=== PATIENT | female | born 1940 | race Caucasian/White ===

== ENCOUNTER 2019-02-07 09:20 | Emergency (ER) | payer MEDICARE, OTHER, SELFPAY ==
[2019-02-07 09:21] VITALS: BP 160/73; PULSE 79; RESP 16; TEMP 36.4; O2SAT 96; BMI 36.3
--- NOTE | 2019-02-07 09:33 | ED.VISSUMM ---
- ER Visit Summary Date of Service: 02/07/19 Chief Complaint: Insect sting History of Present Illness: The patient is a 78 F who presents after a sting from a hornet. This occurred last week. She continues to have a localized reaction of the right breast. She went to an express care and they gave her Keflex and told her to take Benadryl at night. She states it itches locally around this area. No shortness of breath. No tongue swelling. No history of any anaphylaxis. Physical Examination: Vital signs reviewed. HEENT exam unremarkable. No tongue swelling. Heart is regular. Lungs are clear. Abdomen soft. Skin exam reveals locally on the right breast there is local area of hives. There is no erythema. Neurologic exam normal. Test Results: [] Emergency Department Course and Treatment: Patient continues to have a localized reaction to this insect sting. I will give her a 5-day course of prednisone. Hydrocortisone cream topically. She will follow-up with her PCP if symptoms persist. Treatment Plan: [] Disposition: Discharge Impression: Local reaction to insect sting This note was generated with [employer] dictation software. It may contain incorrect words, spelling, and punctuation that were not noted in review of the chart prior to signing ED Disposition - Plan for ED Patient: Referrals: Zach Tucker MD [Primary Care Provider] -
--- NOTE | 2019-02-07 09:35 | ED.DEP ---
ED Disposition - Plan for ED Patient: Disposition: Home or Assisted Living Instructions: ALLERGIC REACTION, Insect (General) Prescriptions: Prednisone [Deltasone] 40 mg PO DAILY #10 tab Prescription Printed Hydrocortisone 1% Crm [Hytone] 1 applic TOPICAL BID #1 tube Prescription Printed Referrals: Zach Tucker MD [Primary Care Provider] -
== END 2019-02-07 09:56 | disposition home or self-care (01) ==
PROVIDERS: Emergency Provider Emergency Medicine; Family Provider Family Medicine; PCP Family Medicine
DX: T63.481A Toxic effect of venom of other arthropod, accidental (unintentional), initial encounter (principal); E11.9 Type 2 diabetes mellitus without complications
CPT/HCPCS: 99282

== ENCOUNTER 2019-06-28 00:10 | Emergency (ER) | payer MEDICARE, OTHER, SELFPAY ==
[2019-06-28 00:11] VITALS: BP 169/74; PULSE 90; RESP 18; TEMP 36.8; O2SAT 93; BMI 36.3
--- NOTE | 2019-06-28 00:32 | RAD_ITS ---
STUDY: X-RAY - LUMBAR SPINE REASON FOR EXAM: Female, 79 years old. Fall TECHNIQUE: 3 view(s) of the lumbar spine were obtained. COMPARISON: None FINDINGS: There is a compression deformity of L1 with approximately 50% loss of vertebral body height. This could be a recent fracture. There is NO retropulsion or malalignment. The remainder of the vertebral bodies are intact. There is normal lumbar lordosis. There is no substantial scoliosis. Normal vertebral bodies and endplates. There is disc space narrowing at L4-5 and L5-S1. There is bilateral facet hypertrophy at L4-5 and L5-S1. The soft tissue structures are unremarkable. RAD/Lumbar Spine 2 or 3 Views IMPRESSION: There is a compression deformity of L1 with approximately 50% loss of vertebral body height. This could be a recent fracture. There is NO retropulsion or malalignment. The remainder of the vertebral bodies are intact. Electronically Signed: Abdelrahman Mathur MD at 1:00 EST , Service support ,
--- NOTE | 2019-06-28 00:32 | ED.VIS.GEN ---
History of Present Illness Chief Complaint: Back Informant: Patient Narrative: Stated that she tried to pull something out of her car today and it gave loose. She fell into the car next to her car in the garage. She then fell onto the ground. She is having pain in her low back. She has a history of L4-L5 disc removal per patient. She has a history of multiple herniated disc in her low back. She is not having radicular pain to her legs. No home treatment. She was having difficulty getting comfortable tonight to sleep and came in for further evaluation and treatment and pain control. No loss of bowel or bladder function. Past Medical History - Allergies and Home Meds Allergies/Adverse Reactions: Allergies spider venom Allergy (Verified 06/28/19 00:14) Swelling Sulfa (Sulfonamide Antibiotics) Allergy (Verified 06/28/19 00:14) Unknown metformin Adverse Reaction (Verified 06/28/19 00:14) Other bee stings Allergy (Uncoded 06/28/19 00:14) Swelling Primary Care Physician: Zach Tucker MD [Primary Care Provider] - Prior records reviewed: Yes Past Medical History: - - Carpal tunnel, lumbar disc disease Surgical History: - - Lumbar L4-L5, carpal tunnel Lives: With Family Smoking Status: Former smoker Alcohol: None Drugs: None Review of Systems General: Denies: Chills, Fever, Sweats Eyes: Denies: Visual changes - bilaterally, Diplopia ENT: Denies: Rhinorrhea, Sore throat Cardiovascular: Denies: Chest pain, Palpitations Respiratory: Denies: Dyspnea, Cough, Dyspnea on exertion Gastrointestinal: Denies: Abdominal pain, Nausea, Vomiting, Diarrhea, Melena, Hematochezia Genitourinary: Denies: Dysuria, Hematuria, Frequency Musculoskeletal: Reports: Back pain. Denies: Extremity Pain Skin: Denies: Rash, Wounds Neurological: Denies: Headache, Weakness, Numbness Physical Exam Vital Signs/Narrative: Vital Signs Temp Pulse Resp BP Pulse Ox 06/28/19 00:11 98.3 F 90 18 169/74 H 93 General: Well nourished, Well developed, No Acute Distress Head: Normocephalic, Atraumatic Eyes: Perrl, EOMI ENT: Moist mucous membranes, No rhinorrhea Neck: Supple, Nontender Cardiovascular: Regular rate, Regular rhythm, No murmurs Respiratory: No distress, CTA bilaterally, Chest nontender Abdomen: Soft, Nontender, Nondistended, Normal bowel sounds Back: Normal Inspection, - - Tenderness diffusely across her lower lumbar spine without swelling or deformity or contusion. Decreased range of motion secondary to pain. Negative straight leg raise test.. Negative for: Nontender, CVA tenderness Extremities: Nontender, No edema Skin: Normal color, No rash Neurological: Alert, Oriented x3, Cranial nerves II-XII grossly intact, Normal Strength, Normal Sensation Psychological: Normal affect, Normal Mood Diagnostic/Tx/Re-eval - Medical Decision Making Patient given injection of morphine. Lumbar x-ray obtained. Lumbar x-ray shows approximately 50% compression deformity of the superior aspect of L1. The patient has not had imaging study per patient in the last 30 years. She is unsure if this is chronic. She feels significantly better after morphine. Requesting discharge. We will follow-up with orthopedics for her L1 compression fracture. Given Vicodin for home. ED Disposition - Plan for ED Patient: Disposition: Home or Assisted Living Diagnosis: Lumbar compression fracture Instructions: Back Fracture (Compression Fracture) Prescriptions: Hydrocodone Bitart/Apap 5-325 [Kermit 5MG-325MG] 1 tab PO Q4H PRN PRN 2 Days #10 tab PRN Reason: Pain Prescription Printed Referrals: Zach Tucker MD [Primary Care Provider] - Gay Castro DO [STAFF PHYSICIAN] -
[2019-06-28] MEDS: Morphine 4 MG/ML Syringe IM (00:36)
[2019-06-28 01:36] VITALS: BP 144/71; PULSE 89; RESP 18; O2SAT 93
== END 2019-06-28 01:38 | disposition home or self-care (01) ==
PROVIDERS: Emergency Provider Emergency Medicine; Family Provider Family Medicine; PCP Family Medicine
DX: S32.059A Unspecified fracture of fifth lumbar vertebra, initial encounter for closed fracture (principal); S32.049A Unspecified fracture of fourth lumbar vertebra, initial encounter for closed fracture; W17.89XA Other fall from one level to another, initial encounter; Y93.9 Activity, unspecified; Y92.59 Other trade areas as the place of occurrence of the external cause; Y99.9 Unspecified external cause status; Z87.891 Personal history of nicotine dependence; Z88.2 Allergy status to sulfonamides
CPT/HCPCS: 72100; 99282

== ENCOUNTER 2019-07-02 00:15 | Inpatient (IN) | payer MEDICARE, OTHER, SELFPAY ==
[2019-07-01 23:01] VITALS: BMI 35.7
[2019-07-01 23:13] VITALS: BP 192/83; PULSE 81; RESP 22; TEMP 37; O2SAT 93
[2019-07-01 23:23] VITALS: BMI 35.7
[2019-07-02] VITALS (8 sets, daily range): BP systolic 142–187; BP diastolic 71–82; PULSE 74–86; RESP 14–18; TEMP 36.7–37.2; O2SAT 89–94
--- NOTE | 2019-07-02 00:19 | MRI_ITS ---
STUDY: MRI LUMBAR SPINE WITHOUT CONTRAST REASON FOR EXAM: Female, 79 years old. Fell 5 days ago with L1 compression fracture. TECHNIQUE: Standardized fat and water weighted pulse sequences were obtained in the sagittal and axial planes. COMPARISON: Lumbar spine radiographs 06/28/2019. FINDINGS: T11-T12: (Sagittal only). Normal endplates. Normal disc height and morphology. Normal central canal and bilateral intervertebral neural foramina. T12-L1: Normal T12 inferior endplate. Moderate right sided loss of vertebral body height due to recent compression fracture of the upper L1 vertebral body. This accounts for the increased disc space height. Normal central canal and bilateral lateral recesses. Mild degenerative facet arthropathy. Normal bilateral intervertebral neural foramina. Normal lumbar lordosis. There is no substantial scoliosis. Normal conus medullaris that terminates at the T12-L1 disc space level. L1-2: Normal endplates. Normal disc height. Small posterior bulging disc. Normal central canal and bilateral lateral recesses. Mild degenerative facet arthropathy. Normal bilateral intervertebral neural foramina. L2-3: Normal endplates. Normal disc height, hydration and morphology. Normal bilateral facet joints. Normal central canal and bilateral lateral recesses. Normal bilateral intervertebral neural foramina. L3-4: Normal endplates. Normal disc height. Moderate central canal stenosis with an AP canal diameter is 7 mm. Posterior ligamentum flavum hypertrophy. Moderate left degenerative facet hypertrophy. Mild right degenerative facet arthropathy. Normal bilateral intervertebral neural foramina. L4-5: Modic type II degenerative fatty changes underneath the vertebral endplates. Moderate disc space height narrowing. Normal central canal. Normal bilateral lateral recesses. Mild degenerative facet arthropathy. Normal bilateral intervertebral neural foramina. L5-S1: Modic type II degenerative vertebral marrow fatty changes underneath the vertebral endplates. Moderate disc space height narrowing. Normal central canal and bilateral lateral recesses. Mild left degenerative facet arthropathy. Normal right facet joint. Normal bilateral intervertebral neural foramina. Normal visualized sacral ala. Normal visualized paraspinous soft tissue structures. MRI/Spine Lumbar (Routine) IMPRESSION: 1. Moderate recent compression fracture of the upper L1 vertebral body. This is feasible for kyphoplasty if patient has debilitating back pain referrable to this site. 2. Moderate central canal stenosis at L3-L4 level with an AP canal diameter of 7 mm. 3. No MRI evidence of lumbar extruded disc fragment. Electronically Signed: Blanco Agarwal MD at 13:53 EST , Service support ,
--- NOTE | 2019-07-02 00:21 | HP.PCM_ITS ---
Problem List (1) Back pain Status: Acute Qualifiers: Back pain location: low back pain Chronicity: acute Back pain laterality: right Sciatica presence: without sciatica Qualified Code(s): M54.5 - Low back pain (2) Compression fracture of L1 lumbar vertebra Status: Suspected Qualifiers: Encounter type: subsequent encounter History of Present Illness Date of Admission: 07/01/19 Chief Complaint: back pain Patient seen and examined on July 01 The patient is a 79 year old F presents with back pain. On the , patient was pulling something out of her car and then fell backwards, initially hitting her head then landing on her buttocks. Patient had back pain immediately. Presented to the emergency room at [place] on the same day and was noted to have an L1 compression fracture. It was undetermined if it was acute or chronic. Patient was given prescription for [place]. Since being at home, she has been just having back pain, not tolerating the narcotics and been throwing up. Patient is unable to been adequately move because of all the pain in her back. She presented to [facility] with these complaints. She underwent a work-up including hip x-rays which showed no hip fracture. The emergency room physician reached out to Dr. Benz, who said he was see the patient in consultation here but did recommend an MRI to evaluate to see if this is acute or chronic. Patient did receive 8 mg of IV morphine sulfate at the [facility]. [] Past Medical History Medical History: Medical History (Last Updated 07/02/19 @ 00:29 by Kaiden Veloz DO) Class 1 obesity E66.9 DM2 (diabetes mellitus, type 2) E11.9 Fatty liver K76.0 GERD (gastroesophageal reflux disease) K21.9 History of hysterectomy Z90.710 Hyperlipidemia E78.5 Hypothyroid E03.9 Chronic back pain M54.9, G89.29 Allergies spider venom Allergy (Verified 06/28/19 00:14) Swelling Sulfa (Sulfonamide Antibiotics) Allergy (Verified 06/28/19 00:14) Unknown metformin Adverse Reaction (Verified 06/28/19 00:14) Other bee stings Allergy (Uncoded 06/28/19 00:14) Swelling Home Medications: Ambulatory Orders Medication Instructions Recorded Levothyroxine [Synthroid] 100 mcg PO DAILY 03/09/16 Meclizine HCl 25 mg PO DAILY PRN 03/09/16 Pantoprazole Sodium [Protonix] 40 mg PO QODAY 03/09/16 Aspirin [Aspirin, Baby] 81 mg PO QHS 07/08/17 Acetaminophen/Codeine #3 1 tab PO Q6H PRN PRN 06/28/19 [Tylenol#3] Multivitamin [Multivitamins] 1 tab PO DAILY 07/01/19 Surgical History: Surgical History (Last Updated 07/02/19 @ 00:29 by Kaiden Veloz DO) H/O lumbar discectomy Z98.890 History of tonsillectomy Z90.89 S/P carotid endarterectomy Z98.890 right 01/04/14 Surgical History: - - Lumbar L4-L5, carpal tunnel Smoking Status: Former smoker Tobacco Use: Non-smoker Alcohol: None Drugs: None - *Family History Maternal History Items: - - no cad Review of Systems Constitutional: Denies: Anorexia, Chills, Fever, Night Sweats, Malaise, Weakness Eyes: Denies: Blurred vision, Double vision HEENT: Denies: Head Aches, Sinus Congestion, Sinus Drainage Cardiovascular: Denies: Chest Pain, Palpitations Respiratory: Denies: Cough, Shortness of breath at rest, Sputum production Gastrointestinal: Reports: Nausea, Vomiting. Denies: Abdominal Pain Genitourinary: Denies: Dysuria Musculoskeletal: Reports: Back Pain. Denies: Leg Pain Skin: Denies: Dryness, Jaundice Neurological: Reports: Numbness - Chronic numbness in her legs after having herniated disks and surgery 30 years ago Psychiatric: Denies: Anxiety, Depression Endocrine: Denies: Change in Body Habitus Hematologic/ Lymphatic: Denies: Easy Bruising, Easy Bleeding, Hx of blood clot Comment: All review systems are otherwise negative except for as mentioned above and in the HPI. VTE Information - Inpt Only VTE Present on Admission: No VTE Mechan Device Prophylaxis: None VTE Pharm Prophylaxis ordered?: No Reason prophylaxis not ordered:: Procedure Not Indicated Patient Problems: Active and Suspected Problems Back pain (Acute) Compression fracture of L1 lumbar vertebra (Suspected) - Physical Exam Vitals/I&O's: Vital Signs Temp Pulse Resp BP Pulse Ox 37.0 C 81 22 H 192/83 H 93 07/01/19 23:13 07/01/19 23:13 07/01/19 23:13 07/01/19 23:13 07/01/19 23:13 Oxygen Delivery Method Room Air Weight: 94.4 kg Body Mass Index (BMI) 35.7 General: Alert, Cooperative, - - Uncomfortable. HEENT: Atraumatic, Normocephalic Oral: Moist Mucosa, No Gingival or Mucosal Lesions/ Ulcerations Neck: No Nodes, Trachea Midline Lungs: Clear to auscultation, Normal air movement, No rhonchi, No wheeze Cardiovascular: Regular rate, Regular Rhythm, Normal S1, Normal S2, No murmurs Abdomen: Bowel Sounds Present, Soft, Non Tender, Non-Distended, No Hepato- splenomegaly, Obese Extremities: No edema, No Calf Tenderness Skin: No rashes, No breakdown Musculoskeletal: - - Tender palpation over the right lower lumbar paraspinal muscles. No point tenderness over the lumbar region. Neurological: Motor Exam 5/5 strength throughout - In the lower extremities, - - Normal Babinski. No clonus. Psych/Mental Status: Normal Affect, Appropriate Labs at the outside hospital: BMP: Creatinine 0.64, sodium 135, potassium 4.1, CBC: White count 10.6, hemoglobin 13.5, platelets 298 INR 1 Hip x-ray of the right hip showed no fracture. Current Medications Sodium Chloride () 10 - 40 ml IV UD PRN PRN Reason: SALINE FLUSH Assessment/Plan All Active Problems Back pain (Acute) 1. Acute back pain * Occurred after fall on the * Patient has noted an L1 compression fracture, is unclear if that is new or old and if that is contributing to her pain. * Patient is unable to function at home due to the pain. * Plans for pain control with acetaminophen, oxycodone and morphine for breakthrough pain * Pain management to further assist with pain control and for the L1 compression fracture, see below. 2. L1 compression fracture * Suspect may be acute but cannot definitely say based on the x-ray * Will need to get an MRI to further evaluate if this is new or old. Patient expressed immediate apprehension about undergoing an MRI and stating that she needs to be knocked out for it and I informed patient that we do not do conscious sedation at this facility. Would be willing to give her lorazepam to help take some the edge off. She states that she will give it a try. Daughter was at bedside dictating that they could probably do it in the intervals of 20 minutes at a time. I did not endorse that as an option to the patient though. * Dr. Benz will be on consultation for pain control and possible kyphoplasty if she is deemed to have an acute significant L1 compression fracture 3. VTE prophylaxis: Low risk as patient is currently observation status at this point time. If the patient is to be here longer than would need to reconsider VTE prophylaxis at that point time. 4. Advanced care planning: Verified with the patient that she is full CODE STATUS. Patient seen and examined on July 01. Code Visit OBSV E&M: 16530 Initial observation care L3 - Billing for 07/01/19
[2019-07-02] MEDS: Morphine 2 MG/ML Syringe IV ×4 (00:39→16:32)
[2019-07-02] MEDS: 0.9% Saline Lock 10 ML Syringe IV ×4 (00:39→16:33)
--- NOTE | 2019-07-02 10:21 | PN_ITS ---
Patient Problems: Active and Suspected Problems (Last Updated 07/02/19 @ 00:29 by Kaiden Veloz DO) Back pain (Acute) Compression fracture of L1 lumbar vertebra (Suspected) Subjective: Patient seen and examined. She was admitted with complaint of back pain. She fell about 4 days prior to admission on reviewing the ED at that time, she was found to have L1 compression fracture which could not be determined whether it was acute or chronic. She was given a prescription for [place] but she had not been tolerating the [place] well at home and back pain was persistent so she decided to come back to the ED. She is awaiting MRI today. Patient still complains of back pain that she states is better controlled now. Review of systems otherwise negative. She denies any numbness or tingling in her lower extremities or any incontinence. She is awaiting MRI. Pain management consulted. Vitals/I&O's: Vital Signs Temp Pulse Resp BP Pulse Ox 98.9 F 80 18 151/76 H 89 07/02/19 07:51 07/02/19 07:51 07/02/19 08:12 07/02/19 07:51 07/02/19 08:12 Oxygen Delivery Method Room Air Weight: 208 lb 1.862 oz Body Mass Index (BMI) 35.7 Intake and Output for Last 24 Hours 06/30/19 07/01/19 07/02/19 23:59 23:59 23:59 Intake Total 300 / 300 Output Total 650 / 650 Balance -350 / -350 General: Alert, Oriented x3, Cooperative, No apparent distress, - - obese HEENT: Atraumatic, PERRLA, EOMI, Normocephalic Oral: Moist Mucosa Neck: Supple, No JVD, Negative Carotid Bruits Lungs: Clear to auscultation, Normal air movement, No rhonchi, No wheeze, No rales Cardiovascular: Regular rate, Regular Rhythm, Normal S1, Normal S2, No murmurs Abdomen: Bowel Sounds Present, Soft, Non Tender, Non-Distended, No Hepato-splenomegaly Extremities: No clubbing, No cyanosis, No edema, Capillary Refill Less than 3 Seconds Skin: No rashes, No breakdown Musculoskeletal: No Tenderness to Palpation of Joints or Extremities Lymphatic: No Cervical, Supraclavicular, or Inguinal Adenopathy Neurological: Cranial nerves II-XII grossly intact Psych/Mental Status: Normal Affect, Appropriate, Alert and oriented to time, place, person, mood and affect Laboratory Results 07/02/19 06:06: Vitamin D 25-Hydroxy Pending Current Medications Acetaminophen (Tylenol) 650 mg PO Q6H PRN PRN PRN Reason: Pain Score 1-3/Temp > 100.7 F Clonidine (Catapres) 0.1 mg PO Q4H PRN PRN PRN Reason: SBP>180 Dextrose (D50w Syringe) 0 gm IV X1 PRN; Protocol PRN Reason: Hypoglycemia Glucagon () 1 mg IM .X1 PRN PRN Reason: Hypoglycemia Lorazepam (Ativan) 1 mg PO X1 PRN PRN Reason: before MRI Melatonin (Melatonin) 3 mg PO QHS PRN PRN PRN Reason: INSOMNIA Morphine Sulfate () 2 mg IV Q3H PRN PRN PRN Reason: breakthrough pain (1-05/24) Last Admin: 07/02/19 09:06 Dose: 2 mg Documented by: Nutritional Formula (Lactose Free) (Ensure Enlive) 120 ml PO 4X/DAY [facility] Last Admin: 07/02/19 07:55 Dose: Not Given Documented by: Ondansetron HCl (Zofran) 4 mg IV Q8H PRN PRN PRN Reason: NAUSEA/VOMITING Oxycodone HCl (Oxyir) 5 mg PO Q4H PRN PRN PRN Reason: Pain Score 4-5/10 Oxycodone HCl (Oxyir) 10 mg PO Q4H PRN PRN PRN Reason: Pain Score 6-10/10 Sodium Chloride () 10 - 40 ml IV UD PRN PRN Reason: SALINE FLUSH Last Admin: 07/02/19 09:07 Dose: 10 ml Documented by: STROKE Vital Signs/Narrative: Vital Signs Temp Pulse Resp BP Pulse Ox 07/02/19 08:12 18 89 07/02/19 07:51 98.9 F 80 18 151/76 H 89 07/02/19 06:31 98.0 F 74 18 142/73 H 94 Medical Necessity - Tobacco Use Smoking Status: Former smoker Tobacco Use: Non-smoker Assessment/Plan All Active Problems (Last Updated 07/02/19 @ 00:29 by Kaiden Veloz DO) Back pain (Acute) 1. Acute back pain likely due to mechanical fall * had L1 compression fracture per xray * pain persistent and not relieved by [place] * pain management consulted. * for MRI of the lumbar spine today * On Tylenol oxycodone and morphine. * 2. L1 compression fracture * Unsure if it is acute or otherwise. * MRI is pending. Pain management on board. * 3. Hypothyroidism: On Synthroid. 4. Elevated blood pressure: * Blood pressure was elevated at 192/83 on admission and at review was 151/76. * Has no known diagnosis of her blood pressure. * This may be due to pain. Will monitor. * IV hydralazine PRN. * If Blood pressure remains elevated will consider starting medication. * DVT prophylaxis: SCDs for now. Code Visit Inpatient E&M: 60582 Subs Hosp L2
[2019-07-02] MEDS: LORazepam 1 MG Tablet PO (10:40)
[2019-07-02] MEDS: oxyCODONE 5 MG Tablet 10 MG PO (10:42)
[2019-07-02 11:01] LABS: Vitamin D,25 Hydroxy 33.5 ng/mL (29.95-100.01)
--- NOTE | 2019-07-02 18:36 | NURSING ---
Attempted to call Daughter Michelle at this time to update her on patient's plan of care and plan for Kyphoplasty Wednesday 07/04 but there was no answer.
[2019-07-02] MEDS: Bisacodyl 5 MG Tablet PO (18:51)
[2019-07-02 22:10] LABS: Bedside Glucose 170 mg/dL (70-110)
[2019-07-03] MEDS: 0.9% Saline Lock 10 ML Syringe IV ×5 (00:06→19:27)
[2019-07-03] MEDS: Morphine 2 MG/ML Syringe IV ×4 (00:06→19:27)
[2019-07-03] MEDS: Ondansetron 4 MG/2 ML Vial IV (00:31)
[2019-07-03 03:59] VITALS: BP 147/73; PULSE 74; RESP 16; TEMP 36.8; O2SAT 93
[2019-07-03 08:28] VITALS: BP 113/66; PULSE 73; RESP 18; TEMP 37; O2SAT 96
[2019-07-03] MEDS: Pantoprazole Sodium 40 MG Tablet PO (09:30)
[2019-07-03] MEDS: Levothyroxine 100 MCG Tablet PO (09:31)
[2019-07-03] MEDS: oxyCODONE 5 MG Tablet 10 MG PO (10:01)
--- NOTE | 2019-07-03 10:40 | PN_ITS ---
Patient Problems: Active and Suspected Problems (Last Updated 07/02/19 @ 00:29 by Kaiden Veloz DO) Back pain (Acute) Compression fracture of L1 lumbar vertebra (Suspected) Subjective: Patient seen and examined. She still complains of back pain. Review of systems is otherwise negative. Labs and vitals reviewed. She is scheduled for kyphoplasty tomorrow. Vitals/I&O's: Vital Signs Temp Pulse Resp BP Pulse Ox 98.6 F 73 18 113/66 96 07/03/19 08:28 07/03/19 08:28 07/03/19 08:28 07/03/19 08:28 07/03/19 08:28 Oxygen Delivery Method Room Air Weight: 208 lb 1.862 oz Body Mass Index (BMI) 35.7 Intake and Output for Last 24 Hours 07/01/19 07/02/19 07/03/19 23:59 23:59 23:59 Intake Total 1020 / 1020 Output Total 1050 / 1050 150 / 150 Balance -30 / -30 -150 / -150 General: Alert, Oriented x3, Cooperative, No apparent distress, HEENT: Atraumatic, PERRLA, EOMI, Normocephalic Oral: Moist Mucosa Neck: Supple, No JVD, Negative Carotid Bruits Lungs: Clear to auscultation, Normal air movement, No rhonchi, No wheeze, No rales Cardiovascular: Regular rate, Regular Rhythm, Normal S1, Normal S2, No murmurs Abdomen: Bowel Sounds Present, Soft, Non Tender, Non-Distended, No Hepato- splenomegaly Extremities: No clubbing, No cyanosis, No edema, Capillary Refill Less than 3 Seconds Skin: No rashes, No breakdown Musculoskeletal: No Tenderness to Palpation of Joints or Extremities Lymphatic: No Cervical, Supraclavicular, or Inguinal Adenopathy Neurological: Cranial nerves II-XII grossly intact Psych/Mental Status: Normal Affect, Appropriate, Alert and oriented to time, place, person, mood and affect Laboratory Results 07/02/19 06:06: Vitamin D 25-Hydroxy 33.5 07/02/19 22:03: POC Glucose 170 H Current Medications Acetaminophen (Tylenol) 650 mg PO Q6H PRN PRN PRN Reason: Pain Score 1-3/Temp > 100.7 F Bisacodyl (Dulcolax) 5 mg PO BID PRN PRN PRN Reason: Constipation Last Admin: 07/02/19 18:51 Dose: 5 mg Documented by: Clonidine (Catapres) 0.1 mg PO Q4H PRN PRN PRN Reason: SBP>180 Dextrose (D50w Syringe) 0 gm IV X1 PRN; Protocol PRN Reason: Hypoglycemia Glucagon () 1 mg IM .X1 PRN PRN Reason: Hypoglycemia Hydralazine HCl (Apresoline Iv) 10 mg IV Q6H PRN PRN PRN Reason: BLOOD PRESSURE ELEVATION Levothyroxine Sodium (Synthroid) 100 mcg PO DAILY@0600 [facility] Last Admin: 07/03/19 09:31 Dose: 100 mcg Documented by: Lorazepam (Ativan) 1 mg PO X1 PRN PRN Reason: before MRI Last Admin: 07/02/19 10:40 Dose: 1 mg Documented by: Meclizine HCl (Antivert) 25 mg PO DAILY PRN PRN Reason: migraines Melatonin (Melatonin) 3 mg PO QHS PRN PRN PRN Reason: INSOMNIA Morphine Sulfate () 2 mg IV Q3H PRN PRN PRN Reason: breakthrough pain (1-05/24) Last Admin: 07/03/19 06:44 Dose: 2 mg Documented by: Multivitamins (Multivitamin) 1 tablet PO DAILY@0800 [facility] Nutritional Formula (Lactose Free) (Ensure Enlive) 120 ml PO 4X/DAY [facility] Last Admin: 07/03/19 08:30 Dose: 120 ml Documented by: Ondansetron HCl (Zofran) 4 mg IV Q8H PRN PRN PRN Reason: NAUSEA/VOMITING Last Admin: 07/03/19 00:31 Dose: 4 mg Documented by: Oxycodone HCl (Oxyir) 5 mg PO Q4H PRN PRN PRN Reason: Pain Score 4-5/10 Oxycodone HCl (Oxyir) 10 mg PO Q4H PRN PRN PRN Reason: Pain Score 6-10/10 Last Admin: 07/03/19 10:01 Dose: 10 mg Documented by: Pantoprazole Sodium (Protonix) 40 mg PO QODAY [facility] Last Admin: 07/03/19 09:30 Dose: 40 mg Documented by: Sodium Chloride () 10 - 40 ml IV UD PRN PRN Reason: SALINE FLUSH Last Admin: 07/03/19 06:44 Dose: 10 ml Documented by: STROKE Vital Signs/Narrative: Vital Signs Temp Pulse Resp BP Pulse Ox 07/03/19 08:28 98.6 F 73 18 113/66 96 Medical Necessity - Tobacco Use Smoking Status: Former smoker Tobacco Use: Non-smoker Assessment/Plan All Active Problems (Last Updated 07/02/19 @ 00:29 by Kaiden Veloz DO) Back pain (Acute) 1. 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 * 2. L1 compression fracture * as under 1. * * 3. Hypothyroidism: On Synthroid. 4. Elevated blood pressure: * no known diagnosis of hypertension * Bp was down to 113/66 this morning. * It appears as pain control has improved, patient;s BP has also improved. * Will continue monitoring. * IV hydralazine prn. * DVT prophylaxis: SCDs for now. Code Visit Inpatient E&M: 32127 Subs Hosp L2
--- NOTE | 2019-07-03 10:55 | CASEMGMT ---
RN CM Face to Face with patient for initial transition planning/care coordination assessment. RN CM introduced self and role at [facility]. Patient lying in bed, alert and oriented. Patient willing to participate in assessment and is able to answer all questions appropriately. Care providers, pharmacy, and demographics verified. Patient wishes to discharge home with possible HHC, also will consider SNF if recommended by therapy. Patient states she has no further needs or concerns at this time. CM to follow for discharge planning needs that may arise. PCP: [facility] Specialists: none Preferred [facility]acy: [facility] Insurance: Tereso REYES Prescription Benefit: yes Living Will/HPOA: Daughter Michelle Das LNOK: Daughter Living Arrangements: Patient lives with daughter in 2 story home with bed and bath on first, currently bed on second, patient independent at home prior to hospitalization and able to ambulate stairs. Transportation: self, daughter DME/HHC: Patient has BSC, cane, walker, wheelchair at home. Patient denies previous SNF or HHC. Disposition Plan: TBD, home with HHC vs SNF pending surgery and therapy. Linda DIAS, RN, CM
[2019-07-03 14:22] VITALS: BP 176/75; PULSE 86; RESP 18; TEMP 36.9; O2SAT 98
[2019-07-03 21:18] VITALS: BP 131/56; PULSE 77; RESP 16; TEMP 37.2; O2SAT 95
[2019-07-04] VITALS (10 sets, daily range): BP systolic 113–159; BP diastolic 49–76; PULSE 76–92; RESP 16–18; TEMP 36.2–36.9; O2SAT 88–95; BMI 35.7
[2019-07-04] MEDS: 0.9% Saline Lock 10 ML Syringe IV ×4 (01:09→10:02)
[2019-07-04] MEDS: Morphine 2 MG/ML Syringe IV ×3 (01:11→10:02)
[2019-07-04 06:03] LABS: Absolute Lymphocyte Count 2.27 X10^3/uL (0.83-4.51); Absolute Neutrophil Count 5.4 X10^3/uL (2.0-7.7); Basophil# 0.07 X10^3/uL; Basophil% 0.8 % (0-1); Eosinophil# 0.33 X10^3/uL; Eosinophils% 3.6 % (0-5); Hematocrit 38.3 % (37-47); Hemoglobin 12.5 g/dL (12.0-15.0); Lymphocyte # 2.27 X10^3/ul (4.0); Lymphocyte % 24.8 % (19-41); Mean Corp Hgb Conc 32.6 g/dL (32-36); Mean Corpuscular Hgb 32.3 pg (27.0-32.0); Mean Platelet Vol. 10.1 fl (6.2-12.0); Monocyte# 1.05 X10^3/uL; Monocyte% 11.5 % (0-10); NRBC Flagged by Analyzer 0 % (0-5); Neutrophil # 5.39 X10^3/uL (2.7-7.7); Neutrophil % 58.9 % (47-70); Platelet Count 314 K/mm3 (150-450); RBC Distribution Width SD 46.5 fl (35.1-43.9); Red Blood Count 3.87 M/mm3 (4.2-5.4); White Blood Count 9.2 K/mm3 (4.4-11.0)
[2019-07-04 06:05] LABS: Prothrombin Time (Protime)PT. 13.1 SECONDS (11.7-14.9)
[2019-07-04 06:23] LABS: Anion Gap 7 (5-15); BUN 17 mg/dL (7-18); BUN/Creat Ratio 24.2 RATIO (10-20); Calcium,Total 9.3 mg/dL (8.5-10.1); Chloride 100 mmol/L (98-107); EST Glomerular Filtration Rate 85 mL/min (>60); Est Glom Filt Rate - Afr Amer 103 mL/min (>60); Estimated Creatinine Clearance 38.75 ml/min; Glucose 134 mg/dL (74-106); Potassium 4.2 mmol/L (3.5-5.1); Sodium Level 135 mmol/L (136-145)
--- NOTE | 2019-07-04 09:57 | PCM.PN.HOSP ---
Patient Problems: Active and Suspected Problems (Last Updated 07/02/19 @ 00:29 by Kaiden Veloz DO) Back pain (Acute) Compression fracture of L1 lumbar vertebra (Suspected) Subjective: Patient seen and examined. Pain is well controlled. She has no other complaints. She is going for kyphoplasty this afternoon. Review of systems otherwise negative. Vitals/I&O's: Vital Signs Temp Pulse Resp BP Pulse Ox 98.4 F 76 18 135/61 H 93 07/04/19 04:32 07/04/19 04:32 07/04/19 04:32 07/04/19 04:32 07/04/19 04:32 Oxygen Delivery Method Room Air Weight: 208 lb 1.862 oz Body Mass Index (BMI) 35.7 Intake and Output for Last 24 Hours 07/02/19 07/03/19 07/04/19 23:59 23:59 23:59 Intake Total 1020 / 1020 400 / 520 120 / 120 Output Total 1050 / 1050 250 / 750 775 / 775 Balance -30 / -30 150 / -230 -655 / -655 General: Alert, Oriented x3, Cooperative, No apparent distress, HEENT: Atraumatic, PERRLA, EOMI, Normocephalic Oral: Moist Mucosa Neck: Supple, No JVD, Negative Carotid Bruits Lungs: Clear to auscultation, Normal air movement, No rhonchi, No wheeze, No rales Cardiovascular: Regular rate, Regular Rhythm, Normal S1, Normal S2, No murmurs Abdomen: Bowel Sounds Present, Soft, Non Tender, Non-Distended, No Hepato-splenomegaly Extremities: No clubbing, No cyanosis, No edema, Capillary Refill Less than 3 Seconds Skin: No rashes, No breakdown Musculoskeletal: No Tenderness to Palpation of Joints or Extremities Lymphatic: No Cervical, Supraclavicular, or Inguinal Adenopathy Neurological: Cranial nerves II-XII grossly intact Psych/Mental Status: Normal Affect, Appropriate, Alert and oriented to time, place, person, mood and affect Laboratory Results 07/04/19 05:30: WBC 9.2, RBC 3.87 L, Hgb 12.5, Hct 38.3, MCV 99.0, MCH 32.3 H, MCHC 32.6, RDW Std Deviation 46.5 H, RDW Coeff of Yuval 13.0, Plt Count 314, MPV 10.1, Immature Gran % (Auto) 0.400, Neut % (Auto) 58.9, Lymph % (Auto) 24.8, [place] % (Auto) 11.5 H, Eos % (Auto) 3.6, Baso % (Auto) 0.8, Absolute Neuts (auto) 5.4, Absolute Lymphs (auto) 2.27, Nucleated RBC % 0 07/04/19 05:30: PT 13.1, INR 1.0 07/04/19 05:30: Sodium 135 L, Potassium 4.2, Chloride 100, Carbon Dioxide 28.0, Anion Gap 7, BUN 17, Creatinine 0.70, Estim Creat Clear Calc 38.75, Est GFR (MDRD) Af Amer 103, Est GFR (MDRD) Non-Af 85, BUN/Creatinine Ratio 24.2 H, Glucose 134 H, Calcium 9.3 Current Medications Acetaminophen (Tylenol) 650 mg PO Q6H PRN PRN PRN Reason: Pain Score 1-3/Temp > 100.7 F Bisacodyl (Dulcolax) 5 mg PO BID PRN PRN PRN Reason: Constipation Last Admin: 07/02/19 18:51 Dose: 5 mg Documented by: Clonidine (Catapres) 0.1 mg PO Q4H PRN PRN PRN Reason: SBP>180 Dextrose (D50w Syringe) 0 gm IV X1 PRN; Protocol PRN Reason: Hypoglycemia Glucagon () 1 mg IM .X1 PRN PRN Reason: Hypoglycemia Hydralazine HCl (Apresoline Iv) 10 mg IV Q6H PRN PRN PRN Reason: BLOOD PRESSURE ELEVATION Sodium Chloride () 1,000 mls @ 75 mls/hr IV .[id number] [facility] Stop: 07/04/19 22:39 Levothyroxine Sodium (Synthroid) 100 mcg PO DAILY@0600 [facility] Last Admin: 07/04/19 04:36 Dose: Not Given Documented by: Lorazepam (Ativan) 1 mg PO X1 PRN PRN Reason: before MRI Last Admin: 07/02/19 10:40 Dose: 1 mg Documented by: Meclizine HCl (Antivert) 25 mg PO DAILY PRN PRN Reason: migraines Melatonin (Melatonin) 3 mg PO QHS PRN PRN PRN Reason: INSOMNIA Morphine Sulfate () 2 mg IV Q3H PRN PRN PRN Reason: breakthrough pain (-05/24) Last Admin: 07/04/19 04:48 Dose: 2 mg Documented by: Multivitamins (Multivitamin) 1 tablet PO DAILY@0800 [facility] Last Admin: 07/04/19 09:53 Dose: Not Given Documented by: Nutritional Formula (Lactose Free) (Ensure Enlive) 120 ml PO 4X/DAY [facility] Last Admin: 07/04/19 09:53 Dose: Not Given Documented by: Ondansetron HCl (Zofran) 4 mg IV Q8H PRN PRN PRN Reason: NAUSEA/VOMITING Last Admin: 07/03/19 00:31 Dose: 4 mg Documented by: Oxycodone HCl (Oxyir) 5 mg PO Q4H PRN PRN PRN Reason: Pain Score 4-5/10 Oxycodone HCl (Oxyir) 10 mg PO Q4H PRN PRN PRN Reason: Pain Score 6-10/10 Last Admin: 07/03/19 10:01 Dose: 10 mg Documented by: Pantoprazole Sodium (Protonix) 40 mg PO QODAY [facility] Last Admin: 07/03/19 09:30 Dose: 40 mg Documented by: Sodium Chloride () 10 - 40 ml IV UD PRN PRN Reason: SALINE FLUSH Last Admin: 07/04/19 04:48 Dose: 10 ml Documented by: Medical Necessity - Tobacco Use Smoking Status: Former smoker Tobacco Use: Non-smoker Assessment/Plan All Active Problems (Last Updated 07/02/19 @ 00:29 by Kaiden Veloz DO) Back pain (Acute) 1. Acute back pain likely due to mechanical fall had L1 compression fracture per xray pain management on board MRI of the lumbar spine showed: moderate recent compression fracture of hte upper L1 vertebral body, and moderate central canal stenosis at L3-4 level for kyphoplasty by Dr Benz today On Tylenol oxycodone and morphine. 2. L1 compression fracture as under 1. 3. Hypothyroidism: On Synthroid. 4. Elevated blood pressure: no known diagnosis of hypertension Bp now down to 130s systolic It appears as pain control has improved, patient;s BP has also improved. Will continue monitoring. IV hydralazine prn. DVT prophylaxis: SCDs Code Visit Inpatient E&M: 88651 Subs Hosp L2
[2019-07-04] MEDS: 0.9% Normal Saline 1,000 ML 75 ML IV (10:03)
--- NOTE | 2019-07-04 14:00 | RAD_ITS ---
CLINICAL HISTORY: Female, 79 years old. Chronic back pain. PROCEDURE: KYPHOPLASTY - L1. FLUOROSCOPY TIME (if supplied): (70.4 seconds) minutes/seconds TECHNIQUE: (All elements of maximal sterile barrier technique followed, including US elements as applicable) Intraoperative fluoroscopic services was provided for vertebroplasty of the L1 vertebrae. RAD/Spine 1 View Any Level IMPRESSION: Intraoperative fluoroscopic service was provided for vertebroplasty of the L1 vertebrae. Electronically Signed: Tad Patel, at 15:43 EST , Service support ,
[2019-07-04 16:25] LABS: Bedside Glucose 133 mg/dL (70-110)
[2019-07-04] MEDS: oxyCODONE 5 MG Tablet 10 MG PO (20:21)
[2019-07-04 20:31] LABS: Bedside Glucose 233 mg/dL (70-110)
[2019-07-05 03:27] VITALS: BP 156/68; PULSE 78; RESP 18; TEMP 37.2; O2SAT 94
[2019-07-05] MEDS: Levothyroxine 100 MCG Tablet PO (05:46)
[2019-07-05] MEDS: Pantoprazole Sodium 40 MG Tablet PO (05:52)
[2019-07-05] MEDS: Acetaminophen 325 MG Tablet 650 MG PO (05:52)
[2019-07-05 10:00] VITALS: BP 128/46; PULSE 70; RESP 16; TEMP 36.8; O2SAT 94
[2019-07-05] MEDS: Multivitamins,Therapeutic Tablet 1 TABLET PO (10:02)
--- NOTE | 2019-07-05 11:00 | CASEMGMT ---
KELI RODRIGUEZ in to follow-up with patient regarding discharge needs. Patient state she is moving well and denies need for HHC at this time. Patient wanting to discharge home. KELI RODRIGUEZ updated patient that should she reconsider HHC she can follow-up with PCP. Patient voiced understanding and denied further needs at this time.
--- NOTE | 2019-07-05 11:09 | DCINST_ITS ---
- Discharge Diagnoses Current Active Problems: Current Active and Chronic Problems (Last Updated 07/02/19 @ 00:29 by Kaiden Veloz DO) Back pain (Acute) You will use the following diet at home:: Cardiac Your food should be the consistency of: Regular Your liquids should be the consistency of: Regular/Thin Discharge Activity: Return to Normal Activity Weight Bearing Status: Weight bearing as tolerated Call your doctor if you observe: Uncontrolled pain Instructions: How Your Back Works, Back Safety: Lifting, Back Safety: Pushing and Pulling, Back Safety: Getting Into and Out of Bed Allergies/Adverse Reactions: Allergies spider venom Allergy (Verified 06/28/19 00:14) Swelling Sulfa (Sulfonamide Antibiotics) Allergy (Verified 06/28/19 00:14) Unknown metformin Adverse Reaction (Verified 06/28/19 00:14) Other bee stings Allergy (Uncoded 06/28/19 00:14) Swelling Medications to take at Discharge Levothyroxine [Synthroid] 100 mcg PO DAILY 03/09/16 Meclizine HCl 25 mg PO DAILY PRN 03/09/16 Pantoprazole Sodium [Protonix] 40 mg PO QODAY 03/09/16 Aspirin [Aspirin, Baby] 81 mg PO QHS 07/08/17 Acetaminophen/Codeine #3 [Tylenol #3 Tablet] 1 tab PO Q6H PRN PRN 06/28/19 Multivitamin [Multivitamins] 1 tab PO DAILY 07/01/19 Primary Care Physician: Zach Tucker MD [Primary Care Provider] - Please follow up with your Primary Care Physician in: one week Test Results: Test results from this visit will be discussed in further detail at your follow- up appointment, if applicable. Proposed Discharge Date: 07/05/19
--- NOTE | 2019-07-05 11:10 | PCM.DC.SUM ---
Discharge Date and Diagnosis Date of Admission: 07/01/19 Date of Discharge: 07/05/19 - Primary Discharge Diagnosis Active and Suspected Problems (Last Updated 07/02/19 @ 00:29 by Kiaden Veloz DO) Back pain (Acute) Compression fracture of L1 lumbar vertebra (Suspected) Hospital Course and Treatment Imaging Results: Diagnostic Data Lumbar Spine MRI 07/02/19 00:19 IMPRESSION: 1. Moderate recent compression fracture of the upper L1 vertebral body. This is feasible for kyphoplasty if patient has debilitating back pain referrable to this site. 2. Moderate central canal stenosis at L3-L4 level with an AP canal diameter of 7 mm. 3. No MRI evidence of lumbar extruded disc fragment. Electronically Signed: Blanco Agarwal MD at 13:53 EST , Service support , Spine X-Ray 07/04/19 14:00 IMPRESSION: Intraoperative fluoroscopic service was provided for vertebroplasty of the L1 vertebrae. Electronically Signed: Tad Patel, at 15:43 EST , Service support , pain management- Dr Benz Operations: None Procedures: - - kyphoplasty Summary of Care Provided: The patient is a 79 year old F with past medical history as listed. She was admitted with complaint of fall 4 days prior to admission. She was admitted on 07/01/2019. Imaging done in the ED showed L1 compression fracture which could not be determined whether it was chronic or acute. She had been seen earlier in the ED after she fell 4 days prior to admission and was given a prescription for [place] but she could not tolerate the [place] and the pain was persistent so she came back to the ED. She was admitted and managed for acute intractable pain due to L1 compression fracture. She had an MRI of the lumbar spine which showed an acute L1 compression fracture. Pain management was consulted. Patient had kyphoplasty of the L1 on 07/04/2019 and tolerated procedure well. Pain became well controlled she remained stable. She was discharged home on 07/05/2019 and is follow-up with her primary care doctor within 1 week. Patient seen and examined prior to discharge. She had no complaints and felt well. Review of systems otherwise negative. Labs and vitals reviewed. Medications reviewed and reconciled. o/e: Vital Signs Height 5 ft 4 in Weight: 208 lb 1.862 oz Weight in Pounds 208.1 lbs Pulse Ox 94 Temperature 98.2 F Pulse Rate 70 Respiratory Rate 16 Blood Pressure [BP] 159/72 Blood Pressure 128/46 Blood Pressure Position [BP] Semi-Fowlers Blood Pressure Position Semi-Fowlers [] General: Alert, Oriented x3, Cooperative, No apparent distress, HEENT: Atraumatic, PERRLA, EOMI, Normocephalic Oral: Moist Mucosa Neck: Supple, No JVD, Negative Carotid Bruits Lungs: Clear to auscultation, Normal air movement, No rhonchi, No wheeze, No rales Cardiovascular: Regular rate, Regular Rhythm, Normal S1, Normal S2, No murmurs Abdomen: Bowel Sounds Present, Soft, Non Tender, Non-Distended, No Hepato-splenomegaly Extremities: No clubbing, No cyanosis, No edema, Capillary Refill Less than 3 Seconds Skin: No rashes, No breakdown Musculoskeletal: No Tenderness to Palpation of Joints or Extremities Lymphatic: No Cervical, Supraclavicular, or Inguinal Adenopathy Neurological: Cranial nerves II-XII grossly intact Psych/Mental Status: Normal Affect, Appropriate, Alert and oriented to time, place, person, mood and affect Plan as above - Physical Exam Vitals/I&O's: Vital Signs Temp Pulse Resp BP Pulse Ox 98.2 F 70 16 128/46 H 94 07/05/19 10:00 07/05/19 10:00 07/05/19 10:00 07/05/19 10:00 07/05/19 10:00 Oxygen Flow Rate (L/min) 2 Oxygen Delivery Method Room Air Weight: 208 lb 1.862 oz Body Mass Index (BMI) 35.7 Finger Stick Blood Glucose 133 Intake and Output for Last 24 Hours 07/03/19 07/04/19 07/05/19 23:59 23:59 23:59 Intake Total 400 / 520 1120 / 1120 Output Total 250 / 750 775 / 775 700 / 700 Balance 150 / -230 345 / 345 -700 / -700 Laboratory Results 07/04/19 16:19: POC Glucose 133 H 07/04/19 20:22: POC Glucose 233 H Current Medications Acetaminophen (Tylenol) 650 mg PO Q6H PRN PRN PRN Reason: Pain Score 1-3/Temp > 100.7 F Last Admin: 07/05/19 05:52 Dose: 650 mg Documented by: Bisacodyl (Dulcolax) 5 mg PO BID PRN PRN PRN Reason: Constipation Last Admin: 07/02/19 18:51 Dose: 5 mg Documented by: Clonidine (Catapres) 0.1 mg PO Q4H PRN PRN PRN Reason: SBP>180 Dextrose (D50w Syringe) 0 gm IV X1 PRN; Protocol PRN Reason: Hypoglycemia Glucagon () 1 mg IM .X1 PRN PRN Reason: Hypoglycemia Hydralazine HCl (Apresoline Iv) 10 mg IV Q6H PRN PRN PRN Reason: BLOOD PRESSURE ELEVATION Levothyroxine Sodium (Synthroid) 100 mcg PO DAILY@0600 [facility] Last Admin: 07/05/19 05:46 Dose: 100 mcg Documented by: Lorazepam (Ativan) 1 mg PO X1 PRN PRN Reason: before MRI Last Admin: 07/02/19 10:40 Dose: 1 mg Documented by: Meclizine HCl (Antivert) 25 mg PO DAILY PRN PRN Reason: migraines Melatonin (Melatonin) 3 mg PO QHS PRN PRN PRN Reason: INSOMNIA Morphine Sulfate () 2 mg IV Q3H PRN PRN PRN Reason: breakthrough pain (1-05/24) Last Admin: 07/04/19 10:02 Dose: 2 mg Documented by: Multivitamins (Multivitamin) 1 tablet PO DAILY@0800 [facility] Last Admin: 07/05/19 10:02 Dose: 1 tablet Documented by: Nutritional Formula (Lactose Free) (Ensure Enlive) 120 ml PO 4X/DAY [facility] Last Admin: 07/05/19 10:03 Dose: 120 ml Documented by: Ondansetron HCl (Zofran) 4 mg IV Q8H PRN PRN PRN Reason: NAUSEA/VOMITING Last Admin: 07/03/19 00:31 Dose: 4 mg Documented by: Oxycodone HCl (Oxyir) 5 mg PO Q4H PRN PRN PRN Reason: Pain Score 4-5/10 Oxycodone HCl (Oxyir) 10 mg PO Q4H PRN PRN PRN Reason: Pain Score 6-10/10 Last Admin: 07/04/19 20:21 Dose: 10 mg Documented by: Pantoprazole Sodium (Protonix) 40 mg PO QODAY [facility] Last Admin: 07/05/19 05:52 Dose: 40 mg Documented by: Sodium Chloride () 10 - 40 ml IV UD PRN PRN Reason: SALINE FLUSH Last Admin: 07/04/19 10:02 Dose: 10 ml Documented by: Discharge Diet: Low fat/ Low Cholesterol Discharge Activity: Return to Normal Activity Weight Bearing Status: Weight bearing as tolerated Call your doctor if you observe: Uncontrolled pain Home Medications: Medications to take at Discharge Levothyroxine [Synthroid] 100 mcg PO DAILY 03/09/16 Meclizine HCl 25 mg PO DAILY PRN 03/09/16 Pantoprazole Sodium [Protonix] 40 mg PO QODAY 03/09/16 Aspirin [Aspirin, Baby] 81 mg PO QHS 07/08/17 Acetaminophen/Codeine #3 [Tylenol #3 Tablet] 1 tab PO Q6H PRN PRN 06/28/19 Multivitamin [Multivitamins] 1 tab PO DAILY 07/01/19 Primary Care Physician: Zach Tucker MD [Primary Care Provider] - Please follow up with your Primary Care Physician in: one week Patient Instructions: How Your Back Works, Back Safety: Getting Into and Out of Bed, Back Safety: Lifting, Back Safety: Pushing and Pulling Disposition: Home Minutes spent on discharge:: 35 Patient Condition:: Stable Medical Necessity - Tobacco Use Smoking Status: Former smoker Tobacco Use: Non-smoker Meaningful Use Info Meaningful Use Diagnoses (Choose all that apply): None applicable Code Visit Inpatient E&M: 91107 Disch Hosp
== END 2019-07-05 11:45 | disposition home or self-care (01) | DRG 517 ==
PROVIDERS: Anesthesiology Pain Medicine; Family Provider Family Medicine; PCP Family Medicine; Visit Provider Student in an Organized Health Care Education/Training Program
PROC: 0QS03ZZ Reposition Lumbar Vertebra, Percutaneous Approach (ICD-10-PCS; principal; 2019-07-04 13:45)
DX: S32.018A Other fracture of first lumbar vertebra, initial encounter for closed fracture (principal); W18.30XA Fall on same level, unspecified, initial encounter; Y93.89 Activity, other specified; E03.9 Hypothyroidism, unspecified; M48.061 Spinal stenosis, lumbar region without neurogenic claudication; R03.0 Elevated blood-pressure reading, without diagnosis of hypertension
CPT/HCPCS: 36415; 72020; 72148; 76000; 80048; 82306; 82962; 85025; 85610; 97161; 97166; 97530; 97803; J7030; A4216; J2405

== ENCOUNTER → 2019-07-19 09:38 | Outpatient (CLI) | payer MEDICARE, OTHER, SELFPAY ==
[2019-07-04 10:24] VITALS: BMI 35.7
--- NOTE | 2019-07-19 10:12 | BD_ITS ---
STUDY: DUAL ENERGY X-RAY ABSORPTIOMETRY / DXA REASON FOR EXAM: Female, 79 years old. Early menopause. Loss of height. TECHNIQUE: Bone Mineral Density (BMD) measurements of lumbar spine and bilateral hips were obtained. COMPARISON: None. FINDINGS: Lumbar Spine (L1-L4): g/cm2 (0.887) / T-score (-2.6) / Z-score (-0.8) Findings are suggestive of osteoporosis with a high fracture risk. Left Femur Total: g/cm2 (0.914) / T-score (-0.7) / Z-score (1.3) Left Femoral Neck: g/cm2 (0.766) / T-score (-2.0) / Z-score (0.2) Right Femur Total: g/cm2 (0.892) / T-score (-0.9) / Z-score (1.1) Right Femoral Neck: g/cm2 (0.793) / T-score (-1.8) / Z-score (0.4) BD/Dexa Bone Density Study IMPRESSION: The patient is considered osteoporotic as outlined below according to World [employer] Organization (WHO) criteria with a high fracture risk. Reference Information: The T-score is the number of standard deviations above or below the standard which is normal for young adults at their peak bone mineral density. The World Health Organization (WHO) interprets the T-scores as follows: Above -1 Normal bone density Between -1 and -2.5 Osteopenia Equal to / or below -2.5 Osteoporosis As a practical clinical guideline, osteopenia may be graded as follows: Mild -1 through -1.5 Moderate -1.6 through -2.0 Severe -2.1 through -2.4 The Z-score is the number of standard deviations above or below age-matched controls. A Z-score of less than -1.5 would be considered abnormal. References: 1. NIH Osteoporosis and Related Bone Diseases http://www.osteo.org 2. International Society for Clinical Densitometry http://www.iscd.org 3. National Osteoporosis Foundation http://www.nof.org Electronically Signed: Tad Patel, at 14:41 EST , Service support ,
== END ==
PROVIDERS: Family Provider Family Medicine; PCP Family Medicine; Referring Provider Family Medicine; Visit Provider Family Medicine
DX: Z13.820 Encounter for screening for osteoporosis (principal); S32.050A Wedge compression fracture of fifth lumbar vertebra, initial encounter for closed fracture
CPT/HCPCS: 77080

== ENCOUNTER → 2019-08-29 11:05 | Outpatient (CLI) | payer MEDICARE, OTHER, SELFPAY ==
[2019-07-04 10:24] VITALS: BMI 35.7
--- NOTE | 2019-08-29 11:13 | RAD_ITS ---
STUDY: X-RAY - LUMBAR SPINE REASON FOR EXAM: Female, 79 years old. History of prior injury 30 years ago. Fell June 27 with L1 fracture and then kyphoplasty. Continued pain. TECHNIQUE: 3 view(s) of the lumbar spine were obtained. COMPARISON: June 28, 2019 FINDINGS: Stable diffuse osteopenia. Normal lumbar lordosis. There is no substantial scoliosis. There is a normal alignment of the vertebrae. Anterior wedge compression deformity of L1 with kyphoplasty changes, unaltered. Mild intervertebral disc space narrowing at L4-5 unchanged. Diffuse facet sclerosis unchanged. Stable marked vascular calcification. RAD/Lumbar Spine 2 or 3 Views IMPRESSION: Osteopenia with mild lumbar spondylosis unchanged. L1 compression deformity with kyphosis changes unaltered. No new acute finding. Electronically Signed: Nicola Fay MD at 17:53 EST , Service support ,
--- NOTE | 2019-08-29 11:14 | RAD_ITS ---
STUDY: X-RAY - THORACIC SPINE REASON FOR EXAM: Female, 79 years old. Injury 30 years ago with L1 compression fracture June 27, 2019 status post kyphoplasty. Continued pain, particularly in the area of the shoulder blades. TECHNIQUE: 3 view(s) of the thoracic spine were obtained on 4 images. COMPARISON: None. FINDINGS: Generalized osteopenia. Normal kyphosis of the thoracic spine. There is no substantial scoliosis. Normal thoracic vertebrae and endplates. Diffuse mild intervertebral disc space narrowing with small osteophytes. The soft tissue structures are unremarkable. RAD/Thoracic Spine 3 Views IMPRESSION: Osteopenia with mild diffuse thoracic spondylosis. No acute finding. Electronically Signed: Nicola Fay MD at 17:54 EST , Service support ,
== END ==
PROVIDERS: Family Provider Family Medicine; PCP Family Medicine; Referring Provider Anesthesiology Pain Medicine; Visit Provider Anesthesiology Pain Medicine
DX: M54.9 Dorsalgia, unspecified (principal)
CPT/HCPCS: 72072; 72100

== ENCOUNTER → 2019-09-04 08:40 | Outpatient (CLI) | payer MEDICARE, OTHER, SELFPAY ==
[2019-08-30 11:05] VITALS: BMI 35.7
[2019-09-04 08:57] VITALS: BP 132/69; PULSE 63; RESP 16; TEMP 35.5; O2SAT 95; BMI 34.5
[2019-09-04] MEDS: Zoledronic Acid 5 MG 100 ML 300 MG IV (09:21)
[2019-09-04 09:52] VITALS: BP 136/63; PULSE 61; RESP 16
== END ==
PROVIDERS: PCP Family Medicine; Referring Provider Internal Medicine Endocrinology, Diabetes & Metabolism; Visit Provider Internal Medicine Endocrinology, Diabetes & Metabolism
DX: M81.0 Age-related osteoporosis without current pathological fracture (principal)
CPT/HCPCS: 96365; A4216; J3489

== ENCOUNTER → 2020-01-30 10:27 | Outpatient (CLI) | payer MEDICARE, OTHER, SELFPAY ==
[2019-09-04 08:57] VITALS: BMI 34.5
--- NOTE | 2020-01-30 10:32 | RAD_ITS ---
STUDY: X-RAY - PELVIS AND BILATERAL HIPS REASON FOR EXAM: Female, 79 years old. Bilateral hip pain, left more than right -- x years -- No specific injury TECHNIQUE: AP view of the pelvis.? 2 views of the right hip, and 2 views of the left hip were obtained. COMPARISON: None. FINDINGS: There is a non-specific bowel gas pattern. There are multiple calcified phleboliths. Normal bilateral iliac wings, sacroiliac joints and visualized sacrum. Normal bilateral superior and inferior pubic rami. There are degenerative changes of the pubic symphysis with articular narrowing and sclerosis. Normal bilateral ischial tuberosities. Normal visualized right femoral head. There is osteoarthritic spur formation of the right acetabular rim. There is mild articular joint space narrowing of the right hip. Normal visualized left femoral head. There is osteoarthritic spur formation of the left acetabular rim. There is mild articular joint space narrowing of the left hip. 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 Electronically Signed: Tad Patel, at 15:43 EDT , Service support ,
== END ==
PROVIDERS: PCP Family Medicine; Referring Provider Anesthesiology Pain Medicine; Visit Provider Anesthesiology Pain Medicine
DX: M25.559 Pain in unspecified hip (principal)
CPT/HCPCS: 73521

== ENCOUNTER 2020-01-31 11:33 | Emergency (ER) | payer MEDICARE, OTHER, SELFPAY ==
[2019-09-04 08:57] VITALS: BMI 34.5
[2020-01-31 11:34] VITALS: BP 184/94; PULSE 79; RESP 18; TEMP 36.7; O2SAT 96; BMI 35.0
--- NOTE | 2020-01-31 11:54 | CT_ITS ---
STUDY: CT BRAIN WITHOUT CONTRAST REASON FOR EXAM: Female, 79 years old. VERTIGO/DELGADO. Hx of diabetes, hypothyroid RADIATION DOSAGE (If Supplied By Facility): CTDIvol = ( 60.81 ) mGy, DLP = ( 1135.50 ) mGycm TECHNIQUE: Transaxial CT imaging of the brain was performed without administration of intravenous contrast material. Individualized dose optimization techniques were used for this CT. COMPARISON: Comparison is made with prior study dated July 08, 2017. FINDINGS: Normal soft tissue structures. Normal calvarium. There is mild cerebral atrophy with widening of the extra-axial spaces and ventricular dilatation. There are areas of decreased attenuation within the white matter tracts of the supratentorial brain, consistent with microvascular disease changes. Normal basal ganglia and thalami. Normal brainstem. Normal cerebellum. There is no intracranial hemorrhage. There are no findings of an acute ischemic infarction. Normal visualized paranasal sinuses. CT/Brain/Head without Contrast IMPRESSION: Chronic involutional changes of the brain. Electronically Signed: Tad Patel, at 13:08 EDT , Service support ,
[2020-01-31] MEDS: proMETHazine 25 MG/ML Syringe 6.25 MG IV (12:18)
--- NOTE | 2020-01-31 12:46 | ED.VIS.GEN ---
History of Present Illness Chief Complaint: Dizziness Narrative: 79-year-old female with a history of peripheral vertigo presents with a vertigo flareup. She states that she has had a long history of this. She is usually able to control it by doing quick maneuvers with her neck and head to dislodge the crystals. She also takes Antivert at home. She has been in vestibular therapy in the past. She denies any head trauma recently or falls but she has had a posterior headache for several months now. It was not sudden or severe at onset. No stroke or strokelike symptoms. Her symptoms of vertigo are severe and sudden at onset. She has associated nausea and vomiting. They are very positional, when she leans forward or with certain turning movements. Never vague or indolent onset. Capacity - Capacity Assessment Tool Can the patient make a choice & communicate that choice?: Yes Past Medical History - Allergies and Home Meds Allergies/Adverse Reactions: Allergies spider venom Allergy (Verified 01/31/20 11:37) Swelling Sulfa (Sulfonamide Antibiotics) Allergy (Verified 01/31/20 11:37) Unknown meloxicam Adverse Reaction (Verified 01/31/20 11:37) NEEDS FOLLOW-UP dizziness metformin Adverse Reaction (Verified 01/31/20 11:37) Other bee stings Allergy (Uncoded 01/31/20 11:37) Hives Primary Care Physician: Zach Tucker MD [Primary Care Provider] - Prior records reviewed: Yes Surgical History: no surgical history, - - Lumbar L4-L5, carpal tunnel Lives: Alone Smoking Status: Former smoker Drugs: None - Family History Maternal Family History: Family History (Last Reviewed 08/30/19 @ 11:[address] Mao Rabago MD) Father Alcoholism Heart disease Mother Arthritis Osteoporosis Brother Myocardial infarction Heart disease CVA (cerebral vascular accident) Skin cancer Grandmother Osteoporosis Uterine cancer Family History: Reports: - - no cad Review of Systems General: Denies: Chills, Fever, Sweats Eyes: Denies: Visual changes - bilaterally, Diplopia ENT: Denies: Rhinorrhea, Sore throat Cardiovascular: Denies: Chest pain, Palpitations Respiratory: Denies: Dyspnea, Cough, Dyspnea on exertion Gastrointestinal: Denies: Abdominal pain, Nausea, Vomiting, Diarrhea, Melena, Hematochezia Genitourinary: Denies: Dysuria, Hematuria, Frequency Musculoskeletal: Denies: Back pain, Extremity Pain Skin: Denies: Rash, Wounds Neurological: Denies: Headache, Weakness, Numbness Physical Exam Vital Signs/Narrative: Vital Signs Temp Pulse Resp BP Pulse Ox 01/31/20 11:34 98.0 F 79 18 184/94 H 96 General: Well nourished, Well developed, No Acute Distress Head: Normocephalic, Atraumatic Eyes: Perrl, EOMI ENT: Moist mucous membranes, No rhinorrhea Neck: Supple, Nontender Cardiovascular: Regular rate, Regular rhythm, No murmurs Respiratory: No distress, CTA bilaterally, Chest nontender Abdomen: Soft, Nontender, Nondistended, Normal bowel sounds Back: Nontender, Normal Inspection Extremities: Nontender, No edema Skin: Normal color, No rash Neurological: Alert, Oriented x3, Cranial nerves II-XII grossly intact, Normal Strength, Normal Sensation Psychological: Normal affect, Normal Mood Diagnostic/Tx/Re-eval - Medical Decision Making Symptoms appear consistent with peripheral vertigo. It is sudden and severe at onset. It is very positional and she has associated nausea. I have an extremely low suspicion for posterior circulation stroke/vertebrobasilar insufficiency. He was given IV fluids and Phenergan. Her symptoms resolved. Because she has had several months of headache, I did check a head CT. It was normal. 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 She was given meclizine and feels better. Her family is at the bedside. She is requesting to be discharged home and feels back at baseline. She is going to follow-up with her doctor to undergo vestibular therapy again. She will return here if worse. ED Disposition - Plan for ED Patient: Disposition: Home or Assisted Living Diagnosis: Peripheral vertigo Instructions: ED BPV Vertigo Referrals: Zach Tucker MD [Primary Care Provider] -
[2020-01-31 12:59] LABS: Anion Gap 5 (5-15); BUN 11 mg/dL (7-18); BUN/Creat Ratio 14.9 RATIO (10-20); Calcium,Total 9.6 mg/dL (8.5-10.1); Chloride 106 mmol/L (98-107); Creatinine, Serum 0.74 mg/dL (0.55-1.02); EST Glomerular Filtration Rate 80 mL/min (>60); Est Glom Filt Rate - Afr Amer 97 mL/min (>60); Estimated Creatinine Clearance 38.75 ml/min; Glucose 112 mg/dL (74-106); Potassium 3.7 mmol/L (3.5-5.1); Sodium Level 140 mmol/L (136-145)
--- NOTE | 2020-01-31 14:13 | ED.VIS.GEN ---
History of Present Illness Chief Complaint: Dizziness Past Medical History - Allergies and Home Meds Allergies/Adverse Reactions: Allergies spider venom Allergy (Verified 01/31/20 11:37) Swelling Sulfa (Sulfonamide Antibiotics) Allergy (Verified 01/31/20 11:37) Unknown meloxicam Adverse Reaction (Verified 01/31/20 11:37) NEEDS FOLLOW-UP dizziness metformin Adverse Reaction (Verified 01/31/20 11:37) Other bee stings Allergy (Uncoded 01/31/20 11:37) Hives Primary Care Physician: Zach Tucker MD [Primary Care Provider] - Surgical History: no surgical history, - - Lumbar L4-L5, carpal tunnel Lives: Alone Smoking Status: Former smoker Drugs: None - Family History Maternal Family History: Family History (Last Reviewed 08/30/19 @ 11:[address] Mao Rabago MD) Father Alcoholism Heart disease Mother Arthritis Osteoporosis Brother Myocardial infarction Heart disease CVA (cerebral vascular accident) Skin cancer Grandmother Osteoporosis Uterine cancer Family History: Reports: - - no cad Physical Exam Vital Signs/Narrative: Vital Signs Temp Pulse Resp BP Pulse Ox 01/31/20 11:34 98.0 F 79 18 184/94 H 96 ED Disposition - Plan for ED Patient: Disposition: Home or Assisted Living Diagnosis: Peripheral vertigo Instructions: ED BPV Vertigo Prescriptions: Meclizine HCl [Antivert] 25 mg PO 4X/DAY PRN PRN #20 tablet PRN Reason: Dizziness Referrals: Zach Tucker MD [Primary Care Provider] -
[2020-01-31] MEDS: Meclizine HCl 25 MG Tablet PO (14:16)
[2020-01-31 14:17] VITALS: BP 179/72; PULSE 68; RESP 16; O2SAT 97
== END 2020-01-31 14:27 | disposition home or self-care (01) ==
PROVIDERS: Emergency Provider Emergency Medicine; PCP Family Medicine
DX: H81.399 Other peripheral vertigo, unspecified ear (principal); E03.9 Hypothyroidism, unspecified; E11.9 Type 2 diabetes mellitus without complications; Z82.3 Family history of stroke; Z82.49 Family history of ischemic heart disease and other diseases of the circulatory system; Z87.891 Personal history of nicotine dependence; Z88.2 Allergy status to sulfonamides; Z88.8 Allergy status to other drugs, medicaments and biological substances
CPT/HCPCS: 70450; 80048; 96374; 99284; J7040; A4216

== ENCOUNTER → 2020-02-13 09:56 | Outpatient (CLI) | payer MEDICARE, OTHER, SELFPAY ==
[2020-01-31 11:34] VITALS: BMI 35.0
--- NOTE | 2020-02-13 10:00 | RAD_ITS ---
STUDY: X-RAY - CERVICAL SPINE REASON FOR EXAM: Female, 79 years old. PAIN TECHNIQUE: 3 view(s) of the cervical spine were obtained. COMPARISON: None FINDINGS: Normal anterior atlantoaxial articulation. Normal odontoid process. Normal cervical lordosis. Normal vertebral bodies and endplates. There is moderate narrowing of the C3-4 and C5-6 disc spaces. Surgical clips are seen in the soft tissues of the right neck. RAD/Cerv Spine 2 or 3 Views IMPRESSION: Moderate narrowing of the C3-4 and C5-6 disc spaces. There is no evidence of fracture or subluxation. Electronically Signed: Gordon Quintero MD at 17:01 EDT , Service support ,
== END ==
PROVIDERS: PCP Family Medicine; Referring Provider Anesthesiology Pain Medicine; Visit Provider Anesthesiology Pain Medicine
DX: M54.2 Cervicalgia (principal)
CPT/HCPCS: 72040

== ENCOUNTER 2020-07-22 13:01 | Emergency (ER) | payer MEDICARE, OTHER, SELFPAY ==
[2020-07-22 13:01] VITALS: BP 175/86; PULSE 96; RESP 20; TEMP 35.9; O2SAT 97; BMI 34.8
--- NOTE | 2020-07-22 14:16 | CT_ITS ---
STUDY: CT CERVICAL SPINE WITHOUT CONTRAST REASON FOR EXAM: Female, 80 years old. CHRONIC NECK PAIN, FALL X 3 IN THE LAST FEW WEEKS RADIATION DOSAGE (If Supplied By Facility): CTDIvol = ( 26.38 ) mGy, DLP = ( 532.05 ) mGycm TECHNIQUE: High resolution transaxial imaging was performed without contrast material. Sagittal and coronal images were reconstructed. Individualized dose optimization techniques were used for this CT. COMPARISON: None FINDINGS: Normal craniovertebral junction. There are degenerative changes of the anterior atlantoaxial articulation. Normal odontoid process. Normal cervical lordosis. Normal vertebral bodies and posterior osseous elements. C2-3: Normal endplates. Normal disc height and morphology. Normal central canal and intervertebral neuroforamina. C3-4: Mild degree of disc space narrowing. Uncovertebral arthrosis. C4-5: Mild degree of disc space narrowing. Uncovertebral arthrosis with bilateral neural foraminal stenosis worse on the right side. C5-6: Moderate degree of disc space narrowing. Mild spondylosis. Uncovertebral arthrosis. Mild to moderate degree of bilateral neural foraminal stenosis. C6-7: Moderate degree of disc space narrowing. Mild degree of uncovertebral arthrosis. C7-T1: Normal endplates. Normal disc height and morphology. Normal central canal and intervertebral neuroforamina. Normal visualized soft tissue structures. CT/Spine Cervical without Contras IMPRESSION: Multilevel degenerative changes, as described above. Electronically Signed: Tad Patel, at 16:04 EST , Service support ,
--- NOTE | 2020-07-22 14:16 | EKG12_ITS ---
Test Reason : FALL Blood Pressure : / mmHG Vent. Rate : 093 BPM Atrial Rate : 093 BPM P-R Int : 132 ms QRS Dur : 062 ms QT Int : 354 ms P-R-T Axes : 015 001 025 degrees QTc Int : 440 ms Normal sinus rhythm Low voltage QRS Cannot rule out Anterior infarct , age undetermined Abnormal ECG Confirmed by YVONNE AVENDAÑO, MIYA ([id number]), deputy editor in chief LUIS GIRALDO ([id number]) on 07/25/2020 8:53:09 A M Referred By: NATA Confirmed By:RUBIN RUSSELL MD
[2020-07-22 15:04] LABS: Absolute Lymphocyte Count 2.15 X10^3/uL (0.83-4.51); Absolute Neutrophil Count 5.6 X10^3/uL (2.0-7.7); Basophil# 0.04 X10^3/uL; Basophil% 0.5 % (0-1); Eosinophil# 0.14 X10^3/uL; Eosinophils% 1.6 % (0-5); Hematocrit 42.1 % (37-47); Lymphocyte # 2.15 X10^3/ul (4.0); Lymphocyte % 24.2 % (19-41); Mean Corp Hgb Conc 33.3 g/dL (32-36); Mean Corpuscular Hgb 32.7 pg (27.0-32.0); Mean Corpuscular Volume 98.4 fL (81-99); Mean Platelet Vol. 9.9 fl (6.2-12.0); Monocyte# 0.95 X10^3/uL; Monocyte% 10.7 % (0-10); NRBC Flagged by Analyzer 0 % (0-5); Neutrophil # 5.57 X10^3/uL (2.7-7.7); Neutrophil % 62.7 % (47-70); Platelet Count 334 K/mm3 (150-450); RBC Distribution Width CV 13.2 % (11.6-14.6); RBC Distribution Width SD 47.6 fl (35.1-43.9); Red Blood Count 4.28 M/mm3 (4.2-5.4); White Blood Count 8.9 K/mm3 (4.4-11.0)
[2020-07-22 15:32] LABS: Anion Gap 4 (5-15); BUN 11 mg/dL (7-18); BUN/Creat Ratio 13.5 RATIO (10-20); Calcium,Total 9.6 mg/dL (8.5-10.1); Chloride 106 mmol/L (98-107); Creatinine, Serum 0.81 mg/dL (0.55-1.02); EST Glomerular Filtration Rate 72 mL/min (>60); Est Glom Filt Rate - Afr Amer 87 mL/min (>60); Estimated Creatinine Clearance 47.04 ml/min; Glucose 139 mg/dL (74-106); Potassium 3.7 mmol/L (3.5-5.1); Sodium Level 138 mmol/L (136-145)
--- NOTE | 2020-07-22 15:50 | RAD_ITS ---
STUDY: X-RAY CHEST REASON FOR EXAM: Female, 80 years old. Fall, pain TECHNIQUE: Single frontal view of the chest. COMPARISON: None. FINDINGS: Cardiac silhouette unremarkable. Pulmonary vascularity unremarkable. Aorta unremarkable. No focal airspace opacities. No pleural effusions. Upper abdomen unremarkable. Osseous structures intact. No pneumothorax. RAD/Chest 1 View (Portable) IMPRESSION: No acute cardiopulmonary process identified. Electronically Signed: Luis Bowman, at 16:31 EST Tel , Service support ,
--- NOTE | 2020-07-22 16:31 | ED.DCSUM_ITS ---
History of Present Illness Chief Complaint: Fall Narrative: Patient presenting for evaluation secondary to frequent falls and neck pain. Patient reports that she has a history of having some chronic back pain in the past. She had a kyphoplasty performed by Dr. Benz. Patient states that in the [place] of this year, she started to have some increasing issues with neck pain. She did some virtual visits with primary care, who did think that this was likely secondary to a muscular etiology. Patient reports that she has had some progression of this neck pain over the left side of her neck and the bottom of her head. Patient attributes the progression of this pain to the fact that she has had recent falls that are increasing in frequency. She has had 3 within the last week or so. She reports that she simply will be standing, and then will feel as if she wakes up on the ground. She has struck her thoracic back during 1 of these falls. She denies any preceding chest pain palpitations or shortness of breath. Patient denies any numbness or weakness. She denies any infectious signs or symptoms associated with this. Review of systems otherwise negative. Past Medical History - Allergies and Home Meds Allergies/Adverse Reactions: Allergies spider venom Allergy (Verified 07/22/20 13:31) Swelling Sulfa (Sulfonamide Antibiotics) Allergy (Verified 07/22/20 13:31) Unknown meloxicam Adverse Reaction (Verified 07/22/20 13:31) NEEDS FOLLOW-UP dizziness metformin Adverse Reaction (Verified 07/22/20 13:31) Other bee stings Allergy (Uncoded 07/22/20 13:31) Hives Primary Care Physician: Zach Tucker MD [Primary Care Provider] - Past Medical History: - - Diabetes, hyperlipidemia, chronic neck and back pain, hypothyroidism Surgical History: no surgical history, - - Lumbar L4-L5, carpal tunnel Smoking Status: Current every day smoker - Family History Maternal Family History: Family History (Last Reviewed 08/30/19 @ 11:[address] Mao Rabago MD) Father Alcoholism Heart disease Mother Arthritis Osteoporosis Brother Myocardial infarction Heart disease CVA (cerebral vascular accident) Skin cancer Grandmother Osteoporosis Uterine cancer Family History: Reports: - - no cad Physical Exam Vital Signs/Narrative: Vital Signs Temp Pulse Resp BP Pulse Ox 07/22/20 13:01 96.6 F L 96 20 H 175/86 H 97 Diagnostic/Tx/Re-eval Clinical Impression(s) from Imaging Studies Cervical Spine CT 07/22/20 14:16 IMPRESSION: Multilevel degenerative changes, as described above. Electronically Signed: Tad Patel, at 16:04 EST , Service support , Chest X-Ray 07/22/20 15:50 IMPRESSION: No acute cardiopulmonary process identified. Electronically Signed: Luis Bowamn, at 16:31 EST Tel , Service support , Laboratory Data 07/22/20 07/22/20 14:50 14:50 WBC 8.9 RBC 4.28 Hgb 14.0 Hct 42.1 MCV 98.4 MCH 32.7 H MCHC 33.3 RDW Std Deviation 47.6 H RDW Coeff of Yuval 13.2 Plt Count 334 MPV 9.9 Immature Gran % (Auto) 0.300 Neut % (Auto) 62.7 Lymph % (Auto) 24.2 Curry % (Auto) 10.7 H Eos % (Auto) 1.6 Baso % (Auto) 0.5 Absolute Neuts (auto) 5.6 Absolute Lymphs (auto) 2.15 Nucleated RBC % 0 Sodium 138 Potassium 3.7 Chloride 106 Carbon Dioxide 28.0 Anion Gap 4 L BUN 11 Creatinine 0.81 Estim Creat Clear Calc 47.04 Est GFR (MDRD) Af Amer 87 Est GFR (MDRD) Non-Af 72 BUN/Creatinine Ratio 13.5 Glucose 139 H Calcium 9.6 Troponin I < 0.015 - Medical Decision Making Patient presenting secondary to frequent falls. She describes this almost as if she was having syncopal episodes, so I did work her up for the possibility of syncope. EKG found to be unremarkable. Sinus rhythm [address] segments normal T waves. Chest x-ray by my personal review as well as radiology shows no acute cardiopulmonary pathology. Given the patient's increasing neck pain I did perform a CT of the neck, this does not show any evidence of acute pathology shows degenerative changes. Patient's troponin CBC and chemistry unremarkable. Urine is pending at this time, patient was given a lidocaine patch for treatment of her neck pain. This would seem very atypical for syncope, I do not feel that the patient requires admission for rule out of malignant arrhythmia. Patient's urine will be checked by the oncoming physician, and then the patient will be dispositioned to home whether or not its with or without antibiotics. Patient was given reassurance. She will follow-up with pain management next week as previously scheduled. ED Disposition - Plan for ED Patient: Disposition: Home or Assisted Living Diagnosis: Frequent falls, Chronic neck pain Instructions: ED Fall Prevention, ED Neck Pain Referrals: Miguelina Benz MD [STAFF PHYSICIAN] - Keep Marce appointment
[2020-07-22 18:20] VITALS: BP 186/88; PULSE 79; RESP 16; O2SAT 95
[2020-07-22 18:24] LABS: Bacteria 0 SEEN /hpf (None Seen); Mucous, Urine 0 SEEN /hpf (<or=2+); Red Blood Cells-Urine 0 SEEN /hpf (0-5)
[2020-07-22 18:32] LABS: Color, Urine Yellow (Yellow); Glucose, Dipstick Normal (Normal); Ketone-Dipstick Negative (Negative); Leukocyte Esterase-Dipstick 25 /ul (Negative); Nitrite-Dipstick Negative (Negative); Occult Blood-Urine Negative /ul (Negative); Protein-Dipstick Negative (Negative); Urine Bilirubin Dipstick Negative (Negative); Urine Clarity Clear (Clear); Urine Urobilinogen Normal (Normal)
[2020-07-22] MEDS: Lidocaine 5% Patch 1 PATCH TOPICAL (18:33)
[2020-07-22 19:03] LABS: Amorphous Sediment 1+ URATE; Squamous Epithelial Cells - UA 0-5 SEEN /hpf (5-10); White Blood Cells 0-5 SEEN /hpf (0-5)
== END 2020-07-22 19:17 | disposition home or self-care (01) ==
PROVIDERS: Emergency Provider Emergency Medicine; PCP Family Medicine
DX: R29.6 Repeated falls (principal); M54.2 Cervicalgia; G89.29 Other chronic pain; E03.9 Hypothyroidism, unspecified; E11.9 Type 2 diabetes mellitus without complications; E78.5 Hyperlipidemia, unspecified; F17.200 Nicotine dependence, unspecified, uncomplicated; Z82.3 Family history of stroke; Z82.49 Family history of ischemic heart disease and other diseases of the circulatory system; Z88.2 Allergy status to sulfonamides; Z88.8 Allergy status to other drugs, medicaments and biological substances
CPT/HCPCS: 71045; 72125; 80048; 81001; 84484; 85025; 93005; 99284; A4216

== ENCOUNTER → 2020-08-12 12:29 | Outpatient (CLI) | payer MEDICARE, OTHER, SELFPAY ==
[2020-07-22 13:01] VITALS: BMI 34.8
--- NOTE | 2020-08-12 12:33 | RAD_ITS ---
STUDY: X-RAY - PELVIS AND LEFT HIP REASON FOR EXAM: Female, 80 years old. left hip pain -- NKI TECHNIQUE: 3 views of the pelvis and hip. COMPARISON: 01/30/2020. FINDINGS: No acute fracture, dislocation or osseous destruction. Mild joint space narrowing at the hips. Mild pubic symphysis arthrosis. Normal sacroiliac joints. Mild lumbar spine osteoarthritis. No significant soft tissue swelling. Pelvic phleboliths. RAD/HIP, UNI W/ Pelvis 2-3 Views IMPRESSION: Left hip and pelvis intact Mild bilateral hip osteoarthrosis Electronically Signed: Kaiden Hills DO at 13:45 EST Tel , Service support ,
== END ==
PROVIDERS: PCP Family Medicine; Visit Provider Anesthesiology Pain Medicine
DX: M25.552 Pain in left hip (principal)
CPT/HCPCS: 73502

== ENCOUNTER → 2020-08-29 08:47 | Outpatient (CLI) | payer MEDICARE, OTHER, SELFPAY ==
[2020-08-29 08:12] VITALS: BMI 36.0
[2020-08-29 12:41] LABS: Anion Gap 5 (5-15); BUN 19 mg/dL (7-18); Calcium,Total 9.2 mg/dL (8.5-10.1); Chloride 107 mmol/L (98-107); Creatinine, Serum 0.73 mg/dL (0.55-1.02); EST Glomerular Filtration Rate 81 mL/min (>60); Est Glom Filt Rate - Afr Amer 98 mL/min (>60); Glucose 120 mg/dL (74-106); Potassium 4.2 mmol/L (3.5-5.1); Sodium Level 140 mmol/L (136-145)
== END ==
PROVIDERS: PCP Family Medicine; Referring Provider Internal Medicine Endocrinology, Diabetes & Metabolism; Visit Provider Internal Medicine Endocrinology, Diabetes & Metabolism
DX: M81.0 Age-related osteoporosis without current pathological fracture (principal); E55.9 Vitamin D deficiency, unspecified
CPT/HCPCS: 36415; 80048; 82306

== ENCOUNTER → 2020-09-12 09:51 | Outpatient (CLI) | payer MEDICARE, OTHER, SELFPAY ==
[2020-08-29 08:12] VITALS: BMI 36.0
[2020-09-12 10:02] VITALS: BP 184/66; PULSE 83; RESP 18; TEMP 35.9; O2SAT 97; BMI 34.8
[2020-09-12] MEDS: Zoledronic Acid 5 MG 100 ML 300 MG IV (10:24)
[2020-09-12] MEDS: 0.9% NaCl Peripheral Flush Adult/Peds IV (10:24)
[2020-09-12 10:58] VITALS: BP 148/57; PULSE 71; RESP 18
== END ==
PROVIDERS: PCP Family Medicine; Referring Provider Internal Medicine Endocrinology, Diabetes & Metabolism; Visit Provider Internal Medicine Endocrinology, Diabetes & Metabolism
DX: M81.0 Age-related osteoporosis without current pathological fracture (principal)
CPT/HCPCS: 96365; A4216; J3489

== ENCOUNTER → 2020-10-01 16:20 | Outpatient (CLI) | payer MEDICARE, OTHER, SELFPAY ==
[2020-09-12 10:02] VITALS: BMI 34.8
== END ==
PROVIDERS: PCP Family Medicine; Referring Provider Anesthesiology Pain Medicine; Visit Provider Anesthesiology Pain Medicine
DX: F11.20 Opioid dependence, uncomplicated (principal)
CPT/HCPCS: 80307

== ENCOUNTER → 2020-10-08 10:51 | Outpatient (CLI) | payer MEDICARE, OTHER, SELFPAY ==
[2020-09-12 10:02] VITALS: BMI 34.8
[2020-10-08 11:59] LABS: Amphetamine Urine VISTA NEGATIVE (<1000 ng/mL); Barbiturate Urine VISTA NEGATIVE (< 200 ng/mL); Benzodiazepine Urine VISTA NEGATIVE (< 200 ng/mL); Cocaine Urine VISTA NEGATIVE (< 300 ng/mL); Ecstacy Urine VISTA NEGATIVE (< 500 ng/mL); Methadone Urine VISTA NEGATIVE (< 300 ng/mL); PCP Urine VISTA NEGATIVE (< 25 ng/mL); THC Urine VISTA NEGATIVE (< 50 ng/mL); Vista UDS pH Range 6
== END ==
PROVIDERS: PCP Family Medicine; Referring Provider Anesthesiology Pain Medicine; Visit Provider Anesthesiology Pain Medicine
DX: F11.20 Opioid dependence, uncomplicated (principal)
CPT/HCPCS: 80307

== ENCOUNTER → 2020-12-13 07:32 | Outpatient (CLI) | payer MEDICARE, OTHER, SELFPAY ==
[2020-12-05 10:01] VITALS: BMI 36.6
--- NOTE | 2020-12-13 07:33 | MRI_ITS ---
STUDY: MRI CERVICAL SPINE WITHOUT CONTRAST REASON FOR EXAM: Female, 80 years old. Cervical Pain TECHNIQUE: Standardized fat and water weighted pulse sequences were obtained in the sagittal and axial planes. COMPARISON: CT Cervical Spine Jul 22 2020 FINDINGS: Normal foramen magnum and brainstem-cervical cord junction. There is straightening of the normal cervical lordosis. C2-3: There is minimal disc space narrowing and endplate spondylosis. There is no significant disc herniation, central canal or foraminal stenosis. C3-4: There is moderate disc space narrowing and endplates spondylosis. Mild disc osteophyte complex and dorsal ligamentous buckling with moderate central canal stenosis. Uncovertebral arthropathy with mild right and mild left foraminal stenosis. C4-5: There is moderate disc space narrowing and endplates spondylosis. Mild disc osteophyte complex with mild central canal stenosis. Uncovertebral arthropathy with moderate right and mild left foraminal stenosis. C5-6: There is moderate disc space narrowing and endplates spondylosis. Mild disc osteophyte complex with mild central canal stenosis. Uncovertebral arthropathy with moderate right and mild left foraminal stenosis. C6-7: There is moderate disc space narrowing and endplates spondylosis. Mild disc osteophyte complex with mild central canal stenosis. Uncovertebral arthropathy with mild right and mild left foraminal stenosis. There is minimal grade 1 anterolisthesis. C7-T1: There is minimal disc space narrowing and endplate spondylosis. There is no significant disc herniation, central canal or foraminal stenosis. Normal cervical cord. MRI/Spine Cervical (Routine) IMPRESSION: C3-4: moderate central canal C4-5: moderate right and mild left foraminal stenosis. C5-6: moderate right and mild left foraminal stenosis. Electronically Signed: Xiang Rose MD at 8:30 EDT Tel , Service support ,
== END ==
PROVIDERS: PCP Family Medicine; Referring Provider Orthopaedic Surgery; Visit Provider Orthopaedic Surgery
DX: M50.30 Other cervical disc degeneration, unspecified cervical region (principal)
CPT/HCPCS: 72141

== ENCOUNTER 2021-08-20 08:51 | Outpatient (CLI) | payer MEDICARE, OTHER, SELFPAY ==
[2021-08-20 12:52] LABS: ALB/GLOB Ratio 0.8 RATIO (0.9-2.4); AST(SGOT) 49 U/L (15-37); Alanine Aminotransfer ALT/SGPT 39 U/L (13-56); Albumin, Serum 3.3 g/dL (3.2-5.0); Alkaline Phosphatase 70 U/L (45-117); Anion Gap 8 (5-15); BUN 14 mg/dL (7-18); BUN/Creat Ratio 18.8 RATIO (10-20); Calcium,Total 9.7 mg/dL (8.5-10.1); Chloride 103 mmol/L (98-107); Creatinine, Serum 0.74 mg/dL (0.55-1.02); EST Glomerular Filtration Rate 79 mL/min (>60); Est Glom Filt Rate - Afr Amer 96 mL/min (>60); Globulin 4.1 g/dL (2.2-4.2); Glucose 133 mg/dL (74-106); Potassium 4.4 mmol/L (3.5-5.1); Protein, Total 7.4 g/dL (6.4-8.2); Sodium Level 139 mmol/L (136-145)
[2021-08-20 13:27] LABS: Vitamin D,25 Hydroxy 59.6 ng/mL
== END 2021-08-20 23:59 | disposition short-term general hospital (02) ==
LOC: BIMLAB 08:52
PROVIDERS: PCP Family Medicine; Referring Provider Internal Medicine Endocrinology, Diabetes & Metabolism; Visit Provider Internal Medicine Endocrinology, Diabetes & Metabolism
DX: M81.0 Age-related osteoporosis without current pathological fracture (principal); E55.9 Vitamin D deficiency, unspecified
CPT/HCPCS: 36415; 80053; 82306

== ENCOUNTER 2021-09-04 10:30 | Outpatient (CLI) | payer MEDICARE, OTHER, SELFPAY ==
[2021-09-04] MEDS: 0.9% NaCl Peripheral Flush Adult/Peds IV (10:42)
[2021-09-04 10:56] VITALS: BP 134/47; PULSE 76; RESP 16; TEMP 36.3; O2SAT 98
[2021-09-04] MEDS: Zoledronic Acid 5 MG 100 ML 300 MG IV (11:09)
== END 2021-09-04 23:59 | disposition short-term general hospital (02) ==
LOC: MEDOUTP 10:31
PROVIDERS: PCP Family Medicine; Referring Provider Internal Medicine Endocrinology, Diabetes & Metabolism; Visit Provider Internal Medicine Endocrinology, Diabetes & Metabolism
DX: M81.0 Age-related osteoporosis without current pathological fracture (principal)
CPT/HCPCS: 96365; A4216; J3489

== ENCOUNTER 2021-09-14 17:07 | Outpatient (CLI) | payer MEDICARE, OTHER, SELFPAY ==
[2021-09-14 18:15] LABS: Absolute Lymphocyte Count 1.58 X10^3/uL (0.83-4.51); Basophil# 0.04 X10^3/uL; Basophil% 0.6 % (0-1); Eosinophil# 0.19 X10^3/uL; Eosinophils% 2.9 % (0-5); Hematocrit 35.4 % (37-47); Hemoglobin 11.7 g/dL (12.0-15.0); Lymphocyte # 1.58 X10^3/ul (0.83-4.51); Lymphocyte % 24.2 % (19-41); Mean Corp Hgb Conc 33.1 g/dL (32-36); Mean Corpuscular Hgb 33.2 pg (27.0-32.0); Mean Corpuscular Volume 100.6 fL (81-99); Mean Platelet Vol. 10.5 fl (6.2-12.0); Monocyte# 0.72 X10^3/uL; NRBC Flagged by Analyzer 0 % (0-5); Neutrophil # 3.98 X10^3/uL (2.7-7.7); Platelet Count 312 K/mm3 (150-450); RBC Distribution Width CV 13.5 % (11.6-14.6); RBC Distribution Width SD 49.1 fl (35.1-43.9); Red Blood Count 3.52 M/mm3 (4.2-5.4); White Blood Count 6.5 K/mm3 (4.4-11.0)
[2021-09-14 19:50] LABS: Vitamin D,25 Hydroxy 45.7 ng/mL
[2021-09-14 19:57] LABS: ALB/GLOB Ratio 0.8 RATIO (0.9-2.4); AST(SGOT) 38 U/L (15-37); Alanine Aminotransfer ALT/SGPT 32 U/L (13-56); Albumin, Serum 3.3 g/dL (3.2-5.0); Alkaline Phosphatase 108 U/L (45-117); Anion Gap 7 (5-15); BUN 15 mg/dL (7-18); BUN/Creat Ratio 18.8 RATIO (10-20); Calcium,Total 8.9 mg/dL (8.5-10.1); Chloride 106 mmol/L (98-107); EST Glomerular Filtration Rate 73 mL/min (>60); Est Glom Filt Rate - Afr Amer 88 mL/min (>60); Globulin 4.2 g/dL (2.2-4.2); Glucose 176 mg/dL (74-106); Potassium 3.8 mmol/L (3.5-5.1); Protein, Total 7.5 g/dL (6.4-8.2); Sodium Level 139 mmol/L (136-145); Thyroid Stim Hormone (TSH) 0.29 uIU/mL (0.358-3.74)
[2021-09-15 11:01] LABS: T3 Uptake 30 % (30-39); T4 Free Direct 1.34 ng/dL (0.76-1.46)
== END 2021-09-14 23:59 | disposition short-term general hospital (02) ==
LOC: POLAB3 17:08
PROVIDERS: PCP Family Medicine Geriatric Medicine; Visit Provider Family Medicine Geriatric Medicine
DX: E03.9 Hypothyroidism, unspecified (principal); E55.9 Vitamin D deficiency, unspecified; R53.83 Other fatigue
CPT/HCPCS: 36415; 80053; 82306; 84439; 84443; 84479; 85025

== ENCOUNTER 2021-10-13 14:47 | Outpatient (CLI) | payer MEDICARE, OTHER, SELFPAY ==
--- NOTE | 2021-10-13 14:54 | CT_ITS ---
STUDY: LOW DOSE CT LUNG CANCER SCREENING REASON FOR EXAM: Female, 81 years old. History of smoking 3 packs per day x50 years, quit 13 years ago RADIATION DOSAGE (If Supplied By Facility): CTDIvol = ( 2.39 ) mGy, DLP = ( 73.85 ) mGycm TECHNIQUE: No contrast was administered. Low dose technique was utilized (average mAS-38 and kVp 120). 1.25 mm axial source images with a slice interval of 1.25-mm were reconstructed in lung windows. 2.5 mm axial source images with a slice interval of 2.5-mm were reconstructed in lung windows. 5.0 mm axial source images with a slice interval of 5.0-mm were reconstructed in soft tissue windows. Nodule measured using lung windows on PACS and/or independent workstation with automated measurement of minimum and maximum diameter. Nodule measurement reported as average diameter rounded to the nearest whole number. Growth is defined as an increase ins size of greater than 1.5 mm. COMPARISON: None. FINDINGS: Lungs are normally expanded without a superimposed infiltrate. No suspicious noncalcified mass or nodule. There are scattered calcified granulomata. There is a normal-appearing thyroid gland. No suspicious adenopathy. There are calcified coronary vessels and peripheral calcifications in the thoracic aorta. Bony structures show degenerative change. CT/Low Dose CT Lung Screening IMPRESSION: Lung-RADS category 2 - Continue annual screening with LDCT in 12 months. IMPORTANT NOTES FOR USE: ACR Lung-RADS Version 1.1 Assessment Categories Release Date: 2018 Category: Coded 0-4 bases on nodule(s) with highest degree of suspicion. Negative screen is defined as categories 1 and 2; a positive screen is defined as categories 3 and 4. Category 3 and 4A nodules that are unchanged on interval CT should be coded as category 2, and individuals returned to screening in 12 months. Category 4X: Category 3 or 4 nodules with additional imaging findings that increase the suspicion of lung cancer, such as spiculation, GGN that doubles in size in 1 year, enlarged lymph notes, etc. Category Modifiers: S (significant finding unrelated to lung cancer) Electronically Signed: Jose Hurtado MD at 15:20 EST ,
== END 2021-10-13 23:59 | disposition home or self-care (01) ==
LOC: CT 14:50
PROVIDERS: PCP Family Medicine Geriatric Medicine; Referring Provider Family Medicine Geriatric Medicine; Visit Provider Family Medicine Geriatric Medicine
DX: Z12.2 Encounter for screening for malignant neoplasm of respiratory organs (principal); Z87.891 Personal history of nicotine dependence
CPT/HCPCS: 71271

== ENCOUNTER 2021-10-23 15:48 | Emergency (ER) | payer MEDICARE, OTHER, SELFPAY ==
[2021-10-23 15:48] VITALS: BP 136/62; PULSE 94; RESP 18; TEMP 36.2; O2SAT 95; O2SAT 96; BMI 31.8
--- NOTE | 2021-10-23 17:17 | CT_ITS ---
HISTORY: abdominal pain EXAMINATION: CT Abdomen And Pelvis W/ Contrast Injection TECHNIQUE: Helically acquired images were obtained of the abdomen and pelvis following oral and IV contrast. A radiation dose optimization technique was used for this scan. IV Contrast dosage and agent: 100mL [id number]-300 Oral contrast: Yes. COMPARISON: None FINDINGS: LOWER CHEST: Lung bases are clear. No cardiomegaly or pericardial effusion. LIVER: Nodular margins. No concerning focal mass. GALLBLADDER AND BILIARY TREE: Cholecystectomy. No intra- or extrahepatic biliary ductal dilation. PANCREAS: No focal cystic or solid mass. SPLEEN: Normal size without focal cystic or solid mass. ADRENAL GLANDS: No nodules. KIDNEYS AND URETERS: Normal renal size and position. No hydronephrosis. PERITONEUM: No ascites or free air. BOWEL: No evidence of acute appendicitis. No stomach or bowel distension. Circumferential wall thickening of the ascending colon. Minimal adjacent fatty stranding. LYMPH NODES: No enlarged mesenteric or retroperitoneal lymph nodes. VESSELS: Aorta is non-dilated. URINARY BLADDER: Unremarkable. REPRODUCTIVE ORGANS: No pelvic masses. Uterus absent. ABDOMINAL WALL: Small fat-containing umbilical hernia. BONES: No acute or aggressive abnormality. L1 kyphoplasty changes. CT/Abdomen/Pelvis WITH Contrast IMPRESSION: Findings suspicious for colitis of the ascending colon. Possible hepatic cirrhosis. Individualized dose optimization techniques were used for this CT. at 2012 Reported and signed by: Antony Carcamo MD Electronically Signed: Antony Carcamo MD at 20:11 EST ,
--- NOTE | 2021-10-23 17:19 | ED.VIS.GI ---
HPI HPI - GI History of Present Illness Chief Complaint: Nausea/Vomiting Narrative Narrative: 81-year-old female presenting with nausea and vomiting. She states has been going on for about 2 days. She states she vomited all night the night before last and then the next day she was able to eat a little bit and drink fluids. Last night she states she vomited all night. Today she has decreased p.o. intake. She has been able to drink water and has epigastric burning. She states he has a history of a hiatal hernia. Patient states he is also had diarrhea. She denies any sick contacts. She has no recent antibiotics. No fever or chills. She does admit to a runny nose. She has a dry mouth. Denies urinary complaints or vaginal complaints. No chest pain, palpitations, shortness of breath. [facility] Medical History Arthritis Back problem Cataracts, bilateral Chronic back pain Class 1 obesity DM2 (diabetes mellitus, type 2) Fatty liver GERD (gastroesophageal reflux disease) Hearing problem Hives Hyperlipidemia Hypothyroid l rotater cuff repair l thumb surgery Neuropathy Home Medications levothyroxine 100 mcg PO DAILY 03/09/16 [History Last Taken 07/01/19] pantoprazole 40 mg PO QODAY 03/09/16 [History Last Taken 07/01/19] aspirin 81 mg PO QHS 07/08/17 [History Last Taken 07/01/19] multivitamin 1 tab PO DAILY 07/01/19 [History Last Taken 07/01/19] fish, borage, flaxseed oils-omega 3,6,9 comb no.1 1,200 mg capsule 2 cap PO DAILY cap 08/30/19 [History Last Taken Unknown] meclizine 25 mg PO 4X/DAY PRN PRN #20 tab 01/31/20 [Rx Last Taken Unknown] cholecalciferol (vitamin D3) 50 mcg (2,000 unit) tablet 50 mcg PO DAILY tab 10/20/20 [History Last Taken Unknown] hydrocodone-acetaminophen 5-325mg 5mg-325mg ea PO 10/20/20 [History Last Taken Unknown] acetaminophen 300 mg-codeine 30 mg tablet 1 tab PO tab 08/20/21 [History Last Taken Unknown] zoledronic acid 5 mg/100 mL in mannitol 5 %-water intravenous piggybck 1 ea .ROUTE ONCE #100 ml 08/20/21 [Rx Last Taken Unknown] promethazine [Promethegan] 25 mg NV Q6H PRN PRN #12 ea 10/23/21 [Rx Last Taken Unknown] Allergy/AdvReac Type Severity Reaction Status Date / Time Sulfa (Sulfonamide Allergy Mild Rash Verified 09/04/21 11:00 Antibiotics) spider venom Allergy Swelling Verified 09/04/21 11:00 meloxicam AdvReac Mild dizziness Verified 09/04/21 11:00 metformin AdvReac Mild Eleavted BP Verified 09/04/21 11:00 bee stings Allergy Hives Uncoded 09/04/21 11:00 Family History Father Alcoholism Heart disease Mother Arthritis Osteoporosis Brother Myocardial infarction Heart disease CVA (cerebral vascular accident) Skin cancer Grandmother Osteoporosis Uterine cancer Surgical History H/O lumbar discectomy H/O right knee surgery History of carpal tunnel release History of hysterectomy History of tonsillectomy S/P carotid endarterectomy Social History household members: none housing: house number of children: 1 Smoking Status: Former smoker Tobacco: How many years used: 55 alcohol intake: never substance use type: does not use what type of physical activity do you participate in: other frequency: 3-4 times per week do you feel safe at home: Yes ROS ROS ED Constitutional Constitutional ED: Denies chills, fever(s) or sweats Eyes Eyes: Denies blurry vision or change in vision ENT ENT ED: Denies ear pain or sore throat Cardiovascular Cardiovascular: Denies chest pain, palpitations or racing heartbeat Respiratory/Chest Respiratory/Chest: Denies cough, dyspnea or sputum Gastrointestinal Gastrointestinal: Reports abdominal pain, diarrhea, nausea and vomiting; Denies constipation Genitourinary Genitourinary ED: Denies dysuria, hematuria or urinary frequency Musculoskeletal Musculoskeletal: Denies arthralgias, myalgias or neck pain Integumentary Denies abscess, Abrasions or rash Neurologic Neurologic: Denies headache(s), paresthesias or weakness Psychiatric Psychiatric: Denies anxiety, depression, suicidal ideation or suicidal thoughts Endocrine Endocrinology: Denies polydipsia or polyuria EXAM Physical Exam Const Vital Signs: 10/23/21 15:48 10/23/21 19:36 10/23/21 20:50 Temperature 97.1 F L Temperature Source Temporal Pulse Rate 94 86 80 Respiratory Rate 18 14 16 Blood Pressure 136/62 H 126/53 H Blood Pressure Mean 86 77 Pulse Ox 95 95 Oxygen Delivery Method Room Air Room Air Positive well nourished, obese, alert, oriented x3 and no apparent distress General Appearance ED: Negative for pallor Nutritional Appearance: obese HEENT Reports normocephalic, head/scalp atraumatic and dry mucous membranes Mouth ED: Yes dry mucous membranes Mouth: dry mucous membranes Eyes PERRL and EOMs intact bilaterally Neck no lymphadenopathy and supple Chest Wall inspection of chest normal and palpation of chest normal Resp normal respiratory effort and clear to auscultation bilaterally Auscultation: Negative for rales, rhonchi or wheezes Cardio regular rate and regular rhythm GI GI Narrative: Epigastric tenderness to palpation. Auscultation: normoactive bowel sounds Palpation: soft Narrative: Deferred Back/Spine no CVA tenderness General Back: Negative for CVA tenderness Cervical Spine: Negative for cervical spine tenderness Extremity normal to inspection General Extremety ED: Yes edema and tenderness General Extremity: edema Neuro oriented x3 and CN's II-XII intact bilaterally Sensorium / Orientation: alert Motor Exam: strength 5/5 throughout Psych mental status grossly normal Attitude: No agitated Skin no rashes or lesions noted and no wounds General Skin Exam: Negative for jaundice or pallor MDM MDM MDM Narrative Medical decision making narrative: Patient seen and evaluated for nausea/vomiting as well as a mild abdominal pain she finds analgesia but does want something for nausea. IV Zofran was given. She was given a liter of IV fluids. CBC is obtained and shows a white blood cell count of 9.7, hemoglobin stable at 12.1, platelets 274. Renal function and electrolytes are within normal limits. Total bilirubin is slightly elevated at 1.30 however LFTs are within normal limits. Urinalysis is negative for infection. CT of the abdomen pelvis with IV contrast is obtained which shows a possible colitis. I do not believe the patient needs antibiotics. On reevaluation the patient felt improved and wished to be discharged home. She has oral Phenergan at home but states that when she takes these sometimes she has nausea and cannot keep them down. For this reason I gave her rectal Phenergan because she states Zofran does not work for her. Patient counseled to hydrate well. I discussed foods to avoid and recommended that she try t drink plenty of fluids. Patient discharged home in stable condition. Impression: 1. Nausea/vomiting 2. Diarrhea 3. Abdominal pain Lab Data Attestation: I reviewed the patient's lab results. Labs: Laboratory Results - last 24 hr 10/23/21 10/23/21 10/23/21 17:30 17:30 19:00 WBC 9.7 RBC 3.66 L Hgb 12.1 Hct 36.6 L MCV 100.0 H MCH 33.1 H MCHC 33.1 RDW Std Deviation 50.4 H RDW Coeff of Yuval 13.7 Plt Count 274 MPV 10.1 Immature Gran % (Auto) 0.200 Neut % (Auto) 82.6 H Lymph % (Auto) 10.0 L Eddy % (Auto) 7.0 Eos % (Auto) 0.0 Baso % (Auto) 0.2 Absolute Neuts (auto) 8.0 H Absolute Lymphs (auto) 0.97 Nucleated RBC % 0 Sodium 136 Potassium 3.8 Chloride 104 Carbon Dioxide 27.0 Anion Gap 5 BUN 20 H Creatinine 0.88 Estim Creat Clear Calc 42.56 Est GFR (MDRD) Af Amer 79 Est GFR (MDRD) Non-Af 66 BUN/Creatinine Ratio 22.8 H Glucose 136 H Calcium 9.0 Total Bilirubin 1.30 H AST 31 ALT 31 Alkaline Phosphatase 75 Total Protein 7.2 Albumin 3.3 Globulin 3.9 Albumin/Globulin Ratio 0.8 L Lipase 36 L Urine Color Yellow Urine Clarity Clear Urine pH 6.0 Ur Specific [place] 1.010 Urine Protein Negative Urine Glucose (UA) Normal Urine Ketones Negative Urine Occult Blood Negative Urine Nitrite Negative Urine Bilirubin Negative Urine Urobilinogen Normal Ur Leukocyte Esterase 500 H Urine RBC 0 SEEN Urine WBC 0-5 SEEN Ur Squamous Epith Cells 0-5 SEEN Urine Bacteria 0 SEEN Urine Mucus 0 SEEN Radiography Diagnostic Testing: Clinical Impression(s) from Imaging Studies Abdomen/Pelvis CT 10/23/21 17:17 IMPRESSION: Findings suspicious for colitis of the ascending colon. Possible hepatic cirrhosis. Individualized dose optimization techniques were used for this CT. at 2012 Reported and signed by: Antony Carcamo MD Electronically Signed: Antony Carcamo MD at 20:11 EST Reading Location ID and State: [address] [place] [address] Tel , Service support , Discharge Plan Triage Chief Complaint: Nausea/Vomiting ED Provider: Gus Balderas Dx/Rx/DC Orders Instructions: ED Gastroenteritis, Viral (Adult) Prescriptions: New promethazine [Promethegan] 25 mg suppository 25 mg NV Q6H PRN PRN (Reason: Nausea) Qty: 12 RF: 0 No Action [place] 3-6-9 1,200 mg capsule 2 cap PO DAILY RF: 0 cholecalciferol (vitamin D3) 50 mcg (2,000 unit) tablet 50 mcg PO DAILY RF: 0 hydrocodone-acetaminophen 5-325 mg tablet PO RF: 0 acetaminophen-codeine 300-30 mg tablet 1 tab PO RF: 0 levothyroxine 100 MCG tablet 100 mcg PO DAILY RF: 0 pantoprazole 40 MG tablet 40 mg PO QODAY RF: 0 aspirin 81 MG tablet,chewable 81 mg PO QHS RF: 0 multivitamin 1 EACH tablet 1 tab PO DAILY RF: 0 meclizine 25 MG tablet 25 mg PO 4X/DAY PRN PRN (Reason: Dizziness) Qty: 20 RF: 0 zoledronic [id number] 5 mg/100 mL piggyback 1 ea .Route ONCE Qty: 100 RF: 0 Primary Care Provider: Aniceto Cleveland Chi Referrals: Aniceto Cleveland Chi, MD [Primary Care Provider] - Disposition Disposition: Home, Self Care Discharge Date/Time: 10/23/21 20:50
[2021-10-23] MEDS: 0.9% Normal Saline 1,000 ML 1000 ML IV (17:28)
[2021-10-23] MEDS: Ondansetron 4 MG/2 ML Vial IV (17:28)
[2021-10-23 17:37] LABS: Absolute Lymphocyte Count 0.97 X10^3/uL (0.83-4.51); Basophil# 0.02 X10^3/uL; Basophil% 0.2 % (0-1); Hematocrit 36.6 % (37-47); Hemoglobin 12.1 g/dL (12.0-15.0); Lymphocyte # 0.97 X10^3/ul (0.83-4.51); Mean Corp Hgb Conc 33.1 g/dL (32-36); Mean Corpuscular Hgb 33.1 pg (27.0-32.0); Mean Platelet Vol. 10.1 fl (6.2-12.0); Monocyte# 0.68 X10^3/uL; NRBC Flagged by Analyzer 0 % (0-5); Neutrophil % 82.6 % (47-70); Platelet Count 274 K/mm3 (150-450); RBC Distribution Width CV 13.7 % (11.6-14.6); RBC Distribution Width SD 50.4 fl (35.1-43.9); Red Blood Count 3.66 M/mm3 (4.2-5.4); White Blood Count 9.7 K/mm3 (4.4-11.0)
[2021-10-23 17:55] LABS: ALB/GLOB Ratio 0.8 RATIO (0.9-2.4); AST(SGOT) 31 U/L (15-37); Alanine Aminotransfer ALT/SGPT 31 U/L (13-56); Albumin, Serum 3.3 g/dL (3.2-5.0); Alkaline Phosphatase 75 U/L (45-117); Anion Gap 5 (5-15); BUN 20 mg/dL (7-18); BUN/Creat Ratio 22.8 RATIO (10-20); Chloride 104 mmol/L (98-107); Creatinine, Serum 0.88 mg/dL (0.55-1.02); EST Glomerular Filtration Rate 66 mL/min (>60); Est Glom Filt Rate - Afr Amer 79 mL/min (>60); Estimated Creatinine Clearance 42.56 ml/min; Globulin 3.9 g/dL (2.2-4.2); Glucose 136 mg/dL (74-106); Lipase 36 U/L (73-393); Potassium 3.8 mmol/L (3.5-5.1); Protein, Total 7.2 g/dL (6.4-8.2); Sodium Level 136 mmol/L (136-145)
[2021-10-23 19:16] LABS: Bacteria 0 SEEN /hpf (None Seen); Mucous, Urine 0 SEEN /hpf (<or=2+); Red Blood Cells-Urine 0 SEEN /hpf (0-5)
[2021-10-23 19:24] LABS: Color, Urine Yellow (Yellow); Glucose, Dipstick Normal (Normal); Ketone-Dipstick Negative (Negative); Leukocyte Esterase-Dipstick 500 /ul (Negative); Nitrite-Dipstick Negative (Negative); Occult Blood-Urine Negative /ul (Negative); Protein-Dipstick Negative (Negative); Urine Bilirubin Dipstick Negative (Negative); Urine Clarity Clear (Clear); Urine Urobilinogen Normal (Normal)
[2021-10-23 19:33] LABS: Squamous Epithelial Cells - UA 0-5 SEEN /hpf (5-10); White Blood Cells 0-5 SEEN /hpf (0-5)
[2021-10-23 19:36] VITALS: BP 126/53; PULSE 86; RESP 14; O2SAT 95
[2021-10-23 20:50] VITALS: PULSE 80; RESP 16
== END 2021-10-23 20:50 | disposition home or self-care (01) ==
PROVIDERS: Emergency Provider Student in an Organized Health Care Education/Training Program; PCP Family Medicine Geriatric Medicine; Visit Provider Student in an Organized Health Care Education/Training Program
DX: R11.2 Nausea with vomiting, unspecified (principal); E11.40 Type 2 diabetes mellitus with diabetic neuropathy, unspecified; Z87.891 Personal history of nicotine dependence; E78.5 Hyperlipidemia, unspecified; M54.9 Dorsalgia, unspecified; G89.29 Other chronic pain; K21.9 Gastro-esophageal reflux disease without esophagitis; R10.9 Unspecified abdominal pain; R19.7 Diarrhea, unspecified
CPT/HCPCS: 74177; 80053; 81001; 83690; 85025; 96361; 96374; 99283; J7030; Q9967; A4216; J2405

== ENCOUNTER 2021-11-24 08:54 | Outpatient (CLI) | payer MEDICARE, OTHER, SELFPAY | END 2021-11-24 23:59 | disposition home or self-care (01) | PROVIDERS: PCP Family Medicine Geriatric Medicine; Referring Provider Family Medicine Geriatric Medicine; Visit Provider Family Medicine Geriatric Medicine | DX: R68.83 Chills (without fever) (principal); L98.9 Disorder of the skin and subcutaneous tissue, unspecified | CPT/HCPCS: 87635; 87804; 87807; 88305; C9803; U0003; U0005 ==

== ENCOUNTER 2021-11-24 11:02 | Outpatient (CLI) | payer MEDICARE, OTHER, SELFPAY ==
--- NOTE | 2021-11-24 09:15 | LES_PTH ---
PATIENT: MISTY MESSER [id number] AGE/SX: 81/F ROOM: RE11/24/[address]: Dr. Aniceto Cleveland MD : 1940 BED: DIS: 11/24/2021 SPEC #: [id number] RECD: 11/24/21 12:12 STATUS: NOEMI ANSLEY #: [id number] IKE: 11/24/21 09:[address]: Aniceto Cleveland Chi DEPT: SURGICAL PATHOLOGY RECD BY: Mary Magaña Tissues: A - Skin of face, NOS B - Skin of chest Procedures: Surgery Specimen Level IV HEADER OPERATION: Shave biopsy PRE-OP DIAGNOSIS: L98.9 TISSUE SUBMITTED: A ? Left cheek, B - Chest MICROSCOPIC DIAGNOSIS A. 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 B. Skin lesion of chest, shave biopsy: Actinic change and extensive solar elastosis. AM:rg 11/25/2021 COMMENT Case has been reviewed in consultation with Dr. Hernandez who concurs with the above diagnosis. IDC:SJ MICROSCOPIC DESCRIPTION Slides are reviewed. GROSS DESCRIPTION A - Received in fixative is one container labeled with the patient's name and designated cheek. The specimen consists of a fragment of light chaudhari skin measuring 1 cm in diameter and 0.1 cm in thickness. The specimen is inked, bisected and totally submitted in one cassette. B - Received in fixative is one container labeled with the patient's name and designated chest. The specimen consists of a fragment of light chaudhari skin measuring 1.2 cm in diameter and 0.1 cm in thickness. The specimen is inked, sectioned and totally submitted in one cassette. / AM:wilton 11/24/2021 TC:5 CPT: 61147 x2
== END 2021-11-24 23:59 | disposition home or self-care (01) ==
LOC: LABSPEC 11:11
PROVIDERS: PCP Family Medicine Geriatric Medicine; Visit Provider Family Medicine Geriatric Medicine
DX: L98.9 Disorder of the skin and subcutaneous tissue, unspecified (principal)
CPT/HCPCS: 88305

== ENCOUNTER → 2021-12-15 | Outpatient (CLI) | payer MEDICARE, OTHER, SELFPAY ==
[2021-12-15 17:17] LABS: Absolute Lymphocyte Count 1.79 X10^3/uL (0.83-4.51); Absolute Neutrophil Count 4.7 X10^3/uL (2.0-7.7); Basophil# 0.04 X10^3/uL; Basophil% 0.5 % (0-1); Eosinophil# 0.19 X10^3/uL; Eosinophils% 2.5 % (0-5); Hematocrit 35.1 % (37-47); Lymphocyte # 1.79 X10^3/ul (0.83-4.51); Mean Corp Hgb Conc 34.2 g/dL (32-36); Mean Corpuscular Hgb 34.3 pg (27.0-32.0); Mean Corpuscular Volume 100.3 fL (81-99); Mean Platelet Vol. 10.5 fl (6.2-12.0); Monocyte# 0.73 X10^3/uL; Monocyte% 9.8 % (0-10); NRBC Flagged by Analyzer 0 % (0-5); Neutrophil # 4.69 X10^3/uL (2.7-7.7); Neutrophil % 62.8 % (47-70); Platelet Count 312 K/mm3 (150-450); RBC Distribution Width CV 14.2 % (11.6-14.6); White Blood Count 7.5 K/mm3 (4.4-11.0)
[2021-12-15 17:24] LABS: Vitamin D,25 Hydroxy 46.1 ng/mL
[2021-12-15 17:27] LABS: ALB/GLOB Ratio 0.8 RATIO (0.9-2.4); AST(SGOT) 34 U/L (15-37); Alanine Aminotransfer ALT/SGPT 38 U/L (13-56); Albumin, Serum 3.4 g/dL (3.2-5.0); Alkaline Phosphatase 108 U/L (45-117); Anion Gap 7 (5-15); BUN 14 mg/dL (7-18); Calcium,Total 9.1 mg/dL (8.5-10.1); Chloride 107 mmol/L (98-107); Creatinine, Serum 0.78 mg/dL (0.55-1.02); EST Glomerular Filtration Rate 75 mL/min (>60); Est Glom Filt Rate - Afr Amer 91 mL/min (>60); Globulin 4.3 g/dL (2.2-4.2); Glucose 108 mg/dL (74-106); Potassium 4.3 mmol/L (3.5-5.1); Protein, Total 7.7 g/dL (6.4-8.2); Sodium Level 140 mmol/L (136-145); Thyroid Stim Hormone (TSH) 1.36 uIU/mL (0.358-3.74)
== END | disposition home or self-care (01) ==
LOC: POLAB3 14:35
PROVIDERS: PCP Family Medicine Geriatric Medicine; Visit Provider Family Medicine Geriatric Medicine
DX: E55.9 Vitamin D deficiency, unspecified (principal); R53.83 Other fatigue
CPT/HCPCS: 36415; 80053; 82306; 84443; 85025

== ENCOUNTER → 2022-03-29 | Outpatient (CLI) | payer MEDICARE, OTHER, SELFPAY ==
--- NOTE | 2022-03-29 13:49 | ART_ITS ---
Reason For Study: PAOD Procedure A bilateral lower extremity continuous wave Doppler with analog waveform analysis and ankle brachial indexes. Left Segmental Pressures Left brachial= 174mmHg. Left posterior tibial artery = 184mmHg. Left dorsalis pedis artery = 170mmHg. The left dorsalis pedis waveforms are triphasic. The left posterior tibial artery waveforms are triphasic. Right Segmental Pressures Right brachial= 177mmHg. Right posterior tibial artery = 192mmHg. Right dorsalis pedis artery = 174mmHg. The right dorsalis pedis waveforms are triphasic. The right posterior tibial artery waveforms are triphasic. Indices The right ankle brachial index by the dorsalis pedis is 0.98. The right ankle brachial index by the posterior tibial artery is 1.08. The left ankle brachial index by the dorsalis pedis is 0.96. The left ankle brachial index by the posterior tibial artery is 1.04. VL/Ankle Brachial Index Interpretation Summary Triphasic Doppler waveforms are noted at ankle level bilaterally. Pulse-volume recordings appear satisfactory at ankle level bilaterally. Resting ankle-brachial indices are nor mal bilaterally. There is no evidence of significant arterial occlusive disease in the lower ext remities bilaterally. Ordering Physician: Aniceto Cleveland Referring Physician: Aniceto Cleveland Chi Performed By: Linda Browning RVT
== END | disposition home or self-care (01) ==
LOC: CVS 13:49
PROVIDERS: PCP Family Medicine Geriatric Medicine; Referring Provider Family Medicine Geriatric Medicine; Visit Provider Family Medicine Geriatric Medicine
DX: I73.9 Peripheral vascular disease, unspecified (principal)
CPT/HCPCS: 93922

== ENCOUNTER → 2022-08-19 | Outpatient (CLI) | payer MEDICARE, OTHER, SELFPAY ==
[2022-08-19 12:02] LABS: Vitamin D,25 Hydroxy 48.5 ng/mL
[2022-08-19 12:07] LABS: ALB/GLOB Ratio 0.9 RATIO (0.9-2.4); AST(SGOT) 28 U/L (15-37); Alanine Aminotransfer ALT/SGPT 31 U/L (13-56); Albumin, Serum 3.5 g/dL (3.2-5.0); Alkaline Phosphatase 76 U/L (45-117); Anion Gap 8 (5-15); BUN 13 mg/dL (7-18); BUN/Creat Ratio 17.8 RATIO (10-20); Calcium,Total 9.2 mg/dL (8.5-10.1); Chloride 104 mmol/L (98-107); Creatinine, Serum 0.73 mg/dL (0.55-1.02); EST Glomerular Filtration Rate 81 mL/min (>60); Est Glom Filt Rate - Afr Amer 98 mL/min (>60); Globulin 3.7 g/dL (2.2-4.2); Glucose 114 mg/dL (74-106); Protein, Total 7.2 g/dL (6.4-8.2); Sodium Level 140 mmol/L (136-145); T4 Free Direct 1.46 ng/dL (0.76-1.46); Thyroid Stim Hormone (TSH) 0.86 uIU/mL (0.358-3.74)
== END | disposition home or self-care (01) ==
LOC: LAB 08:53
PROVIDERS: PCP Family Medicine Geriatric Medicine; Referring Provider Internal Medicine Endocrinology, Diabetes & Metabolism; Visit Provider Internal Medicine Endocrinology, Diabetes & Metabolism
DX: M81.0 Age-related osteoporosis without current pathological fracture (principal); E11.9 Type 2 diabetes mellitus without complications; E55.9 Vitamin D deficiency, unspecified; E03.9 Hypothyroidism, unspecified
CPT/HCPCS: 36415; 80053; 82306; 84439; 84443

== ENCOUNTER → 2022-09-06 | Outpatient (CLI) | payer MEDICARE, OTHER, SELFPAY ==
[2022-09-06] MEDS: Zoledronic Acid 5 MG 100 ML 300 MG IV (13:48)
[2022-09-06] MEDS: 0.9% NaCl Peripheral Flush Adult/Peds IV (13:48)
[2022-09-06 13:50] VITALS: BP 159/61; PULSE 72; RESP 16; TEMP 35.9; BMI 34.3
[2022-09-06 14:21] VITALS: BP 140/61; PULSE 69; RESP 16; TEMP 35.8
== END | disposition home or self-care (01) ==
LOC: MEDOUTP 13:36
PROVIDERS: PCP Family Medicine Geriatric Medicine; Referring Provider Internal Medicine Endocrinology, Diabetes & Metabolism; Visit Provider Internal Medicine Endocrinology, Diabetes & Metabolism
DX: M81.0 Age-related osteoporosis without current pathological fracture (principal)
CPT/HCPCS: 96365; 96361; A4216; J3489

== ENCOUNTER → 2022-09-15 | Outpatient (CLI) | payer MEDICARE, OTHER, SELFPAY ==
[2022-09-15 17:50] LABS: Absolute Lymphocyte Count 1.84 X10^3/uL (0.83-4.51); Basophil# 0.04 X10^3/uL; Basophil% 0.5 % (0-1); Eosinophil# 0.14 X10^3/uL; Eosinophils% 1.8 % (0-5); Hematocrit 36.8 % (37-47); Hemoglobin 12.4 g/dL (12.0-15.0); Lymphocyte # 1.84 X10^3/ul (0.83-4.51); Lymphocyte % 23.3 % (19-41); Mean Corp Hgb Conc 33.7 g/dL (32-36); Mean Corpuscular Hgb 33.4 pg (27.0-32.0); Mean Corpuscular Volume 99.2 fL (81-99); Mean Platelet Vol. 10.8 fl (6.2-12.0); Monocyte# 0.83 X10^3/uL; Monocyte% 10.5 % (0-10); NRBC Flagged by Analyzer 0 % (0-5); Neutrophil # 5.02 X10^3/uL (2.7-7.7); Neutrophil % 63.6 % (47-70); Platelet Count 348 K/mm3 (150-450); RBC Distribution Width CV 13.7 % (11.6-14.6); RBC Distribution Width SD 49.6 fl (35.1-43.9); Red Blood Count 3.71 M/mm3 (4.2-5.4); White Blood Count 7.9 K/mm3 (4.4-11.0)
[2022-09-15 18:06] LABS: Vitamin D,25 Hydroxy 47.6 ng/mL
[2022-09-15 18:20] LABS: ALB/GLOB Ratio 0.9 RATIO (0.9-2.4); AST(SGOT) 40 U/L (15-37); Alanine Aminotransfer ALT/SGPT 32 U/L (13-56); Albumin, Serum 3.5 g/dL (3.2-5.0); Alkaline Phosphatase 88 U/L (45-117); Anion Gap 8 (5-15); BUN 14 mg/dL (7-18); BUN/Creat Ratio 15.1 RATIO (10-20); Chloride 104 mmol/L (98-107); Creatinine, Serum 0.93 mg/dL (0.55-1.02); EST Glomerular Filtration Rate 61 mL/min (>60); Est Glom Filt Rate - Afr Amer 74 mL/min (>60); Glucose 144 mg/dL (74-106); Potassium 3.9 mmol/L (3.5-5.1); Protein, Total 7.5 g/dL (6.4-8.2); Sodium Level 139 mmol/L (136-145); Thyroid Stim Hormone (TSH) 1.53 uIU/mL (0.358-3.74)
== END | disposition home or self-care (01) ==
LOC: POLAB3 15:59
PROVIDERS: PCP Family Medicine Geriatric Medicine; Visit Provider Family Medicine Geriatric Medicine
DX: E55.9 Vitamin D deficiency, unspecified (principal); R53.83 Other fatigue
CPT/HCPCS: 36415; 80053; 82306; 84443; 85025

== ENCOUNTER → 2022-10-14 | Outpatient (CLI) | payer MEDICARE, OTHER, SELFPAY | END | disposition home or self-care (01) | LOC: PSN 09:13 | PROVIDERS: PCP Family Medicine Geriatric Medicine; Visit Provider Family Medicine Geriatric Medicine | DX: R68.83 Chills (without fever) (principal) | CPT/HCPCS: 87635; 87804; 87807; C9803; U0003; U0005 ==

== ENCOUNTER → 2022-11-18 | Outpatient (CLI) | payer MEDICARE, OTHER, SELFPAY ==
[2022-11-18 16:57] LABS: Absolute Lymphocyte Count 1.15 X10^3/uL (0.83-4.51); Absolute Neutrophil Count 2.8 X10^3/uL (2.0-7.7); Basophil# 0.04 X10^3/uL; Basophil% 0.9 % (0-1); Eosinophil# 0.07 X10^3/uL; Eosinophils% 1.5 % (0-5); Hematocrit 32.4 % (37-47); Hemoglobin 10.6 g/dL (12.0-15.0); Lymphocyte # 1.15 X10^3/ul (0.83-4.51); Lymphocyte % 25.4 % (19-41); Mean Corp Hgb Conc 32.7 g/dL (32-36); Mean Corpuscular Volume 103.8 fL (81-99); Mean Platelet Vol. 10.7 fl (6.2-12.0); Monocyte# 0.48 X10^3/uL; Monocyte% 10.6 % (0-10); NRBC Flagged by Analyzer 0 % (0-5); Neutrophil # 2.76 X10^3/uL (2.7-7.7); Neutrophil % 61.2 % (47-70); Platelet Count 234 K/mm3 (150-450); RBC Distribution Width CV 14.6 % (11.6-14.6); RBC Distribution Width SD 54.6 fl (35.1-43.9); Red Blood Count 3.12 M/mm3 (4.2-5.4); White Blood Count 4.5 K/mm3 (4.4-11.0)
[2022-11-18 17:19] LABS: Anion Gap 4 (5-15); BUN 11 mg/dL (7-18); BUN/Creat Ratio 19.1 RATIO (10-20); Chloride 111 mmol/L (98-107); Creatinine, Serum 0.58 mg/dL (0.55-1.02); EST Glomerular Filtration Rate 107 mL/min (>60); Est Glom Filt Rate - Afr Amer 129 mL/min (>60); Glucose 105 mg/dL (74-106); Potassium 3.8 mmol/L (3.5-5.1); Sodium Level 142 mmol/L (136-145)
== END | disposition home or self-care (01) ==
LOC: POLAB3 14:44
PROVIDERS: PCP Family Medicine Geriatric Medicine; Visit Provider Family Medicine Geriatric Medicine
DX: R42 Dizziness and giddiness (principal); N39.0 Urinary tract infection, site not specified
CPT/HCPCS: 36415; 80048; 85025; 87086

== ENCOUNTER → 2022-11-24 | Outpatient (CLI) | payer MEDICARE, OTHER, SELFPAY ==
[2022-11-24 18:06] LABS: Absolute Lymphocyte Count 1.87 X10^3/uL (0.83-4.51); Absolute Neutrophil Count 4.6 X10^3/uL (2.0-7.7); Basophil# 0.05 X10^3/uL; Basophil% 0.7 % (0-1); Eosinophil# 0.09 X10^3/uL; Eosinophils% 1.2 % (0-5); Hematocrit 38.5 % (37-47); Hemoglobin 12.3 g/dL (12.0-15.0); Lymphocyte # 1.87 X10^3/ul (0.83-4.51); Lymphocyte % 24.8 % (19-41); Mean Corp Hgb Conc 31.9 g/dL (32-36); Mean Corpuscular Hgb 32.9 pg (27.0-32.0); Mean Corpuscular Volume 102.9 fL (81-99); Mean Platelet Vol. 10.5 fl (6.2-12.0); Monocyte# 0.89 X10^3/uL; Monocyte% 11.8 % (0-10); NRBC Flagged by Analyzer 0 % (0-5); Neutrophil # 4.62 X10^3/uL (2.7-7.7); Neutrophil % 61.2 % (47-70); Platelet Count 353 K/mm3 (150-450); RBC Distribution Width CV 14.5 % (11.6-14.6); RBC Distribution Width SD 55.1 fl (35.1-43.9); Red Blood Count 3.74 M/mm3 (4.2-5.4); White Blood Count 7.5 K/mm3 (4.4-11.0)
== END | disposition home or self-care (01) ==
LOC: POLAB3 15:32
PROVIDERS: PCP Family Medicine Geriatric Medicine; Visit Provider Family Medicine Geriatric Medicine
DX: R53.83 Other fatigue (principal)
CPT/HCPCS: 36415; 85025

== ENCOUNTER 2023-08-13 19:23 | Emergency (ER) | payer MEDICARE, OTHER, SELFPAY ==
[2023-08-13 19:24] VITALS: BP 175/57; PULSE 81; RESP 16; TEMP 35.8; O2SAT 96; BMI 35.0
--- NOTE | 2023-08-13 19:53 | CT_ITS ---
STUDY: CT ABDOMEN AND PELVIS WITH CONTRAST REASON FOR EXAM: Female, 83 years old. Diarrhea for 4 days, lower abdominal pain RADIATION DOSAGE (If Supplied By Facility): CTDIvol = ( 16.36 ) mGy, DLP = ( 1126.97 ) mGycm TECHNIQUE: Transaxial images were obtained from the dome of the diaphragm to the symphysis pubis without oral contrast. IV 100mL Isovue-370 was administered. Sagittal and coronal images were reconstructed. Individualized dose optimization techniques were used for this CT. COMPARISON: 10/23/2021 FINDINGS: The visualized lung bases are unremarkable. The visualized portions of the heart are within normal limits. There is a diffuse contour abnormality of the liver consistent with cirrhotic changes. No hepatic masses. Portal vein is patent. There is non-visualization of the gallbladder, which may be secondary to either contraction or a prior cholecystectomy. There are multiple benign calcified granulomata of the spleen. Normal pancreas. Normal bilateral adrenal glands. Normal right kidney. Normal left kidney. Normal visualized stomach. Normal small intestine. Diffuse wall thickening throughout the colon extending from the cecum through the transverse colon and into the rectosigmoid colon. Mild amount of adjacent pericolonic stranding/vascular congestion. There is non-visualization of the appendix. There is diffuse atherosclerotic calcification of the abdominal aorta, without a demonstrated aneurysm. Normal inferior vena cava. Normal retroperitoneum. Normal urinary bladder. There is absence of the uterus consistent with a prior hysterectomy. Normal abdominal wall. There are diffuse degenerative changes of the visualized lumbar spine. CT/Abdomen/Pelvis W IV Cont ONLY IMPRESSION: 1. Diffuse, long segment colitis. 2. Cirrhosis. 3. Chronic changes, as above. Electronically Signed: Jesse Gonzalez MD (Brooks) at 21:36 EST ,
--- NOTE | 2023-08-13 20:02 | EX.ED.DYSGE1 ---
HPI History of Present Illness Chief Complaint: Diarrhea Informant: patient and family Narrative Narrative: 83-year-old female presenting to the emergency room with diarrhea. Patient states that she has had diarrhea for about 6 days. She notes that it is at least 1 time per hour. She is denies any fevers. She has had several family dinners from [facility] until today. Nobody else has been sick. She states that today's diarrhea appeared orange in color. She notes the development of pain in the suprapubic left lower quadrant region as well as in her epigastrium. She states is not too bad at rest but if she pushes on it it hurts. She denies any history of colitis or diverticulitis. She denies cough or shortness of breath. She notes some associated anorexia and feels like she has dry mouth. [facility] Medical History Arthritis Back problem Cataracts, bilateral Chronic back pain Class 1 obesity DM2 (diabetes mellitus, type 2) Fatty liver GERD (gastroesophageal reflux disease) Hearing problem Hives Hyperlipidemia Hypothyroid l rotater cuff repair l thumb surgery Neuropathy Home Medications levothyroxine 100 mcg tablet 100 mcg PO DAILY thyroid 03/09/16 [History Last Taken 07/01/19] pantoprazole 40 mg tablet,delayed release 40 mg PO QODAY GERD 03/09/16 [History Last Taken 07/01/19] aspirin 81 mg chewable tablet 81 mg PO QHS heart health 07/08/17 [History Last Taken 07/01/19] multivitamin 1 tab PO DAILY supplement 07/01/19 [History Last Taken 07/01/19] fish, borage, flaxseed oils-omega 3,6,9 comb no.1 1,200 mg capsule ([place] 3-6-9) 2 cap PO DAILY 08/30/19 [History Last Taken Unknown] meclizine 25 mg tablet 25 mg PO 4X/DAY PRN PRN Dizziness #20 tabs 01/31/20 [Rx Last Taken Unknown] cholecalciferol (vitamin D3) 50 mcg (2,000 unit) tablet 50 mcg PO DAILY 10/20/20 [History Last Taken Unknown] hydrocodone-acetaminophen 5-325mg 5mg-325mg ea PO 10/20/20 [History Last Taken Unknown] acetaminophen 300 mg-codeine 30 mg tablet 1 tab PO PRN Pain 08/20/21 [History Last Taken Unknown] zoledronic acid 5 mg/100 mL in mannitol 5 %-water intravenous piggybck 1 ea .Route ONCE #100 mL 08/19/22 [Rx Last Taken Unknown] amoxicillin 875 mg-potassium clavulanate 125 mg tablet 1 tab PO BID #20 tabs 08/13/23 [Rx Last Taken Unknown] Allergy/AdvReac Type Severity Reaction Status Date / Time Sulfa (Sulfonamide Allergy Mild Rash Verified 08/13/23 19:24 Antibiotics) bee venom protein (honey bee) Allergy Hives Verified 08/13/23 19:24 [bee stings] spider venom Allergy Swelling Verified 08/13/23 19:24 meloxicam AdvReac Mild dizziness Verified 08/13/23 19:24 metformin AdvReac Mild Eleavted BP Verified 08/13/23 19:24 Family History Father Alcoholism Heart disease Mother Arthritis Osteoporosis Brother Myocardial infarction Heart disease CVA (cerebral vascular accident) Skin cancer Grandmother Osteoporosis Uterine cancer Surgical History H/O lumbar discectomy H/O right knee surgery History of carpal tunnel release History of hysterectomy History of tonsillectomy S/P carotid endarterectomy Social History household members: none housing: house number of children: 1 Smoking Status: Former smoker Tobacco: How many years used: 55 alcohol intake: never substance use type: does not use what type of physical activity do you participate in: other frequency: 3-4 times per week do you feel safe at home: Yes ROS ROS ED Constitutional Constitutional ED: Denies chills, fever(s) or weight loss Eyes Eyes: Denies change in vision or diplopia ENT ENT ED: Denies ear pain, rhinorrhea or sore throat Cardiovascular Cardiovascular: Denies chest pain, orthopnea, palpitations or racing heartbeat Respiratory/Chest Respiratory/Chest: Denies cough, dyspnea or orthopnea Gastrointestinal Gastrointestinal: Reports abdominal pain, diarrhea and nausea; Denies vomiting Genitourinary Genitourinary ED: Denies dysuria, hematuria or urinary frequency Musculoskeletal Musculoskeletal: Denies arthralgias or myalgias Integumentary Denies abscess or rash Neurologic Neurologic: Denies headache(s) or weakness Psychiatric Psychiatric: Denies anxiety, depression, suicidal ideation or suicidal thoughts Endocrine Endocrinology: Denies polydipsia, polyphagia or polyuria Allergic/Immunologic Allergic/Immunologic ED: Denies mouth swelling, tongue swelling or urticaria EXAM Physical Exam Const Vital Signs: 08/13/23 19:24 Temperature 96.5 F L Temperature Source Temporal Pulse Rate 81 Respiratory Rate 16 Blood Pressure 175/57 H Blood Pressure Mean 96 Pulse Ox 96 Positive well nourished, well developed and obese General Appearance ED: well developed Nutritional Appearance: obese HEENT Reports normocephalic, head/scalp atraumatic and moist mucous membranes Eyes PERRL and EOMs intact bilaterally Neck no lymphadenopathy, supple and no JVD Resp normal respiratory effort and clear to auscultation bilaterally Cardio regular rate, regular rhythm and no murmurs GI GI Narrative: Tenderness to palpation in the suprapubic left lower quadrant region as well as in the epigastrium. Inspection: Negative for abdominal distention Auscultation: normoactive bowel sounds Palpation: soft and tender epigastric, LLQ and suprapubic; Negative for guarding or rebound tenderness present Back/Spine no CVA tenderness and normal ROM Extremity normal to inspection General Extremety ED: Negative for edema General Extremity: Negative for edema Neuro oriented x3 and CN's II-XII intact bilaterally Sensorium / Orientation: alert Motor Exam: strength 5/5 throughout Psych mental status grossly normal Mood & Affect: Negative for depressed or tearful Skin no rashes or lesions noted and no wounds MDM MDM MDM Narrative Medical decision making narrative: Patient's white count is 11.2 hemoglobin of 11.6. Creatinine 0.84. CO2 is 27 anion gap of 4. Lipase 50. CT of the abdomen pelvis demonstrates long segment colitis. Stool is positive for blood most likely due to the colitis. Patient received IV fluids and Zofran. I spoke with the patient and with the above findings and diagnoses. She would feel more comfortable being treated at home with oral antibiotics. As I do not see significant hard signs of dehydration or ABL I think the patient can be discharged home. She has Tylenol with codeine at home which she wants to take for pain. I will write for Augmentin. Patient and her family/daughter note return instructions History & Record Review Discussion w/independent historian: Patient and Family Additional record(s) reviewed:: Prior labs Lab Data Attestation: I reviewed the patient's lab results. Labs: Laboratory Results - last 24 hr 08/13/23 20:32 WBC 11.2 H RBC 3.46 L Hgb 11.6 L Hct 35.0 L MCV 101.2 H MCH 33.5 H MCHC 33.1 RDW Std Deviation 51.0 H RDW Coeff of Yuval 13.7 Plt Count 301 MPV 10.2 Immature Gran % (Auto) 0.400 Neut % (Auto) 71.2 H Lymph % (Auto) 12.9 L [place] % (Auto) 13.5 H Eos % (Auto) 1.5 Baso % (Auto) 0.5 Absolute Neuts (auto) 8.0 H Absolute Lymphs (auto) 1.45 Nucleated RBC % 0 Differential Comment SCANNED Sodium 138 Potassium 3.6 Chloride 107 Carbon Dioxide 27.0 Anion Gap 4 L BUN 12 Creatinine 0.84 Estim Creat Clear Calc 41.24 Est GFR (MDRD) Af Amer 84 Est GFR (MDRD) Non-Af 69 BUN/Creatinine Ratio 14.4 Glucose 155 H Calcium 9.2 Total Bilirubin 0.40 Direct Bilirubin 0.17 AST 28 ALT 23 Alkaline Phosphatase 89 Total Protein 7.0 Albumin 3.1 L Globulin 3.9 Lipase 15 Radiography Diagnostic Testing: Clinical Impression(s) from Imaging Studies Abdomen/Pelvis CT 08/13/23 19:53 IMPRESSION: 1. Diffuse, long segment colitis. 2. Cirrhosis. 3. Chronic changes, as above. Electronically Signed: Jesse Gonzalez MD (Brooks) at 21:36 EST Reading Location ID and State: [facility] / [place] , Service support , Discharge Plan Triage Chief Complaint: Diarrhea ED Provider: Art Rosales Dx/Rx/DC Orders Clinical Impression: Diabetes, Colitis, Abdominal pain Instructions: ED Understanding Colitis Prescriptions: New amoxicillin-pot clavulanate 875-125 mg tablet 1 tab PO BID Qty: 20 0RF No Action [place] 3-6-9 1,200 mg capsule 2 cap PO DAILY cholecalciferol (vitamin D3) 50 mcg (2,000 unit) tablet 50 mcg PO DAILY Patient Comments: take 1 tablet by mouth once daily hydrocodone-acetaminophen 5-325 mg tablet PO Patient Comments: take 1 tablet by mouth once daily if needed for 28 DAYS. acetaminophen-codeine 300-30 mg tablet 1 tab PO PRN (Reason: Pain) Patient Comments: TAKE 1 TABLET BY MOUTH 4 TIMES DAILY NEEDED FOR PAIN zoledronic gjnc-[id number] 5 mg/100 mL piggyback 1 ea .Route ONCE Qty: 100 0RF Rx Instructions: IVPB over 20 minutes Once a year for five years levothyroxine 100 MCG tablet 100 mcg PO DAILY pantoprazole 40 MG tablet 40 mg PO QODAY aspirin 81 MG tablet,chewable 81 mg PO QHS multivitamin 1 EACH tablet 1 tab PO DAILY meclizine 25 MG tablet 25 mg PO 4X/DAY PRN PRN (Reason: Dizziness) Qty: 20 0RF Primary Care Provider: Aniceto Cleveland Chi Referrals: Aniceto Cleveland Chi, MD [Primary Care Provider] - 3-5 Days if not improving Disposition Disposition: Home, Self Care
--- OUTSIDE RECORDS SUMMARY | 2023-08-13 20:10 | XMS RPT_ITS | CCD ---
Author Name Unknown Address [id number] [place] [address] Organization [facility] Care Team Providers Care Chart Calculator Name Role Phone FRANKIE AHN Attending Unavailab RACHELLE Sanabria [facility] Unavailable Lauri Godinez MD Primary Care Provider Lauri Godinez Unavailable Unavailable Unavailable Dr. Lauri Godinez Primary Care Gian Richard, Dr. William Santana Attending Gian Godinez, Dr. Lauri Mitchell Primary Care Gian Richard, Dr. William Santana Attending Gian Godinez, Dr. Lauri Mitchell Primary Care Gian Richard, Dr. William Santana Attending Gian Godinez, Dr. Lauri Mitchell Primary Care Gian Richard, Dr. William Santana Attending KATHY George Referring Unavailable KATHY CAMPBELL Attending Unavailable KATHY CAMPBELL Referring Unavailable LAURI GODINEZ Primary Care Unavailable KTAHY CAMPBELL Referring Unavailable LAURI GODINEZ Primary Care Unavailable Allergies Allergy Classification Reported Allergen(s) Allergy Type Date of Onset Reaction(s) Facility (1 source) meloxicam; Translations: [MELOXICAM] Drug Allergy 1 [facility] Repository (3 sources) Sulfonamides (Antibiotic); Translations: [SULFA (SULFONAMIDE ANTIBIOTICS)] Propensity to adverse reactions to drug (disorder) 4 Anaphylaxis [facility] Repository (1 source) SPIDER VENOM; Translations: [SPIDER VENOM] Propensity to adverse reactions to drug (disorder) 6 [facility] Repository (2 sources) Alendronate; Translations: [ALENDRONATE] Drug Allergy 0 Other: See Comments [facility] Work Phone: (2 sources) HMG-CoA reductase inhibitor; Translations: [[id number] REDUCTASE INHIBITORS] Drug Intolerance 7 Other: See Comments [facility] Work Phone: (2 sources) metFORMIN; Translations: [METFORMIN] Drug Allergy 7 Other: See Comments [facility] Work Phone: (2 sources) Bee Sting; Translations: [BEE STING] Allergy to substance 4 Other: See Comments [facility] Work Phone: (2 sources) Insect Venom; Translations: [INSECT VENOM] Drug Allergy 6 Swelling [facility] Work Phone: Medications Completed/Discontinued Medications Medication Drug Class(es) Dates Sig (Normalized) Sig (Original) acetaminophen 300 mg / codeine phosphate 30 mg oral tablet (1 source) Opioid Agonist Start: 06-28-2019 acetaminophen-code ine (TYLENOL-COD #3) 300-30 mg per tablet 1 tablet. 0 06/28/2019 Active Problems Active Problems Problem Classification Problem Date Documented Da te Episodic/Chronic Diabetes mellitus with complications (1 source) Type 2 diabetes mellitus; Translations: [Type 2 diabetes mellitus with diabetic neuropathy, unspecified] Onset: 7 01-02-2021 Chronic Disorders of lipid metabolism (1 source) Mixed hyperlipidemia; Translations: [Mixed hyperlipidemia] Onset: 6 11-06-2015 Chronic Esophageal disorders (6 sources) Gastroesophageal reflux disease without esophagitis; Translations: [Gastro-esophageal reflux disease without esophagitis] Onset: 6 11-06-2015 Chronic Gastritis and duodenitis (5 sources) Bile-induced gastritis; Translations: [Other specified gastritis, without mention of hemorrhage] Episodic Headache; including migraine (1 source) Ophthalmoplegic migraine; 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, not intractable] Onset: 6 08-25-2021 Chronic Miscellaneous mental health disorders (1 source) Chronic insomnia; Translations: [Psychophysiologic insomnia] Onset: 9 03-28-2019 Chronic Occlusion or stenosis of precerebral arteries (4 sources) Bilateral stenosis of carotid arteries; Translations: [Occlusion and stenosis of bilateral carotid arteries] Onset: 6 Chronic Osteoarthritis (1 source) Osteoarthrosis of the carpometacarpal joint of the thumb; Translations: [Unilateral primary osteoarthritis of first carpometacarpal joint, left hand] Onset: 9 03-28-2019 Chronic Other gastrointestinal disorders (5 sources) Esophageal dysphagia; Translations: [Other dysphagia] Episodic Other liver diseases (1 source) Steatosis of liver; Translations: [Fatty (change of) liver, not elsewhere classified] Onset: 6 11-06-2015 Chronic Other nervous system disorders (1 source) Neuropathy; Translations: [Polyneuropathy, unspecified] Onset: 9 09-27-2018 Chronic Other nervous system disorders (5 sources) Alteration in comfort: chronic pain; Translations: [Other chronic pain] Chronic Other nutritional; endocrine; and metabolic disorders (1 source) Body mass index 30+ - obesity; Translations: [Obesity, unspecified] Onset: 8 06-02-2020 Chronic Spondylosis; intervertebral disc disorders; other back problems (20 sources) Chronic back pain ; Translations: [Dorsalgia, unspecified] Onset: 6 12-24-2020 Episodic Thyroid disorders (6 sources) Acquired hypothyroidism; Translations: [Hypothyroidism, unspecified] Onset: 6 11-06-2015 Chronic Past or Other Problems Problem Classification Problem Date Documented Da te Episodic/Chronic Heart valve disorders (1 source) Systolic murmur; Translations: [Cardiac murmur, unspecified] Onset: 11-21-2013 01-30-2016 Episodic Other aftercare (1 source) Drug therapy finding; Translations: [Other m[facility] (current) drug therapy] Onset: 01-24-2017 09-28-2019 Episodic Other aftercare (1 source) Patient encounter status; Translations: [Other [facility] (current) drug therapy] Onset: 06-04-2020 06-04-2020 Episodic Other gastrointestinal disorders (1 source) Functional diarrhea; Translations: [Functional diarrhea] Onset: 06-26-2021 06-26-2021 Episodic Other nervous system disorders (1 source) Paresthesia of hand ; Translations: [Anesthesia of skin] Onset: 03-27-2018 03-28-2019 Episodic Other screening for suspected conditions (not mental disorders or infectious disease) (2 sources) Other specified abnormal findings of blood chemistry; Translations: [Other abnormal blood chemistry] Onset: 11-06-2015 08-10-2021 Episodic Pathological fracture (1 source) Pathological fracture due to osteoporosis; Translations: [Age-related osteoporosis with current pathological fracture, unspecified site, initial encounter for fracture] Onset: 07-23-2019 07-23-2019 Episodic Results Test Name Value Interpretation Reference Range Facil ity Vital Signs Date Time Vital Sign Value Performing Clinician Faci lity 08-17-2022 10:32-0500 Diastolic blood pressure 60 mm[Hg] Kathy Campbell DO Work Phone: [facility] 08-17-2022 10:32-0500 Heart rate 66 /min Kathy Campbell DO Work Phone: [facility] 08-17-2022 10:32-0500 SaO2% (BldA) [Mass fraction] 94 % Kathy Campbell DO Work Phone: [facility] 08-17-2022 10:32-0500 Systolic blood pressure 112 mm[Hg] Kathy Campbell DO Work Phone: [facility] Encounters Encounter Date Encounter Type Care Provider Facility Start: 05-17-2023 ambulatory KATHY CAMPBELL Facili ty:[facility] Start: 02-11-2023 [facility] encounter [facility] Start: 12-27-[address] Lauri Vázquez Facility:[id number] Start: 12-27-2022 Patient encounter procedure [facility] Start: 12-23-[address] Lauri Vázquez Facility:[id number] Start: 12-23-2022 Patient encounter procedure Lauri Godinez Work Phone: [facility] Work Phone: Start: 12-20-[address] Lauri Vázquez Facility:[id number] Start: 12-20-2022 Patient encounter procedure Lauri Godinez Work Phone: [facility] Work Phone: Start: 12-02-2022 Patient encounter procedure [facility] God[facility]: Start: 12-02-[address] Lauri Vázquez Facility:[id number] Start: 08-17-2022 End: 08-17-2022 ambulatory KATHY CAMPBELL Facility:[facility] Start: 08-17-2022 End: 08-17-2022 Patient encounter procedure Kathy Campbell DO Work Phone: Vascular Surgery Procedures Date Procedure Procedure Detail Performing Clinician Colonoscopy Lauri hull Work Phone: Decompression of median nerve Lauri Godinez Work Phone: Esophagogastroduodenoscopy J eduar Godinez Work Phone: Hysterectomy Lauri hull Work Phone: Operative procedure on hand Lauri Godinez Work Phone: Procedure on back Lauri Godinez Work Phone: Repair of shoulder Lauri Godinez Work Phone: Revision of knee replacement Lauri Godinez Work Phone: Tonsillectomy Lauri valdez Work Phone: Plan of Treatment Date Care Activity Detail Author Start: 02-01-2028 Urine microalbumin profile DTAP,TDAP,TD (2 - Td or Tdap) [facility] Start: 01-06-2023 PTRECHECKA, Provider: Chitra Stone, Status: Pen, Time: 2:00 PM PTRECHECKA, Provider: Chitra Stone, Status: Pen, Time: 2:00 PM [facility] Work Phone: Start: 01-04-2023 PTFUADULT4, Provider: Jamila Seals, Status: Pen, Time: 11:30 AM PTFUADULT4, Provider: Jamila Seals, Status: Pen, Time: 11:30 AM [facility] Work Phone: Start: 01-03-2023 PTFUADULT4, Provider: Nolvia Sheth, Status: Pen, Time: 2:45 PM PTFUADULT4, Provider: Nolvia Sheth, Status: Pen, Time: 2:45 PM [facility] Work Phone: Start: 12-31-2022 PTFUADULT4, Provider: Jamila Seals, Status: Pen, Time: 10:45 AM PTFUADULT4, Provider: Jamila Seals, Status: Pen, Time: 10:45 AM [facility] Work Phone: Start: 12-30-2022 PTFUADULT4, Provider: Deisy Batista, Status: Pen, Time: 2:45 PM PTFUADULT4, Provider: Deisy Batista, Status: Pen, Time: 2:45 PM [facility] Work Phone: Start: 12-27-2022 PTFUADULT4, Provider: Jamila Seals, Status: Pen, Time: 2:45 PM PTFUADULT4, Provider: Jamila Seals, Status: Pen, Time: 2:45 PM [facility] Work Phone: Start: 12-23-2022 PTFUADULT4, Provider: Sharron Lau, Status: Pen, Time: 2:45 PM PTFUADULT4, Provider: Walker,Sharron, Status: Pen, Time: 2:45 PM [facility] Work Phone: Start: 08-15-2022 ADVANCE DIRECTIVE DISCUSSION ADVANCE DIRECTIVE DISCUSSION [facility] Start: 08-15-2022 DEPRESSION ASSESSMENT DEPRESSION ASSESSMENT [facility] Start: 06-18-2022 Hepatitis B surface antibody level LDL CHOLESTEROL [facility] Start: 12-24-2021 3 comp foot exam completed DIABETIC FOOT EXAM [facility] Start: 12-24-2021 Hepatitis B screening URINE ALBUMIN:CREATININE RATIO [facility] Start: 12-16-2021 Hemoglobin A1c/Hemoglobin.total in Blood HBA1C [facility] Start: 08-18-2021 Hepatitis C antibody, confirmatory test DILATED RETINAL EXAM [facility] End: 08-17-2023 US CAROTID ARTERIES [facility] US CAROTID ARTERIES [facility] Vascular Lab Routine Bilateral carotid artery stenosis 1 Occurrences starting 08/17/2022 until 08/17/2023 [facility] Work Phone: Immunizations Immunization Date Immunization Notes Care Provider Luca álvarez 11-16-2021 COVID-19 original vaccine, booster dose, monovalent (MODERNA) Kathy Campbell DO Work Phone: [facility] 04-30-2021 influenza, high dose seasonal, preservative-free Kathy Campbell DO Work Phone: [facility] 10-03-2020 COVID-19 original vaccine, full dose, monovalent (MODERNA) Kathy Campbell DO Work Phone: [facility] 09-05-2020 COVID-19 original vaccine, full dose, monovalent (MODERNA) Kathy Campbell DO Work Phone: [facility] 05-31-2019 influenza, high dose seasonal, preservative-free Kathy Campbell DO Work Phone: [facility] 03-28-2019 pneumococcal polysaccharide vaccine, 23 valent Kathy Campbell DO Work Phone: [facility] 09-07-2018 zoster vaccine recombinant Kathy Campbell DO Work Phone: [facility] 06-02-2018 zoster vaccine recombinant Kathy Campbell DO Work Phone: [facility] 05-15-2018 influenza, high dose seasonal, preservative-free Kathy Campbell DO Work Phone: [facility] 01-31-2018 tetanus toxoid, redu zach diphtheria toxoid, and acellular pertussis vaccine, adsorbed Kathy Campbell DO Work Phone: [facility] 05-14-2017 influenza, high dose seasonal, preservative-free Kathy Campbell DO Work Phone: [facility] 05-24-2016 influenza virus vacc ine, unspecified formulation Kathy Campbell DO Work Phone: [facility] Work Phone: 08-18-2015 pneumococcal conjuga te vaccine, 13 valent Kathy Campbell DO Work Phone: [facility] Work Phone: 07-15-2015 zoster vaccine, live Fred Campbell DO Work Phone: [facility] Work Phone: 01-14-2012 pneumococcal polysaccharide vaccine, 23 valent Kathy Campbell DO Work Phone: [facility] Work Phone: Payers Date Payer Category Payer Private Health Insurance [employer] A ET[employer] PPO [id number] 2021-Present [phone] [address] [place] [address] PPO [id number] 2018 Private Health Insurance [id number] 1992 Medicare [id number] 1992 Medicare MEDICARE MEDICAR E A AND B [id number] 1992-Present [phone] [address] [address] [place] [address] Medicare [id number] 1939 Unknown [id number] 1940 Unknown [id number] 1939 Unknown [id number] 1939 Unknown [id number] 1940 Unknown [id number] Unknown Social History Date Type Detail Facility [facility]: [facility]17[facility]2022 [facility] End: 09-27-2008 History of tobacco use Current smoker [facility] End: 09-27-2008 History of tobacco use Cigarette Smoker [facility] Start: 08-17-2022 Cigarettes smoked cu rrent (pack per day) - Reported 3 [facility] Start: 08-17-2022 Tobacco use and exposure Smoke less tobacco non-user [facility] Start: 08-17-2022 Alcohol intake Current non-dr procedure rn of alcohol (finding) [facility] Start: 1940 Sex Assigned At Not on file C [facility] Medical Equipment Procedure Code Equipment Code Equipment Origin al Text Equipment Identifier Dates Patch Cv 8x.8cm Tapr Vsgrd Bov - [id number] Start: 01-04-2014 Wire Ti .045in Stainless Steel 5.5in Fixation Trocar Smooth Guide - [id number] Start: 11-08-2018 Start: 02-11-2017 Clinical Notes 09-27-2018 to 08-17-2022 Kathy Campbell DO - 08/17/2022 10:47 AM EST Note Date & Type Note Facility 08-17-2022 Note HNO ID: [id number] Author: Kathy Campbell DO Service: Vascular Surgery Author Type: Physician Type: Progress Notes Filed: 08/26/2022 12:13 PM Note Text: NAME: MISTY MESSER [facility] NO: [id number] DATE OF SERVICE: 08/17/2022 Misty is here to follow up on carotid artery stenosis. She has a history of a right carotid endarterectomy. She denies any focal neurologic deficits. She is tolerating her antiplatelet therapy without difficulty. Objective: Her vital signs are stable. She is in no distress. She has no focal deficit. Reviewed her carotid duplex. Her right ICA is 20-39%, her left is 20-39%. Assessment/Plan: Carotid artery disease, status post revascularization. Recommend that Misty continue her current antiplatelet regimen, blood pressure and cholesterol control, and will follow up with me in a year, or sooner with any concerns. Kathy Campbell D.O. KB/089 Audio #: [id number] Date Dictated: 08/17/2022 13:29:02 Date Typed: 08/18/2022 08:56:06 Date Revised: [facility] 08-17-2022 Note HNO ID: [id number] Author: Kathy Campbell DO Service: ? Author Type: Physician Type: Progress Notes Filed: 08/17/2022 12:56 PM Note Text: This office note has been dictated. Kathy Campbell DO' [facility] 08-17-2022 History of Present illness Narrative This office note has been dictated. Kathy Campbell DO' documented in this encounter [facility] documented as of this encounter (statuses as of 08/19/2022) [facility] Bilateral carotid artery stenosis- Primary Occlusion and stenosis of carotid artery without mention of cerebral infarction [facility]* Misty Messer, a 82 year old female, arrives to outpatient PT c/o cervical pain. Pt presents with the following impairments: cervical pain, deficits in cervical AROM, restriction of surrounding cervical musculature region, deficits in B GH joint, periscapular, and cervical musculature strength, and functional mobility deficits per NDI. These impairments contribute to difficulty in activity limitations and participation restrictions including sleeping, crocheting, lifting, household management, and community engagement. The pt will benefit from skilled PT services 2x/week for 3 weeks to address the above stated impairments and functional limitations to maximize participation and ease in household and social related activities. The pt has a good prognosis when considering positive factors including PLOF and active HEP for cervical mobility with barriers such as age and chronicity of pain. Educated in scapular and B GH joint strengthening. Educated in UT stretch to perform in pure frontal plane of motion. HEP handout provided. 6/10 pain at end of session. The pt verbalized understanding and agreement to goals and POC. Thank you for this referral and please call [phone] with any questions or concerns. * Clinical Presentation: Stable and/or uncomplicated characteristics. * Level of Complexity: low * Problem List: activity limitations, ADLs/IADLs/self care skills, decreased knowledge of HEP, fall risk, flexibility, pain, participation restrictions, posture, range of motion/joint mobility and strength. [facility] Work Phone: History of Present illness Narrative* Patient identified by name & . Patient wore a mask during treatment d/t Covid-19 precautions. Treatment consisted of ther ex's and manual STW. At rest, patient's head is turned to the left andshe has difficulty putting head in neutral. As patient sits at rest she also has involuntary musclemovements of head and upper body. * Tender areas in R lower trap and medial border of R scap. Tightness noted in all areas of neck and B scaps. * Recommended heat to neck and upper back when she gets home. NO change in pain or improvement in motion. [facility] Work Phone: History of Present illness NarrativePatient identified by name and date of . Patient was able to progress with reps and stretchingthis date w/o c/o increased Sx. She demonstrated good tolerance to STW with report of reduction of Sx and increased ROM after treatment. [facility] Work Phone: History of Present illness Narrative* Patient identified by name and * Patient appropriately challenged. Patient demo's restriction in Bilat SCM's and guarding with suboccipital release this date, but is able to tolerate progressions with no increased difficulty. Requires hand held assist from therapist this date for supine to sit transfer. [facility] Work Phone: Reason for referral (narrative)* Outpatient Procedure (Routine) - Authorized Specialty Diagnoses / Procedures Referred By [place] Referred [facility] Diagnoses Bilateral carotid artery stenosis Procedures US CAROTID ARTERIES [facility] DUPLEX SCAN EXTRACRANIAL ART COMPL BI STUDY Kathy Campbell, [address] [place] [address] [facility] [address] [place] [address] Referral ID Status Reason Start Date Expiration Date Visits Requested Visits Authorized [id number] Authorized Auto-Generat ed Referral 08/17/2022 08/17/2023 1 1 [facility] for visit Narrative* Initial Evaluation . Neck pain/spinal stenosis of cervical region. * Referred by: William Richard MD [facility] Work Phone: Summary Purpose Family History No Family History Records FoundUnknown Family Member Name Dates Details No pertinent family history: Mother(V49.89, Z78.9) Status:Active Family history of myocardial infarction: Father(V17.3, Z82.49) Status:Active Unknown Family Member Name Dates Details No pertinent family history: Mother(V49.89, Z78.9) Status:Active Family history of myocardial infarction: Father(V17.3, Z82.49) Status:Active Unknown Family Member Name Dates Details No pertinent family history: Mother(V49.89, Z78.9) Status:Active Family history of myocardial infarction: Father(V17.3, Z82.49) Status:Active Unknown Family Member Name Dates Details No pertinent family history: Mother(V49.89, Z78.9) Status:Active Family history of myocardial infarction: Father(V17.3, Z82.49) Status:Active Unknown Family Member Name Dates Details No pertinent family history: Mother(V49.89, Z78.9) Status:Active Family history of myocardial infarction: Father(V17.3, Z82.49) Status:Active Advance Directives No Advanced Directives Records FoundDocuments on File Type Date Recorded Patient Coil Taper Expl anation Advance Directive(s) 11/20/2013 10:39 AM Additional Source Comments INFORMATION SOURCE (unrecogn ized section and content) DATE CREATED AUTHOR AUTHOR'S ORGANIZ ATION 07/01/2019 [facility] DATE CREATED AUTHOR AUTHOR'S ORGANIZ ATION 08/14/2020 [facility] DATE CREATED AUTHOR AUTHOR'S ORGANIZ ATION 03/17/2022 [facility] DATE CREATED AUTHOR AUTHOR'S ORGANIZ ATION 12/30/2022 [facility] DATE CREATED AUTHOR AUTHOR'S ORGANIZ ATION 02/12/2023 [employer] DATE CREATED AUTHOR AUTHOR'S ORGANIZ ATION 05/21/2023 [facility] Source Comments (unrecognize d section and content) In the event this informatio n is protected by the Federal Confidentiality of Alcohol and Drug Abuse Patient Records regulations: The Federal rules restrict any use of the information to criminally investigate or prosecute any alcohol or drug abuse patient.[facility] Reason for Visit (unrecogniz ed section and content) Care Teams (unrecognized sec tion and content) FOR RECORDS PERTAINING TO PATIENTS WHO ARE OR HAVE BEEN ENROLLED IN A CHEMICAL DEPENDENCY/SUBSTANCEABUSE PROGRAM, SOME INFORMATION MAY BE OMITTED. This clinical summary was aggregated from multiple sources. Caution should be exercised in using it in the provision of clinical care. This summary normalizes information from multiple sources, and as a consequence, information in this document may materially change the coding, format and clinical context of patient data. In addition, data may be omitted in some cases. CLINICAL DECISIONS SHOULD BE BASED ON THE PRIMARY CLINICAL RECORDS. [facility]. provides no warranty or guarantee of the accuracy or completeness of information in this document.
[2023-08-13] MEDS: Ondansetron 4 MG/2 ML Vial IV (20:32)
[2023-08-13] MEDS: 0.9% Normal Saline (1000mL) 1,000 ML 1000 ML IV (20:32)
[2023-08-13 20:39] LABS: Absolute Lymphocyte Count 1.45 X10^3/uL (0.83-4.51); Basophil# 0.06 X10^3/uL; Basophil% 0.5 % (0-1); Eosinophil# 0.17 X10^3/uL; Eosinophils% 1.5 % (0-5); Hemoglobin 11.6 g/dL (12.0-15.0); Lymphocyte # 1.45 X10^3/ul (0.83-4.51); Lymphocyte % 12.9 % (19-41); Mean Corp Hgb Conc 33.1 g/dL (32-36); Mean Corpuscular Hgb 33.5 pg (27.0-32.0); Mean Corpuscular Volume 101.2 fL (81-99); Mean Platelet Vol. 10.2 fl (6.2-12.0); Monocyte# 1.51 X10^3/uL; Monocyte% 13.5 % (0-10); NRBC Flagged by Analyzer 0 % (0-5); Neutrophil # 7.97 X10^3/uL (2.7-7.7); Neutrophil % 71.2 % (47-70); POSITIVE DIFFERENTIAL YES; Platelet Count 301 K/mm3 (150-450); RBC Distribution Width CV 13.7 % (11.6-14.6); Red Blood Count 3.46 M/mm3 (4.2-5.4); White Blood Count 11.2 K/mm3 (4.4-11.0)
[2023-08-13 20:40] LABS: Differential Indicated SCAN CRITERIA MET
[2023-08-13 20:57] LABS: Differential Comment SCANNED
[2023-08-13 21:06] LABS: AST(SGOT) 28 U/L (15-37); Alanine Aminotransfer ALT/SGPT 23 U/L (13-56); Albumin, Serum 3.1 g/dL (3.2-5.0); Alkaline Phosphatase 89 U/L (45-117); Anion Gap 4 (5-15); BUN 12 mg/dL (7-18); BUN/Creat Ratio 14.4 RATIO (10-20); Bilirubin, Direct 0.17 mg/dL (0.00-0.30); Calcium,Total 9.2 mg/dL (8.5-10.1); Chloride 107 mmol/L (98-107); Creatinine, Serum 0.84 mg/dL (0.55-1.02); EST Glomerular Filtration Rate 69 mL/min (>60); Est Glom Filt Rate - Afr Amer 84 mL/min (>60); Estimated Creatinine Clearance 41.24 ml/min; Globulin 3.9 g/dL (2.2-4.2); Glucose 155 mg/dL (74-106); Lipase 15 U/L (13-75); Potassium 3.6 mmol/L (3.5-5.1); Sodium Level 138 mmol/L (136-145)
[2023-08-13] MEDS: Amox/Clavulanate 875 MG Tablet PO (22:20)
== END 2023-08-13 22:29 | disposition home or self-care (01) ==
PROVIDERS: Emergency Provider Emergency Medicine; PCP Family Medicine Geriatric Medicine; Visit Provider Emergency Medicine
DX: K52.9 Noninfective gastroenteritis and colitis, unspecified (principal); E11.40 Type 2 diabetes mellitus with diabetic neuropathy, unspecified; Z87.891 Personal history of nicotine dependence; R10.9 Unspecified abdominal pain; E78.5 Hyperlipidemia, unspecified; E03.9 Hypothyroidism, unspecified; K21.9 Gastro-esophageal reflux disease without esophagitis; Z79.899 Other long term (current) drug therapy; Z79.82 Long term (current) use of aspirin; Z90.710 Acquired absence of both cervix and uterus
CPT/HCPCS: 74177; 80048; 80076; 82274; 83630; 83690; 85025; 87177; 87209; 87493; 87506; 96361; 96374; 99282; J7030; Q9967; A4216; J2405

== ENCOUNTER 2023-09-08 08:29 | Outpatient (CLI) | payer MEDICARE, OTHER, SELFPAY ==
[2023-09-08 08:50] VITALS: BP 151/58; PULSE 88; RESP 16; TEMP 36.2; O2SAT 94; BMI 34.5
[2023-09-08] MEDS: 0.9% NaCl Peripheral Flush Adult/Peds IV (09:03)
[2023-09-08] MEDS: Zoledronic Acid 5 MG 100 ML 300 MG IV (09:03)
--- OUTSIDE RECORDS SUMMARY | 2023-09-08 09:14 | XMS RPT_ITS | CCD ---
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 Name Role Phone FRANKIE AHN Attending Unavailab [...] Referring Unavailable LAURI GODINEZ Primary Care Unavailable KATHY CAMPBELL Referring Unavailable LAURI GODINEZ Primary Care Unavailable Allergies Allergy Classification Reported Allergen(s) Allergy Type Date of Onset Reaction(s) Facility (1 source) meloxicam; Translations: [MELOXICAM] Drug Allergy 1 [facility] Repository (3 sources) Sulfonamides (Antibiotic); Translations: [SULFA (SULFONAMIDE ANTIBIOTICS)] Propensity to adverse reactions to drug (disorder) 4 Anaphylaxis [facility] Repository (1 source) SPIDER VENOM; Translations: [SPIDER VENOM] Propensity to adverse reactions to drug (disorder) 6 [facility] Repository (2 sources) Alendronate; Translations: [ALENDRONATE] Drug Allergy 0 Other: See Comments [facility] Work Phone: (2 sources) HMG-CoA reductase inhibitor; Translations: [FCRQNDE-YUY-XBC REDUCTASE INHIBITORS] Drug Intolerance 7 Other: See Comments [facility] Work Phone: (2 sources) metFORMIN; Translations: [METFORMIN] Drug Allergy 7 Other: See Comments [facility] Work Phone: (2 sources) Bee Sting; Translations: [BEE STING] Allergy to substance 4 Other: See Comments [facility] Work Phone: (2 sources) Insect Venom; Translations: [INSECT VENOM] Drug Allergy 6 Swelling [facility] Work Phone: Medications Completed/Discontinued Medications Medication [...] (1 source) Drug therapy finding; Translations: [Other group home (current) drug therapy] Onset: 01-24-2017 09-28-2019 Episodic Other aftercare (1 source) Patient encounter status; Translations: [Other rail filler (current) drug therapy] Onset: 06-04-2020 06-04-2020 Episodic [...] 60 mm[Hg] Kathy Campbell DO Work Phone: [facility] 08-17-2022 10:32-0500 Heart rate 66 /min Kathy Campbell DO Work Phone: [facility] 08-17-2022 10:32-0500 SaO2% (BldA) [Mass fraction] 94 % Kathy Campbell DO Work Phone: [facility] 08-17-2022 10:32-0500 Systolic blood pressure 112 mm[Hg] Kathy Campbell DO Work Phone: [facility] Encounters Encounter Date Encounter Type Care Provider Facility Start: 05-17-2023 ambulatory KATHY CAMPBELL Facili ty:[facility] Start: 02-11-2023 Patient encounter procedure [facility] Godinez [facility] Work Phone: Start: 12-27-[address] Lauri Vázquez Facility:[id number] Start: 12-27-2022 Patient encounter procedure Lauri Godinez [facility] Work Phone: Start: 12-23-[address] Lauri Vázquez Facility:[id number] Start: 12-23-2022 Patient encounter procedure Lauri Godinez Work Phone: [facility] Work Phone: Start: 12-20-[address] Lauri Vázquez Facility:[id number] Start: 12-20-2022 Patient encounter procedure Lauri Godinez Work Phone: [facility] Work Phone: Start: 12-02-2022 Patient encounter procedure [facility]uri Godinez [facility] Work Phone: Start: 12-02-[address] Lauri Vázquez Facility:[id number] Start: 08-17-2022 End: 08-17-2022 ambulatory KATHY CAMPBELL Facility:[facility] Start: 08-17-2022 End: 08-17-2022 Patient encounter procedure [...] profile DTAP,TDAP,TD (2 - Td or Tdap) [facility] Start: 01-06-2023 PTRECHECKA, Provider: Chitra Stone, Status: Pen, Time: 2:00 PM PTRECHECKA, Provider: Chitra Stone, Status: Pen, Time: 2:00 PM [facility] Work Phone: Start: 01-04-2023 PTFUADULT4, Provider: Jamila Seals, Status: Pen, Time: 11:30 AM PTFUADULT4, Provider: Jamila Seals, Status: Pen, Time: 11:30 AM [facility] Work Phone: Start: 01-03-2023 PTFUADULT4, Provider: Nolvia Sheth, Status: Pen, Time: 2:45 PM PTFUADULT4, Provider: Nolvia Sheth, Status: Pen, Time: 2:45 PM [facility] Work Phone: Start: 12-31-2022 PTFUADULT4, Provider: Jamila Seals, Status: Pen, Time: 10:45 AM PTFUADULT4, Provider: Jamila Seals, Status: Pen, Time: 10:45 AM [facility] Work Phone: Start: 12-30-2022 PTFUADULT4, Provider: Deisy Batista, Status: Pen, Time: 2:45 PM PTFUADULT4, Provider: Deisy Batista, Status: Pen, Time: 2:45 PM [facility] Work Phone: Start: 12-27-2022 PTFUADULT4, Provider: Jamila Seals, Status: Pen, Time: 2:45 PM PTFUADULT4, Provider: Jamila Seals, Status: Pen, Time: 2:45 PM [facility] Work Phone: Start: 12-23-2022 PTFUADULT4, Provider: Sharron Lau, Status: Pen, Time: 2:45 PM PTFUADULT4, Provider: Walker,Sharron, Status: Pen, Time: 2:45 PM [facility] Work Phone: Start: 08-15-2022 ADVANCE DIRECTIVE DISCUSSION ADVANCE DIRECTIVE DISCUSSION [facility] Start: 08-15-2022 DEPRESSION ASSESSMENT DEPRESSION ASSESSMENT [facility] Start: 06-18-2022 Hepatitis B surface antibody level LDL CHOLESTEROL [facility] Start: 12-24-2021 3 comp foot exam completed DIABETIC FOOT EXAM [facility] Start: 12-24-2021 Hepatitis B screening URINE ALBUMIN:CREATININE RATIO [facility] Start: 12-16-2021 Hemoglobin A1c/Hemoglobin.total in Blood HBA1C [facility] Start: 08-18-2021 Hepatitis C antibody, confirmatory test DILATED RETINAL EXAM [facility] End: 08-17-2023 US CAROTID ARTERIES [facility] US CAROTID ARTERIES [facility] Vascular Lab Routine Bilateral carotid artery stenosis 1 Occurrences starting 08/17/2022 until 08/17/2023 [facility] Work Phone: Immunizations Immunization Date Immunization Notes Care Provider Luca álvarez 11-16-2021 COVID-19 original vaccine, booster dose, monovalent (MODERNA) Kathy Campbell DO Work Phone: [facility] 04-30-2021 influenza, high dose seasonal, preservative-free Kathy Campbell DO Work Phone: [facility] 10-03-2020 COVID-19 original vaccine, full dose, monovalent (MODERNA) Kathy Campbell DO Work Phone: [facility] 09-05-2020 COVID-19 original vaccine, full dose, monovalent (MODERNA) Kathy Campbell DO Work Phone: [facility] 05-31-2019 influenza, high dose seasonal, preservative-free Kathy Campbell DO Work Phone: [facility] 03-28-2019 pneumococcal polysaccharide vaccine, 23 valent Kathy Campbell DO Work Phone: [facility] 09-07-2018 zoster vaccine recombinant Kathy Campbell DO Work Phone: [facility] 06-02-2018 zoster vaccine recombinant Kathy Campbell DO Work Phone: [facility] 05-15-2018 influenza, high dose seasonal, preservative-free Kathy Campbell DO Work Phone: [facility] 01-31-2018 tetanus toxoid, redu zach diphtheria toxoid, and acellular pertussis vaccine, adsorbed Kathy Campbell DO Work Phone: [facility] 05-14-2017 influenza, high dose seasonal, preservative-free Kathy Campbell DO Work Phone: [facility] 05-24-2016 influenza virus vacc ine, unspecified formulation Kathy Campbell DO Work Phone: [facility] Work Phone: 08-18-2015 pneumococcal conjuga te vaccine, 13 valent Kathy Campbell DO Work Phone: [facility] Work Phone: 07-15-2015 zoster vaccine, live Fred Campbell DO Work Phone: [facility] Work Phone: 01-14-2012 pneumococcal polysaccharide vaccine, 23 valent Kathy Campbell DO Work Phone: [facility] Work Phone: Payers Date Payer Category Payer Private Health Insurance [employer] A ETNA PPO [id number] 2021-Present [phone] [address] [place] [address] PPO [id number] 2018 Private Health Insurance [id number] 1992 Medicare [id number] 1992 Medicare MEDICARE MEDICAR E A AND B [id number] 1992-Present [phone] [address] [address] [place] [address] Medicare [id number] 1940 Unknown [id number] 1940 Unknown [id number] 1940 Unknown [id number] 1939 Unknown [id number] 1940 Unknown [id number] Unknown Social History Date Type Detail Facility Start: 08-17-2022 [facility] End: 09-27-2008 History of tobacco use Current smoker [facility] End: 09-27-2008 History of tobacco use Cigarette Smoker [facility] Start: 08-17-2022 Cigarettes smoked cu rrent (pack per day) - Reported 3 [facility] Start: 08-17-2022 Tobacco use and exposure Smoke less tobacco non-user [facility] Start: 08-17-2022 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) [facility] Start: 1940 Sex Assigned At Not on file C [facility] Medical Equipment Procedure Code Equipment Code Equipment Origin al Text Equipment Identifier Dates Patch Cv 8x.8cm Tapr Vsgrd Bov - [id number] Start: 01-04-2014 Wire Ti .045in Stainless Steel 5.5in Fixation Trocar Smooth Guide - [id number] Start: 11-08-2018 Start: 02-11-2017 Clinical Notes 09-27-2018 to 08-17-2022 Kathy Campbell DO - 08/17/2022 10:47 AM EST Note Date & Type Note Facility 08-17-2022 Note HNO ID: [id number] Author: Kathy Campbell DO Service: Vascular Surgery Author Type: Physician Type: Progress Notes Filed: 08/26/2022 12:13 PM Note Text: NAME: MISTY MESSER [facility] NO: [id number] DATE OF SERVICE: 08/17/2022 Misty is here [...] concerns. Kathy Campbell D.O. KB/089 Audio #: [id number] Date Dictated: 08/17/2022 13:29:02 Date Typed: 08/18/2022 08:56:06 Date Revised: [facility] 08-17-2022 Note HNO ID: [id number] Author: Kathy Campbell DO Service: ? Author Type: Physician Type: Progress Notes Filed: 08/17/2022 12:56 PM Note Text: This office note has been dictated. Kathy Campbell DO' [facility] 08-17-2022 History of Present illness Narrative This office note has been dictated. Kathy Campbell DO' documented in this encounter [facility] documented as of this encounter (statuses as of 08/19/2022) [facility] Diagnosis Bilateral carotid artery stenosis- Primary Occlusion and stenosis of carotid artery without mention of cerebral infarction documented in this encounter [facility] N[facility]* Misty Messer, [...] you for this referral and please call [phone] with any questions or concerns. * Clinical Presentation: Stable and/or uncomplicated characteristics. * Level of Complexity: low * Problem List: activity limitations, ADLs/IADLs/self care skills, decreased knowledge of HEP, fall risk, flexibility, pain, participation restrictions, posture, range of motion/joint mobility and strength. [facility] Work Phone: History of Present illness Narrative* [...] in pain or improvement in motion. [facility] Work Phone: History of Present illness NarrativePatient identified by name and date of . Patient was able to progress with reps and stretchingthis date w/o c/o increased Sx. She demonstrated good tolerance to STW with report of reduction of Sx and increased ROM after treatment. [facility] Work Phone: History of Present illness Narrative* Patient identified by name and * Patient appropriately challenged. Patient demo's restriction in Bilat SCM's and guarding with suboccipital release this date, but is able to tolerate progressions with no increased difficulty. Requires hand held assist from therapist this date for supine to sit transfer. [facility] Work Phone: Reason for referral (narrative)* Outpatient Procedure (Routine) - Authorized Specialty Diagnoses / Procedures Referred By [place] Referred To [facility] Diagnoses Bilateral carotid artery stenosis Procedures US CAROTID ARTERIES [facility] DUPLEX SCAN EXTRACRANIAL ART COMPL BI STUDY Kathy Campbell, [address] [place] [address] [facility] [address] [place] [address] Referral ID Status Reason Start Date Expiration Date Visits Requested Visits Authorized [id number] Authorized Auto-Generat ed Referral 08/17/2022 08/17/2023 [address] [facility] for visit Narrative* Initial Evaluation . Neck pain/spinal stenosis of cervical region. 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 [place] [facility] DATE CREATED AUTHOR AUTHOR'S ORGANIZ ATION 03/17/2022 [facility] DATE CREATED AUTHOR AUTHOR'S ORGANIZ ATION 12/30/2022 [facility] DATE CREATED AUTHOR AUTHOR'S ORGANIZ ATION 02/12/2023 [employer] DATE CREATED AUTHOR AUTHOR'S ORGANIZ ATION 05/21/2023 [facility] Source Comments (unrecognize d section and content) In the event this informatio n is protected by the Federal Confidentiality of Alcohol and Drug Abuse Patient Records regulations: The Federal rules restrict any use of the information to criminally investigate or prosecute any alcohol or drug abuse patient.[facility] Reason for Visit (unrecogniz ed section [...] BE BASED ON THE PRIMARY CLINICAL RECORDS. [employer] [facility]. provides no warranty or guarantee of the accuracy or completeness of information in this document.
[2023-09-08 09:30] VITALS: BP 151/59; PULSE 87; RESP 18; TEMP 36.1; O2SAT 95
== END 2023-09-08 08:30 | disposition home or self-care (01) ==
LOC: MEDOUTP 08:30
PROVIDERS: PCP Family Medicine Geriatric Medicine; Referring Provider Internal Medicine Endocrinology, Diabetes & Metabolism; Visit Provider Internal Medicine Endocrinology, Diabetes & Metabolism
DX: M81.0 Age-related osteoporosis without current pathological fracture (principal)
CPT/HCPCS: 96365; A4216; J3489

== ENCOUNTER → 2023-09-21 | Outpatient (CLI) | payer MEDICARE, OTHER, SELFPAY ==
[2023-09-21 14:51] LABS: Absolute Lymphocyte Count 1.55 X10^3/uL (0.83-4.51); Basophil# 0.07 X10^3/uL; Eosinophil# 0.18 X10^3/uL; Eosinophils% 2.7 % (0-5); Hematocrit 33.9 % (37-47); Hemoglobin 11.1 g/dL (12.0-15.0); Lymphocyte # 1.55 X10^3/ul (0.83-4.51); Lymphocyte % 23.1 % (19-41); Mean Corp Hgb Conc 32.7 g/dL (32-36); Mean Corpuscular Hgb 33.4 pg (27.0-32.0); Mean Corpuscular Volume 102.1 fL (81-99); Mean Platelet Vol. 10.9 fl (6.2-12.0); Monocyte# 0.92 X10^3/uL; Monocyte% 13.7 % (0-10); NRBC Flagged by Analyzer 0 % (0-5); Neutrophil # 3.97 X10^3/uL (2.7-7.7); Neutrophil % 59.1 % (47-70); Platelet Count 302 K/mm3 (150-450); RBC Distribution Width CV 14.6 % (11.6-14.6); RBC Distribution Width SD 54.7 fl (35.1-43.9); Red Blood Count 3.32 M/mm3 (4.2-5.4); White Blood Count 6.7 K/mm3 (4.4-11.0)
[2023-09-21 15:21] LABS: ALB/GLOB Ratio 0.7 RATIO (0.9-2.4); AST(SGOT) 39 U/L (15-37); Alanine Aminotransfer ALT/SGPT 31 U/L (13-56); Alkaline Phosphatase 105 U/L (45-117); Anion Gap 5 (5-15); BUN 14 mg/dL (7-18); BUN/Creat Ratio 11.2 RATIO (10-20); Chloride 107 mmol/L (98-107); Creatinine, Serum 1.25 mg/dL (0.55-1.02); EST Glomerular Filtration Rate 43 mL/min (>60); Est Glom Filt Rate - Afr Amer 53 mL/min (>60); Globulin 4.2 g/dL (2.2-4.2); Glucose 215 mg/dL (74-106); Potassium 4.4 mmol/L (3.5-5.1); Protein, Total 7.2 g/dL (6.4-8.2); Sodium Level 138 mmol/L (136-145); T4 Free Direct 1.49 ng/dL (0.76-1.46)
[2023-09-21 16:22] LABS: Vitamin D,25 Hydroxy 52.9 ng/mL
--- OUTSIDE RECORDS SUMMARY | 2023-09-21 17:46 | XMS RPT_ITS | CCD ---
Author Name Unknown Address [address] [place] [address] Organization [facility] Care Team Providers Care Manager Business Name Role Phone FRANKIE AHN Attending Unavailab RACHELLE Sanabria [facility] Unavailable Lauri Godinez MD Primary Care Provider Lauri Godinez Unavailable Unavailable Unavailable Dr. Lauri Godinez Primary Care Gina Richard, Dr. William Santana Attending Gian Godinez, [...] source) meloxicam; Translations: [MELOXICAM] Drug Allergy 1 [facility] Repository (3 sources) Sulfonamides (Antibiotic); Translations: [SULFA (SULFONAMIDE ANTIBIOTICS)] Propensity to adverse reactions to drug (disorder) 4 Anaphylaxis [facility] Repository (1 source) SPIDER VENOM; Translations: [SPIDER VENOM] Propensity to adverse reactions to drug (disorder) 6 [facility] Repository (2 sources) Alendronate; Translations: [ALENDRONATE] Drug Allergy 0 Other: See Comments [facility] Work Phone: (2 sources) HMG-CoA reductase inhibitor; Translations: [RTKOLWJ-CBR-DMG REDUCTASE INHIBITORS] Drug Intolerance 7 Other: See Comments [facility] Work Phone: (2 sources) metFORMIN; Translations: [METFORMIN] Drug Allergy 7 Other: See Comments [facility] Work Phone: (2 sources) Bee Sting; Translations: [BEE STING] Allergy to substance 4 Other: See Comments [facility] Work Phone: (2 sources) Insect Venom; Translations: [INSECT VENOM] Drug Allergy 6 Swelling [facility] Work Phone: Medications Completed/Discontinued Medications Medication Drug [...] (1 source) Drug therapy finding; Translations: [Other longterm (current) drug therapy] Onset: 01-24-2017 09-28-2019 Episodic Other aftercare (1 source) Patient encounter status; Translations: [Other salvage determiner (current) drug therapy] Onset: 06-04-2020 06-04-2020 Episodic [...] 60 mm[Hg] Kathy Campbell DO Work Phone: [facility] 08-17-2022 10:32-0500 Heart rate 66 /min Kathy Campbell DO Work Phone: [facility] 08-17-2022 10:32-0500 SaO2% (BldA) [Mass fraction] 94 % Kathy Campbell DO Work Phone: [facility] 08-17-2022 10:32-0500 Systolic blood pressure 112 mm[Hg] Kathy Campbell DO Work Phone: [facility] Encounters Encounter Date Encounter Type Care Provider Facility Start: 05-17-2023 ambulatory KATHY CAMPBELL Facili ty:[facility] Start: 02-11-2023 Patient encounter procedure [facility]: Start: 12-27-[address] Lauri Vázquez Facility:[id number] Start: 12-27-2022 Patient encounter procedure [facility] God[facility]: Start: 12-23-[address] Lauri Vázquez Facility:[id number] Start: 12-23-2022 Patient encounter procedure Lauri Godinez Work Phone: [facility] Work Phone: Start: 12-20-[address] Lauri Vázquez Facility:[id number] Start: 12-20-2022 Patient encounter procedure Lauri Godinez Work Phone: [facility] Work Phone: Start: 12-02-2022 Patient encounter procedure [facility] Godinez [facility]: Start: 12-02-[address] Lauri Vázquez Facility:[id number] Start: 08-17-2022 End: 08-17-2022 ambulatory KATHY CAMPBELL Facility:[facility] Start: 08-17-2022 End: 08-17-2022 Patient encounter procedure [...] profile DTAP,TDAP,TD (2 - Td or Tdap) [facility] Start: 01-06-2023 PTRECHECKA, Provider: Chitra Sotne, Status: Pen, Time: 2:00 PM PTRECHECKA, Provider: Chitra Stone, Status: Pen, Time: 2:00 PM [facility] Work Phone: Start: 01-04-2023 PTFUADULT4, Provider: Jamila Seals, Status: Pen, Time: 11:30 AM PTFUADULT4, Provider: Jamila Seals, Status: Pen, Time: 11:30 AM [facility] Work Phone: Start: 01-03-2023 PTFUADULT4, Provider: Nolvia Sheth, Status: Pen, Time: 2:45 PM PTFUADULT4, Provider: Nolvia Sheth, Status: Pen, Time: 2:45 PM [facility] Work Phone: Start: 12-31-2022 PTFUADULT4, Provider: Jamila Seals, Status: Pen, Time: 10:45 AM PTFUADULT4, Provider: Jamila Seals, Status: Pen, Time: 10:45 AM [facility] Work Phone: Start: 12-30-2022 PTFUADULT4, Provider: Deisy Batista, Status: Pen, Time: 2:45 PM PTFUADULT4, Provider: Deisy Batista, Status: Pen, Time: 2:45 PM [facility] Work Phone: Start: 12-27-2022 PTFUADULT4, Provider: Jamila Seals, Status: Pen, Time: 2:45 PM PTFUADULT4, Provider: Jamila Seals, Status: Pen, Time: 2:45 PM [facility] Work Phone: Start: 12-23-2022 PTFUADULT4, Provider: Sharron Lau, Status: Pen, Time: 2:45 PM PTFUADULT4, Provider: Walker,Sharron, Status: Pen, Time: 2:45 PM [facility] Work Phone: Start: 08-15-2022 ADVANCE DIRECTIVE DISCUSSION ADVANCE DIRECTIVE DISCUSSION [facility] Start: 08-15-2022 DEPRESSION ASSESSMENT DEPRESSION ASSESSMENT [facility] Start: 06-18-2022 Hepatitis B surface antibody level LDL CHOLESTEROL [facility] Start: 12-24-2021 3 comp foot exam completed DIABETIC FOOT EXAM [facility] Start: 12-24-2021 Hepatitis B screening URINE ALBUMIN:CREATININE RATIO [facility] Start: 12-16-2021 Hemoglobin A1c/Hemoglobin.total in Blood HBA1C [facility] Start: 08-18-2021 Hepatitis C antibody, confirmatory test DILATED RETINAL EXAM [facility] End: 08-17-2023 US CAROTID ARTERIES [facility] US CAROTID ARTERIES [facility] Vascular Lab Routine Bilateral carotid artery stenosis 1 Occurrences starting 08/17/2022 until 08/17/2023 [facility] Work Phone: Immunizations Immunization Date Immunization Notes Care Provider Luca álvarez 11-16-2021 COVID-19 original vaccine, booster dose, monovalent (MODERNA) Kathy Campbell DO Work Phone: [facility] 04-30-2021 influenza, high dose seasonal, preservative-free Kathy Campbell DO Work Phone: [facility] 10-03-2020 COVID-19 original vaccine, full dose, monovalent (MODERNA) Kathy Campbell DO Work Phone: [facility] 09-05-2020 COVID-19 original vaccine, full dose, monovalent (MODERNA) Kathy Campbell DO Work Phone: [facility] 05-31-2019 influenza, high dose seasonal, preservative-free Kathy Campbell DO Work Phone: [facility] 03-28-2019 pneumococcal polysaccharide vaccine, 23 valent Kathy Campbell DO Work Phone: [facility] 09-07-2018 zoster vaccine recombinant Kathy Campbell DO Work Phone: [facility] 06-02-2018 zoster vaccine recombinant Kathy Campbell DO Work Phone: [facility] 05-15-2018 influenza, high dose seasonal, preservative-free Kathy Campbell DO Work Phone: [facility] 01-31-2018 tetanus toxoid, redu zach diphtheria toxoid, and acellular pertussis vaccine, adsorbed Kathy Campbell DO Work Phone: [facility] 05-14-2017 influenza, high dose seasonal, preservative-free Kathy Campbell DO Work Phone: [facility] 05-24-2016 influenza virus vacc ine, unspecified formulation Kathy Campbell DO Work Phone: [facility] Work Phone: 08-18-2015 pneumococcal conjuga te vaccine, 13 valent Kathy Campbell DO Work Phone: [facility] Work Phone: 07-15-2015 zoster vaccine, live Fred Campbell DO Work Phone: [facility] Work Phone: 01-14-2012 pneumococcal polysaccharide vaccine, 23 valent Kathy Campbell DO Work Phone: [facility] Work Phone: Payers Date Payer Category Payer Private Health Insurance [employer] A ETNA PPO [id number] 2021-Present [phone] [address] [place] [address] PPO [id number] 2018 Private Health Insurance [id number] 1992 Medicare [id number] 1992 Medicare MEDICARE MEDICAR E A AND B [id number] 1992-Present [phone] [address] [address] [place] [address] Medicare [id number] 1940 Unknown [id number] 1940 Unknown [id number] 1939 Unknown [id number] 1939 Unknown [id number] 1940 Unknown [id number] Unknown Social History Date Type Detail Facility Start: [facility] End: 09-27-2008 History of tobacco use Current smoker [facility] End: 09-27-2008 History of tobacco use Cigarette Smoker [facility] Start: 08-17-2022 Cigarettes smoked cu rrent (pack per day) - Reported 3 [facility] Start: 08-17-2022 Tobacco use and exposure Smoke less tobacco non-user [facility] Start: 08-17-2022 Alcohol intake Current non-dr journey lineman of alcohol (finding) [facility] Start: 1940 Sex Assigned At Not on file C [facility] Medical Equipment Procedure Code Equipment Code Equipment Origin al Text Equipment Identifier Dates Patch Cv 8x.8cm Tapr Vsgrd Bov - [id number] Start: 01-04-2014 Wire Ti .045in Stainless Steel 5.5in Fixation Trocar Smooth Guide - [id number] Start: 11-08-2018 Start: 02-11-2017 Clinical Notes 09-27-2018 to 08-17-2022 Kathy Campbell DO - 08/17/2022 10:47 AM EST Note Date & Type Note Facility 08-17-2022 Note HNO ID: [id number] Author: Kathy Campbell DO Service: Vascular Surgery Author Type: Physician Type: Progress Notes Filed: 08/26/2022 12:13 PM Note Text: NAME: MISTY MESSER [facility] NO: [id number] DATE OF SERVICE: 08/17/2022 Misty is here [...] concerns. Kathy Campbell D.O. KB/089 Audio #: [id number] Date Dictated: 08/17/2022 13:29:02 Date Typed: 08/18/2022 08:56:06 Date Revised: [facility] 08-17-2022 Note HNO ID: [id number] Author: Kathy Campbell DO Service: ? Author Type: Physician Type: Progress Notes Filed: 08/17/2022 12:56 PM Note Text: This office note has been dictated. Kathy Campbell DO' [facility] 08-17-2022 History of Present illness Narrative This office note has been dictated. Kathy aCmpbell DO' documented in this encounter [facility] documented as of this encounter (statuses as of 08/19/2022) [facility] Diagnosis Bilateral carotid artery stenosis- Primary Occlusion and stenosis of carotid artery without mention of cerebral infarction [facility] N[facility]* Misty Messer, a [...] you for this referral and please call [phone] with any questions or concerns. * Clinical Presentation: Stable and/or uncomplicated characteristics. * Level of Complexity: low * Problem List: activity limitations, ADLs/IADLs/self care skills, decreased knowledge of HEP, fall risk, flexibility, pain, participation restrictions, posture, range of motion/joint mobility and strength. [facility] Work Phone: History of Present illness Narrative* [...] in pain or improvement in motion. [facility] Work Phone: History of Present illness NarrativePatient identified by name and date of . Patient was able to progress with reps and stretchingthis date w/o c/o increased Sx. She demonstrated good tolerance to STW with report of reduction of Sx and increased ROM after treatment. [facility] Work Phone: History of Present illness Narrative* Patient identified by name and * Patient appropriately challenged. Patient demo's restriction in Bilat SCM's and guarding with suboccipital release this date, but is able to tolerate progressions with no increased difficulty. Requires hand held assist from therapist this date for supine to sit transfer. [facility] Work Phone: Reason for referral (narrative)* Outpatient Procedure (Routine) - Authorized Specialty Diagnoses / Procedures Referred By [place] Referred To [facility] Diagnoses Bilateral carotid artery stenosis Procedures US CAROTID ARTERIES [facility] DUPLEX SCAN EXTRACRANIAL ART COMPL BI STUDY Kathy Campbell, [address] [place] [address] [facility] [address] [place] [address] Referral ID Status Reason Start Date Expiration Date Visits Requested Visits Authorized [id number] Authorized Auto-Generat ed Referral 08/17/2022 08/17/2023 1 1 [facility] for visit Narrative* Initial Evaluation . Neck pain/spinal stenosis of cervical region. 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 Expl anation Advance Directive(s) 11/20/2013 10:39 AM Additional Source Comments INFORMATION SOURCE (unrecogn ized section and content) DATE CREATED AUTHOR AUTHOR'S ORGANIZ ATION 07/01/2019 [facility] DATE CREATED AUTHOR AUTHOR'S ORGANIZ ATION 08/14/2020 [facility] DATE CREATED AUTHOR AUTHOR'S ORGANIZ ATION 03/17/2022 [facility] DATE CREATED AUTHOR AUTHOR'S ORGANIZ ATION 12/30/2022 [facility] DATE CREATED AUTHOR AUTHOR'S ORGANIZ ATION 02/12/2023 [facility] DATE CREATED AUTHOR AUTHOR'S ORGANIZ ATION 05/21/2023 [facility] Source Comments (unrecognize d section and content) In the event this informatio n is protected by the Federal Confidentiality of Alcohol and Drug Abuse Patient Records regulations: The Federal rules restrict any use of the information to criminally investigate or prosecute any alcohol or drug abuse patient.[facility] Reason for Visit (unrecogniz ed section and [...] BE BASED ON THE PRIMARY CLINICAL RECORDS. [facility]. provides no warranty or guarantee of the accuracy or completeness of information in this document.
== END | disposition home or self-care (01) ==
LOC: LAB.FUTURE 13:06 → POLAB3 13:06
PROVIDERS: Internal Medicine Endocrinology, Diabetes & Metabolism; PCP Family Medicine Geriatric Medicine; Visit Provider Family Medicine Geriatric Medicine
DX: E11.65 Type 2 diabetes mellitus with hyperglycemia (principal); R53.83 Other fatigue; E55.9 Vitamin D deficiency, unspecified; M81.0 Age-related osteoporosis without current pathological fracture; E03.9 Hypothyroidism, unspecified
CPT/HCPCS: 36415; 80053; 82306; 84439; 84443; 85025

== ENCOUNTER → 2023-09-21 | Outpatient (CLI) | payer MEDICARE, OTHER, SELFPAY ==
[2023-09-21 16:33] LABS: Amphetamine Urine VISTA NEGATIVE (<1000 ng/mL); Barbiturate Urine VISTA NEGATIVE (< 200 ng/mL); Benzodiazepine Urine VISTA NEGATIVE (< 200 ng/mL); Cocaine Urine VISTA NEGATIVE (< 300 ng/mL); Ecstacy Urine VISTA NEGATIVE (< 500 ng/mL); Methadone Urine VISTA NEGATIVE (< 300 ng/mL); PCP Urine VISTA NEGATIVE (< 25 ng/mL); THC Urine VISTA NEGATIVE (< 50 ng/mL); Vista UDS pH Range 4
== END | disposition home or self-care (01) ==
LOC: LAB 15:41
PROVIDERS: PCP Family Medicine Geriatric Medicine; Referring Provider Anesthesiology Pain Medicine; Visit Provider Anesthesiology Pain Medicine
DX: F11.20 Opioid dependence, uncomplicated (principal)
CPT/HCPCS: 80307

== ENCOUNTER → 2023-10-05 | Outpatient (CLI) | payer MEDICARE, OTHER, SELFPAY ==
--- OUTSIDE RECORDS SUMMARY | 2023-10-05 12:36 | XMS RPT_ITS | CCD ---
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 Role Phone FRANKIE AHN Attending Unavailab [...] source) meloxicam; Translations: [MELOXICAM] Drug Allergy 1 [facility] Repository (3 sources) Sulfonamides (Antibiotic); Translations: [SULFA (SULFONAMIDE ANTIBIOTICS)] Propensity to adverse reactions to drug (disorder) 4 Anaphylaxis [facility] Repository (1 source) SPIDER VENOM; Translations: [SPIDER VENOM] Propensity to adverse reactions to drug (disorder) 6 [facility] Repository (2 sources) Alendronate; Translations: [ALENDRONATE] Drug Allergy 0 Other: See Comments [facility] Work Phone: (2 sources) HMG-CoA reductase inhibitor; Translations: [LGHOGEQ-CGA-CET REDUCTASE INHIBITORS] Drug Intolerance 7 Other: See Comments [facility] Work Phone: (2 sources) metFORMIN; Translations: [METFORMIN] Drug Allergy 7 Other: See Comments [facility] Work Phone: (2 sources) Bee Sting; Translations: [BEE STING] Allergy to substance 4 Other: See Comments [facility] Work Phone: (2 sources) Insect Venom; Translations: [INSECT VENOM] Drug Allergy 6 Swelling [facility] Work Phone: Medications Completed/Discontinued Medications Medication [...] (1 source) Drug therapy finding; Translations: [Other [place] [facility] (current[facility] drug therapy] Onset: 01-24-2017 09-28-2019 Episodic Other aftercare (1 source) Patient encounter status; Translations: [Other [place] [facility] (current[facility] drug therapy] Onset: 06-04-2020 06-04-2020 Episodic [...] mm[Hg] Kathy Campbell DO Work Phone: [facility] 08-17-2022 10:32-0500 Heart rate 66 /min Kathy Campbell DO Work Phone: [facility] 08-17-2022 10:32-0500 SaO2% (BldA) [Mass fraction] 94 % Kathy Campbell DO Work Phone: [facility] 08-17-2022 10:32-0500 Systolic blood pressure 112 mm[Hg] Kathy Campbell DO Work Phone: [facility] Encounters Encounter Date Encounter Type Care Provider Facility Start: 05-17-2023 ambulatory KATHY CAMPBELL Facili ty:[facility] Start: 02-11-2023 Patient encounter procedure [facility] Start: 12-27-[address] Lauri Vázquez Facility:[id number] Start: 12-27-2022 Patient encounter procedure [facility] God[facility] Start: 12-23-[address] Lauri Vázquez Facility:[id number] Start: 12-23-2022 Patient encounter procedure Lauri Godinez Work Phone: [facility] Work Phone: Start: 12-20-[address] Lauri Vázquez Facility:[id number] Start: 12-20-2022 Patient encounter procedure Lauri Godinez Work Phone: [facility] Work Phone: Start: 12-02-2022 Patient encounter procedure [facility] Godinez [facility] Start: 12-02-[address] Lauri Vázquez Facility:[id number] Start: 08-17-2022 End: 08-17-2022 ambulatory KATHY CAMPBELL Facility:[facility] Start: 08-17-2022 End: 08-17-2022 Patient encounter procedure [...] DTAP,TDAP,TD (2 - Td or Tdap) [facility] Start: 01-06-2023 PTRECHECKA, Provider: Chitra Stone, Status: Pen, Time: 2:00 PM PTRECHECKA, Provider: Chitra Stone, Status: Pen, Time: 2:00 PM [facility] Work Phone: Start: 01-04-2023 PTFUADULT4, Provider: Jamila Seals, Status: Pen, Time: 11:30 AM PTFUADULT4, Provider: Jamila Seals, Status: Pen, Time: 11:30 AM [facility] Work Phone: Start: 01-03-2023 PTFUADULT4, Provider: Nolvia Sheth, Status: Pen, Time: 2:45 PM PTFUADULT4, Provider: Nolvia Sheth, Status: Pen, Time: 2:45 PM [facility] Work Phone: Start: 12-31-2022 PTFUADULT4, Provider: Jamila Seals, Status: Pen, Time: 10:45 AM PTFUADULT4, Provider: Jamila Seals, Status: Pen, Time: 10:45 AM [facility] Work Phone: Start: 12-30-2022 PTFUADULT4, Provider: Deisy Batista, Status: Pen, Time: 2:45 PM PTFUADULT4, Provider: Deisy Batista, Status: Pen, Time: 2:45 PM [facility] Work Phone: Start: 12-27-2022 PTFUADULT4, Provider: Jamila Seals, Status: Pen, Time: 2:45 PM PTFUADULT4, Provider: Jamila Seals, Status: Pen, Time: 2:45 PM [facility] Work Phone: Start: 12-23-2022 PTFUADULT4, Provider: Sharron Lau, Status: Pen, Time: 2:45 PM PTFUADULT4, Provider: Walker,Sharron, Status: Pen, Time: 2:45 PM [facility] Work Phone: Start: 08-15-2022 ADVANCE DIRECTIVE DISCUSSION ADVANCE DIRECTIVE DISCUSSION [facility] Start: 08-15-2022 DEPRESSION ASSESSMENT DEPRESSION ASSESSMENT [facility] Start: 06-18-2022 Hepatitis B surface antibody level LDL CHOLESTEROL [facility] Start: 12-24-2021 3 comp foot exam completed DIABETIC FOOT EXAM [facility] Start: 12-24-2021 Hepatitis B screening URINE ALBUMIN:CREATININE RATIO [facility] Start: 12-16-2021 Hemoglobin A1c/Hemoglobin.total in Blood HBA1C [facility] Start: 08-18-2021 Hepatitis C antibody, confirmatory test DILATED RETINAL EXAM [facility] End: 08-17-2023 US CAROTID ARTERIES [facility] US CAROTID ARTERIES [facility] Vascular Lab Routine Bilateral carotid artery stenosis 1 Occurrences starting 08/17/2022 until 08/17/2023 [facility] Work Phone: Immunizations Immunization Date Immunization Notes Care Provider Luca álvarez 11-16-2021 COVID-19 original vaccine, booster dose, monovalent (MODERNA) Kathy Campbell DO Work Phone: [facility] 04-30-2021 influenza, high dose seasonal, preservative-free Kathy Campbell DO Work Phone: [facility] 10-03-2020 COVID-19 original vaccine, full dose, monovalent (MODERNA) Kathy Campbell DO Work Phone: [facility] 09-05-2020 COVID-19 original vaccine, full dose, monovalent (MODERNA) Kathy Campbell DO Work Phone: [facility] 05-31-2019 influenza, high dose seasonal, preservative-free Kathy Campbell DO Work Phone: [facility] 03-28-2019 pneumococcal polysaccharide vaccine, 23 valent Kathy Campbell DO Work Phone: [facility] 09-07-2018 zoster vaccine recombinant Kathy Campbell DO Work Phone: [facility] 06-02-2018 zoster vaccine recombinant Kathy Campbell DO Work Phone: [facility] 05-15-2018 influenza, high dose seasonal, preservative-free Kathy Campbell DO Work Phone: [facility] 01-31-2018 tetanus toxoid, redu zach diphtheria toxoid, and acellular pertussis vaccine, adsorbed Kathy Campbell DO Work Phone: [facility] 05-14-2017 influenza, high dose seasonal, preservative-free Kathy Campbell DO Work Phone: [facility] 05-24-2016 influenza virus vacc ine, unspecified formulation Kathy Campbell DO Work Phone: [facility] Work Phone: 08-18-2015 pneumococcal conjuga te vaccine, 13 valent Kathy Campbell DO Work Phone: [facility] Work Phone: 07-15-2015 zoster vaccine, live Fred Campbell DO Work Phone: [facility] Work Phone: 01-14-2012 pneumococcal polysaccharide vaccine, 23 valent Kathy Campbell DO Work Phone: [facility] Work Phone: Payers Date Payer Category Payer Private Health Insurance [employer] A ETNA PPO [id number] 2021-Present [phone] [address] [place] [address] PPO [id number] 2018 Private Health Insurance [id number] 1992 Medicare [id number] 1992 Medicare MEDICARE MEDICAR E A AND B [id number] 1992-Present [phone] [address] [address] [place] [address] Medicare [id number] 1940 Unknown [id number] 1940 Unknown [id number] 1939 Unknown [id number] 1940 Unknown [id number] 1940 Unknown [id number] Unknown Social History Date Type Detail Facility Start: [facility]17[facility]2022 [facility] End: 09-27-2008 History of tobacco use Current smoker [facility] End: 09-27-2008 History of tobacco use Cigarette Smoker [facility] Start: 08-17-2022 Cigarettes smoked cu rrent (pack per day) - Reported 3 [facility] Start: 08-17-2022 Tobacco use and exposure Smoke less tobacco non-user [facility] Start: 08-17-2022 Alcohol intake 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) [facility] Start: 1940 Sex Assigned At Not on file [facility] Medical Equipment Procedure Code Equipment Code Equipment Origin al Text Equipment Identifier Dates Patch Cv 8x.8cm Tapr Vsgrd Bov - [id number] Start: 01-04-2014 Wire Ti .045in Stainless Steel 5.5in Fixation Trocar Smooth Guide - [id number] Start: 11-08-2018 Start: 02-11-2017 Clinical Notes 09-27-2018 to 08-17-2022 Kathy Campbell DO - 08/17/2022 10:47 AM EST Note Date & Type Note Facility 08-17-2022 Note HNO ID: [id number] Author: Kathy Campbell DO Service: Vascular Surgery Author Type: Physician Type: Progress Notes Filed: 08/26/2022 12:13 PM Note Text: NAME: MISTY MESSER [facility] NO: [id number] DATE OF SERVICE: 08/17/2022 Misty is here [...] concerns. Kathy Campbell D.O. KB/[id number] Audio #: [id number] Date Dictated: 08/17/2022 13:29:02 Date Typed: 08/18/2022 08:56:06 Date Revised: [facility] 08-17-2022 Note HNO ID: [id number] Author: Kathy Campbell DO Service: ? Author Type: Physician Type: Progress Notes Filed: 08/17/2022 12:56 PM Note Text: This office note has been dictated. Kathy Campbell DO' [facility] 08-17-2022 History of Present illness Narrative This office note has been dictated. Kathy Campblel DO' documented in this encounter [facility] documented as of this encounter (statuses as of 08/19/2022) [facility] Diagnosis Bilateral carotid artery stenosis- Primary Occlusion and stenosis of carotid artery without mention of cerebral infarction documented [facility] this [facility]* Misty Messer, [...] you for this referral and please call [phone] with any questions or concerns. * Clinical Presentation: Stable and/or uncomplicated characteristics. * Level of Complexity: low * Problem List: activity limitations, ADLs/IADLs/self care skills, decreased knowledge of HEP, fall risk, flexibility, pain, participation restrictions, posture, range of motion/joint mobility and strength. [facility] Work Phone: History of Present illness [...] in pain or improvement in motion. [facility] Work Phone: History of Present illness NarrativePatient identified by name and date of . Patient was able to progress with reps and stretchingthis date w/o c/o increased Sx. She demonstrated good tolerance to STW with report of reduction of Sx and increased ROM after treatment. [facility] Work Phone: History of Present illness Narrative* Patient identified by name and * Patient appropriately challenged. Patient demo's restriction in Bilat SCM's and guarding with suboccipital release this date, but is able to tolerate progressions with no increased difficulty. Requires hand held assist from therapist this date for supine to sit transfer. [facility] Work Phone: Reason for referral (narrative)* Outpatient Procedure (Routine) - Authorized Specialty Diagnoses / Procedures Referred By [place] Referred [facility] Diagnoses Bilateral carotid artery stenosis Procedures US CAROTID ARTERIES [facility] DUPLEX SCAN EXTRACRANIAL ART COMPL BI STUDY Kathy Campbell, [address] [place] [address] Formerly Named [facility] [address] [place] [address] Referral ID Status Reason Start Date Expiration Date Visits Requested Visits Authorized [id number] Authorized Auto-Generat ed Referral 08/17/2022 08/17/2023 1 1 [facility] for visit Narrative* Initial Evaluation . Neck pain/spinal stenosis of cervical region. 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 Advance Directive(s) 11/20/2013 10:39 AM Additional Source Comments INFORMATION SOURCE (unrecogn ized section and content) DATE CREATED AUTHOR AUTHOR'S ORGANIZ ATION 07/01/2019 [facility] DATE CREATED AUTHOR AUTHOR'S ORGANIZ ATION 08/14/2020 [facility] DATE CREATED AUTHOR AUTHOR'S ORGANIZ ATION 03/17/2022 [facility] DATE CREATED AUTHOR AUTHOR'S ORGANIZ ATION 12/30/2022 [facility] DATE CREATED AUTHOR AUTHOR'S ORGANIZ ATION 02/12/2023 [employer] DATE CREATED AUTHOR AUTHOR'S ORGANIZ ATION 05/21/2023 [facility] Source Comments (unrecognize d section and content) In the event this informatio n is protected by the Federal Confidentiality of Alcohol and Drug Abuse Patient Records regulations: The Federal rules restrict any use of the information to criminally investigate or prosecute any alcohol or drug abuse patient.[facility] Reason for Visit (unrecogniz ed section [...] BE BASED ON THE PRIMARY CLINICAL RECORDS. [employer] [facility]. provides no warranty or guarantee of the accuracy or completeness of information in this document.
[2023-10-05 13:18] LABS: ALB/GLOB Ratio 0.8 RATIO (0.9-2.4); AST(SGOT) 30 U/L (15-37); Alanine Aminotransfer ALT/SGPT 26 U/L (13-56); Albumin, Serum 3.2 g/dL (3.2-5.0); Alkaline Phosphatase 99 U/L (45-117); Anion Gap 3 (5-15); BUN 12 mg/dL (7-18); Calcium,Total 8.7 mg/dL (8.5-10.1); Chloride 106 mmol/L (98-107); Creatinine, Serum 0.92 mg/dL (0.55-1.02); EST Glomerular Filtration Rate 61 mL/min (>60); Est Glom Filt Rate - Afr Amer 74 mL/min (>60); Glucose 122 mg/dL (74-106); Protein, Total 7.2 g/dL (6.4-8.2); Sodium Level 136 mmol/L (136-145)
== END | disposition home or self-care (01) ==
LOC: LAB 12:14
PROVIDERS: PCP Family Medicine Geriatric Medicine; Referring Provider Internal Medicine Endocrinology, Diabetes & Metabolism; Visit Provider Internal Medicine Endocrinology, Diabetes & Metabolism
DX: M81.0 Age-related osteoporosis without current pathological fracture (principal); N18.9 Chronic kidney disease, unspecified
CPT/HCPCS: 36415; 80053

== ENCOUNTER → 2024-02-07 | Outpatient (CLI) | payer MEDICARE, OTHER, SELFPAY | END | disposition home or self-care (01) | PROVIDERS: PCP Family Medicine Geriatric Medicine; Referring Provider Family Medicine Geriatric Medicine; Visit Provider Family Medicine Geriatric Medicine | DX: R68.83 Chills (without fever) (principal) | CPT/HCPCS: 87631 ==

== ENCOUNTER → 2024-03-28 | Outpatient (CLI) | payer MEDICARE, OTHER, SELFPAY ==
[2024-03-28 10:34] LABS: Absolute Lymphocyte Count 2.39 X10^3/uL (0.83-4.51); Absolute Neutrophil Count 6.1 X10^3/uL (2.0-7.7); Basophil# 0.08 X10^3/uL; Basophil% 0.8 % (0-1); Eosinophil# 0.21 X10^3/uL; Hematocrit 37.2 % (37-47); Lymphocyte # 2.39 X10^3/ul (0.83-4.51); Lymphocyte % 23.2 % (19-41); Mean Corp Hgb Conc 32.3 g/dL (32-36); Mean Corpuscular Hgb 32.3 pg (27.0-32.0); Mean Platelet Vol. 10.2 fl (6.2-12.0); Monocyte# 1.45 X10^3/uL; Monocyte% 14.1 % (0-10); NRBC Flagged by Analyzer 0 % (0-5); Neutrophil # 6.14 X10^3/uL (2.7-7.7); Neutrophil % 59.4 % (47-70); Platelet Count 395 K/mm3 (150-450); RBC Distribution Width CV 15.4 % (11.6-14.6); RBC Distribution Width SD 55.9 fl (35.1-43.9); Red Blood Count 3.72 M/mm3 (4.2-5.4); White Blood Count 10.3 K/mm3 (4.4-11.0)
[2024-03-28 10:55] LABS: Vitamin D,25 Hydroxy 59.4 ng/mL
[2024-03-28 11:02] LABS: ALB/GLOB Ratio 0.7 RATIO (0.9-2.4); AST(SGOT) 34 U/L (15-37); Alanine Aminotransfer ALT/SGPT 26 U/L (13-56); Albumin, Serum 3.4 g/dL (3.2-5.0); Alkaline Phosphatase 105 U/L (45-117); Anion Gap 3 (5-15); BUN 16 mg/dL (7-18); BUN/Creat Ratio 18.7 RATIO (10-20); Calcium,Total 9.4 mg/dL (8.5-10.1); Chloride 106 mmol/L (98-107); Creatinine, Serum 0.85 mg/dL (0.55-1.02); EST Glomerular Filtration Rate 67 mL/min (>60); Est Glom Filt Rate - Afr Amer 81 mL/min (>60); Globulin 4.6 g/dL (2.2-4.2); Glucose 105 mg/dL (74-106); Potassium 4.4 mmol/L (3.5-5.1); Sodium Level 139 mmol/L (136-145)
== END | disposition home or self-care (01) ==
LOC: POLAB3 10:15
PROVIDERS: PCP Family Medicine Geriatric Medicine; Visit Provider Family Medicine Geriatric Medicine
DX: E11.65 Type 2 diabetes mellitus with hyperglycemia (principal); R53.83 Other fatigue; E55.9 Vitamin D deficiency, unspecified
CPT/HCPCS: 36415; 80053; 82306; 84443; 85025

== ENCOUNTER 2024-04-14 13:44 | Emergency (ER) | payer MEDICARE, OTHER, SELFPAY ==
[2024-04-14 13:44] VITALS: BP 160/51; PULSE 83; RESP 18; TEMP 35.9; O2SAT 97; BMI 34.7
--- NOTE | 2024-04-14 15:18 | ED.VIS.BACK ---
HPI History of Present Illness Chief Complaint: Back Detail of Chief Complaint: Bilateral lower back pain. Informant: patient and family Onset/Context/Timing Onset: Days Context: Gradual Onset Timing: Continuous Quality: Sharp Location: Lumbar Current Severity: Moderate Maximum Severity: Moderate Worsened by: improves with Movement Relieved by: Nothing Associated Symptoms Associated Symptoms: Negative for Radiation to Right Leg, Radiation to Left Leg, Fever, Abdominal Pain, Dysuria, Unable to Ambulate, Unable to Transfer, Urinary Retention, Urinary Incontinence, Constipation or Fecal Incontinence Narrative Narrative: 83-year-old female history of chronic kidney disease and diabetes. Had back surgery 30 some years ago. Has had chronic back pain and numbness to both lower extremities for many years. Recently she had surgery on her right thumb she is relegated now to using her left hand until her right hand heals from the surgery. She bent over there today to wipe after using the restroom and had pain in her lower back. No fall. No bowel or bladder incontinence. No fever. Prior similar symptoms: With Prior Back Pain Recent Illness/Hospitalization: No PFSH PFS Medical History CKD (chronic kidney disease) l thumb surgery l rotater cuff repair Neuropathy Hives Hearing problem Cataracts, bilateral Back problem Arthritis Fatty liver DM2 (diabetes mellitus, type 2) Class 1 obesity Chronic back pain Hyperlipidemia Hypothyroid GERD (gastroesophageal reflux disease) Home Medications ?Medication ?Instructions ?Recorded ?Last Taken ?Type levothyroxine 100 mcg tablet 100 mcg PO DAILY thyroid 03/09/16 07/01/19 History pantoprazole 40 mg tablet,delayed 40 mg PO QODAY GERD 03/09/16 07/01/19 History release aspirin 81 mg chewable tablet 81 mg PO QHS heart health 07/08/17 07/01/19 History multivitamin 1 tab PO DAILY supplement 07/01/19 07/01/19 History meclizine 25 mg tablet 25 mg PO 4X/DAY PRN PRN Dizziness 01/31/20 Unknown Rx #20 tabs cholecalciferol (vitamin D3) 50 50 mcg PO DAILY 10/20/20 Unknown History mcg (2,000 unit) tablet acetaminophen 300 mg-codeine 30 mg 1 tab PO Q8H PRN Pain 08/20/21 Unknown History tablet zoledronic acid 5 mg/100 mL in 1 ea .Route ONCE #100 mL 08/18/23 Unknown Rx mannitol 5 %-water intravenous piggybck prednisone 20 mg tablet 40 mg (2 x 20 mg) PO DAILY 10 days 04/14/24 Unknown Rx #20 tabs Allergy/AdvReac Type Severity Reaction Status Date / Time Sulfa (Sulfonamide Allergy Mild Rash Verified 04/14/24 13:44 Antibiotics) bee venom protein (honey Allergy Hives Verified 04/14/24 13:44 bee) (bee stings) spider venom Allergy Swelling Verified 04/14/24 13:44 meloxicam AdvReac Mild dizziness Verified 04/14/24 13:44 metformin AdvReac Mild Eleavted BP Verified 04/14/24 13:44 Family History Father Alcoholism Heart disease Mother Arthritis Osteoporosis Brother Myocardial infarction Heart disease CVA (cerebral vascular accident) Skin cancer Grandmother Osteoporosis Uterine cancer Surgical History H/O right knee surgery History of carpal tunnel release History of hysterectomy S/P carotid endarterectomy H/O lumbar discectomy History of tonsillectomy Social History household members: none housing: house number of children: 1 Smoking Status: Former smoker Tobacco: How many years used: 55 alcohol intake: never substance use type: does not use what type of physical activity do you participate in: other frequency: 3-4 times per week do you feel safe at home: Yes ROS ROS ED ROS Narrative Denies recent illness. Constitutional Constitutional ED: Denies chills or fever(s) Eyes Eyes: Denies blurry vision ENT ENT ED: Denies ear pain Cardiovascular Cardiovascular: Denies chest pain Respiratory/Chest Respiratory/Chest: Denies dyspnea or dyspnea on exertion Gastrointestinal Gastrointestinal: Denies abdominal pain, constipation or diarrhea Genitourinary Genitourinary ED: Denies dysuria or hematuria Musculoskeletal Musculoskeletal: Reports back pain; Denies arthralgias, myalgias or neck pain Integumentary Denies abscess or Abrasions Neurologic Neurologic: Denies headache(s) Psychiatric Psychiatric: Denies anxiety or depression Endocrine Endocrinology: Denies cold intolerance or heat intolerance Hematologic/Lymphatic Hematologic/Lymphatic: Denies easy bleeding, easy bruising or lymphadenopathy Allergic/Immunologic Allergic/Immunologic ED: Denies mouth swelling, tongue swelling or urticaria EXAM Physical Exam Narrative Exam Narrative: 83-year-old female no acute distress sitting upright in bed. Daughter at bedside. Vital signs are stable afebrile. H EENT exam unremarkable. Lungs clear. Heart regular rhythm. Abdomen soft nontender. Moving all 4 extremities. 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 5 of 5 dorsi plantarflexion. She is decree sensation in both legs below the knees which is chronic and not new. No cauda equina. No saddle anesthesia. Back well-healed lumbar midline incision the lower back. She does have tenderness across her lower back and iliac crest. No ecchymosis or bruising. No redness or warmth. No signs of trauma. Neurologically she is awake and alert. She has decreased sensation of both lower legs but does not new or different. She has normal motor strength. Const Vital Signs: 04/14/24 13:44 Temperature 96.6 F L Temperature Source Temporal Pulse Rate 83 Respiratory Rate 18 Blood Pressure 160/51 H Blood Pressure Mean 87 Pulse Ox 97 Oxygen Delivery Method Room Air Positive well nourished and well developed; Negative for cachectic, contractures or unkempt General Appearance ED: well developed; Negative for unkempt, cachectic, contractures or pallor Nutritional Appearance: Negative for cachectic HEENT Reports moist mucous membranes Negative for trauma or tenderness Eyes PERRL and EOMs intact bilaterally General Eye ED: Negative for pale conjunctiva or scleral icterus Neck no lymphadenopathy, supple and no JVD General: Negative for tenderness Thyroid: Negative for other Resp normal respiratory effort and clear to auscultation bilaterally Effort and Inspection: Negative for pain with movement Auscultation: Negative for rales, rhonchi, wheezes or diminished lung sounds Cardio regular rate, regular rhythm, S1 normal heart sound, S2 normal heart sound and no murmurs Rate: Negative for bradycardia or tachycardic Rhythm: Negative for abnormal rhythm GI normal to inspection, nondistended, normoactive bowel sounds, soft to palpation, non-tender, non-distended and no masses Palpation: Negative for tender or guarding Back/Spine normal to inspection; Negative for no thoracic nor lumbar tenderness Thoracic Spine / Upper Back: paraspinal muscle tenderness Extremity normal to inspection and no clubbing, cyanosis or edema General Extremety ED: Negative for edema or tenderness General Extremity: Negative for edema Neuro oriented x3 Sensorium / Orientation: alert; Negative for confused, lethargic or stuporous Motor Exam: strength 5/5 throughout Psych mental status grossly normal Appearance: Negative for unkempt Mood & Affect: Negative for depressed, sad or tearful Skin no rashes or lesions noted and no wounds General Skin Exam: Negative for jaundice or pallor Lesions: No lesion noted Rashes: No rashes noted Trauma: Negative for abrasion Wounds: Negative for wounds noted MDM MDM MDM Narrative Medical decision making narrative: 83-year-old female with acute on chronic back pain. Prior back surgery 30 some years ago. Chronic numbness in her lower extremities. Basically aggravated her lower back. She has good strength and no cauda equina. She sees pain management Dr. Benz. She will be given IM injection of morphine. Discharged home on prednisone. She has Percocet and Tylenol 3 at home. And she will follow-up with her pain management doctor. History & Record Review Discussion w/independent historian: Patient and Family Discharge Plan Triage Chief Complaint: Back ED Provider: Vin Bautista Dx/Rx/DC Orders Clinical Impression: Back pain Instructions: ED Back Pain (Acute or Chronic) Prescriptions: New prednisone 20 mg tablet 40 mg PO DAILY 10 Days Qty: 20 0RF No Action cholecalciferol (vitamin D3) 50 mcg (2,000 unit) tablet 50 mcg PO DAILY Patient Comments: take 1 tablet by mouth once daily acetaminophen-codeine 300-30 mg tablet 1 tab PO Q8H PRN (Reason: Pain) Patient Comments: TAKE 1 TABLET BY MOUTH 4 TIMES DAILY NEEDED FOR PAIN zoledronic [id number] 5 mg/100 mL piggyback 1 ea .Route ONCE Qty: 100 0RF Rx Instructions: IVPB over 20 minutes Once a year for five years levothyroxine 100 MCG tablet 100 mcg PO DAILY pantoprazole 40 MG tablet 40 mg PO QODAY aspirin 81 MG tablet,chewable 81 mg PO QHS multivitamin 1 EACH tablet 1 tab PO DAILY meclizine 25 MG tablet 25 mg PO 4X/DAY PRN PRN (Reason: Dizziness) Qty: 20 0RF Primary Care Provider: Aniceto Cleveland Chi Referrals: Miguelina Benz MD [Med Staff - Active Staff] - As Needed Aniceto [place] Chi, MD [Primary Care Provider] - As Needed Activity Restrictions/Additional Instructions: Use your home Percocet or your Tylenol threes for pain. Prednisone daily. But watch your blood sugars. Call and follow-up either with Dr. Benz or Frcaisco in [place] as needed. Follow-up if not improving or getting worse. Plenty of fluids and fiber to prevent constipation. Stool softener as needed. Print Language: Tajik Disposition Disposition: Home, Self Care
[2024-04-14] MEDS: Ondansetron ODT 4 MG Tablet PO (15:26)
[2024-04-14] MEDS: morphine 10 MG/ML Syringe 8 MG IM (15:27)
[2024-04-14 15:44] VITALS: BP 159/60; PULSE 78; RESP 18; O2SAT 92
[2024-04-14 15:49] VITALS: BP 159/60; PULSE 78; RESP 18; TEMP 36.8; O2SAT 92
== END 2024-04-14 15:50 | disposition home or self-care (01) ==
LOC: ED 15:21
PROVIDERS: Emergency Provider Emergency Medicine; PCP Family Medicine Geriatric Medicine; Visit Provider Emergency Medicine
DX: M54.9 Dorsalgia, unspecified (principal); E11.22 Type 2 diabetes mellitus with diabetic chronic kidney disease; E78.5 Hyperlipidemia, unspecified; N18.9 Chronic kidney disease, unspecified; G89.29 Other chronic pain; Z87.891 Personal history of nicotine dependence; E03.9 Hypothyroidism, unspecified; Z79.899 Other long term (current) drug therapy; K21.9 Gastro-esophageal reflux disease without esophagitis; Z79.82 Long term (current) use of aspirin; Z90.710 Acquired absence of both cervix and uterus; X58.XXXA Exposure to other specified factors, initial encounter
CPT/HCPCS: 96372; 99282; A4216

== ENCOUNTER → 2024-04-20 | Outpatient (CLI) | payer MEDICARE, OTHER, SELFPAY ==
--- NOTE | 2024-04-20 10:09 | RAD_ITS ---
STUDY: X-RAY - LUMBAR SPINE REASON FOR EXAM: Female, 83 years old. Chronic low back pain. Prior kyphoplasty. TECHNIQUE: 4 view(s) of the lumbar spine were obtained including oblique views. COMPARISON: Comparison is made with prior study dated October 20, 2020. FINDINGS: Normal lumbar lordosis. There is no substantial scoliosis. There is a normal alignment of the vertebrae. The patient is status post vertebroplasty of the L1 vertebrae with stable loss of height. Since prior study, there is approximately 20% loss of height of the superior endplate of the L3 vertebrae. This was not seen on prior study. This space narrowing at the L5-S1 level. Facet joint osteoarthritis. There is atherosclerotic calcification of the abdominal aorta without a demonstrated aneurysm. RAD/L/S Spine Min 4 Views IMPRESSION: Degenerative changes of the spine, as detailed above. 20% loss of height of the superior endplate of the L3 vertebrae. This is new as compared to prior study. Prior vertebroplasty of the L1 vertebrae with stable loss of height. Electronically Signed: Tad Patel MD at 10:42 EDT ,
--- NOTE | 2024-04-20 10:10 | VDLE_ITS ---
Reason For Study: LLE swelling RIGHT LEFT FV is compressible, spontaneous, phasic, GSV is normal. competent and demonstrates normal CFV is compressible, spontaneous, phasic, augmentation. competent, and demonstrates normal Procedure augmentation. This is a venous duplex using B-mode, color FV is compressible, spontaneous, phasic, flow and spectral Doppler. competent and demonstrates normal Exam performed in department. augmentation. The exam was diagnostic. POP V is compressible, spontaneous, phasic, A preliminary report was called and/or faxed competent and demonstrates normal to Dr. Cleveland office. augmentation. T/P Trunk is compressible. PTV is compressible. LT PerV is compressible. VL/Venous Duplex US, Unilateral Interpretation Summary Deep veins of the left lower extremity are patent and compressible segmentally. There is no evidence of left lower extremity deep vein thrombosis. Valvular competence appears intac t within the proximal deep venous system on the left . The left great saphenous vein appears patent a nd compressible segmentally. The right femoral vein is patent and compressible. Ordering Physician: Aniceto Cleveland Chi Referring Physician: Aniceto Cleveland Chi Performed By: Wiliam Chen RVT
== END | disposition home or self-care (01) ==
LOC: CVS 10:08
PROVIDERS: PCP Family Medicine Geriatric Medicine; Referring Provider Family Medicine Geriatric Medicine; Visit Provider Family Medicine Geriatric Medicine
DX: M79.89 Other specified soft tissue disorders (principal); M51.9 Unspecified thoracic, thoracolumbar and lumbosacral intervertebral disc disorder
CPT/HCPCS: 72110; 93971

== ENCOUNTER → 2024-04-25 | Outpatient (CLI) | payer MEDICARE, OTHER, SELFPAY ==
[2024-04-25 12:45] LABS: Amphetamine Urine VISTA NEGATIVE (<1000 ng/mL); Barbiturate Urine VISTA NEGATIVE (< 200 ng/mL); Benzodiazepine Urine VISTA NEGATIVE (< 200 ng/mL); Cocaine Urine VISTA NEGATIVE (< 300 ng/mL); Ecstacy Urine VISTA NEGATIVE (< 500 ng/mL); Methadone Urine VISTA NEGATIVE (< 300 ng/mL); PCP Urine VISTA NEGATIVE (< 25 ng/mL); THC Urine VISTA NEGATIVE (< 50 ng/mL); Vista UDS pH Range 6
== END | disposition home or self-care (01) ==
PROVIDERS: PCP Family Medicine Geriatric Medicine; Referring Provider Anesthesiology Pain Medicine; Visit Provider Anesthesiology Pain Medicine
DX: F11.20 Opioid dependence, uncomplicated (principal)
CPT/HCPCS: 80307

== ENCOUNTER → 2024-05-01 | Outpatient (CLI) | payer MEDICARE, OTHER, SELFPAY ==
--- NOTE | 2024-05-01 11:40 | CT_ITS ---
CT LEFT LOWER EXTREMITY WITH 3-D IMAGING CLINICAL INDICATION: PAIN AND SWELLING OF LEFT FOOT TECHNIQUE: Axial CT images of the LEFT lower extremity was performed without IV contrast material. Coronal and sagittal reformats were provided. The protocol utilizes one or more of the following dose reduction techniques: automated exposure control, adjustment of mA and/or kV according to patient size,and/or use of iterative reconstruction technique. RADIATION DOSAGE (If Supplied By Facility): CTDIvol = ( 15.35 ) mGy, DLP = ( 449.71 ) mGycm COMPARISON: FINDINGS: Bones: Osseous structures are normal without evidence of fracture or dislocation. No lytic or blastic osseous masses. There is a screw fixation of the distal portion of the first metatarsal. Soft Tissues: Soft tissue swelling The superficial soft tissues are unremarkable without evidence of edema, hematoma, or foreign body. CT/Extremity Lower without Contra IMPRESSION: Soft tissue swelling. No fracture is seen. Electronically Signed: Tad Patel MD at 12:09 EDT ,
== END | disposition home or self-care (01) ==
LOC: CT 11:32
PROVIDERS: PCP Family Medicine Geriatric Medicine; Referring Provider Family Medicine Geriatric Medicine; Visit Provider Family Medicine Geriatric Medicine
DX: M79.672 Pain in left foot (principal); M79.89 Other specified soft tissue disorders
CPT/HCPCS: 73700

== ENCOUNTER → 2024-09-24 | Outpatient (CLI) | payer MEDICARE, OTHER, SELFPAY ==
[2024-09-24 11:48] LABS: Vitamin D,25 Hydroxy 48.4 ng/mL
[2024-09-24 11:50] LABS: ALB/GLOB Ratio 0.7 RATIO (0.9-2.4); AST(SGOT) 45 U/L (15-37); Alanine Aminotransfer ALT/SGPT 27 U/L (13-56); Alkaline Phosphatase 136 U/L (45-117); Anion Gap 8 (5-15); BUN 14 mg/dL (7-18); BUN/Creat Ratio 18.3 RATIO (10-20); Calcium,Total 8.9 mg/dL (8.5-10.1); Chloride 106 mmol/L (98-107); Creatinine, Serum 0.77 mg/dL (0.55-1.02); EST Glomerular Filtration Rate 76 mL/min (>60); Est Glom Filt Rate - Afr Amer 92 mL/min (>60); Globulin 4.1 g/dL (2.2-4.2); Glucose 138 mg/dL (74-106); Potassium 4.7 mmol/L (3.5-5.1); Protein, Total 7.1 g/dL (6.4-8.2); Sodium Level 141 mmol/L (136-145)
== END | disposition home or self-care (01) ==
LOC: POLAB3 10:41
PROVIDERS: PCP Family Medicine Geriatric Medicine; Visit Provider Family Medicine Geriatric Medicine
DX: E11.65 Type 2 diabetes mellitus with hyperglycemia (principal); R53.83 Other fatigue; E55.9 Vitamin D deficiency, unspecified
CPT/HCPCS: 36415; 80053; 82306; 84443

== ENCOUNTER → 2024-09-25 | Outpatient (CLI) | payer MEDICARE, OTHER, SELFPAY ==
[2024-09-25 09:06] LABS: Absolute Lymphocyte Count 2.68 X10^3/uL (0.83-4.51); Absolute Neutrophil Count 7.4 X10^3/uL (2.0-7.7); Basophil# 0.08 X10^3/uL; Basophil% 0.7 % (0-1); Eosinophil# 0.16 X10^3/uL; Eosinophils% 1.4 % (0-5); Hematocrit 34.9 % (37-47); Hemoglobin 11.3 g/dL (12.0-15.0); Lymphocyte # 2.68 X10^3/ul (0.83-4.51); Lymphocyte % 23.2 % (19-41); Mean Corp Hgb Conc 32.4 g/dL (32-36); Mean Corpuscular Hgb 32.1 pg (27.0-32.0); Mean Corpuscular Volume 99.1 fL (81-99); Mean Platelet Vol. 10.5 fl (6.2-12.0); Monocyte# 1.19 X10^3/uL; Monocyte% 10.3 % (0-10); NRBC Flagged by Analyzer 0.2 % (0-5); Neutrophil # 7.39 X10^3/uL (2.7-7.7); Platelet Count 356 K/mm3 (150-450); RBC Distribution Width CV 17.2 % (11.6-14.6); RBC Distribution Width SD 62.3 fl (35.1-43.9); Red Blood Count 3.52 M/mm3 (4.2-5.4); White Blood Count 11.6 K/mm3 (4.4-11.0)
[2024-09-25 09:15] LABS: Vitamin D,25 Hydroxy 51.7 ng/mL
[2024-09-25 09:25] LABS: ALB/GLOB Ratio 0.7 RATIO (0.9-2.4); AST(SGOT) 45 U/L (15-37); Alanine Aminotransfer ALT/SGPT 33 U/L (13-56); Albumin, Serum 2.9 g/dL (3.2-5.0); Alkaline Phosphatase 132 U/L (45-117); Anion Gap 7 (5-15); BUN 11 mg/dL (7-18); BUN/Creat Ratio 14.2 RATIO (10-20); Calcium,Total 8.8 mg/dL (8.5-10.1); Chloride 105 mmol/L (98-107); Creatinine, Serum 0.78 mg/dL (0.55-1.02); EST Glomerular Filtration Rate 75 mL/min (>60); Est Glom Filt Rate - Afr Amer 91 mL/min (>60); Globulin 4.3 g/dL (2.2-4.2); Glucose 159 mg/dL (74-106); Potassium 3.8 mmol/L (3.5-5.1); Protein, Total 7.2 g/dL (6.4-8.2); Sodium Level 137 mmol/L (136-145)
== END | disposition home or self-care (01) ==
LOC: LAB 08:19
PROVIDERS: PCP Family Medicine Geriatric Medicine; Referring Provider Family Medicine Geriatric Medicine; Visit Provider Family Medicine Geriatric Medicine
DX: E11.65 Type 2 diabetes mellitus with hyperglycemia (principal); E55.9 Vitamin D deficiency, unspecified; R53.83 Other fatigue
CPT/HCPCS: 80053; 82306; 84443; 85025

== ENCOUNTER → 2024-10-23 | Outpatient (CLI) | payer MEDICARE, OTHER, SELFPAY ==
--- NOTE | 2024-10-23 13:56 | RAD_ITS ---
EXAM: XR Chest, 2 Views CLINICAL INDICATION: WHEEZING TECHNIQUE: Frontal and lateral views of the chest. COMPARISON: No relevant prior studies available. FINDINGS: LUNGS AND PLEURAL SPACES: Right middle lobe atelectasis or pneumonia. No pneumothorax. HEART: Unremarkable. No cardiomegaly. MEDIASTINUM: Unremarkable. Normal mediastinal contour. BONES/JOINTS: Unremarkable. No acute fracture. RAD/Chest PA and Lateral IMPRESSION: Right middle lobe atelectasis or pneumonia. Reading Location: [facility]
== END | disposition home or self-care (01) ==
LOC: POLAB3 13:55
PROVIDERS: PCP Family Medicine Geriatric Medicine; Visit Provider Family Medicine Geriatric Medicine
DX: R68.83 Chills (without fever) (principal); R09.1 Pleurisy; R06.2 Wheezing
CPT/HCPCS: 71046; 87631

== ENCOUNTER → 2024-11-06 | Outpatient (CLI) | payer MEDICARE, OTHER, SELFPAY ==
--- NOTE | 2024-11-06 08:17 | MRI_ITS ---
CLINICAL HISTORY: Low back pain, chronic over 35 years. Surgery at L4-L5 level in 1993. COMPARISON: None available. TECHNIQUE: Multiplanar multisequence noncontrast imaging of the lumbar spine is performed. FINDINGS: There is no evidence of recent compression fracture. No suspicious marrow infiltrative process is seen. All of the intervertebral discs exhibit moderately accelerated age-related desiccation. An old moderate to severe anterior wedge compression fracture with severe superior endplate cupping, [id number] loss of height posteriorly, and moderate loss of height anteriorly is seen at the L1 level. The anterior thecal sac is and face from [id number] in the AP diameter of the spinal canal is diminished by about 4.5 mm. An old [id number] superior compression fracture is noted at the L3 level, with moderate superior endplate cupping noted along with minimal decrease in height of the vertebral body anteriorly and mild decrease in the height of the vertebral body posteriorly. Mild posterior exophytic component is seen along with superior half, narrowing the spinal canal by as great as 4 mm. Motion levels: L1-L2: Mild diffuse posterior annular bulging. Facets unremarkable. Mild interpretation of the anterior thecal sac. Neural foramina are fairly widely patent. L2-L3: Mild diffuse posterior disc bulging with some intraforaminal extension seen on the left. Marginal effacement of the anterior thecal sac and mild left foraminal narrowing. Facets unremarkable. L3-L4: Mild diffuse posterior annular bulge with preservation of disc space height. Moderate bilateral facet hypertrophy with ligamentum flavum thickening. Moderate stenosis of the spinal canal and moderate bilateral neural foraminal narrowing. L4-L5: Moderately decreased disc space height. Considerable sub endplate Modic 2 degenerative changes, especially on the right side. Minimal posterior annular bulge. Moderate bilateral foraminal hypertrophy with ligamentum flavum thickening. Moderate stenosis spinal canal and mild bilateral foraminal narrowing. L5-S1: Advanced Modic type 3 endplate degenerative changes also, mainly on the right again. Mild disc decreased in height. Mild bilateral facet hypertrophy. Spinal canal and neural foramina are mildly narrowed. Conus medullaris and nerve rootlets of the cauda equina appear unremarkable. There is advanced fatty replacement interval of the paraspinous musculature. No paraspinous mass or fluid collection is noted. MRI/Spine Lumbar (Routine) IMPRESSION: Status post remote kyphoplasties with residual compression deformities and spin al stenosis as described. Multilevel degenerative changes with variable degrees of spinal stenosis. No e vidence of herniated nucleus pulposis. Reading Location: [place] [id number]
== END | disposition home or self-care (01) ==
LOC: MRI 07:40
PROVIDERS: PCP Family Medicine Geriatric Medicine; Referring Provider Anesthesiology Pain Medicine; Visit Provider Anesthesiology Pain Medicine
DX: M54.16 Radiculopathy, lumbar region (principal)
CPT/HCPCS: 72148

== ENCOUNTER → 2024-11-21 | Outpatient (CLI) | payer MEDICARE, OTHER, SELFPAY ==
[2024-11-21 16:23] LABS: Amphetamine Urine NEGATIVE (<1000 ng/mL); Barbiturate Urine NEGATIVE (< 200 ng/mL); Benzodiazepine Urine NEGATIVE (< 200 ng/mL); Buprenorphine Urine NEGATIVE (< 200 ng/mL); Cocaine Urine NEGATIVE (< 300 ng/mL); Fentanyl, Urine NEGATIVE; Methadone Urine NEGATIVE (< 300 ng/mL); Opiates Urine PRESUMPTIVE POSITIVE (< 300 ng/mL); Oxycodone, Urine NEGATIVE (< 100 ng/mL); PCP Urine NEGATIVE (< 25 ng/mL); THC Urine NEGATIVE (< 50 ng/mL)
== END | disposition home or self-care (01) ==
LOC: LAB 14:07
PROVIDERS: PCP Family Medicine Geriatric Medicine; Referring Provider Anesthesiology Pain Medicine; Visit Provider Family Medicine Geriatric Medicine
DX: F11.20 Opioid dependence, uncomplicated (principal)
CPT/HCPCS: 80307

== ENCOUNTER → 2025-01-16 | Outpatient (CLI) | payer MEDICARE, OTHER, SELFPAY ==
[2025-01-16 21:18] LABS: M R Staph aureus DNA By PCR Negative (Negative); Staph aureus DNA By PCR NEGATIVE (Negative)
== END | disposition home or self-care (01) ==
LOC: LAB 18:48
PROVIDERS: PCP Family Medicine Geriatric Medicine; Visit Provider Family Medicine Geriatric Medicine
DX: L03.115 Cellulitis of right lower limb (principal); S81.001A Unspecified open wound, right knee, initial encounter
CPT/HCPCS: 87070; 87075; 87077; 87186; 87205; 87640

== ENCOUNTER → 2025-01-17 | Outpatient (CLI) | payer MEDICARE, OTHER, SELFPAY ==
[2025-01-17 17:54] LABS: Absolute Lymphocyte Count 1.67 X10^3/uL (0.83-4.51); Absolute Neutrophil Count 4.5 X10^3/uL (2.0-7.7); Basophil# 0.04 X10^3/uL; Basophil% 0.5 % (0-1); Eosinophil# 0.13 X10^3/uL; Eosinophils% 1.7 % (0-5); Hemoglobin 9.4 g/dL (12.0-15.0); Lymphocyte # 1.67 X10^3/ul (0.83-4.51); Lymphocyte % 22.2 % (19-41); Mean Corp Hgb Conc 31.3 g/dL (32-36); Mean Corpuscular Hgb 30.7 pg (27.0-32.0); Mean Platelet Vol. 10.2 fl (6.2-12.0); Monocyte# 1.18 X10^3/uL; Monocyte% 15.7 % (0-10); NRBC Flagged by Analyzer 0 % (0-5); Neutrophil # 4.49 X10^3/uL (2.7-7.7); Neutrophil % 59.6 % (47-70); Platelet Count 312 K/mm3 (150-450); RBC Distribution Width CV 17.2 % (11.6-14.6); RBC Distribution Width SD 61.8 fl (35.1-43.9); Red Blood Count 3.06 M/mm3 (4.2-5.4); White Blood Count 7.5 K/mm3 (4.4-11.0)
[2025-01-17 20:42] LABS: ALB/GLOB Ratio 1.1 RATIO (0.9-2.4); AST(SGOT) 36 U/L (<=31); Alanine Aminotransfer ALT/SGPT 22 U/L (<=34); Albumin, Serum 3.5 g/dL (3.4-4.8); Alkaline Phosphatase 152 U/L (35-104); Anion Gap 10 (5-15); BUN 19 mg/dL (4-19); BUN/Creat Ratio 27.9 RATIO (10-20); Carbon Dioxide 25.3 mmol/L (21.0-32.0); Chloride 103 mmol/L (98-108); Creatinine, Serum 0.67 mg/dL (0.70-1.20); EST Glomerular Filtration Rate 85 (>60); Globulin 3.1 g/dL (2.2-4.2); Glucose 165 mg/dL (70-99); Potassium 4.2 mmol/L (3.3-5.1); Pro- Brain NATRIURETIC PEPTIDE 130 pg/mL (<=1800); Protein, Total 6.6 g/dL (5.9-8.4); Sodium Level 138 mmol/L (133-145); Total Bilirubin 0.31 mg/dL (0.00-1.30)
== END | disposition home or self-care (01) ==
LOC: LAB 16:57
PROVIDERS: PCP Family Medicine Geriatric Medicine; Referring Provider Family Medicine Geriatric Medicine; Visit Provider Family Medicine Geriatric Medicine
DX: E03.9 Hypothyroidism, unspecified (principal); M79.89 Other specified soft tissue disorders
CPT/HCPCS: 36415; 80053; 83880; 84443; 85025

== ENCOUNTER → 2025-01-24 | Outpatient (CLI) | payer MEDICARE, OTHER, SELFPAY ==
[2025-01-24 11:33] LABS: Absolute Lymphocyte Count 1.63 X10^3/uL (0.83-4.51); Absolute Neutrophil Count 4.9 X10^3/uL (2.0-7.7); Basophil# 0.05 X10^3/uL; Basophil% 0.6 % (0-1); Eosinophil# 0.17 X10^3/uL; Eosinophils% 2.2 % (0-5); Hematocrit 30.8 % (37-47); Hemoglobin 9.7 g/dL (12.0-15.0); Immature Platelet Fraction 2.8 % (1.0-7.9); Lymphocyte # 1.63 X10^3/ul (0.83-4.51); Lymphocyte % 20.8 % (19-41); Mean Corp Hgb Conc 31.5 g/dL (32-36); Mean Corpuscular Hgb 30.2 pg (27.0-32.0); Mean Platelet Vol. 10.8 fl (6.2-12.0); Monocyte# 1.07 X10^3/uL; Monocyte% 13.7 % (0-10); NRBC Flagged by Analyzer 0 % (0-5); Neutrophil # 4.87 X10^3/uL (2.7-7.7); Neutrophil % 62.3 % (47-70); POSITIVE MORPHOLOGY YES; Platelet Count 304 K/mm3 (150-450); RBC Distribution Width CV 16.8 % (11.6-14.6); RBC Distribution Width SD 58.2 fl (35.1-43.9); Red Blood Count 3.21 M/mm3 (4.2-5.4); Reticulocyte Count 2.56 % (0.5-1.5); White Blood Count 7.8 K/mm3 (4.4-11.0)
[2025-01-24 11:49] LABS: Differential Indicated SCAN CRITERIA MET
[2025-01-24 12:23] LABS: Ferritin 39 ng/mL (22-378); Iron 39 ug/dL (50-170); Iron Binding Capacity,Total 406 ug/dL (250-450); Iron Binding Capacity,Unsat 367 ug/dL (228-428); Vitamin B12 1376 pg/mL (180-914)
[2025-01-24 12:39] LABS: Schistocytes RARE
== END | disposition home or self-care (01) ==
LOC: LAB 10:32
PROVIDERS: PCP Family Medicine Geriatric Medicine; Referring Provider Family Medicine Geriatric Medicine; Visit Provider Family Medicine Geriatric Medicine
DX: D50.9 Iron deficiency anemia, unspecified (principal)
CPT/HCPCS: 36415; 82607; 82728; 82746; 83540; 83550; 85025; 85045

== ENCOUNTER → 2025-01-28 | Outpatient (CLI) | payer MEDICARE, OTHER, SELFPAY ==
--- OUTSIDE RECORDS SUMMARY | 2025-01-28 22:58 | XMS RPT_ITS | CCD ---
Author Organization [facility] Care Team Providers Care System Controller Name Role Phone Dr. Zach Godinez Primary Care Provider Dr. Zach Godinez Referring Provider Dr. Mao Rabago Attending Provider Zach Godinez MD Primary Care Provider Dr. Zach Godinez Referring Provider Dr. Mao Rabago Attending Provider Dr. Aniceto Cleveland Chi Primary Care Provider Dr. Zach Godinez Referring Provider Dr. Mao Rabago Attending Provider Dr. Aniceto Cleveland Chi Primary Care Provider Zach Godinez Unavailable Unavailable Unavailable Dr. Zach Godinez Primary Care Gian Richard, Dr. William Santana Attending Gian Godinez, Dr. Zach Mitchell Primary Care Gian Richard, Dr. William Santana Attending Gian Godinez, Dr. Zahc Mitchell Primary Care Gian Richard, Dr. William Santana Attending Gian Godinez, Dr. Zach Mitchell Primary Care Gian Richard, Dr. William Santana Attending Gian Cleveland, Dr. Aniceto Waite Primary Care Provider Dr. Aniceto Cleveland Chi Referring Provider Dr. Mao Rabago Attending Provider Amelia Martines Attending Provider Unavailable Cristofer, Aniceto Chi Primary Care Provider CRISTOFER, ANICETO CHI Primary Care Unavailable CAMPBELL, KATHY D Referring Unavailable CAMPBELL, KATHY D Attending Unavailable CRISTOFER, ANICETO CHI Primary Care Unavailable CAMPBELL, KATHY D Referring Unavailable Cristofer , Aniceto Waite Primary Care Provider CRISTOFER, ANICETO CHI Primary Care Unavailable WATTLEY, ANNMARIE MRINA Admitting Unavailable WATTLEY, ANNMARIE MIRNA Referring Unavailable PEGUERO, JOHN Attending Unavailable CRISTOFER, ANICETO CHI Primary Care Unavailable WATTLEY, ANNMARIE MIRNA Admitting Unavailable WATTLEY, ANNMARIE MIRNA Referring Unavailable PEGUERO, JOHN Attending Unavailable WATTLEY, ANNMARIE MIRNA Admitting Unavailable CRISTOFER, ANICETO CHI Primary Care Unavailable TRUDI LEBLANC Attending Unavailable WATTLEY, ANNMARIE MIRNA Referring Unavailable WATTLEY, ANNMARIE MIRNA Admitting Unavailable CRISTOFER, ANICETO CHI Primary Care Unavailable TRUDI LEBLANC Attending Unavailable WATTLEY, ANNMARIE MIRNA Referring Unavailable CRISTOFER, ANICETO CHI Primary Care Unavailable WATTLEY, ANNMARIE MIRNA Admitting Unavailable WATTLEY, ANNMARIE MIRNA Referring Unavailable FOREIGN FINN Attending Unavailable CRISTOFER, ANICETO CHI Primary Care Unavailable WATTLEY, ANNMARIE MIRNA Admitting Unavailable WATTLEY, ANNMARIE MIRNA Referring Unavailable RHINA ALBERTO Attending Unavailable BRENDA CHENG Attending Unavailable CRISTOFER, ANICETO CHI Primary Care Unavailable BRENDA CHENG Attending Unavailable CRISTOFER, ANICETO CHI Primary Care Unavailable CRISTOFER, ANICETO CHI Primary Care Unavailable BRENDA CHENG Attending Unavailable Cristofer , Dr. Aniceto Waite Primary Care Provider Dr. Aniceto Cleveland MD, Chi Referring Provider [phone] Dr. Mao Rabago MD Attending Provider Dr. Aniceto Cleveland MD, Chi Attending Provider Dr. Miguelina Benz MD Attending Provider Dr. Miguelina Bnez MD Referring Provider Cristofer AVENDAÑO, [facility] Primary Care Provider RAYA CHARLES Attending Unavailable RAYA CHARLES Referring Unavailable CRISTOFER, ANICETO-CHI Primary Care Unavailable JE MUNGUIA Attending Unavailable JE MUNGUIA Attending Unavailable CRISTOFER, ANICETO-CHI Primary Care Unavailable Cristofer , Dr. Aniceto Waite Primary Care Provider Cristofer AVENDAÑO, Dr. Aniceto Waite Attending Provider Cristofer AVENDAÑO, Dr. Aniceto Waite Referring Provider Cristofer AVENDAÑO, Dr. Aniceto Waite Primary Care Provider [phone] Cristofer AVENDAÑO, Dr. Aniceto Waite Attending Provider Cristofer AVENDAÑO, Dr. Aniceto Waite Referring Provider [phone] Cristofer, Aniceto Chi Primary Care Unavailable Cristofer, Aniceto Chi Attending Unavailable Basali, Ayman Referring Unavailable Cristofer, Aniceto Chi Primary Care Unavailable Cristofer, Aniceto Chi Attending Unavailable Cristofer, Aniceto Chi Primary Care Unavailable Cristofer, Aniceto Chi Attending Unavailable Basali, Ayman Referring Unavailable Basali, Ayman Attending Unavailable Cristofer, Aniceto Chi Primary Care Unavailable Cristofer, Aniceto Chi Attending Unavailable Cristofer, Aniceto Chi Referring Unavailable Cristofer, Aniceto Chi Primary Care Unavailable Cristofer, Aniceto Chi Primary Care Unavailable Cristofer, Aniceto Chi Attending Unavailable Cristofer, Aniceto Chi Attending Unavailable Cristofer, Aniceto Chi Referring Unavailable Cristofer, Aniceto Chi Primary Care Unavailable Cristofer, Aniceto Chi Primary Care Unavailable Cristofer, Aniceto Chi Referring Unavailable Cristofer, Aniceto Chi Attending Unavailable Mao Rabago Attending Unavailable Cristofer, Aniceto Chi Referring Unavailable Cristofer, Aniceto Chi Primary Care Unavailable Basali, Ayman Referring Unavailable Cristofer, Aniceto Chi Primary Care Unavailable Basali, Ayman Attending Unavailable Vin Bautista Attending Unavailable Cristofer, Aniceto Chi Primary Care Unavailable Cristofer, Aniceto Chi Primary Care Unavailable Cristofer, Aniceto Chi Attending Unavailable Cristofer, Aniceto Chi Primary Care Unavailable Cristofer, Aniceto Chi Referring Unavailable Cristofer, Aniceto Chi Attending Unavailable Cristofer, Aniceto Chi Attending Unavailable Cristofer, Aniceto Chi Referring Unavailable Cristofer, Aniceto Chi Primary Care Unavailable Cristofer, Aniceto Chi Attending Unavailable Cristofer, Aniceto Chi Primary Care Unavailable Cristofer, Aniceto Chi Primary Care Unavailable Cristofer, Aniceto Chi Referring Unavailable Cristofer, Aniceto Chi Attending Unavailable Allergies Allergy Classification Reported Allergen(s) Allergy Type Date of Onset Reaction(s) Facility (4 sources) Bee/Wasp/Ant venom Allergy to substance 2 Hives [facility] Work Phone: (20 sources) meloxicam; Translations: [MELOXICAM] Drug Allergy 1 Dizziness only [facility] (20 sources) metFORMIN; Translations: [METFORMIN] Drug Allergy 7 Other: See Comments, Anaphylaxis, Other [facility] Work Phone: [phone] (20 sources) Sulfonamides (Antibiotic); Translations: [SULFA (SULFONAMIDE ANTIBIOTICS)] Allergy to substance 4 Anaphylaxis, Rash, Unknown [facility] Work Phone: (20 sources) spider venom; Translations: [SPIDER VENOM] Allergy to substance 6 Swelling [facility] (4 sources) Alendronate; Translations: [ALENDRONATE] Drug Allergy 0 Other: See Comments [facility] Work Phone: (4 sources) HMG-CoA reductase inhibitor; Translations: [PDDRVNE-YBV-FJE REDUCTASE INHIBITORS] Drug Intolerance 7 Other: See Comments [facility] Work Phone: (4 sources) Bee Sting; Translations: [BEE STING] Allergy to substance 4 Other: See Comments [facility] Work Phone: (4 sources) Insect Venom; Translations: [INSECT VENOM] Drug Allergy [address] [facility] Work Phone: (17 sources) bee venom protein (honey bee) Allergy to substance 3 Anaphylaxis [facility] (4 sources) meloxicam Drug Allergy 1 Dizziness [facility] (4 sources) Sulfonamides (Antibiotic) Drug Allergy 4 Anaphylaxis, Rash, Unknown [facility] (1 source) Alendronate Drug Allergy 0 [facility] (1 source) meloxicam Drug Allergy 5 [facility] Repository (1 source) metFORMIN Drug Allergy 5 [facility] (1 source) bee venom protein (honey bee) Drug allergy (disorder) 5 [facility] Repository Medications Current Medications Medication Drug Class(es) Dates Sig (Normalized) Sig (Original) acetaminophen 300 mg / codeine phosphate 30 mg oral tablet (20 sources) Opioid Agonist Start: 11-21-2024 take 1 tablet by mouth twice daily acetaminophen-cod eine (Tylenol #3) 300-30 MG tablet TAKE 1 TABLET BY MOUTH TWICE DAILY FOR 28 DAYS 11/21/2024 Active Start: 08-20-2021 Acetaminophen- Codeine 300-30 mg tablet Active 1 {tbl} PO Q8H as needed for Pain August 20, 2021 1:00am Start: 08-20-2021 take 1 tablet by cherise th every eight hours Acetaminophen-Codeine Active 1 TABLET PO Q8H August 20, 2021 12:00am Start: 08-20-2021 Acetaminophen- Codeine Active 1 TABLET PO August 20, 2021 12:00am Start: 10-20-2020 End: 12-05-2020 Acetaminophen-Codeine 300-30 mg tablet Discontinued 1 {tbl} PO EVERY 6 HOURS as needed October 20, 2020 1:00am December 05, 2020 10:02am Start: 10-20-2020 End: 12-05-2020 take 1 tablet by mouth every six hours Acetaminophen-Codeine Discontinued 1 TABLET PO EVERY 6 HOURS October 20, 2020 12:00am December 05, 2020 9:02am Start: 06-28-2019 acetaminophen- codeine (TYLENOL-COD #3) 300-30 mg per tablet 1 tablet. 06/28/2019 Active Comment on above: 1 tablet. [id number] 200 actuat albuterol 0.09 mg/actuat metered dose inhaler (6 sources) beta2-Adrenergic Agonist Start: 4 End: 5 take 2 puff(s) by inhalation every six hours as needed for wheezing albuterol 90 mcg/actuation inhaler Inhale 2 (two) puffs every 6 (six) hours as needed for wheezing . 1 g 08/11/2024 Active aspirin 81 mg chewable tablet (20 sources) Platelet Aggregation Inhibitor, Nonsteroidal Anti-inflammatory Drug Start: 7 take 1 tablet by mouth at bedtime Aspirin 81 MG tablet,chewable Active 81 mg PO AT BEDTIME July 08, 2017 1:00am Start: 06-06-2017 take 1 tablet by cherise once daily aspirin, enteric coated (ADULT LOW DOSE ASPIRIN) 81 mg EC tablet Take 1 tablet by mouth once daily. 0 06/06/2017 Active Comment on above: Take 1 tablet by cherise once daily. azithromycin 250 mg oral tablet (6 sources) Macrolide Antimicrobial Start: azithromycin (ZITHROMAX) 250 MG tablet 2 tablets first day then 1 tablet x 4 days . 6 tablet 08/11/2024 Active cholecalciferol 0.05 mg oral tablet (20 sources) Vitamin D Start: take 1 tablet by mouth once daily cholecalciferol (VITAMIN D-3) 50 mcg (2,000 unit) tablet Take 1 tablet by mouth once daily. 90 tablet 3 06/26/2021 Active Start: 10-20-2020 take 1 tablet by cherise once daily Cholecalciferol (Vitamin D3) 50 mcg (2,000 unit) tablet Active 50 ug PO DAILY October 20, 2020 1:00am Start: 01-31-2020 End: 10-20-2020 take 1 capsule by mouth once daily Cholecalciferol (Vitamin D3) 2,000 UNIT capsule Discontinued 2000 U PO DAILY January 31, 2020 12:00am October 20, 2020 11:57am cholecalciferol (Vitamin D-3) 10 MCG (400 UNIT) tablet Take by mouth daily. Active Comment on above: Take 1 tablet by cherise once daily. cholestyramine resin 4000 mg powder for oral suspension (3 sources) Bile Acid Sequestrant Start: take 4 g by mouth twice daily at mealtime cholestyramine-sucrose (QUESTRAN) 4 gram powder Take 4 g by mouth twice daily with meals. 378 g 3 06/26/2021 Active Comment on above: Take 4 g by mouth tw ice daily with meals. cyclobenzaprine hydrochloride 5 mg oral tablet (3 sources) Muscle Relaxant Start: take 1 tablet by mouth every eight hours as needed cyclobenzaprine (FLEXERIL) 5 mg tablet Take 1 tablet by mouth three times daily as needed. 30 tablet 1 06/04/2020 Active Comment on above: Take 1 tablet by cherise three times daily as needed. famotidine 20 mg oral tablet (7 sources) Histamine-2 Receptor Antagonist Start: 09-06-2 024 take 1 tablet by mouth twice daily famotidine (PEPCID) 20 MG tablet Take 1 (one) tablet (20 mg total) by mouth 2 (two) times a day . 60 tablet 04/20/2024 Active Fish,Bora,Flax Oils-Om3,6,9no1 (Mabie 3-6-9) 1,200 mg capsule (17 sources) Start: 020 take 2 capsules by mouth once daily Fish,Bora,Flax Oils-Om3,6,9no1 (Mabie 3-6-9) 1,200 mg capsule Active 2 CAP PO DAILY August 30, 2019 9:26am Start: 08-30-2019 End: 09-08-2023 Fish,Bora,Flax Oils-Om3,6,9n o1 (Mabie 3-6-9) 1,200 mg capsule Discontinued 2 NMA PO DAILY August 30, 2019 1:00am September 08, 2023 9:49am Start: 08-30-2019 End: 09-08-2023 take 2 capsules by mouth once daily Fish,Bora,Flax Oils-Om3,6,9no1 (Mabie 3-6-9) 1,200 mg capsule Discontinued 2 CAP PO DAILY August 30, 2019 12:00am September 08, 2023 8:49am Start: 08-30-2019 take 2 capsules by m outh once daily Fish,Bora,Flax Oils-Om3,6,9no1 (Mabie 3-6-9) 1,200 mg capsule Active 2 CAP PO DAILY August 30, 2019 12:00am Start: 08-30-2019 take 2 capsules by m outh once daily Fish,Bora,Flax Oils-Om3,6,9no1 (Mabie 3-6-9) 1,200 mg capsule Active 2 CAP PO DAILY August 30, 2019 1:00am levothyroxine sodium 0.1 mg oral tablet (20 sources) l-Thyroxine Start: 03-09-2016 take 1 tablet by mouth once daily Levothyroxine 100 MCG tablet Active 100 ug PO DAILY March 09, 2016 12:00am Comment on above: Take 1 tablet by cherise th daily before breakfast. loperamide hydrochloride 2 mg oral capsule (4 sources) Opioid Agonist Start: 09-24-2024 take 2 capsules by mouth once daily loperamide (Imodium) 2 MG capsule Take 4 mg by mouth daily. 09/24/2024 Active meclizine hydrochloride 25 mg oral tablet (20 sources) Antiemetic Start: 01-31-2020 take 1 tablet by mouth four times daily as needed for dizziness Meclizine 25 MG tablet Active 25 mg PO 4 TIMES DAILY NEEDED as needed for Dizziness January 31, 2020 12:00am Start: 03-28-2019 take 1 tablet by cherise th three times daily meclizine (ANTIVERT) 25 mg tab Take 1 tablet by mouth three times daily. 30 tablet 5 03/28/2019 Active Start: 03-09-2016 End: 10-20-2020 take 1 tablet by mouth once daily as needed Meclizine 25 MG tablet Discontinued 25 mg PO DAILY as needed for migraines March 09, 2016 12:00am October 20, 2020 11:57am Comment on above: Take 1 tablet by cherise th three times daily. metroNIDAZOLE 7.5 mg/ml topical cream (4 sources) Nitroimidazole Antimicrobial Start: 03-09-20 24 metroNIDAZOLE (Metrocream) 0.75 % cream APPLY TO THE FULL FACE TWICE A DAY AFTER CLEANSING ONCE IN THE MORNING AND ONCE IN THE EVENING 03/09/2024 Active Multivitamin 1 EACH tablet (5 sources) Start: 07-01-20 19 Multivitamin 1 EACH tablet Active 1 {tbl} PO DAILY July 01, 2019 1:00am Multivitamin capsule (3 sources) take 1 capsule by mouth once daily Multivitamin capsule Take 1 capsule by mouth once daily. Active take 1 capsule by mouth once emiliana ly Multivitamin capsule Take 1 capsule by mouth once daily. 0 Active Comment on above: Take 1 capsule by mo uth once daily. Multivitamin preparation (12 sources) Start: 07-01-2019 take 1 tablet by mouth once daily Multivitamin Active 1 TABLET PO DAILY July 02, 2019 12:17am Start: 07-01-2019 take 1 tablet by cherise th once daily Multivitamin Active 1 TABLET PO DAILY July 01, 2019 12:00am Start: 07-01-2019 take 1 tablet by cherise th once daily Multivitamin Active 1 TABLET PO DAILY July 01, 2019 1:00am OMEGA-3/DHA/EPA/FISH OIL (OM EGA-3 FISH OIL ORAL) (3 sources) OMEGA-3/DHA/EPA/ FISH OIL (OMEGA-3 FISH OIL ORAL) Take 2,400 mg by mouth once daily. 2400 mg of fish oil with 1200 mg of Mabie 3 daily. Active OMEGA-3/DHA/EPA/ FISH OIL (OMEGA-3 FISH OIL ORAL) Take 2,400 mg by mouth once daily. 2400 mg of fish oil with 1200 mg of Mabie 3 daily. 0 Active Comment on above: Take 2,400 mg by cherise th once daily. 2400 mg of fish oil with 1200 mg of Mabie 3 daily. pantoprazole 40 mg delayed release oral tablet (20 sources) Proton Pump Inhibitor Start: take 1 tablet by mouth once daily pantoprazole (ProtoNix) 40 MG EC tablet Take 40 mg by mouth daily. 12/10/2024 Active Start: 06-26-2021 take 1 tablet by cherise th once daily pantoprazole DR (PROTONIX) 40 mg tablet Take 1 tablet by mouth once daily. 90 tablet 3 06/26/2021 Active Start: 03-09-2016 take 1 tablet by cherise th every other day Pantoprazole 40 MG tablet Active 40 mg PO EVERY OTHER DAY March 09, 2016 12:00am take 1 tablet by cherise th once daily pantoprazole (PROTONIX) 20 MG tablet Take 1 (one) tablet (20 mg total) by mouth daily . Active Comment on above: Take 1 tablet by cherise th once daily. predniSONE 20 mg oral tablet (6 sources) Start: 04-14-2024 take 2 tablets by mouth once daily Prednisone 20 mg tablet Active 40 mg PO DAILY 03 06April 14, 2024 12:00am take 1 tablet by mouth once carly y predniSONE (DELTASONE) 20 MG tablet Take 1 (one) tablet (20 mg total) by mouth daily . Active Completed/Discontinued Medications Medication Drug Class(es) Dates Sig (Normalized) Sig (Original) acetaminophen 325 mg / HYDROcodone bitartrate 5 mg oral tablet (20 sources) Opioid Agonist Start: 10-20-2020 End: 09-08-2023 Hydrocodone-Acetami nophen 5-325 mg tablet Discontinued NMA PO October 20, 2020 1:00am September 08, 2023 9:49am Start: 10-20-2020 End: 09-08-2023 Hydrocodone-Acetaminophen Di scontinued EACH PO October 20, 2020 12:00am September 08, 2023 8:49am Start: 06-28-2019 End: 07-01-2019 Hydrocodone-Acetaminophen 1 TABLET tablet Discontinued 1 {tbl} PO EVERY 4 HOURS NEEDED as needed for Pain 10 2 June 28, 2019 June 29, 2019 1:00am July 01, 2019 1:08am Start: 06-28-2019 End: 07-01-2019 take 1 tablet by mouth every four hours as needed Hydrocodone-Acetaminophen Discontinued 1 TABLET PO EVERY 4 HOURS NEEDED 10 2 June 28, 2019 July 01, 2019 12:08am amoxicillin 875 mg / clavulanate 125 mg oral tablet (9 sources) Penicillin-class Antibacterial Start: 08-13-2023 End: 09-08-2023 Amoxicillin-Pot Clavulanate 875-125 mg tablet Discontinued 1 {tbl} PO TWICE A DAY August 13, 2023 1:00am September 08, 2023 9:49am Start: 08-13-2023 End: 09-08-2023 take 1 tablet by mouth twice daily Amoxicillin-Pot Clavulanate Discontinued 1 TABLET PO TWICE A DAY August 13, 2023 12:00am September 08, 2023 8:49am calcium carbonate 600 mg / cholecalciferol 125 unt oral tablet (8 sources) Vitamin D Start: 01-31-2020 End: 10-20-2020 Calcium Carbonate-Vitamin D3 Discontinued 1 EACH PO TWICE A DAY January 31, 2020 12:00am October 20, 2020 11:55am Calcium Carbonate / vitamin D3 (4 sources) Start: 01-31-2020 End: 10-20-2020 Calcium Carbonate-Vitamin D3 Discontinued 1 EACH PO TWICE A DAY January 30, 2020 11:00pm October 20, 2020 10:55am Calcium Carbonate-Vitamin D3 1 EACH tablet (5 sources) Start: 01-31-2020 End: 10-20-2020 Calcium Carbonate-Vitamin D3 1 EACH tablet Discontinued 1 NMA PO TWICE A DAY January 31, 2020 12:00am October 20, 2020 11:55am promethazine hydrochloride 25 mg rectal suppository (20 sources) Phenothiazine Start: 10-23-2021 End: 08-19-2022 Promethazine (Promethegan) 25 mg suppository Discontinued 25 mg RC EVERY 6 HOURS NEEDED as needed for Nausea October 23, 2021 1:00am August 19, 2022 9:15am Start: 06-04-2020 take 1 tablet by cherise th every six hours as needed promethazine (PHENERGAN) 25 mg tablet Take 1 tablet by mouth every 6 hours as needed for Nausea/Vomiting. 10 tablet 06/04/2020 Active Comment on above: Take 1 tablet by cherise th every 6 hours as needed for Nausea/Vomiting. sucralfate 1000 mg oral tablet (5 sources) Aluminum Complex Start: 08-04-20 take 1 tablet by mouth once daily Sucralfate 1 GM Oral Tablet TAKE 1 TABLET EVERY 12 HOURS DAILY. Quantity: 60 Refills: 0 Ordered: 04-Aug-2020 Romulo Martinez DO Start : 04-Aug-2020 Active 100 ml zoledronic acid 0.05 mg/ml injection (20 sources) Bisphosphonate Start: 08-29-19 End: 08-16-19 25 Zoledronic Hqlz-Hvtaftxe-Eqbbq 5 mg/100 mL piggyback Discontinued 1 NMA .Route ONCE 100 August 20, 2021 3:13pm August 19, 2022 9:14am IVPB over 20 minutes Once a year for five years Start: 08-31-2019 inject 100 mL intravenously on ce zoledronic acid (RECLAST) 5 mg/100 mL pgbk PREMIX piggyback Inject 100 mL intravenously one time only for 1 dose. Per Endo: Dr. Mao Rabago 100 mL 08/31/2019 Active Comment on above: Inject 100 mL intrav enously one time only for 1 dose. Per Endo: Dr. Mao Rabago Problems Active Problems Problem Classification Problem Date Documented Da te Episodic/Chronic Abdominal pain (9 sources) Abdominal pain; Translations: [Unspecified abdominal pain] 08-13-2023 Episodic Chronic kidney disease (7 sources) Chronic kidney disease; Translations: [Chronic kidney disease, unspecified] 09-22-2023 Chronic Conditions associated with dizziness or vertigo (19 sources) Peripheral vertigo; Translations: [Other peripheral vertigo, unspecified ear] Onset: 5 02-01-2020 Episodic Deficiency and other anemia (1 source) Iron deficiency anemia, unspecified; Translations: [Iron deficiency anemia, unspecified] Onset: 5 Episodic Deficiency and other anemia (1 source) Anemia, unspecified; Translations: [Anemia, unspecified] Onset: 5 Episodic Diabetes mellitus with complications (4 sources) Type 2 diabetes mellitus; Translations: [Type 2 diabetes mellitus with diabetic neuropathy, unspecified] Onset: 7 01-02-2021 Chronic Diabetes mellitus without complication (17 sources) Diabetes mellitus; Translations: [Type 2 diabetes mellitus without complications] 08-29-2020 Chronic Disorders of lipid metabolism (3 sources) Mixed hyperlipidemia; Translations: [Mixed hyperlipidemia] Onset: 6 11-06-2015 Chronic Esophageal disorders (8 sources) Gastroesophageal reflux disease without esophagitis; Translations: [Gastro-esophageal reflux disease without esophagitis] Onset: 6 11-06-2015 Chronic Gastritis and duodenitis (5 sources) Bile-induced gastritis; Translations: [Other specified gastritis, without mention of hemorrhage] Episodic Headache; including migraine (3 sources) Ophthalmoplegic migraine; 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, not intractable] Onset: 6 08-25-2021 Chronic Miscellaneous mental health disorders (3 sources) Chronic insomnia; Translations: [Psychophysiologic insomnia] Onset: 9 03-28-2019 Chronic Noninfectious gastroenteritis (9 sources) Colitis; Translations: [Noninfective gastroenteritis and colitis, unspecified] 08-13-2023 Episodic Nutritional deficiencies (20 sources) Vitamin D deficiency; Translations: [Vitamin D deficiency, unspecified] Chronic Occlusion or stenosis of precerebral arteries (7 sources) Bilateral stenosis of carotid arteries; Translations: [Occlusion and stenosis of bilateral carotid arteries] Onset: 6 Chronic Osteoarthritis (20 sources) Osteoarthrosis of the carpometacarpal joint of the thumb; Translations: [Unilateral primary osteoarthritis of first carpometacarpal joint, left hand] Onset: 9 03-28-2019 Chronic Osteoporosis (20 sources) Osteoporosis; Translations: [Age-related osteoporosis without current pathological fracture] Onset: 5 Chronic Other connective tissue disease (17 sources) Recurrent falls ; Translations: [Repeated falls] 07-23-2020 Episodic Other fractures (20 sources) Compression fracture of lumbar spine; Translations: [Wedge compression fracture of unspecified lumbar vertebra, initial encounter for closed fracture] 06-29-2019 Episodic Other fractures (2 sources) Fracture of third lumbar vertebra; Translations: [Wedge compression fracture of third lumbar vertebra, initial encounter for closed fracture] 12-20-2024 Episodic Other fractures (2 sources) Wedge compression fracture of first lumbar vertebra, initial encounter for closed fracture; Translations: [Wedge compression fracture of first lumbar vertebra, initial encounter for closed fracture (HCC)] Onset: 5 Episodic Other fractures (2 sources) Wedge compression fracture of third lumbar vertebra, initial encounter for closed fracture; Translations: [Wedge compression fracture of third lumbar vertebra, initial encounter for closed fracture (HCC)] Onset: 5 Episodic Other gastrointestinal disorders (5 sources) Esophageal dysphagia; Translations: [Other dysphagia] Episodic Other liver diseases (3 sources) Steatosis of liver; Translations: [Fatty (change of) liver, not elsewhere classified] Onset: 6 11-06-2015 Chronic Other nervous system disorders (3 sources) Neuropathy; Translations: [Polyneuropathy, unspecified] Onset: 9 09-27-2018 Chronic Other nervous system disorders (5 sources) Alteration in comfort: chronic pain; Translations: [Other chronic pain] Chronic Other nutritional; endocrine; and metabolic disorders (3 sources) Body mass index 30+ - obesity; Translations: [Obesity, unspecified] Onset: 8 06-02-2020 Chronic Other screening for suspected conditions (not mental disorders or infectious disease) (2 sources) Abnormal findings on diagnostic imaging of other specified body structures; Translations: [Abnormal findings on diagnostic imaging of other specified body structures] Onset: 4 Chronic Residual codes; unclassified (1 source) Chills (without fever); Translations: [Chills (without fever)] Onset: 5 Episodic Skin and subcutaneous tissue infections (1 source) Cellulitis of right lower limb; Translations: [Cellulitis of right lower limb] Onset: 5 Episodic Spondylosis; intervertebral disc disorders; other back problems (20 sources) Stenosis of intervertebral foramina; Translations: [Spinal stenosis, cervical region] Onset: 6 12-24-2020 Episodic Substance-related disorders (1 source) Opioid dependence, uncomplicated; Translations: [Opioid dependence, uncomplicated] Onset: 5 Chronic Thyroid disorders (20 sources) Acquired hypothyroidism; Translations: [Hypothyroidism, unspecified] Onset: 6 11-06-2015 Chronic Unclassified (1 source) Subacute cough; Translations: [Subacute cough] Onset: 4 Past or Other Problems Problem Classification Problem Date Documented Da te Episodic/Chronic Allergic reactions (2 sources) Allergy, unspecified, initial encounter; Translations: [Allergy, unspecified, initial encounter] Onset: 04-20-2024 Episodic Heart valve disorders (3 sources) Systolic murmur; Translations: [Cardiac murmur, unspecified] Onset: 11-21-2013 01-30-2016 Episodic Other aftercare (3 sources) Drug therapy finding; Translations: [Other director long term care (current) drug therapy] Onset: 01-24-2017 09-28-2019 Episodic Other aftercare (5 sources) Patient encounter status; Translations: [Other correction (current) drug therapy] Onset: 09-27-2018 Resolved: 06-02-2020 06-04-2020 Episodic Other connective tissue disease (1 source) Pain in left foot; Translations: [Pain in left foot] Onset: 05-23-2024 Episodic Other connective tissue disease (1 source) Other specified soft tissue disorders; Translations: [Other specified soft tissue disorders] Onset: 05-10-2024 Episodic Other gastrointestinal disorders (3 sources) Functional diarrhea; Translations: [Functional diarrhea] Onset: 06-26-2021 06-26-2021 Episodic Other nervous system disorders (3 sources) Paresthesia of hand ; Translations: [Anesthesia of skin] Onset: 03-27-2018 03-28-2019 Episodic Other screening for suspected conditions (not mental disorders or infectious disease) (6 sources) Other specified abnormal findings of blood chemistry; Translations: [Other abnormal blood chemistry] Onset: 11-06-2015 08-10-2021 Episodic Pathological fracture (3 sources) Pathological fracture due to osteoporosis; Translations: [Age-related osteoporosis with current pathological fracture, unspecified site, initial encounter for fracture] Onset: 07-23-2019 07-23-2019 Episodic Unclassified (14 sources) l rotater cuff repair 03-15-2022 Unclassified (14 sources) l thumb surgery 03-15-2022 Unclassified (1 source) Subacute cough; Translations: [Subacute cough] Onset: 08-11-2024 Results Test Name Value Interpretation Reference Range Facility Absolute lymphocyte countOrd ered By: Aniceto Cleveland on 01-24-2025 Lymphocytes Auto (Unsp spec) [#/Vol] 1.63 10*3/uL 0.83-4.51 [facility] Absolute neutrophil countOrd ered By: [facility] on 01-24-2025 Neutrophils (Bld) [#/Vol] 4.9 10*3/uL 2.0-7.7 [facility] Automated lymphocyte count a s percentage of total leukocytesOrdered By: [facility] Cristofer on 01-24-2025 Lymphocytes/100 WBC Auto (Unsp spec) 20.8 % 19-41 [facility] Basophil [facility]Or[facility] B y: [facility] Basophils/100 WBC (Bld) 0.6 % 0-1 [facility] Blood schistocyte detection by light microscopyOrdered By: [facility] on 01-24-2025 Schistocytes LM Ql (Bld) RARE [facility] CBC W/Diff, Automatedon 01-13 SCHISTOCYTES RARE Normal [facility] Comment on above: Performed By: #### L 506.0200, L503.0106, L503.6550, L503.6030, L100.0100, L100.9950 #### [facility] [address] [place], [address] Eosinophil percentageOrdered By: [facility] on 01-24-2025 Eosinophils/100 WBC (Bld) 2.2 % 0-5 [facility] Erythrocyte distribution wid th ratioOrdered By: [facility] on 01-24-2025 Erythrocyte distribution width (RBC) [Ratio] 16.8 % High 11.6-14.6 [facility] Erythrocyte distribution wid th standard deviationOrdered By: [facility] on 01-24-2025 Erythrocyte distribution width (RBC) [Ratio] 58.2 fl High 35.1-43.9 [facility] Ferritinon 01-24-2025 Ferritin [Mass/Vol] 39 ng/mL Normal 22-378 [facility] Comment on above: Performed By: #### L 506.0200, L503.0106, L503.6550, L503.6030, L100.0100, L100.9950 #### [facility] [address] [place], [place], [id number] Folate [Moles/volume] in Ser um or PlasmaOrdered By: Aniceto Herzogok on 01-24-2025 Folate [Moles/Vol] 17.10 ng/mL 4.60-34.80 [facility] Folates,Serum (Folic Acid)on 01-24-2025 FOLATES,SERUM 17.10 ng/mL Normal 4.60-34.80 [facility] Comment on above: Order Comment: N Performed By: #### L 506.0200, L503.0106, L503.6550, L503.6030, L100.0100, L100.9950 #### [facility] [address] [place], [address] Hematocrit Auto (Bld) [Volum e fraction]Ordered By: Aniceto Cleveland on 01-24-2025 Hematocrit (Bld) [Volume fraction] 30.8 % Low 37-47 [facility] Hemoglobin measurementOrdere d By: Aniceto Cristofer on 01-24-2025 Hemoglobin (Bld) [Mass/Vol] 9.7 g/dL Low 12.0-15.0 [facility] Immature granulocytes/100 WB C Auto (Bld)Ordered By: Aniceto Cleveland on 01-24-2025 Immature granulocytes/100 WBC (Bld) 0.400 % 0.0-0.9 [facility] Comment on above: IG% - Immature Granu locytes (promyelocytes, myelocytes and metamyelocytes) > 1% indicates that a LEFT SHIFT is Present. Immature platelet percentage Ordered By: Aniceto Cleveland on 01-24-2025 Platelets reticulated/100 platelets Auto (Bld) 2.8 % 1.0-7.9 [facility] Comment on above: Low PLT + Low IPF solares ggest a bone marrow production disorderLow PLT + high IPF suggests peripheral destruction(e.g.ITP, TTP, HIT, DIC, autoimmune) or bone marrow recoveryTrending of serial IPF measurements is recommended when evaluating for bone marrow responesValue above normal range indicates an increase in RBC cellular response from bone marrow. Iron measurement (mass/mass) Ordered By: Aniceto Cleveland on 01-24-2025 Iron (Unsp spec) [Mass/Mass] 39 ug/dL Low 50-170 [facility] Iron+Iron Binding Capacityon 01-24-2025 Iron [Mass/Vol] 39 ug/dL Low 50-170 [facility] Comment on above: Performed By: #### L 506.0200, L503.0106, L503.6550, L503.6030, L100.0100, L100.9950 #### [facility] [address] [place], [address] IRON SATURATION 10.0 Low 13-59 [facility] Comment on above: Performed By: #### L 506.0200, L503.0106, L503.6550, L503.6030, L100.0100, L100.9950 #### [facility] [address] [place], [address] TIBC 406 ug/dL Normal 250-450 [facility] Comment on above: Performed By: #### L 506.0200, L503.0106, L503.6550, L503.6030, L100.0100, L100.9950 #### [facility] [address] [place], [address] UIBC 367 ug/dL Normal 228-428 [facility] Comment on above: Performed By: #### L 506.0200, L503.0106, L503.6550, L503.6030, L100.0100, L100.9950 #### [facility] [address] [place], [address] MCV (mean corpuscular volume ) determinationOrdered By: Aniceto Cleveland on 01-24-2025 MCV (RBC) [Entitic vol] 96.0 fL 81-99 [facility] Mean corpuscular hemoglobin (MCH) determinationOrdered By: Aniceto Cleveland on 01-24-2025 MCH (RBC) [Entitic mass] 30.2 pg 27.0-32.0 [facility] Mean corpuscular hemoglobin concentration (MCHC) determinationOrdered By: Aniceto Cleveland on 01-24-2025 MCHC (RBC) [Mass/Vol] 31.5 g/dL Low 32-36 [facility] Mean platelet volume determi nationOrdered By: Aniceto Cleveland on 01-24-2025 Platelet mean volume (Bld) [Entitic vol] 10.8 fL 6.2-12.0 [facility] Monocyte percentageOrdered B y: Aniceto Herzogok on 01-24-2025 Monocytes/100 WBC (Bld) 13.7 % High 0-10 [facility] Neutrophil percentageOrdered By: Aniceto Herzogok on 01-24-2025 Neutrophils/100 WBC (Bld) 62.3 % 47-70 [facility] No Panel InformationOrdered By: Aniceto Cleveland on 01-24-2025 Unsaturated Iron Binding Capacity 367 ug/dL 228-428 [facility] Nucleated red blood cell per centageOrdered By: Aniceto Cleveland on 01-24-2025 Nucleated RBC/100 WBC (Bld) [Ratio] 0 % 0-5 [facility] Platelet countOrdered By: Fermin Cleveland on 01-24-2025 Platelets (Bld) [#/Vol] 304 10*3/uL 150-450 [facility] RBC Auto (Bld) [#/Vol]Ordere d By: Aniceto Cleveland on 01-24-2025 RBC (Bld) [#/Vol] 3.21 10*6/uL Low 4.2-5.4 [facility] Retic Panelon 01-24-2025 IM RET FRACTION 23.70 High 3.00-15.90 [facility] Comment on above: Performed By: #### L 506.0200, L503.0106, L503.6550, L503.6030, L100.0100, L100.9950 #### [facility] [address] [place], [address] IPF 2.8 Normal 1.0-7.9 [facility] Comment on above: Result Comment: Low PLT + Low IPF suggest a bone marrow production disorder Low PLT + high IPF suggests peripheral destruction (e.g.ITP, TTP, HIT, DIC, autoimmune) or bone marrow recovery Trending of serial IPF measurements is recommended when evaluating for bone marrow respones Value above normal range indicates an increase in RBC cellular response from bone marrow. Performed By: #### L 506.0200, L503.0106, L503.6550, L503.6030, L100.0100, L100.9950 #### [facility] [address] [place], [place], [id number] RET-HE 29.0 pg Low 30-35 [facility] Comment on above: Performed By: #### L 506.0200, L503.0106, L503.6550, L503.6030, L100.0100, L100.9950 #### [facility] [address] [place], [place], [id number] Retic Count 2.56 High 0.5-1.5 [facility] Comment on above: Performed By: #### L 506.0200, L503.0106, L503.6550, L503.6030, L100.0100, L100.9950 #### [facility] [address] [place], [place], [id number] Reticulocyte hemoglobin equi valent (RET-He) measurementOrdered By: Aniceto Cleveland on 01-24-2025 Hemoglobin (Reticulocytes) [Entitic mass] 29.0 pg Low 30-35 [facility] Reticulocytes Auto (Bld) [#/ Vol]Ordered By: Aniceto Cleveland on 01-24-2025 Reticulocytes/100 RBC (Bld) 2.56 % High 0.5-1.5 [facility] Serum or plasma ferritin carlos surement (mass/volume)Ordered By: Aniceto Cleveland on 01-24-2025 Ferritin [Mass/Vol] 39 ng/mL 22-378 [facility] Serum or plasma iron saturat ion measurement (mass fraction)Ordered By: Aniceto Cleveland on 01-24-2025 Iron saturation [Mass fraction] 10.0 % Low 13-59 [facility] Vitamin B12on 01-24-2025 Cobalamin (Vitamin B12) [Mass/Vol] 1376 pg/mL High 180-914 [facility] Comment on above: Performed By: #### L 506.0200, L503.0106, L503.6550, L503.6030, L100.0100, L100.9950 #### [facility] [address] [place], [address] Vitamin B12 ser/plasOrdered By: Aniceto Cleveland on 01-24-2025 Cobalamin (Vitamin B12) [Mass/Vol] 1376 pg/mL High 180-914 [facility] White blood cell (WBC) count Ordered By: Aniceto Cleveland on 01-24-2025 WBC (Bld) [#/Vol] 7.8 10*3/uL 4.4-11.0 [facility] Culture, Anaerobic Any Sourc saige 01-20-2025 CUAN RIGHT KNEE No anaerobic bacteria isolated. Normal [facility] Comment on above: Performed By: #### M 100.4001, M100.3000, M100.1999, L8200.1075 ####[facility] [address] [place], [place], [id number] Wound Cultureon 01-18-2025 WC RIGHT KNEE Staphylococcus epidermidis Amount Growth 2+ Staphylococcus epidermidis: REACTION cefOXitin Susc Islt Doxycycline Islt DIMITRIS <=0.5 S Clindamycin Islt DIMITRIS 0.25 S Clindamycin.induced Susc Islt NEG Erythromycin Islt DIMITRIS <=0.25 S Gentamicin Islt DIMITRIS <=0.5 S Linezolid Islt DIMITRIS 1 S Oxacillin Susc Islt >=4 R Tetracycline Islt DIMITRIS 2 S TMP SMX Islt DIMITRIS 80 R Vancomycin Islt DIMITRIS 1 S Normal [facility] Comment on above: Performed By: #### M 100.4001, M100.3000, M100.2000, L8200.1075 ####[facility] [address] [place], [address] Absolute lymphocyte countOrd ered By: Aniceto Cleveland on 01-17-2025 Lymphocytes Auto (Unsp spec) [#/Vol] 1.67 10*3/uL 0.83-4.51 [facility] Absolute neutrophil countOrd ered By: Aniceto Cleveland on 01-17-2025 Neutrophils (Bld) [#/Vol] 4.5 10*3/uL 2.0-7.7 [facility] Anion gap in Serum or Plasma Ordered By: Aniceto Cristofer on 01-17-2025 Anion gap [Moles/Vol] 10 mmol/L 5- [facility] Automated lymphocyte count a s percentage of total leukocytesOrdered By: Aniceto Cleveland on 01-17-2025 Lymphocytes/100 WBC Auto (Unsp spec) 22.2 % - [facility] BUN/creatinine ratioOrdered By: [facility] 01-[facility]25 Urea nitrogen/Creatinine [Mass ratio] 27.9 mg/mg High 10- [facility] Basophil percentageOrdered B y: Aniceto Cristofer on 01-17-2025 Basophils/100 WBC (Bld) 0.5 % 0-1 [facility] Bilirubin, totalOrdered By: Aniceto Cleveland on 01-17-2025 Bilirubin [Mass/Vol] 0.31 mg/dL 0.00-1.30 [facility] CBC W/Diff, Automatedon Absolute Lymph 1.67 X10 3/uL Normal 0.83-4.51 [facility] Comment on above: Performed By: #### L 500.4050, L100.0100, L501.9520, L503.7505 ####[facility] [address] [place], [address] Absolute Neut 4.5 X10 3/uL Normal 2.0-7.7 [facility] Comment on above: Performed By: #### L 500.4050, L100.0100, L501.9520, L503.7505 ####[facility] [address] [place], [address] Basophils/100 WBC (Bld) 0.5 % Normal 0-1 [facility] Comment on above: Performed By: #### L 500.4050, L100.0100, L501.9520, L503.7505 ####[facility] [address] [place], [address] Eosinophils/100 WBC (Bld) 1.7 % Normal 0-5 [facility] Comment on above: Performed By: #### L 500.4050, L100.0100, L501.9520, L503.7505 ####[facility] [address] [place], [address] Erythrocyte distribution width (RBC) [Ratio] 17.2 % High 11.6-14.6 [facility] Comment on above: Performed By: #### L 500.4050, L100.0100, L501.9520, L503.7505 ####[facility] [address] [place], [address] Hematocrit (Bld) [Volume fraction] 30.0 % Low 37-47 [facility] Comment on above: Performed By: #### L 500.4050, L100.0100, L501.9520, L503.7505 ####[facility] [address] [place], [address] Hemoglobin (Bld) [Mass/Vol] 9.4 g/dL Low 12.0-15.0 [facility] Comment on above: Performed By: #### L 500.4050, L100.0100, L501.9520, L503.7505 ####[facility] [address] [place], [address] IG% 0.300 Normal 0.0-0.9 [facility] Comment on above: Result Comment: IG% - Immature Granulocytes (promyelocytes, myelocytes and metamyelocytes) > 1% indicates that a LEFT SHIFT is Present. Performed By: #### L 500.4050, L100.0100, L501.9520, L503.7505 ####[facility] [address] [place], [address] Lymphocytes/100 WBC (Bld) 22.2 % Normal 19-41 [facility] Comment on above: Performed By: #### L 500.4050, L100.0100, L501.9520, L503.7505 ####[facility] [address] [place], [address] MCH (RBC) [Entitic mass] 30.7 pg Normal 27.0-32.0 [facility] Comment on above: Performed By: #### L 500.4050, L100.0100, L501.9520, L503.7505 ####[facility] [address] [place], [address] MCHC (RBC) [Mass/Vol] 31.3 g/dL Low 32-36 [facility] Comment on above: Performed By: #### L 500.4050, L100.0100, L501.9520, L503.7505 ####[facility] [address] [place], [address] MCV (RBC) [Entitic vol] 98.0 fL Normal 81-99 [facility] Comment on above: Performed By: #### L 500.4050, L100.0100, L501.9520, L503.7505 ####[facility] [address] [place], [address] Monocytes/100 WBC (Bld) 15.7 % High 0-10 [facility] Comment on above: Performed By: #### L 500.4050, L100.0100, L501.9520, L503.7505 ####[facility] [address] [place], [address] Neutrophils/100 WBC (Bld) 59.6 % Normal 47-70 [facility] Comment on above: Performed By: #### L 500.4050, L100.0100, L501.9520, L503.7505 ####[facility] [address] [place], [address] Nucleated RBC (Bld) [#/Vol] 0 10*3/uL Normal 0-5 [facility] Comment on above: Performed By: #### L 500.4050, L100.0100, L501.9520, L503.7505 ####[facility] [address] [place], [address] Platelet mean volume (Bld) [Entitic vol] 10.2 fL Normal 6.2-12.0 [facility] Comment on above: Performed By: #### L 500.4050, L100.0100, L501.9520, L503.7505 ####[facility] [address] [place], [address] Platelets (Bld) [#/Vol] 312 10*3/uL Normal 150-450 [facility] Comment on above: Performed By: #### L 500.4050, L100.0100, L501.9520, L503.7505 ####[facility] [address] [place], [address] RBC (Bld) [#/Vol] 3.06 10*6/uL Low 4.2-5.4 [facility] Comment on above: Performed By: #### L 500.4050, L100.0100, L501.9520, L503.7505 ####[facility] [address] [place], [address] RDW SD 61.8 fl High 35.1-43.9 [facility] Comment on above: Performed By: #### L 500.4050, L100.0100, L501.9520, L503.7505 ####[facility] [address] [place], [address] WBC (Bld) [#/Vol] 7.5 10*3/uL Normal 4.4-11.0 [facility] Comment on above: Performed By: #### L 500.4050, L100.0100, L501.9520, L503.7505 ####[facility] [address] [place], [address] Carbon dioxide, total [Moles /volume] in Central venous bloodOrdered By: Aniceto Cleveland on 01-17-2025 CO2 [Moles/Vol] 25.3 mmol/L 21.0-32.0 [facility] Chloride assayOrdered By: Fermin Cleveland on 01-17-2025 Chloride [Moles/Vol] 103 mmol/L 98-108 [facility] Comprehensive Metabolic Prof ilon 01-17-2025 Albumin [Mass/Vol] 3.5 g/dL Normal 3.4-4.8 [facility] Comment on above: Performed By: #### L 506.0200, L503.0106, L503.6550, L503.6030, L100.0100, L100.9950 #### [facility] [address] [place], [address] Albumin/Globulin [Mass ratio] 1.1 {ratio} Normal 0.9-2.4 [facility] Comment on above: Performed By: #### L 506.0200, L503.0106, L503.6550, L503.6030, L100.0100, L100.9950 #### [facility] [address] [place], [address] ALK PHOS 152 U/L High 35-104 [facility] Comment on above: Performed By: #### L 506.0200, L503.0106, L503.6550, L503.6030, L100.0100, L100.9950 #### [facility] [address] [place], [address] ALT [Catalytic activity/Vol] 22 U/L Normal <=34 [facility] Comment on above: Performed By: #### L 506.0200, L503.0106, L503.6550, L503.6030, L100.0100, L100.9950 #### [facility] [address] [place], [address] AST [Catalytic activity/Vol] 36 U/L High <=31 [facility] Comment on above: Performed By: #### L 506.0200, L503.0106, L503.6550, L503.6030, L100.0100, L100.9950 #### [facility] [address] [place], [address] Bilirubin [Mass/Vol] 0.31 mg/dL Normal 0.00-1.30 [facility] Comment on above: Performed By: #### L 506.0200, L503.0106, L503.6550, L503.6030, L100.0100, L100.9950 #### [facility] [address] [place], [address] BUN/CRE 27.9 RATIO High 10-20 [facility] Comment on above: Performed By: #### L 506.0200, L503.0106, L503.6550, L503.6030, L100.0100, L100.9950 #### [facility] [address] [place], [address] Calcium [Mass/Vol] 9.0 mg/dL Normal 7.6-11.0 [facility] Comment on above: Performed By: #### L 506.0200, L503.0106, L503.6550, L503.6030, L100.0100, L100.9950 #### [facility] [address] [place], [address] Chloride [Moles/Vol] 103 mmol/L Normal 98-108 [facility] Comment on above: Performed By: #### L 506.0200, L503.0106, L503.6550, L503.6030, L100.0100, L100.9950 #### [facility] [address] [place], [place], [id number] CO2 [Moles/Vol] 25.3 mmol/L Normal 21.0-32.0 [facility] Comment on above: Performed By: #### L 506.0200, L503.0106, L503.6550, L503.6030, L100.0100, L100.9950 #### [facility] [address] [place], [place], [address] Creatinine [Mass/Vol] 0.67 mg/dL Low 0.70-1.20 [facility] Comment on above: Performed By: #### L 506.0200, L503.0106, L503.6550, L503.6030, L100.0100, L100.9950 #### [facility] [address] [place], [place], [address] GAP 10 Normal 5-15 [facility] Comment on above: Performed By: #### L 506.0200, L503.0106, L503.6550, L503.6030, L100.0100, L100.9950 #### [facility] [address] [place], [place], [address] GFR/1.73 sq M.predicted among non-blacks MDRD (S/P/Bld) [Vol rate/Area] 85 mL/min/{1.73_m2} Normal >60 [facility] Comment on above: Result Comment: mL/m in/1.73m2 CKD-EPI Creatinine Equation (2020) Performed By: #### L 506.0200, L503.0106, L503.6550, L503.6030, L100.0100, L100.9950 #### [facility] [address] [place], [address] Globulin (S) [Mass/Vol] 3.1 g/dL Normal 2.2-4.2 [facility] Comment on above: Performed By: #### L 506.0200, L503.0106, L503.6550, L503.6030, L100.0100, L100.9950 #### [facility] [address] [place], [address] Glucose [Mass/Vol] 165 mg/dL High 70-99 [facility] Comment on above: Performed By: #### L 506.0200, L503.0106, L503.6550, L503.6030, L100.0100, L100.9950 #### [facility] [address] [place], [address] Potassium [Moles/Vol] 4.2 mmol/L Normal 3.3-5.1 [facility] Comment on above: Performed By: #### L 506.0200, L503.0106, L503.6550, L503.6030, L100.0100, L100.9950 #### [facility] [address] [place], [address] Sodium [Moles/Vol] 138 mmol/L Normal 133-145 [facility] Comment on above: Performed By: #### L 506.0200, L503.0106, L503.6550, L503.6030, L100.0100, L100.9950 #### [facility] [address] [place], [address] T PROT 6.6 g/dL Normal 5.9-8.4 [facility] Comment on above: Performed By: #### L 506.0200, L503.0106, L503.6550, L503.6030, L100.0100, L100.9950 #### [facility] [address] [place], [address] Urea nitrogen [Mass/Vol] 19 mg/dL Normal 4-19 [facility] Comment on above: Performed By: #### L 506.0200, L503.0106, L503.6550, L503.6030, L100.0100, L100.9950 #### [facility] [address] [place], [address] Eosinophil percentageOrdered By: Aniceto Cleveland on 01-17-2025 Eosinophils/100 WBC (Bld) 1.7 % 0-5 [facility] Erythrocyte distribution wid th ratioOrdered By: Aniceto Cleveland on 01-17-2025 Erythrocyte distribution width (RBC) [Ratio] 17.2 % High 11.6-14.6 [facility] Erythrocyte distribution wid th standard deviationOrdered By: Aniceto Cleveland on 01-17-2025 Erythrocyte distribution width (RBC) [Ratio] 61.8 fl High 35.1-43.9 [facility] Glomerular filtration rate ( GFR) estimation/1.73 sq m using serum, plasma, or whole bOrdered By: Aniceto Cleveland on 01-17-2025 GFR/1.73 sq M.predicted among non-blacks MDRD (S/P/Bld) [Vol rate/Area] 85 mL/min/{1.73_m2} >60 [facility] Comment on above: mL/min/1.73m2 CKD-EP I Creatinine Equation (2020) Gram Stainon 01-17-2025 GS RIGHT KNEE Gram Stain Rare Gram positive cocci Rare White Blood Cells No Epithelial cells Normal [facility] Comment on above: Performed By: #### M 100.4001, M100.3000, M100.2000, L8200.1075 ####[facility] [address] [place], [address] Hematocrit Auto (Bld) [Volum e fraction]Ordered By: Aniceto Cleveland on 01-17-2025 Hematocrit (Bld) [Volume fraction] 30.0 % Low 37-47 [facility] Hemoglobin measurementOrdere d By: Aniceto Cleveland on 01-17-2025 Hemoglobin (Bld) [Mass/Vol] 9.4 g/dL Low 12.0-15.0 [facility] Immature granulocytes/100 WB C Auto (Bld)Ordered By: Aniceto Cleveland on 01-17-2025 Immature granulocytes/100 WBC (Bld) 0.300 % 0.0-0.9 [facility] Comment on above: IG% - Immature Granu locytes (promyelocytes, myelocytes and metamyelocytes) > 1% indicates that a LEFT SHIFT is Present. L503.7505on 01-17-2025 Natriuretic peptide B (Bld) [Mass/Vol] 130 pg/mL Normal <=1800 [facility] Comment on above: Result Comment: Hear t Failure Unlikely: < 300 pg/mL Heart Failure Likely < 50 Years: > 450 pg/mL 50-75 Years: > 900 pg/mL >75 Years: > 1800 pg/mL Performed By: #### L 506.0200, L503.0106, L503.6550, L503.6030, L100.0100, L100.9950 #### [facility] [address] [place], [address] Laboratory - Chemistry and C hemistry - challengeOrdered By: Aniceto Cleveland on 01-17-2025 AST [Catalytic activity/Vol] 36 U/L High <32 [facility] MCV (mean corpuscular volume ) determinationOrdered By: Aniceto Cleveland on 01-17-2025 MCV (RBC) [Entitic vol] 98.0 fL 81-99 [facility] Mean corpuscular hemoglobin (MCH) determinationOrdered By: Aniceto Cleveland 01-17-2025 MCH (RBC) [Entitic mass] 30.7 pg 27.0-32.0 [facility] Mean corpuscular hemoglobin concentration (MCHC) determinationOrdered By: Aniceto Cleveland 01-17-2025 MCHC (RBC) [Mass/Vol] 31.3 g/dL Low 32-36 [facility] Mean platelet volume determi nationOrdered By: Aniceto Cleveland 01-17-2025 Platelet mean volume (Bld) [Entitic vol] 10.2 fL 6.2-12.0 [facility] Monocyte percentageOrdered B y: Aniceto Cleveland on 01-17-2025 Monocytes/100 WBC (Bld) 15.7 % High 0-10 [facility] Natriuretic peptide.B prohor alex N-Terminal [Mass/volume] in Serum or PlasmaOrdered By: Aniceto Cleveland on 01-17-2025 Natriuretic peptide.B prohormone N-Terminal [Mass/Vol] 130 pg/mL <1800 [facility] Comment on above: Heart Failure Unlike ly: < 300 pg/mLHeart Failure Likely< 50 Years: > 450 pg/mL50-75 Years: > 900 pg/mL>75 Years: > 1800 pg/mL Neutrophil percentageOrdered By: Aniceto Cleveland on 01-17-2025 Neutrophils/100 WBC (Bld) 59.6 % 47-70 [facility] Nucleated red blood cell per centageOrdered By: Aniceto Cleveland on 01-17-2025 Nucleated RBC/100 WBC (Bld) [Ratio] 0 % 0-5 [facility] Platelet countOrdered By: Fermin Cleveland on 01-17-2025 Platelets (Bld) [#/Vol] 312 10*3/uL 150-450 [facility] Potassium measurement (mass/ volume)Ordered By: Aniceto Cleveland on 01-17-2025 Potassium (Unsp spec) [Mass/Vol] 4.2 mmol/L 3.3-5.1 [facility] RBC Auto (Bld) [#/Vol]Ordere d By: Aniceto Cleveland on 01-17-2025 RBC (Bld) [#/Vol] 3.06 10*6/uL Low 4.2-5.4 [facility] Serum creatinine measurement (mass/volume)Ordered By: Aniceto Cleveland on 01-17-2025 Creatinine [Mass/Vol] 0.67 mg/dL Low 0.70-1.20 [facility] Serum globulin measurementOr dered By: Aniceto Cleveland on 01-17-2025 Globulin (S) [Mass/Vol] 3.1 g/dL 2.2-4.2 [facility] Serum glucose measurement (m ass/volume)Ordered By: Aniceto Cleveland on 01-17-2025 Glucose [Mass/Vol] 165 mg/dL High 70-99 [facility] Serum or plasma alanine bentley otransferase (ALT) measurementOrdered By: Aniceto Cleveland on 01-17-2025 ALT [Catalytic activity/Vol] 22 U/L <35 [facility] Serum or plasma albumin elmer urement (mass/volume)Ordered By: Aniceto Cleveland on 01-17-2025 Albumin [Mass/Vol] 3.5 g/dL 3.4-4.8 [facility] Serum or plasma albumin/glob ulin mass ratioOrdered By: Aniceto Cleveland on 01-17-2025 Albumin/Globulin [Mass ratio] 1.1 {ratio} 0.9-2.4 [facility] Serum or plasma alkaline delmis sphatase measurementOrdered By: Aniceto Cleveland on 01-17-2025 ALP [Catalytic activity/Vol] 152 U/L High 35-104 [facility] Serum or plasma calcium elmer urement (mass/volume)Ordered By: Aniceto Cleveland 01-17-2025 Calcium [Mass/Vol] 9.0 mg/dL 7.6-11.0 [facility] Serum or plasma urea nitroge n measurement (mass/volume)Ordered By: Aniceto Cleveland on 01-17-2025 Urea nitrogen [Mass/Vol] 19 mg/dL 4-19 [facility] Sodium levelOrdered By: Aniceto Cleveland 01-17-2025 Sodium [Moles/Vol] 138 mmol/L 133-145 [facility] TSH DL <= 0.005 mIU/L QnOrde red By: Aniceto Cleveland on 01-17-2025 TSH Qn 1.030 uIU/mL 0.300-4.200 [facility] Thyroid Stim Hormone (TSH)on 01-17-2025 TSH 1.030 uIU/mL Normal 0.300-4.200 [facility] Comment on above: Performed By: #### L 506.0200, L503.0106, L503.6550, L503.6030, L100.0100, L100.9950 #### [facility] [address] [place], [address] Total proteinOrdered By: Aniceto Cleveland on 01-17-2025 Protein [Mass/Vol] 6.6 g/dL 5.9-8.4 [facility] White blood cell (WBC) count Ordered By: Aniceto Cleveland on 01-17-2025 WBC (Bld) [#/Vol] 7.5 10*3/uL 4.4-11.0 [facility] Anaerobic cultureOrdered By: Aniceto Cleveland on 01-16-2025 Bacteria identified Anaer cx Nom (Unsp spec) No anaerobic bacteria isolated. [facility] Gram stainOrdered By: Aniceto herron on 01-16-2025 Microscopic observation Gram stain Nom (Unsp spec) [facility] MRSA Wound DNA by PCRon MRSA DNA ASSAY Negative Normal Negative [facility] Comment on above: Order Comment: RIGHT KNEERIGHT KNEE Performed By: #### M 100.4001, M100.3000, M100.2000, L8200.1075 ####[facility] [address] [place], [address] SA DNA ASSAY Negative Normal Negative [facility] Comment on above: Order Comment: RIGHT KNEERIGHT KNEE Performed By: #### M 100.4001, M100.3000, M100.2000, L8200.1075 ####[facility] [address] [place], [address] Routine wound cultureOrdered By: Aniceto Cleveland on 01-16-2025 Microbial culture, routine Staphylococcus epidermidis Abnormal [facility] Staphylococcus aureus DNA de tection by probe and target amplification methodOrdered By: Aniceto Cleveland on 01-16-2025 S. aureus DNA MELISSA+probe Ql (Unsp spec) Negative Negative [facility] Office Visiton 01-01-2025 Follow-up visit [id number] Cindi Messer 1940 F Date Provider Department Center 01/01/2025 [id number]-IWTVYHJE MUNGUIA [facility] NROSURG None No family history on file Level of Service:11322 [place] OFFICE/OUTPATIENT ESTABLISHED MOD MDM 30 MIN Reason for Visit and Comments: Follow-up [493352] - Patient present for follow up CT Normal [facility] Progress Noteon 01-01-2025 Progress Note NEUROSURGERY CONSULT NOTE Patient Name: Cindi Messer Patient : 1940 PCP: BELEN CLEVELAND MD History of Present Ilness: 84 y.o. presents with follow up for her lumbar spine. She has compression fractures at L1 and L3. These were treated with kyphoplasties by Dr. Benz. She did have some extravasation of cement after this procedure. She had an MRI of her lumbar spine completed after her kyphoplasties. She continues to have low back pain. States she she was having left foot pain. She had a lesion removed from her left foot and the pain has improved. States she has pain at the base of her skull on the left. She gets sharp shooting pain up into her head. States this pain is severe. She had xrays of her cervical spine, which revealed arthritic changes. Chief Complaint Patient presents with Follow-up Patient present for follow up CT Past Medical History: History reviewed. No pertinent past medical history. Past Surgical History: History reviewed. No pertinent surgical history. Home Medications: Prior to Admission medications Medication Sig Start Date End Date Taking? Authorizing Provider acetaminophen-codeine (Tylenol #3) 300-30 MG tablet TAKE 1 TABLET BY MOUTH TWICE DAILY FOR 28 DAYS 11/21/24 Yes Historical Provider, aspirin 81 MG EC tablet Take 81 mg by mouth daily. Yes Historical Provider, cholecalciferol (Vitamin D-3) 10 MCG (400 UNIT) tablet Take by mouth daily. Yes Historical Provider, levothyroxine (Synthroid, Levoxyl) 100 MCG tablet Take 100 mcg by mouth daily. Yes Historical Provider, loperamide (Imodium) 2 MG capsule Take 4 mg by mouth daily. 09/24/24 Yes Historical Provider, metroNIDAZOLE (Metrocream) 0.75 % cream APPLY TO THE FULL FACE TWICE A DAY AFTER CLEANSING ONCE IN THE MORNING AND ONCE IN THE EVENING 03/09/24 Yes Historical Provider, OneTouch Verio test strip CHECK BLOOD SUGAR DAILY OR DIRECTED BY PRESCRIBER 04/23/24 Yes Historical Provider, pantoprazole (ProtoNix) 40 MG EC tablet Take 40 mg by mouth daily. 12/10/24 Yes Historical Provider, Allergies: Bee venom, Metformin, Sulfa antibiotics, Alendronate, and Meloxicam Social History: TOBACCO: reports that she has quit smoking. Her smoking use included cigarettes. She has never used smokeless tobacco. ETOH: reports no history of alcohol use. RECREATIONAL DRUG USE: Social History Substance and Sexual Activity Drug Use Never Family History: No family history on file. Review of Systems Musculoskeletal: Positive for back pain and gait problem. Neurological: Positive for headaches. All other systems reviewed and are negative. Physical Examination: Vitals: 01/01/25 1358 BP: 135/71 Pulse: 71 Physical Exam Vitals reviewed. Constitutional: Appearance: Normal appearance. HENT: Head: Normocephalic and atraumatic. Nose: Nose normal. Mouth/Throat: Pharynx: Oropharynx is clear. Eyes: Extraocular Movements: Extraocular movements intact. Conjunctiva/sclera: Conjunctivae normal. Cardiovascular: Rate and Rhythm: Normal rate and regular rhythm. Pulses: Normal pulses. Pulmonary: Effort: Pulmonary effort is normal. No respiratory distress. Abdominal: General: There is no distension. Palpations: Abdomen is soft. Tenderness: There is no abdominal tenderness. Musculoskeletal: General: No tenderness. Normal range of motion. Cervical back: Normal range of motion and neck supple. No rigidity. Skin: General: Skin is warm and dry. Neurological: Mental Status: She is alert and oriented to person, place, and time. Cranial Nerves: No cranial nerve deficit. Sensory: No sensory deficit. Motor: Weakness present. Gait: Gait abnormal. Deep Tendon Reflexes: Reflexes abnormal. Psychiatric: Mood and Affect: Mood normal. Behavior: Behavior normal. She is morbidly obese. She really cannot walk without considerable assistance. She has diffuse weakness throughout her lower extremities and is somewhat debilitated. Neurological Exam Mental Status Alert. Oriented to person, place, and time. Cranial Nerves CN III, IV, : Extraocular movements intact bilaterally. Gait Abnormal gait. Gait Unsteady, kyphotic in thoracolumbar spine Results Labs: Last 24hrs No results found for this or any previous visit (from the past 24 hours). Radiology Personal review: MRI of the lumbar spine from October 2024 was reviewed. She has evidence of 2 previous kyphoplasties. There is no high-grade stenosis. She does have generalized spondylosis. CT of the lumbar spine was reviewed. There is evidence of 2 previous kyphoplasties. There is some extravasation of bone cement into the anterior epidural space retro to the vertebral bodies. There is not high-grade stenosis. ASSESSMENT / PLAN : 84yo f with follow up CT of her lumbar spine. Her imaging was reviewed with her, and she is symptomatic to the above noted pathology. She has already had t (more content not included)... Normal [facility] CT LUMBAR SPINE WO IV CONTRA STon 12-26-2024 CT LUMBAR SPINE WO IV CONTRAST Patient Name: CINDI MESSER : 1940 [id number] Exam Date/Time: 12/24/2024 13:08 Procedure: CT LUMBAR SPINE WO IV CONTRAST Ordering Provider: CHARLES IRIS Reason For Exam: lumbar compression fractures Examination: CT lumbar spine Indication: lumbar compression fractures Technique: Axial CT images of the lumbar spine were obtained at 1 mm intervals Sagittal and coronal reconstructions were reviewed as well. Dose reduction was employed with automatic exposure control. Findings: Assessment of the central canal is limited on this nonmyelographic exam. Methylmethacrylate stabilization of compression fractures at L1 and L3 noted. Moderate to severe compression fracture of L1 and moderate compression fracture of L3. There is some methylmethacrylate along the posterior aspect of the L1 and L3 vertebral bodies along the anterior central canal Moderate to severe disc space loss at L5/S1 with vacuum phenomenon osteophytes. Mild to moderate degenerative disc disease at L4/L5 with vacuum phenomena. Mild to moderate degenerative facet changes of the spine. Fairly extensive diffuse aortoiliac calcification present. IMPRESSION: Impression: Compression fractures with methylmethacrylate stabilization and methylmethacrylate along the posterior vertebral bodies extending into the anterior portion of the central canal. Small metallic density is located within the left neural foramen at L4/L5, measuring 5 mm, etiology uncertain. Diffuse atherosclerosis of the aorta. Report Dictated on Electronically Signed By: Adeel Gee MD Electronically Signed Date/Time: 12/26/2024 8:17 AM EDT Lbp radiates down left leg more than right leg. Hx: 3 lumbarsurgeries Normal [facility] 36on 12-20-2024 36 We want to inform yo u that your patient's blood pressure was noted to be elevated in our office today. We thank you for trusting us with your patient's health. Last BP: BP Readings from Last 2 Encounters: 12/20/24 (!) 154/57 Normal [facility] Office Visiton 05-08-2025 Follow-up visit [id number] Cindi Messer 1940 F Date Provider Department Center 12/20/2024 [id number]-WUMRDOJE MUNGUIA [facility] NROSURG None No family history on file Level of Service:22853 [place] OFFICE/OUTPATIENT NEW LOW MDM 30 MINUTES Reason for Visit and Comments: New Patient [542] - Lower back pain. Having trouble walking Normal [facility] Progress Noteon 12-20-2024 Progress Note NEUROSURGERY CONSULT NOTE Patient Name: Cindi Messer Patient : 1940 PCP: BELEN CLEVELAND MD History of Present Ilness: 84 y.o. presents with low back pain. States her back pain is severe. She has difficulty ambulating and standing up straight due to the pain in her back. She cannot ambulate any significant distance due to her symptoms. States the pain is primarily in her low back. She has had two kyphoplasties by Dr. Benz at L1 and L3. States she did have numbness in her legs but this is improving. She states she also has a history of a fracture in her mid back. Chief Complaint Patient presents with New Patient Lower back pain. Having trouble walking Past Medical History: History reviewed. No pertinent past medical history. Past Surgical History: History reviewed. No pertinent surgical history. Home Medications: Prior to Admission medications Medication Sig Start Date End Date Taking? Authorizing Provider acetaminophen-codeine (Tylenol #3) 300-30 MG tablet TAKE 1 TABLET BY MOUTH TWICE DAILY FOR 28 DAYS 11/21/24 Yes Historical Provider, aspirin 81 MG EC tablet Take 81 mg by mouth daily. Yes Historical Provider, cholecalciferol (Vitamin D-3) 10 MCG (400 UNIT) tablet Take by mouth daily. Yes Historical Provider, levothyroxine (Synthroid, Levoxyl) 100 MCG tablet Take 100 mcg by mouth daily. Yes Historical Provider, loperamide (Imodium) 2 MG capsule Take 4 mg by mouth daily. 09/24/24 Yes Historical Provider, metroNIDAZOLE (Metrocream) 0.75 % cream APPLY TO THE FULL FACE TWICE A DAY AFTER CLEANSING ONCE IN THE MORNING AND ONCE IN THE EVENING 03/09/24 Yes Historical Provider, OneTouch Verio test strip CHECK BLOOD SUGAR DAILY OR DIRECTED BY PRESCRIBER 04/23/24 Yes Historical Provider, pantoprazole (ProtoNix) 40 MG EC tablet Take 40 mg by mouth daily. 12/10/24 Yes Historical Provider, Allergies: Bee venom, Metformin, Sulfa antibiotics, and Meloxicam Social History: TOBACCO: reports that she has quit smoking. Her smoking use included cigarettes. She has never used smokeless tobacco. ETOH: reports no history of alcohol use. RECREATIONAL DRUG USE: Social History Substance and Sexual Activity Drug Use Never Family History: No family history on file. Review of Systems Musculoskeletal: Positive for back pain and gait problem. All other systems reviewed and are negative. Physical Examination: Vitals: 12/20/24 1113 BP: (!) 154/57 Pulse: 84 Physical Exam Vitals reviewed. Constitutional: Appearance: Normal appearance. HENT: Head: Normocephalic and atraumatic. Nose: Nose normal. Mouth/Throat: Pharynx: Oropharynx is clear. Eyes: Extraocular Movements: Extraocular movements intact. Conjunctiva/sclera: Conjunctivae normal. Cardiovascular: Rate and Rhythm: Normal rate and regular rhythm. Pulses: Normal pulses. Pulmonary: Effort: Pulmonary effort is normal. No respiratory distress. Abdominal: General: There is no distension. Palpations: Abdomen is soft. Tenderness: There is no abdominal tenderness. Musculoskeletal: General: No tenderness. Normal range of motion. Cervical back: Normal range of motion and neck supple. No rigidity. Skin: General: Skin is warm and dry. Neurological: Mental Status: She is alert and oriented to person, place, and time. Cranial Nerves: No cranial nerve deficit. Sensory: No sensory deficit. Motor: Weakness present. Gait: Gait abnormal. Deep Tendon Reflexes: Reflexes abnormal. Psychiatric: Mood and Affect: Mood normal. Behavior: Behavior normal. She is morbidly obese. She really cannot walk without considerable assistance. She has diffuse weakness throughout her lower extremities and is somewhat debilitated. Neurological Exam Mental Status Alert. Oriented to person, place, and time. Cranial Nerves CN III, IV, : Extraocular movements intact bilaterally. Gait Abnormal gait. Gait Unsteady, kyphotic in thoracolumbar spine Results Labs: Last 24hrs No results found for this or any previous visit (from the past 24 hours). Radiology Personal review: MRI of the lumbar spine from October 2024 was reviewed. She has evidence of 2 previous kyphoplasties. There is no high-grade stenosis. She does have generalized spondylosis. ASSESSMENT / PLAN : She has weightbearing mechanical low back pain that is severe incapacitating and causes her to be unable to walk. She also has significant permanent numbness in her legs for many years likely due to neuropathy. She would like to be able to ambulate. I do recommend a CT of the lumbar spine to look at her previous compression fractures and kyphoplasty as well as the adjacent segments to see what options there may be to help her with this severe back pain. She is in pain management. I answered her questions. She understands signs and symptoms that would suggest deterioration. Diagnosis Plan 1. Compr (more content not included)... Normal [facility] 36on 12-10-2024 36 Spoke with pt and sh e will bring imaging on a disk, as well as records, to her appt. Normal [facility] Misc.on 11-23-2024 [facility] Misc. COMMENT Normal . [facility] Comment on above: Order Comment: [id number] 3URINE TOX Performed By: #### L 3410.9998, L505.5000 ####[facility] [address] [place], [address] Amphetamine detection with 1 000 ng/mL as cutoffOrdered By: Aniceto Cleveland on 11-21-2024 Amphetamines Screen method >1000 ng/mL Ql (U) Negative < 200 ng/mL [facility] Amphetamines Screen method > 1000 ng/mL Ql (U)Ordered By: Aniecto Cleveland on 11-21-2024 Amphetamines Ql (U) Negative <1000 ng/mL [facility] Urine Barbiturates Screen Negative < 200 ng/mL [facility] Methadone, urineOrdered By: Aniceto Cleveland on 11-21-2024 Urine Methadone Screen Negative < 300 ng/mL [facility] No Panel InformationOrdered By: Aniceto Cleveland on 11-21-2024 Urine Buprenorphine Qualitative Negative < 200 ng/mL [facility] Urine Oxycodone Screen Negative < 100 ng/mL [facility] Quantitative urine opiates m easurementOrdered By: Aniceto Cleveland on 11-21-2024 Opiates Ql (U) Positive < 300 ng/mL [facility] Comment on above: If confirmation test ing is needed, a separate order will be required to send out testing to the reference laboratory. Screening urine fentanyl carlos surementOrdered By: Aniceto Cleveland on 11-21-2024 fentaNYL Screen Ql (U) Negative [facility] Urine Drug Screen (VISTA)on 11-21-2024 AMPHETAMINES Negative Normal <1000 ng/mL [facility] Comment on above: Order Comment: UNK Performed By: #### L 3410.9998, L505.5000 ####[facility] [address] [facility] [address] BARBITIURATES Negative Normal < 200 ng/mL [facility] Comment on above: Order Comment: UNK Performed By: #### L 3410.9998, L505.5000 ####[facility] [address] [place], [address] BENZODIAZIPINE Negative Normal < 200 ng/mL [facility] Comment on above: Order Comment: UNK Performed By: #### L 3410.9998, L505.5000 ####[facility] [address] [place], [address] BUP Ur Drug Scr Negative Normal < 200 ng/mL [facility] Comment on above: Order Comment: UNK Performed By: #### L 3410.9998, L505.5000 ####[facility] [address] [place], [address] COCAINE Negative Normal < 300 ng/mL [facility] Comment on above: Order Comment: UNK Performed By: #### L 3410.9998, L505.5000 ####[facility] [address] [place], [address] Fentanyl Negative Normal [facility] Comment on above: Order Comment: UNK Performed By: #### L 3410.9998, L505.5000 ####[facility] [address] [place], [address] METHADONE Negative Normal < 300 ng/mL [facility] Comment on above: Order Comment: UNK Performed By: #### L 3410.9998, L505.5000 ####[facility] [address] [place], [address] OPIATES Positive Normal < 300 ng/mL [facility] Comment on above: Order Comment: UNK Result Comment: If c onfirmation testing is needed, a separate order will be required to send out testing to the reference laboratory. Performed By: #### L 3410.9998, L505.5000 ####[facility] [address] [place], [address] OXYCODONE Negative Normal < 100 ng/mL [facility] Comment on above: Order Comment: UNK Performed By: #### L 3410.9998, L505.5000 ####[facility] [address] [place], [address] PCP Negative Normal < 25 ng/mL [facility] Comment on above: Order Comment: UNK Performed By: #### L 3410.9998, L505.5000 ####[facility] [address] [place], [address] THC Negative Normal < 50 ng/mL [facility] Comment on above: Order Comment: UNK Performed By: #### L 3410.9998, L505.5000 ####[facility] [address] [place], [address] Urine benzodiazepine levelOr dered By: Aniceto Cleveland on 11-21-2024 Benzodiazepines Ql (U) Negative < 200 ng/mL [facility] Urine cocaine levelOrdered B y: Aniceto Cleveland on 11-21-2024 Cocaine Ql (U) Negative < 300 ng/mL [facility] Urine whpps-3-vairgqbigffnxj abinol (THC) measurementOrdered By: Aniceto Cleveland on 11-21-2024 Cannabinoids Screen Ql (U) Negative < 50 ng/mL [facility] Urine phencyclidine (PCP) de tectionOrdered By: Aniceto Cleveland on 11-21-2024 Phencyclidine Ql (U) Negative < 25 ng/mL [facility] fentaNYL Screen Ql (U)Ordere d By: Aniceto Cleveland on 11-21-2024 Urine Fentanyl Screen Negative [facility] Magnetic resonance imaging r eportOrdered By: Matthew Figueredo on 11-07-2024 Study report [facility] [address] [place] [address] Spine Lumbar (Routine) MR#: [id number] Acct: [id number] Name: CINDI MESSER Rep #: [id number] : 1940 F 84 From: Nitin Figueredo MD PCP: Dr. Aniceto Cleveland MD Status: REG C LI Study:Spine Lumbar (Routine) Date of Exam: 11/06/24 Exam# [id number] Ordering Dr: Sarina Benz MD CLINICAL HISTORY: Low back pain, chronic over 35 years. Surgery at L4-L5 level in 1993. COMPARISON: None available. TECHNIQUE: Multiplanar multisequence noncontrast imaging of the lumbar spine is performed. FINDINGS: There is no evidence of recent compression fracture. No suspicious marrow infiltrative process is seen. All of the intervertebral discs exhibit moderately accelerated age-related desiccation. An old moderate to severe anterior wedge compression fracture with severe superior endplate cupping, bfgl-ug-tqdlpxxc loss of height posteriorly, and moderate loss of height anteriorly is seen at the L1 level. The anterior thecal sac is and face from ffwjo-en-kpbi in the AP diameter of the spinal canal is diminished by about 4.5 mm. An old govb-kz-piypbusd superior compression fracture is noted at the L3 level, with moderate superior endplate cupping noted along with minimal decrease in height of the vertebral body anteriorly and mild decrease in the height of the vertebral body posteriorly. Mild posterior exophytic component is seen along with superior half, narrowing the spinal canal by as great as 4 mm. Motion levels: L1-L2: Mild diffuse posterior annular bulging. Facets unremarkable. Mild interpretation of the anterior thecal sac. Neural foramina are fairly widely patent. L2-L3: Mild diffuse posterior disc bulging with some intraforaminal extension seen on the left. Marginal effacement of the anterior thecal sac and mild left foraminal narrowing. Facets unremarkable. L3-L4: Mild diffuse posterior annular bulge with preservation of disc space height. Moderate bilateral facet hypertrophy with ligamentum flavum thickening. Moderate stenosis of the spinal canal and moderate bilateral neural foraminal narrowing. L4-L5: Moderately decreased disc space height. Considerable sub endplate Modic 2 degenerative changes, especially on the right side. Minimal posterior annular bulge. Moderate bilateral foraminal hypertrophy with ligamentum flavum thickening. Moderate stenosis spinal canal and mild bilateral foraminal narrowing. L5-S1: Advanced Modic type 3 endplate degenerative changes also, mainly on the right again. Mild disc decreased in height. Mild bilateral facet hypertrophy. Spinal canal and neural foramina are mildly narrowed. Conus medullaris and nerve rootlets of the cauda equina appear unremarkable. There is advanced fatty replacement interval of the paraspinous musculature. No paraspinous mass or fluid collection is noted. MRI/Spine Lumbar (Routine) IMPRESSION: Status post remote kyphoplasties with residual compression deformities and spinal stenosis as described. Multilevel degenerative changes with variable degrees of spinal stenosis. No evidence of herniated nucleus pulposis. Reading Location: [place] [address] CC: Dr. Miguelina Benz MD; Dr. Aniceto Cleveland MD ~ Business Continuity Director: Signed [facility] Spine Lumbar (Routine)on Spine Lumbar (Routine) [facility] [address] [place], [place] [address] Spine Lumbar (Routine) MR#: [id number] Acct: [id number] Name: CINDI MESSER Rep #: [id number] : 1940 F 84 From: Matthew Keith PCP: Dr. Aniceto Cleveland MD Status: REG CLI Study: Spine Lumbar (Routine) Date of Exam: 11/06/24 Exam# [id number] Ordering Dr: Miguelina Benz MD CLINICAL HISTORY: Low back pain, chronic over 35 years. Surgery at L4-L5 level in 1993. COMPARISON: None available. TECHNIQUE: Multiplanar multisequence noncontrast imaging of the lumbar spine is performed. FINDINGS: There is no evidence of recent compression fracture. No suspicious marrow infiltrative process is seen. All of the intervertebral discs exhibit moderately accelerated age-related desiccation. An old moderate to severe anterior wedge compression fracture with severe superior endplate cupping, pusc-sr-pbsjtsrx loss of height posteriorly, and moderate loss of height anteriorly is seen at the L1 level. The anterior thecal sac is and face from yxgmj-au-axwb in the AP diameter of the spinal canal is diminished by about 4.5 mm. An old oaah-ju-tjtzjhbd superior compression fracture is noted at the L3 level, with moderate superior endplate cupping noted along with minimal decrease in height of the vertebral body anteriorly and mild decrease in the height of the vertebral body posteriorly. Mild posterior exophytic component is seen along with superior half, narrowing the spinal canal by as great as 4 mm. Motion levels: L1-L2: Mild diffuse posterior annular bulging. Facets unremarkable. Mild interpretation of the anterior thecal sac. Neural foramina are fairly widely patent. L2-L3: Mild diffuse posterior disc bulging with some intraforaminal extension seen on the left. Marginal effacement of the anterior thecal sac and mild left foraminal narrowing. Facets unremarkable. L3-L4: Mild diffuse posterior annular bulge with preservation of disc space height. Moderate bilateral facet hypertrophy with ligamentum flavum thickening. Moderate stenosis of the spinal canal and moderate bilateral neural foraminal narrowing. L4-L5: Moderately decreased disc space height. Considerable sub endplate Modic 2 degenerative changes, especially on the right side. Minimal posterior annular bulge. Moderate bilateral foraminal hypertrophy with ligamentum flavum thickening. Moderate stenosis spinal canal and mild bilateral foraminal narrowing. L5-S1: Advanced Modic type 3 endplate degenerative changes also, mainly on the right again. Mild disc decreased in height. Mild bilateral facet hypertrophy. Spinal canal and neural foramina are mildly narrowed. Conus medullaris and nerve rootlets of the cauda equina appear unremarkable. There is advanced fatty replacement interval of the paraspinous musculature. No paraspinous mass or fluid collection is noted. MRI/Spine Lumbar (Routine) IMPRESSION: Status post remote kyphoplasties with residual compression deformities and spinal stenosis as described. Multilevel degenerative changes with variable degrees of spinal stenosis. No evidence of herniated nucleus pulposis. Reading Location: [facility] CC: Dr. Miguelina Benz MD; Dr. Aniceto Cleveland MD Business Continuity Director: Signed Normal [facility] CT HEAD OR BRAIN WITHOUT CON TRASTon 10-29-2024 CT HEAD OR BRAIN WITHOUT CONTRAST EXAMINATION: CT HEAD OR BRAIN WITHOUT CONTRAST HISTORY: ORDERING SYSTEM PROVIDED HISTORY: Ataxia and dizziness, TECHNOLOGIST PROVIDED HISTORY: Illness/Other Reason for exam: concern for medication reaction, dizziness and feeling off Encounter Type: Initial Additional signs and symptoms: na ORDERING SYSTEM PROVIDED DIAGNOSIS CODES: COMPARISON: None. TECHNIQUE: CT examination of the head without IV contrast. Dose reduction techniques were achieved by using automated exposure control and/or adjustment of mA and/or kV according to patient size and/or use of iterative reconstruction technique. FINDINGS: The paranasal sinuses are clear. Mastoid air cells are clear. Skull base intact. No skull lesion. Prior cataract surgery. Extracranial soft tissue structures unremarkable. Ventricles are normal in size. No hydrocephalus. No subdural fluid collection. Batista matter and white matter differentiation intact. No acute hemorrhage. No mass. Cerebellum and posterior fossa cisternal spaces appear normal. IMPRESSION: 1. No acute findings. No hemorrhage. No masses. 2. Mild brain atrophy. No hydrocephalus. [facility]/r Workstation ID: [id number] Dictated by: NICOLE THORPE on TueOct 29, 2024 3:50:05 PM EDT Transcribed by: RAMÓN OQUENDO on TueOct 29, 2024 4:19:11 PM EDT Finalized by: NICOLE THORPE on TueOct 29, 2024 4:28:21 PM EDT [facility] Comment on above: Order Comment: Injur y/Trauma or Illness?:Illness/Other How long have you had these symptoms (acute/chronic)?:Acute Reason for exam?:concern for medication reaction, dizziness and feeling off Type of Exam?:Initial Additional signs and symptoms?:na ED Prov Noteon 10-29-2024 ED Prov Note HPI: 10/29/2024, Time: @NOWMARKELL@ Cindi Nicki Messer is a 84 y.o. female presenting to the ED for lightheadedness and feeling off balance that seem to coincide with taking baclofen and also not able to sleep the last few night and is also been taking prednisone along with Omnicef for suspected pneumonia, beginning specially last few night ago. The complaint has been intermittent, moderate in severity, and worsened by changing position. States she has had vertigo before but this does not feel quite like that. No fever or chills and no numbness weakness or tingling of the arms or legs and no difficulty speaking or seeing. No chest pain ROS: Pertinent positives and negatives are stated within HPI, all other systems reviewed and are negative. PAST HISTORY Past Medical History: @[facility]@ Past Surgical History: has a past surgical history that includes Carpal tunnel release and Toe amputation. Social History: reports that she has quit smoking. Her smoking use included cigarettes. She has never used smokeless tobacco. She reports that she does not currently use alcohol. She reports that she does not currently use drugs. Family History: family history is not on file. The patient's home medications have been reviewed. Allergies: Metformin, Sulfa (sulfonamide antibiotics), Spider venom, and Meloxicam RESULTS All laboratory and radiology results have been personally reviewed by myself LABS: Results for orders placed or performed during the hospital encounter of 10/29/24 POC CBC and Differential Collection Time: 10/29/24 2:28 PM Result Value Ref Range WBC 12.28 (H) 4.50 - 11.00 K/mcL RBC 3.27 (L) 4.00 - 5.20 M/mcL Hemoglobin 11.0 (L) 12.0 - 16.0 g/dL Hematocrit 33.5 (L) 36.0 - 46.0 % MCV 102.4 (H) 80.0 - 100.0 fL MCH 33.6 26.0 - 34.0 pg MCHC 32.8 31.0 - 37.0 g/dL RDW - CV 17.3 (H) 11.6 - 14.8 % Platelets 314 150 - 400 K/mcL MPV 10.2 9.4 - 12.4 fL Neutrophils 81.9 % Lymphocytes 9.7 % Monocytes 7.7 % Eosinophils 0.2 % Basophils 0.2 % IG Percent 0.30 % Neutrophils Abs 10.06 (H) 1.70 - 7.00 K/mcL Lymphocytes Abs 1.19 0.90 - 4.00 K/mcL Monocytes Abs 0.95 (H) 0.30 - 0.90 K/mcL Eosinophils Abs 0.02 0.00 - 0.50 K/mcL Basophils Abs 0.02 0.00 - 0.30 K/mcL IG Absolute 0.04 0.00 - 0.30 K/mcL POC Basic Metabolic Panel Collection Time: 10/29/24 2:34 PM Result Value Ref Range Glucose 215 (H) 65 - 99 mg/dL BUN 22 8 - 25 mg/dL Creatinine 0.61 0.60 - 1.20 mg/dL GFR 88 >=60 mL/min/1.73 m2 Sodium 140 135 - 145 mmol/L Potassium 4.2 3.5 - 5.1 mmol/L Chloride 105 98 - 108 mmol/L TCO2 24 21 - 32 mmol/L Ionized Calcium 4.9 4.5 - 5.3 mg/dL RADIOLOGY: Interpreted by Radiologist. CT Head Or Brain Without Contrast Non-public Result 1. No acute findings. No hemorrhage. No masses. 2. Mild brain atrophy. No hydrocephalus. Workstation ID: [id number] XR Chest 1 View Final Result No evidence of acute cardiopulmonary abnormalities. Workstation ID: [id number] NURSING NOTES AND VITALS REVIEWED -- The nursing notes within the ED encounter and vital signs as below have been reviewed. BP (!) 152/67 (BP Location: Left arm, Patient Position: Standing) Pulse 91 Temp 96.8 degrees F (36 degrees C) (Temporal) Resp (!) 20 Ht 5' 3 Wt 93.4 kg (206 lb) SpO2 94% BMI 36.49 kg/m Oxygen Saturation Interpretation: Normal -PHYSICAL EXAM Constitutional/General: Alert and oriented x3, mildly ill appearing and laying down, non toxic in NAD Head: NC/AT Eyes: PERRL, EOMI Mouth: Oropharynx clear, handling secretions, no trismus Neck: Supple, full ROM, no meningeal signs Pulmonary: Lungs clear to auscultation bilaterally, no wheezes, rales, or rhonchi. Not in respiratory distress Cardiovascular: Regular rate and rhythm, no murmurs, gallops, or rubs. 2+ distal pulses Abdomen: Soft, non tender, non distended, Extremities: Moves all extremities x 4. Warm and well perfused Skin: warm and dry without rash Neurologic: GCS 15, no focal deficits Psych: Normal Affect ----- ED COURSE/MEDICAL DECISION MAKING --- Medications sodium chloride 0.9% (NS) bolus 500 mL (500 mL Intravenous New Bag 10/29/24 1428) Medical Decision Making: CT of head and chest x-ray unremarkable and blood sugar slightly high, will start patient on short course of Antivert and most likely symptoms are secondary to multiple medications that she was started on especially baclofen Counseling: The emergency provider has spoken with the patient and discussed today's results, in addition to providing specific details for the plan of care an (more content not included)... Normal [facility] POC BASIC METABOLIC PANEL - Asiya 10-29-2024 Chloride [Moles/Vol] 105 mmol/L Normal 98-108 [facility] Comment on above: Order Comment: [facility] has implemented the eGFR calculation approach that does not have a coefficient for race that conforms to the NKF-ASN Task Force Recommendations. CO2 [Moles/Vol] 24 mmol/L Normal 21-32 [facility] Comment on above: Order Comment: [facility] has implemented the eGFR calculation approach that does not have a coefficient for race that conforms to the NKF-ASN Task Force Recommendations. Creatinine [Mass/Vol] 0.61 mg/dL Normal 0.60-1.20 [facility] Comment on above: Order Comment: [facility] has implemented the eGFR calculation approach that does not have a coefficient for race that conforms to the NKF-ASN Task Force Recommendations. Glucose [Mass/Vol] 215 mg/dL High 65-99 [facility] Comment on above: Order Comment: [facility] has implemented the eGFR calculation approach that does not have a coefficient for race that conforms to the NKF-ASN Task Force Recommendations. POC GFR 88 mL/min/1.73 m2 Normal >=60 [facility] Comment on above: Order Comment: [facility] has implemented the eGFR calculation approach that does not have a coefficient for race that conforms to the NKF-ASN Task Force Recommendations. Result Comment: Madisyn mated GFR was calculated using the 2020 CKD-EPI creatinine equation. POC IONIZED CALCIUM 4.9 mg/dL Normal 4.5-5.3 [facility] Comment on above: Order Comment: [facility] has implemented the eGFR calculation approach that does not have a coefficient for race that conforms to the NKF-ASN Task Force Recommendations. Potassium [Moles/Vol] 4.2 mmol/L Normal 3.5-5.1 [facility] Comment on above: Order Comment: [facility] has implemented the eGFR calculation approach that does not have a coefficient for race that conforms to the NKF-ASN Task Force Recommendations. Sodium [Moles/Vol] 140 mmol/L Normal 135-145 [facility] Comment on above: Order Comment: [facility] has implemented the eGFR calculation approach that does not have a coefficient for race that conforms to the NKF-ASN Task Force Recommendations. Urea nitrogen [Mass/Vol] 22 mg/dL Normal 8-25 [facility] Comment on above: Order Comment: [facility] has implemented the eGFR calculation approach that does not have a coefficient for race that conforms to the NKF-ASN Task Force Recommendations. POC CBC AND DIFFERENTIALon 0 10-29-2024 BASOPHILS ABSOLUTE COUNT 0.02 K/mcL Normal 0.00-0.30 [facility] Basophils/100 WBC (Bld) 0.2 % Normal [facility] Eosinophils (Bld) [#/Vol] 0.02 10*3/uL Normal 0.00-0.50 [facility] Eosinophils/100 WBC (Bld) 0.2 % Normal [facility] Erythrocyte distribution width (RBC) [Ratio] 17.3 % High 11.6-14.8 [facility] Hematocrit (Bld) [Volume fraction] 33.5 % Low 36.0-46.0 [facility] Hemoglobin (Bld) [Mass/Vol] 11.0 g/dL Low 12.0-16.0 [facility] IG ABSOLUTE 0.04 K/mcL Normal 0.00-0.30 [facility] IG PERCENT 0.30 % Normal [facility] Comment on above: Result Comment: The IG parameter is the percentage of metamyelocytes, myelocytes and promyelocytes. An immature granulocyte count (IG) of 1% or more suggests the possibility of infection, an IG count of 3% is very likely related to an infection. Lymphocytes (Bld) [#/Vol] 1.19 10*3/uL Normal 0.90-4.00 [facility] Lymphocytes/100 WBC (Bld) 9.7 % Normal [facility] MCH (RBC) [Entitic mass] 33.6 pg Normal 26.0-34.0 [facility] MCV (RBC) [Entitic vol] 102.4 fL High 80.0-100.0 [facility] MEAN CORPUSCULAR HEMOGLOBIN CONC 32.8 g/dL Normal 31.0-37.0 [facility] Monocytes (Bld) [#/Vol] 0.95 10*3/uL High 0.30-0.90 [facility] Monocytes/100 WBC (Bld) 7.7 % Normal [facility] NEUTROPHILS ABSOLUTE COUNT 10.06 K/mcL High 1.70-7.00 [facility] Neutrophils/100 WBC (Bld) 81.9 % Normal [facility] Platelet mean volume (Bld) [Entitic vol] 10.2 fL Normal 9.4-12.4 [facility] Platelets (Bld) [#/Vol] 314 10*3/uL Normal 150-400 [facility] RBC (d) [#/Vol] 3.27 10*6/uL Low 4.00-5.20 [facility] WBC (Bld) [#/Vol] 12.28 10*3/uL High 4.50-11.00 [facility] XR CHEST PA/APon 10-29-2024 XR CHEST PA/AP EXAMINATION: XR CHEST PA/AP HISTORY: Recently diagnosed with pneumonia COMPARISON: 08/11/2024 FINDINGS: Routine views of the chest were obtained and display normal lung aeration with no evidence of consolidation, pneumothorax or effusion. Similar appearing suspected mild atelectasis/scarring in the lung bases. Patient body habitus limits evaluation. The cardiomediastinal silhouette is normal in size and contour. Aortic atherosclerosis is again noted. Osseous structures and soft tissues appear normal for age. IMPRESSION: No evidence of acute cardiopulmonary abnormalities. Workstation ID: [id number] Dictated by: CHINTAN DUBON on TueOct 29, 2024 3:37:44 PM EDT Transcribed by: CHINTAN DUBON on TueOct 29, 2024 3:37:44 PM EDT Finalized by: CHINTAN DUBON on TueOct 29, 2024 3:37:44 PM EDT Normal [facility] Comment on above: Order Comment: Injur y/Trauma or Illness?:Illness/Other How long have you had these symptoms (acute/chronic)?:Acute Reason for exam?:recent pneumonia FU and evaluate lung status History of cancer?:u Surgeries, chemotherapy, or radiation?:u Type of Exam?:Initial Additional signs and symptoms?:na Chest PA and Lateralon 10-23 Chest PA and Lateral [facility] [place] [address] Chest PA and Lateral MR#: [id number] Acct: [id number] Name: CINDI MESSER Rep #: [id number] : 1940 F 84 From: Brenda Leach MD PCP: Dr. Aniceto Cleveland MD Status: REG CLI Study: Chest PA and Lateral Date of Exam: 10/23/24 Exam# [id number] Ordering Dr: Aniceto Cleveland MD EXAM: XR Chest, 2 Views CLINICAL INDICATION: WHEEZING TECHNIQUE: Frontal and lateral views of the chest. COMPARISON: No relevant prior studies available. FINDINGS: LUNGS AND PLEURAL SPACES: Right middle lobe atelectasis or pneumonia. No pneumothorax. HEART: Unremarkable. No cardiomegaly. MEDIASTINUM: Unremarkable. Normal mediastinal contour. BONES/JOINTS: Unremarkable. No acute fracture. RAD/Chest PA and Lateral IMPRESSION: Right middle lobe atelectasis or pneumonia. Reading Location: [facility] CC: Dr. Aniceto Cleveland MD Business Continuity Director: Signed Normal [facility] Influenza virus A and B and SARS-CoV-2 (COVID-19) and Respiratory syncytial virus RNAOrdered By: Aniceto Cleveland on 10-23-2024 SARS-CoV-2 (COVID-19) RNA MELISSA+probe Ql (Unsp spec) [facility] M100.678on 10-23-2024 M100.678 Pending SARS-CoV-2 (COVID 19) Negative INFLUENZA A Negative INFLUENZA B Negative RSV PCR Negative Normal [facility] Comment on above: Performed By: #### L 506.0200, L503.0106, L503.6550, L503.6030, L100.0100, L100.9950 #### [facility] [address] [place], [address] [id number]-Zhnppxb DOrdered By: Darian Cleveland on 09-25-2024 Vitamin D 25-Hydroxy 51.7 ng/mL [facility] Comment on above: Vitamin D 25(OH) Sta tus Range Deficiency <20 ng/mL (50nmol/L) Insufficiency 20 - 30 ng/mL (50 - 75 nmol/L) Sufficiency 30 - 100 ng/mL (75 - 250 nmol/L) Toxicity >100 ng/mL (>250 nmol/L) Absolute lymphocyte countOrd ered By: Aniceto Cleveland on 09-25-2024 Lymphocytes Auto (Unsp spec) [#/Vol] 2.68 10*3/uL 0.83-4.51 [facility] Absolute neutrophil countOrd ered By: Aniceto Cleveland on 09-25-2024 Neutrophils (Bld) [#/Vol] 7.4 10*3/uL 2.0-7.7 [facility] Albumin to globulin ratioOrd ered By: Aniceto Cleveland on 09-25-2024 Albumin/Globulin [Mass ratio] 0.7 {ratio} Low 0.9-2.4 [facility] Automated lymphocyte count a s percentage of total leukocytesOrdered By: Aniceto Cleveland on 09-25-2024 Lymphocytes/100 WBC Auto (Unsp spec) 23.2 % 19-41 [facility] Basophil percentageOrdered B y: Aniceto Cleveland on 09-25-2024 Basophils/100 WBC (Bld) 0.7 % 0-1 [facility] Bilirubin, totalOrdered By: Aniceto Cleveland on 09-25-2024 Bilirubin [Mass/Vol] 0.90 mg/dL 0.20-1.00 [facility] Comment on above: For patients on eltr ombopag therapy, use of Dimension [place] TBIL is not recommended. Blood urea nitrogen (BUN)/cr eatinine ratioOrdered By: Aniceto Cleveland on 09-25-2024 Urea nitrogen/Creatinine [Mass ratio] 14.2 mg/mg 10-20 [facility] CBC W/Diff, Automatedon 09-15 Absolute Lymph 2.68 X10 3/uL Normal 0.83-4.51 [facility] Comment on above: Performed By: #### L 506.1000, L100.0100, L500.4050, L501.9520 ####[facility] [address] [place], [address] Absolute Neut 7.4 X10 3/uL Normal 2.0-7.7 [facility] Comment on above: Performed By: #### L 506.1000, L100.0100, L500.4050, L501.9520 ####[facility] [address] [place], [address] Basophils/100 WBC (Bld) 0.7 % Normal 0-1 [facility] Comment on above: Performed By: #### L 506.1000, L100.0100, L500.4050, L501.9520 ####[facility] [address] [place], [address] Eosinophils/100 WBC (Bld) 1.4 % Normal 0-5 [facility] Comment on above: Performed By: #### L 506.1000, L100.0100, L500.4050, L501.9520 ####[facility] [address] [place], [address] Erythrocyte distribution width (RBC) [Ratio] 17.2 % High 11.6-14.6 [facility] Comment on above: Performed By: #### L 506.1000, L100.0100, L500.4050, L501.9520 ####[facility] [address] [place], [address] Hematocrit (Bld) [Volume fraction] 34.9 % Low 37-47 [facility] Comment on above: Performed By: #### L 506.1000, L100.0100, L500.4050, L501.9520 ####[facility] [address] [place], [address] Hemoglobin (Bld) [Mass/Vol] 11.3 g/dL Low 12.0-15.0 [facility] Comment on above: Performed By: #### L 506.1000, L100.0100, L500.4050, L501.9520 ####[facility] [address] [place], [address] IG% 0.400 Normal 0.0-0.9 [facility] Comment on above: Result Comment: IG% - Immature Granulocytes (promyelocytes, myelocytes and metamyelocytes) > 1% indicates that a LEFT SHIFT is Present. Performed By: #### L 506.1000, L100.0100, L500.4050, L501.9520 ####[facility] [address] [place], [address] Lymphocytes/100 WBC (Bld) 23.2 % Normal 19-41 [facility] Comment on above: Performed By: #### L 506.1000, L100.0100, L500.4050, L501.9520 ####[facility] [address] [place], [address] MCH (RBC) [Entitic mass] 32.1 pg High 27.0-32.0 [facility] Comment on above: Performed By: #### L 506.1000, L100.0100, L500.4050, L501.9520 ####[facility] [address] [place], [place], [address] MCHC (RBC) [Mass/Vol] 32.4 g/dL Normal 32-36 [facility] Comment on above: Performed By: #### L 506.1000, L100.0100, L500.4050, L501.9520 ####[facility] [address] [place], [address] MCV (RBC) [Entitic vol] 99.1 fL High 81-99 [facility] Comment on above: Performed By: #### L 506.1000, L100.0100, L500.4050, L501.9520 ####[facility] [address] [place], [address] Monocytes/100 WBC (Bld) 10.3 % High 0-10 [facility] Comment on above: Performed By: #### L 506.1000, L100.0100, L500.4050, L501.9520 ####[facility] [address] [place], [address] Neutrophils/100 WBC (Bld) 64.0 % Normal 47-70 [facility] Comment on above: Performed By: #### L 506.1000, L100.0100, L500.4050, L501.9520 ####[facility] [address] [place], [address] Nucleated RBC (Bld) [#/Vol] 0.2 10*3/uL Normal 0-5 [facility] Comment on above: Performed By: #### L 506.1000, L100.0100, L500.4050, L501.9520 ####[facility] [address] [place], [address] Platelet mean volume (Bld) [Entitic vol] 10.5 fL Normal 6.2-12.0 [facility] Comment on above: Performed By: #### L 506.1000, L100.0100, L500.4050, L501.9520 ####[facility] [address] [place], [address] Platelets (Bld) [#/Vol] 356 10*3/uL Normal 150-450 [facility] Comment on above: Performed By: #### L 506.1000, L100.0100, L500.4050, L501.9520 ####[facility] [address] [place], [address] RBC (Bld) [#/Vol] 3.52 10*6/uL Low 4.2-5.4 [facility] Comment on above: Performed By: #### L 506.1000, L100.0100, L500.4050, L501.9520 ####[facility] [address] [place], [address] RDW SD 62.3 fl High 35.1-43.9 [facility] Comment on above: Performed By: #### L 506.1000, L100.0100, L500.4050, L501.9520 ####[facility] [address] [place], [address] WBC (Bld) [#/Vol] 11.6 10*3/uL High 4.4-11.0 [facility] Comment on above: Performed By: #### L 506.1000, L100.0100, L500.4050, L501.9520 ####[facility] [address] [place], [address] Carbon dioxide measurementOr dered By: Aniceto Cleveland on 09-25-2024 CO2 [Moles/Vol] 25.0 mmol/L 21.0-32.0 [facility] Chloride measurementOrdered By: Aniceto Cleveland on 09-25-2024 Chloride [Moles/Vol] 105 mmol/L 98-107 [facility] Comprehensive Metabolic Prof ilon 09-25-2024 Albumin [Mass/Vol] 2.9 g/dL Low 3.2-5.0 [facility] Comment on above: Performed By: #### L 506.1000, L100.0100, L500.4050, L501.9520 ####[facility] [address] [place], [address] Albumin/Globulin [Mass ratio] 0.7 {ratio} Low 0.9-2.4 [facility] Comment on above: Performed By: #### L 506.1000, L100.0100, L500.4050, L501.9520 ####[facility] [address] [place], [address] ALK P 132 U/L High 45-117 [facility] Comment on above: Performed By: #### L 506.1000, L100.0100, L500.4050, L501.9520 ####[facility] [address] [place], [address] ALT [Catalytic activity/Vol] 33 U/L Normal 13-56 [facility] Comment on above: Performed By: #### L 506.1000, L100.0100, L500.4050, L501.9520 ####[facility] [address] [place], [address] AST [Catalytic activity/Vol] 45 U/L High 15-37 [facility] Comment on above: Performed By: #### L 506.1000, L100.0100, L500.4050, L501.9520 ####[facility] [address] [place], [address] Bilirubin [Mass/Vol] 0.90 mg/dL Normal 0.20-1.00 [facility] Comment on above: Result Comment: For patients on eltrombopag therapy, use of Dimension [place] TBIL is not recommended. Performed By: #### L 506.1000, L100.0100, L500.4050, L501.9520 ####[facility] [address] [place], [address] BUN/CRE 14.2 RATIO Normal 10-20 [facility] Comment on above: Performed By: #### L 506.1000, L100.0100, L500.4050, L501.9520 ####[facility] [address] [place], [address] CA,Total 8.8 mg/dL Normal 8.5-10.1 [facility] Comment on above: Performed By: #### L 506.1000, L100.0100, L500.4050, L501.9520 ####[facility] [address] [place], [address] Chloride [Moles/Vol] 105 mmol/L Normal 98-107 [facility] Comment on above: Performed By: #### L 506.1000, L100.0100, L500.4050, L501.9520 ####[facility] [address] [place], [address] CO2 [Moles/Vol] 25.0 mmol/L Normal 21.0-32.0 [facility] Comment on above: Performed By: #### L 506.1000, L100.0100, L500.4050, L501.9520 ####[facility] [address] [place], [address] Creatinine [Mass/Vol] 0.78 mg/dL Normal 0.55-1.02 [facility] Comment on above: Result Comment: The validity of the calculated GFR GFRAA in patients over 70 years has not been determined. Clinical correlation is essential. Performed By: #### L 506.1000, L100.0100, L500.4050, L501.9520 ####[facility] [address] [place], [address] EST GFR - AA 91 mL/min Normal >60 [facility] Comment on above: Result Comment: Afri can Cuban GFR Calc Performed By: #### L 506.1000, L100.0100, L500.4050, L501.9520 ####[facility] [address] [place], [address] GAP 7 Normal 5-15 [facility] Comment on above: Performed By: #### L 506.1000, L100.0100, L500.4050, L501.9520 ####[facility] [address] [place], [address] GFR/1.73 sq M.predicted among non-blacks MDRD (S/P/Bld) [Vol rate/Area] 75 mL/min/{1.73_m2} Normal >60 [facility] Comment on above: Result Comment: Non- GFR Calc Performed By: #### L 506.1000, L100.0100, L500.4050, L501.9520 ####[facility] [address] [place], [address] Globulin (S) [Mass/Vol] 4.3 g/dL High 2.2-4.2 [facility] Comment on above: Performed By: #### L 506.1000, L100.0100, L500.4050, L501.9520 ####[facility] [address] [place], [address] Glucose [Mass/Vol] 159 mg/dL High 74-106 [facility] Comment on above: Result Comment: Fast ing Glucose result greater than or equal to 126 mg/dL suggests DIABETES MELLITUS per A.D.A. criteria. Performed By: #### L 506.1000, L100.0100, L500.4050, L501.9520 ####[facility] [address] [place], [address] Potassium [Moles/Vol] 3.8 mmol/L Normal 3.5-5.1 [facility] Comment on above: Performed By: #### L 506.1000, L100.0100, L500.4050, L501.9520 ####[facility] [address] [place], [address] Sodium [Moles/Vol] 137 mmol/L Normal 136-145 [facility] Comment on above: Performed By: #### L 506.1000, L100.0100, L500.4050, L501.9520 ####[facility] [address] [place], [address] T PROT 7.2 g/dL Normal 6.4-8.2 [facility] Comment on above: Performed By: #### L 506.1000, L100.0100, L500.4050, L501.9520 ####[facility] [address] [place], [address] Urea nitrogen [Mass/Vol] 11 mg/dL Normal 7-18 [facility] Comment on above: Performed By: #### L 506.1000, L100.0100, L500.4050, L501.9520 ####[facility] [address] [place], [address] Eosinophil percentageOrdered By: Aniceto Cleveland on 09-25-2024 Eosinophils/100 WBC (Bld) 1.4 % 0-5 [facility] Erythrocyte distribution wid th ratioOrdered By: Aniceto Cleveland on 09-25-2024 Erythrocyte distribution width (RBC) [Ratio] 17.2 % High 11.6-14.6 [facility] Erythrocyte distribution wid th standard deviationOrdered By: Aniceto Cleveland on 09-25-2024 Erythrocyte distribution width (RBC) [Entitic vol] 62.3 fL High 35.1-43.9 [facility] Erythrocyte distribution width (RBC) [Ratio] 62.3 fl High 35.1-43.9 [facility] Estimated glomerular filtrat ion rate (GFR) AmericanOrdered By: Aniceto Cleveland on 09-25-2024 Estimated GFR (MDRD) Amer 91 mL/min >60 [facility] Comment on above: GFR Calc Glomerular filtration rate ( GFR) estimationOrdered By: Aniceto Cleveland on 09-25-2024 Estimated GFR (MDRD) Non-Af Amer 75 mL/min >60 [facility] Comment on above: Non- GFR Calc GFR/1.73 sq M.predicted among non-blacks MDRD (S/P/Bld) [Vol rate/Area] 75 mL/min/{1.73_m2} >60 [facility] Comment on above: Non- GFR Calc Glucose measurementOrdered B y: Aniceto Cleveland on 09-25-2024 Glucose [Mass/Vol] 159 mg/dL High 74-106 [facility] Comment on above: Fasting Glucose resu lt greater than or equal to 126 mg/dL suggests DIABETES MELLITUS per A.D.A. criteria. Hematocrit Auto (Bld) [Volum e fraction]Ordered By: Aniceto Cleveland on 09-25-2024 Hematocrit (Bld) [Volume fraction] 34.9 % Low 37-47 [facility] Hemoglobin measurementOrdere d By: Aniceto Cleveland on 09-25-2024 Hemoglobin (Bld) [Mass/Vol] 11.3 g/dL Low 12.0-15.0 [facility] Immature granulocytes/100 WB C Auto (Bld)Ordered By: Aniceto Cleveland on 09-25-2024 Immature granulocytes/100 WBC (Bld) 0.400 % 0.0-0.9 [facility] Comment on above: IG% - Immature Granu locytes (promyelocytes, myelocytes and metamyelocytes) > 1% indicates that a LEFT SHIFT is Present. Laboratory - Chemistry and C hemistry - challengeOrdered By: Aniceto Cleveland on 09-25-2024 AST [Catalytic activity/Vol] 45 U/L High 15-37 [facility] Lymphocytes Auto (Unsp spec) [#/Vol]Ordered By: Aniceto Cleveland on 09-25-2024 Lymphocytes (Bld) [#/Vol] 2.68 10*3/uL 0.83-4.51 [facility] Lymphocytes/100 WBC Auto (Un sp spec)Ordered By: Aniceto Cleveland on 09-25-2024 Lymphocytes/100 WBC (Bld) 23.2 % 19-41 [facility] MCV (mean corpuscular volume ) determinationOrdered By: Aniceto Cleveland on 09-25-2024 MCV (RBC) [Entitic vol] 99.1 fL High 81-99 [facility] Mean corpuscular hemoglobin (MCH) determinationOrdered By: Aniceto Cleveland on 09-25-2024 MCH (RBC) [Entitic mass] 32.1 pg High 27.0-32.0 [facility] Mean corpuscular hemoglobin concentration (MCHC) determinationOrdered By: Aniceto Cleveland on 09-25-2024 MCHC (RBC) [Mass/Vol] 32.4 g/dL 32-36 [facility] Mean platelet volume determi nationOrdered By: Aniceto Cleveland on 09-25-2024 Platelet mean volume (Bld) [Entitic vol] 10.5 fL 6.2-12.0 [facility] Monocyte percentageOrdered B y: Aniceto Cleveland on 09-25-2024 Monocytes/100 WBC (Bld) 10.3 % High 0-10 [facility] Neutrophil percentageOrdered By: Aniceto Cleveland on 09-25-2024 Neutrophils/100 WBC (Bld) 64.0 % 47-70 [facility] Nucleated red blood cell per centageOrdered By: Aniceto Cleveland on 09-25-2024 Nucleated RBC/100 WBC (Bld) [Ratio] 0.2 % 0-5 [facility] Platelet countOrdered By: Fermin Cleveland on 09-25-2024 Platelets (Bld) [#/Vol] 356 10*3/uL 150-450 [facility] Potassium measurementOrdered By: Aniceto Cleveland on 09-25-2024 Potassium [Moles/Vol] 3.8 mmol/L 3.5-5.1 [facility] RBC Auto (Bld) [#/Vol]Ordere d By: Aniceto Cleveland on 09-25-2024 RBC (Bld) [#/Vol] 3.52 10*6/uL Low 4.2-5.4 [facility] Serum anion gap measurementO rdered By: Aniceto Cleveland on 09-25-2024 Anion gap [Moles/Vol] 7 mmol/L 5-15 [facility] Serum globulin measurementOr dered By: Aniceto Cleveland 09-25-2024 Globulin (S) [Mass/Vol] 4.3 g/dL High 2.2-4.2 [facility] Serum or plasma alanine bentley otransferase (ALT) measurementOrdered By: Aniceto Cleveland 09-25-2024 ALT [Catalytic activity/Vol] 33 U/L 13-56 [facility] Serum or plasma albumin elmer urement (mass/volume)Ordered By: Aniceto Cleveland 09-25-2024 Albumin [Mass/Vol] 2.9 g/dL Low 3.2-5.0 [facility] Serum or plasma alkaline delmis sphatase measurementOrdered By: Aniceto Cleveland 09-25-2024 ALP [Catalytic activity/Vol] 132 U/L High 45-117 [facility] Serum or plasma calcium elmer urement (mass/volume)Ordered By: Aniceto Cleveland 09-25-2024 Calcium [Mass/Vol] 8.8 mg/dL 8.5-10.1 [facility] Serum or plasma creatinine m easurement (mass/volume)Ordered By: Aniceto Cleveland 09-25-2024 Creatinine [Mass/Vol] 0.78 mg/dL 0.55-1.02 [facility] Comment on above: The validity of the calculated GFR & GFRAA in patients over 70 years has not been determined. Clinical correlation is essential. Serum or plasma thyroid stim ulating hormone (TSH) measurement (units/volume)Ordered By: Aniceto Cleveland 09-25-2024 TSH Qn 2.040 uIU/mL 0.358-3.740 [facility] Serum or plasma urea nitroge n measurement (mass/volume)Ordered By: Aniceto Cleveland on 09-25-2024 Urea nitrogen [Mass/Vol] 11 mg/dL 7-18 [facility] Sodium levelOrdered By: Aniceto Cleveland on 09-25-2024 Sodium [Moles/Vol] 137 mmol/L 136-145 [facility] TSH QnOrdered By: Aniceto Cleveland o n 09-25-2024 Thyroid Stimulating Hormone (TSH) 2.040 uIU/mL 0.358-3.740 [facility] Thyroid Stim Hormone (TSH)on 09-25-2024 TSH 2.040 uIU/mL Normal 0.358-3.740 [facility] Comment on above: Performed By: #### L 506.1000, L100.0100, L500.4050, L501.9520 ####[facility] [address] [place], [place], [id number] Total proteinOrdered By: Aniceto Cleveland on 09-25-2024 Protein [Mass/Vol] 7.2 g/dL 6.4-8.2 [facility] Vitamin D,25 Hydroxyon 09-25 Vitamin D 25-OH 51.7 ng/mL Normal [facility] Comment on above: Result Comment: Bonnie min D 25(OH) Status Range Deficiency <20 ng/mL (50nmol/L) Insufficiency 20 - 30 ng/mL (50 - 75 nmol/L) Sufficiency 30 - 100 ng/mL (75 - 250 nmol/L) Toxicity >100 ng/mL (>250 nmol/L) Performed By: #### L 506.1000, L100.0100, L500.4050, L501.9520 ####[facility] [address] [place], [place], [address] White blood cell (WBC) count Ordered By: Aniceto Cleveland on 09-25-2024 WBC (Bld) [#/Vol] 11.6 10*3/uL High 4.4-11.0 [facility] 35-FM-Xrfgylp DOrdered By: Darian Clevelnad on 09-24-2024 Vitamin D 25-Hydroxy 48.4 ng/mL [facility] Comment on above: Vitamin D 25(OH) Sta tus Range Deficiency <20 ng/mL (50nmol/L) Insufficiency 20 - 30 ng/mL (50 - 75 nmol/L) Sufficiency 30 - 100 ng/mL (75 - 250 nmol/L) Toxicity >100 ng/mL (>250 nmol/L) Albumin to globulin ratioOrd ered By: Aniceto Cleveland on 09-24-2024 Albumin/Globulin [Mass ratio] 0.7 {ratio} Low 0.9-2.4 [facility] Bilirubin, totalOrdered By: Aniceto Cleveland on 09-24-2024 Bilirubin [Mass/Vol] 0.70 mg/dL 0.20-1.00 [facility] Comment on above: For patients on eltr ombopag therapy, use of Dimension [place] TBIL is not recommended. Blood urea nitrogen (BUN)/cr eatinine ratioOrdered By: Aniceto Cleveland on 09-24-2024 Urea nitrogen/Creatinine [Mass ratio] 18.3 mg/mg 06-03 [facility] CBC W/Diff, Automatedon 09-15 Absolute Neut Normal 2.0-7.7 [facility] Comment on above: Result Comment: REDR AW Performed By: #### L 500.4050, L501.9520, L100.0100, L506.1000 ####[facility] [address] [place], [address] HCT Normal 37-47 [facility] Comment on above: Result Comment: REDR AW Performed By: #### L 500.4050, L501.9520, L100.0100, L506.1000 ####[facility] [address] [place], [address] HGB Normal 12.0-15.0 [facility] Comment on above: Result Comment: REDR AW Performed By: #### L 500.4050, L501.9520, L100.0100, L506.1000 ####[facility] [address] [place], [address] MCH Normal 27.0-32.0 [facility] Comment on above: Result Comment: REDR AW Performed By: #### L 500.4050, L501.9520, L100.0100, L506.1000 ####[facility] [address] [place], [address] MCHC Normal 32-36 [facility] Comment on above: Result Comment: REDR AW Performed By: #### L 500.4050, L501.9520, L100.0100, L506.1000 ####[facility] [address] [place], [address] MCV Normal 81-99 [facility] Comment on above: Result Comment: REDR AW Performed By: #### L 500.4050, L501.9520, L100.0100, L506.1000 ####[facility] [address] [place], [address] NEUT% Normal 47-70 [facility] Comment on above: Result Comment: REDR AW Performed By: #### L 500.4050, L501.9520, L100.0100, L506.1000 ####[facility] [address] [place], [address] PLT Normal 150-450 [facility] Comment on above: Result Comment: REDR AW Performed By: #### L 500.4050, L501.9520, L100.0100, L506.1000 ####[facility] [address] [place], [address] RBC Normal 4.2-5.4 [facility] Comment on above: Result Comment: REDR AW Performed By: #### L 500.4050, L501.9520, L100.0100, L506.1000 ####[facility] [address] [place], [address] RDW CV Normal 11.6-14.6 [facility] Comment on above: Result Comment: REDR AW Performed By: #### L 500.4050, L501.9520, L100.0100, L506.1000 ####[facility] [address] [place], [address] RDW SD Normal 35.1-43.9 [facility] Comment on above: Result Comment: REDR AW Performed By: #### L 500.4050, L501.9520, L100.0100, L506.1000 ####[facility] [address] [place], [address] WBC Normal 4.4-11.0 [facility] Comment on above: Result Comment: REDR AW Performed By: #### L 500.4050, L501.9520, L100.0100, L506.1000 ####[facility] [address] [place], [address] Carbon dioxide measurementOr dered By: Aniceto Cleveland on 09-24-2024 CO2 [Moles/Vol] 26.0 mmol/L 21.0-32.0 [facility] Chloride measurementOrdered By: Aniceto Cleveland on 09-24-2024 Chloride [Moles/Vol] 106 mmol/L 98-107 [facility] Comprehensive Metabolic Prof ilon 09-24-2024 Albumin [Mass/Vol] 3.0 g/dL Low 3.2-5.0 [facility] Comment on above: Performed By: #### L 500.4050, L501.9520, L100.0100, L506.1000 ####[facility] [address] [place], [address] Albumin/Globulin [Mass ratio] 0.7 {ratio} Low 0.9-2.4 [facility] Comment on above: Performed By: #### L 500.4050, L501.9520, L100.0100, L506.1000 ####[facility] [address] [place], [address] ALK P 136 U/L High 45-117 [facility] Comment on above: Performed By: #### L 500.4050, L501.9520, L100.0100, L506.1000 ####[facility] [address] [place], [address] ALT [Catalytic activity/Vol] 27 U/L Normal 13-56 [facility] Comment on above: Performed By: #### L 500.4050, L501.9520, L100.0100, L506.1000 ####[facility] [address] [place], [address] AST [Catalytic activity/Vol] 45 U/L High 15-37 [facility] Comment on above: Result Comment: Slig ht Hemolysis, Result may be falsely increased. Performed By: #### L 500.4050, L501.9520, L100.0100, L506.1000 ####[facility] [address] [place], [address] Bilirubin [Mass/Vol] 0.70 mg/dL Normal 0.20-1.00 [facility] Comment on above: Result Comment: For patients on eltrombopag therapy, use of Dimension [place] TBIL is not recommended. Performed By: #### L 500.4050, L501.9520, L100.0100, L506.1000 ####[facility] [address] [place], [address] BUN/CRE 18.3 RATIO Normal 10-20 [facility] Comment on above: Performed By: #### L 500.4050, L501.9520, L100.0100, L506.1000 ####[facility] [address] [place], [address] CA,Total 8.9 mg/dL Normal 8.5-10.1 [facility] Comment on above: Performed By: #### L 500.4050, L501.9520, L100.0100, L506.1000 ####[facility] [address] [place], [address] Chloride [Moles/Vol] 106 mmol/L Normal 98-107 [facility] Comment on above: Performed By: #### L 500.4050, L501.9520, L100.0100, L506.1000 ####[facility] [address] [place], [address] CO2 [Moles/Vol] 26.0 mmol/L Normal 21.0-32.0 [facility] Comment on above: Performed By: #### L 500.4050, L501.9520, L100.0100, L506.1000 ####[facility] [address] [place], [address] Creatinine [Mass/Vol] 0.77 mg/dL Normal 0.55-1.02 [facility] Comment on above: Result Comment: The validity of the calculated GFR GFRAA in patients over 70 years has not been determined. Clinical correlation is essential. Performed By: #### L 500.4050, L501.9520, L100.0100, L506.1000 ####[facility] [address] [place], [address] EST GFR - AA 92 mL/min Normal >60 [facility] Comment on above: Result Comment: Afri can Cuban GFR Calc Performed By: #### L 500.4050, L501.9520, L100.0100, L506.1000 ####[facility] [address] [place], [address] GAP 8 Normal 5-15 [facility] Comment on above: Performed By: #### L 500.4050, L501.9520, L100.0100, L506.1000 ####[facility] [address] [place], [address] GFR/1.73 sq M.predicted among non-blacks MDRD (S/P/Bld) [Vol rate/Area] 76 mL/min/{1.73_m2} Normal >60 [facility] Comment on above: Result Comment: Non- GFR Calc Performed By: #### L 500.4050, L501.9520, L100.0100, L506.1000 ####[facility] [address] [place], [address] Globulin (S) [Mass/Vol] 4.1 g/dL Normal 2.2-4.2 [facility] Comment on above: Performed By: #### L 500.4050, L501.9520, L100.0100, L506.1000 ####[facility] [address] [place], [address] Glucose [Mass/Vol] 138 mg/dL High 74-106 [facility] Comment on above: Result Comment: Fast ing Glucose result greater than or equal to 126 mg/dL suggests DIABETES MELLITUS per A.D.A. criteria. Performed By: #### L 500.4050, L501.9520, L100.0100, L506.1000 ####[facility] [address] [place], [address] Potassium [Moles/Vol] 4.7 mmol/L Normal 3.5-5.1 [facility] Comment on above: Result Comment: Slig ht Hemolysis, Result may be falsely increased. Performed By: #### L 500.4050, L501.9520, L100.0100, L506.1000 ####[facility] [address] [place], [address] Sodium [Moles/Vol] 141 mmol/L Normal 136-145 [facility] Comment on above: Performed By: #### L 500.4050, L501.9520, L100.0100, L506.1000 ####[facility] [address] [place], [address] T PROT 7.1 g/dL Normal 6.4-8.2 [facility] Comment on above: Performed By: #### L 500.4050, L501.9520, L100.0100, L506.1000 ####[facility] [address] [place], [address] Urea nitrogen [Mass/Vol] 14 mg/dL Normal 7-18 [facility] Comment on above: Performed By: #### L 500.4050, L501.9520, L100.0100, L506.1000 ####[facility] [address] [place], [address] Estimated glomerular filtrat ion rate (GFR) AmericanOrdered By: Aniceto Cleveland on 09-24-2024 Estimated GFR (MDRD) Amer 92 mL/min >60 [facility] Comment on above: GFR Calc Glomerular filtration rate ( GFR) estimationOrdered By: Aniceto Cleveland on 09-24-2024 Estimated GFR (MDRD) Non-Af Amer 76 mL/min >60 [facility] Comment on above: Non- GFR Calc Glucose measurementOrdered B y: Aniceto Cleveland on 09-24-2024 Glucose [Mass/Vol] 138 mg/dL High 74-106 [facility] Comment on above: Fasting Glucose resu lt greater than or equal to 126 mg/dL suggests DIABETES MELLITUS per A.D.A. criteria. Laboratory - Chemistry and C hemistry - challengeOrdered By: Aniceto Cleveland on 09-24-2024 AST [Catalytic activity/Vol] 45 U/L High 15-37 [facility] Comment on above: Slight Hemolysis, Re sult may be falsely increased. Potassium measurementOrdered By: Aniceto Cleveland on 09-24-2024 Potassium [Moles/Vol] 4.7 mmol/L 3.5-5.1 [facility] [facility] Comment on above: Slight Hemolysis, Re sult may be falsely increased. Serum anion gap measurementO rdered By: Aniceto Cleveland 09-24-2024 Anion gap [Moles/Vol] 8 mmol/L 5-15 [facility] Serum globulin measurementOr dered By: Aniceto Cleveland on 09-24-2024 Globulin (S) [Mass/Vol] 4.1 g/dL 2.2-4.2 [facility] Serum or plasma alanine bentley otransferase (ALT) measurementOrdered By: Aniceto Cleveland on 09-24-2024 ALT [Catalytic activity/Vol] 27 U/L 13-56 [facility] Serum or plasma albumin elmer urement (mass/volume)Ordered By: Aniceto Cleveland on 09-24-2024 Albumin [Mass/Vol] 3.0 g/dL Low 3.2-5.0 [facility] Serum or plasma alkaline delmis sphatase measurementOrdered By: Aniceto Cleveland on 09-24-2024 ALP [Catalytic activity/Vol] 136 U/L High 45-117 [facility] Serum or plasma calcium elmer urement (mass/volume)Ordered By: Aniceto Cleveland on 09-24-2024 Calcium [Mass/Vol] 8.9 mg/dL 8.5-10.1 [facility] Serum or plasma creatinine m easurement (mass/volume)Ordered By: Aniceto Cleveland on 09-24-2024 Creatinine [Mass/Vol] 0.77 mg/dL 0.55-1.02 [facility] Comment on above: The validity of the calculated GFR & GFRAA in patients over 70 years has not been determined. Clinical correlation is essential. Serum or plasma urea nitroge n measurement (mass/volume)Ordered By: Aniceto Cleveland on 09-24-2024 Urea nitrogen [Mass/Vol] 14 mg/dL 7-18 [facility] Sodium levelOrdered By: Aniceto Cleveland 09-24-2024 Sodium [Moles/Vol] 141 mmol/L 136-145 [facility] TSH QnOrdered By: Aniceto Cleveland o n 09-24-2024 Thyroid Stimulating Hormone (TSH) 1.580 uIU/mL 0.358-3.740 [facility] Thyroid Stim Hormone (TSH)on 09-24-2024 TSH 1.580 uIU/mL Normal 0.358-3.740 [facility] Comment on above: Performed By: #### L 500.4050, L501.9520, L100.0100, L506.1000 ####[facility] [id number] [place], [address] Total proteinOrdered By: Aniceto Cleveland on 09-24-2024 Protein [Mass/Vol] 7.1 g/dL 6.4-8.2 [facility] Vitamin D,25 Hydroxyon 09-24 Vitamin D 25-OH 48.4 ng/mL Normal [facility] Comment on above: Result Comment: Bonnie min D 25(OH) Status Range Deficiency <20 ng/mL (50nmol/L) Insufficiency 20 - 30 ng/mL (50 - 75 nmol/L) Sufficiency 30 - 100 ng/mL (75 - 250 nmol/L) Toxicity >100 ng/mL (>250 nmol/L) Performed By: #### L 500.4050, L501.9520, L100.0100, L506.1000 ####[facility] [id number] [place], [address] Endocrinology Visit Reporton 08-16-2024 Endocrinology Visit Report [facility] [address] [place] [address] OFFICE VISIT Date of Service: 08/16/24 MR#: [id number] Acct: [id number] Name: CINDI MESSER Rep #: [id number] : 1940 Provider: Jayme Eddy Age/Sex: 84/F Location: [facility] Status: Signed Intake Vital Signs 08/18/23 09:55 04/14/24 13:44 08/16/24 09:44 Height 5 ft 3 in 5 ft 4 in 5 ft 4 in Weight: 200 lb 2 oz BMI 34.3 BP 151/76 H Blood Pressure Location Rt brachial Position Sitting Pulse 72 Pulse Source Monitor Pulse Oximetry (%) 95 Oxygen Delivery Method room air Intake Visit Reasons: 1 Y FU Chief Complaint: Bone Is patient in pain?: No Allergies Sulfa (Sulfonamide Antibiotics) Allergy (Mild, Verified 08/16/24 09:54) Rash bee venom protein (honey bee) (bee stings) Allergy (Verified 08/16/24 09:54) Hives spider venom Allergy (Verified 08/16/24 09:54) Swelling meloxicam Adverse Reaction (Mild, Verified 08/16/24 09:54) dizziness metformin Adverse Reaction (Mild, Verified 08/16/24 09:54) Eleavted BP Medications ???Medication ???Instructions ???Recorded ???Confirmed ???Type levothyroxine 100 mcg tablet 100 mcg PO DAILY thyroid 03/09/16 08/16/24 History pantoprazole 40 mg tablet,delayed 40 mg PO QODAY GERD 03/09/16 08/16/24 History release aspirin 81 mg chewable tablet 81 mg PO QHS heart health 07/08/17 08/16/24 History multivitamin 1 tab PO DAILY supplement 07/01/19 08/16/24 History meclizine 25 mg tablet 25 mg PO 4X/DAY PRN PRN Dizziness 01/31/20 08/16/24 Rx #20 tabs cholecalciferol (vitamin D3) 50 50 mcg PO DAILY 10/20/20 08/16/24 History mcg (2,000 unit) tablet acetaminophen 300 mg-codeine 30 mg 1 tab PO Q8H PRN Pain 08/20/21 08/16/24 History tablet prednisone 20 mg tablet 40 mg (2 x 20 mg) PO DAILY 10 days 04/14/24 08/16/24 Rx #20 tabs Have you fallen in the past year?: No PFSH Medical History CKD (chronic kidney disease) l thumb surgery l rotater cuff repair Neuropathy Hives Hearing problem Cataracts, bilateral Back problem Arthritis Fatty liver DM2 (diabetes mellitus, type 2) Class 1 obesity Chronic back pain Hyperlipidemia Hypothyroid GERD (gastroesophageal reflux disease) Surgical History H/O right knee surgery History of carpal tunnel release History of hysterectomy S/P carotid endarterectomy H/O lumbar discectomy History of tonsillectomy Family History Father Alcoholism Heart disease Mother Arthritis Osteoporosis Brother Myocardial infarction Heart disease CVA (cerebral vascular accident) Skin cancer Grandmother Osteoporosis Uterine cancer Social History household members: none housing: house number of children: 1 Smoking Status: Former smoker Tobacco: How many years used: 55 alcohol intake: never substance use type: does not use what type of physical activity do you participate in: other frequency: 3-4 times per week do you feel safe at home: Yes HPI HPI Chief Complaint: Bone Details: CINDI MESSER, is a 84 F who presents to the office today for follow up. She has T-score of -2.6 She has history of wedge fracture of L1 She has received 5 infusions of Reclast. She reports she had a recent fracture of L3. She has hypothyroidism and is taking levothyroxine. ROS Const Constitutional: Positive for fatigue; No weight change ENT ENT: No dizziness/vertigo Cardio Cardiology: Positive for shortness of breath; No chest pain at rest, chest pain with exertion or palpitations Musc Musculoskeletal: Positive for back pain Skin Skin: No wounds Endo Endocrine: Positive for fatigue; No weight change Clinical Quality Measures Falls Risk Screening/Assistive Devices Have you fallen in the past year?: No Assessment and Plan Assessment and Plan (1) Hypothyroid: Status: Chronic Qualifiers: Hypothyroidism type: acquired Qualified Code(s): E03.9 - Hypothyroidism, unspecified Plan: Take levothyroxine on an empty stomach with water at least four hours after eating. Then wait 30-60 minutes before consuming any other food or beverage, especially coffee. Separate levothyroxine from vitamins by at least 4 hours. Stop taking any biotin supplement 4 days prior to having labs drawn. Rx given by Dr. Cleveland. (2) Osteoporosis: Status: Chronic Qualifiers: Osteoporosis type: age-related Presence of current pathological fracture: without current pathological fracture Qualified Code(s): M81.0 - Age-related osteoporosis without current pathological fracture Plan: She has received 5 i (more content not included)... Normal [facility] COVID-19, MOLECULARon 2023 SARS-CoV-2 (COVID-19) Ab IA Ql Not detected Normal Not Detected [facility] Comment on above: Result Comment: Test ing was performed using the [employer] ID NOW COVID-19 assay on the ID NOW platform. This test has not been approved for use in asymptomatic patients and its performance in this patient population has not been evaluated. Negative results do not rule out the presence of SARS-CoV-2/COVID-19. ED Prov Noteon 08-11-2024 ED Prov Note HPI: 08/11/2024, Time: @ROC@ Cindi Messer is a 84 y.o. female presenting to the ED for thick nonproductive cough along with fatigue, beginning 3 days ago. The complaint has been constant, moderate in severity, and worsened by nothing. No fever and no significant difficulty breathing. Denies chest pain ROS: Pertinent positives and negatives are stated within HPI, all other systems reviewed and are negative. PAST HISTORY Past Medical History: @[facility] Past Surgical History: has a past surgical history that includes Carpal tunnel release and Toe amputation. Social History: reports that she has quit smoking. Her smoking use included cigarettes. She has never used smokeless tobacco. She reports that she does not currently use alcohol. She reports that she does not currently use drugs. Family History: family history is not on file. The patient's home medications have been reviewed. Allergies: Metformin, Sulfa (sulfonamide antibiotics), Spider venom, and Meloxicam RESULTS All laboratory and radiology results have been personally reviewed by myself LABS: Results for orders placed or performed during the hospital encounter of 08/11/24 COVID-19, Molecular Collection Time: 08/11/24 9:53 AM Specimen: Swab Result Value Ref Range SARS-CoV-2 Not Detected Not Detected POC Influenza A/B Collection Time: 08/11/24 10:08 AM Result Value Ref Range POC Rapid Influenza A Ag Not Detected Not Detected POC Influenza B Ag Not Detected Not Detected POC CBC and Differential Collection Time: 08/11/24 10:16 AM Result Value Ref Range WBC 4.81 4.50 - 11.00 K/mcL RBC 3.72 (L) 4.00 - 5.20 M/mcL Hemoglobin 12.1 12.0 - 16.0 g/dL Hematocrit 36.6 36.0 - 46.0 % MCV 98.4 80.0 - 100.0 fL MCH 32.5 26.0 - 34.0 pg MCHC 33.1 31.0 - 37.0 g/dL RDW - CV 15.0 (H) 11.6 - 14.8 % Platelets 222 150 - 400 K/mcL MPV 10.1 9.4 - 12.4 fL Neutrophils 68.4 % Lymphocytes 12.3 % Monocytes 17.9 % Eosinophils 0.4 % Basophils 0.8 % IG Percent 0.20 % Neutrophils Abs 3.29 1.70 - 7.00 K/mcL Lymphocytes Abs 0.59 (L) 0.90 - 4.00 K/mcL Monocytes Abs 0.86 0.30 - 0.90 K/mcL Eosinophils Abs 0.02 0.00 - 0.50 K/mcL Basophils Abs 0.04 0.00 - 0.30 K/mcL IG Absolute 0.01 0.00 - 0.30 K/mcL POC Basic Metabolic Panel Collection Time: 08/11/24 10:28 AM Result Value Ref Range Glucose 145 (H) 65 - 99 mg/dL BUN 10 8 - 25 mg/dL Creatinine 0.59 (L) 0.60 - 1.20 mg/dL GFR 88 >=60 mL/min/1.73 m2 Sodium 131 (L) 135 - 145 mmol/L Potassium 5.6 (H) 3.5 - 5.1 mmol/L Chloride 98 98 - 108 mmol/L TCO2 24 21 - 32 mmol/L Ionized Calcium 4.3 (L) 4.5 - 5.3 mg/dL POC B-type natriuretic peptide (BNP) Collection Time: 08/11/24 10:47 AM Result Value Ref Range BNP 123 (H) <100 pg/mL POC Troponin I Collection Time: 08/11/24 10:51 AM Result Value Ref Range Troponin I <0.05 <0.05 ng/mL POC Urinalysis Dipstick, Auto Collection Time: 08/11/24 11:24 AM Result Value Ref Range Spec Grav, UA 1.020 1.005 - 1.025 pH, UA 7.0 5.0 - 7.0 Protein, UA 30 (A) Negative mg/dL Glucose, UA Negative Negative mg/dL Ketones, UA Negative Negative mg/dL Bilirubin, UA Small (A) Negative Urobilinogen, UA 2.0 (A) <2.0 mg/dL Blood, UA Negative Negative Nitrite, UA Negative Negative Leukocyte Esterase, UA Negative Negative RADIOLOGY: Interpreted by Radiologist. XR Chest 1 View (Results Pending) NURSING NOTES AND VITALS REVIEWED -- The nursing notes within the ED encounter and vital signs as below have been reviewed. BP (!) 155/74 Pulse (!) 101 Temp 98 degrees F (36.7 degrees C) Resp 16 Ht 5' 3 Wt 90.3 kg (199 lb) SpO2 94% BMI 35.25 kg/m Oxygen Saturation Interpretation: Normal -PHYSICAL EXAM Constitutional/General: Alert and oriented x3, mildly ill-appearing no obvious respiratory distress Head: NC/AT Eyes: PERRL, EOMI Mouth: Oropharynx clear, handling secretions, no trismus Neck: Supple, full ROM, no meningeal signs Pulmonary: Lungs clear to auscultation bilaterally, no wheezes, rales, or rhonchi. Not in respiratory distress Cardiovascular: Regular rate and rhythm, no murmurs, gallops, or rubs. 2+ distal pulses Abdomen: Soft, non tender, non distended, Extremities: Moves all extremities x 4. Warm and well perfused Skin: warm and dry without rash Neurologic: GCS 15, Psych: Normal Affect ----- ED COURSE/MEDICAL DECISION MAKING --- Medications sodium chloride (PF) (NS) flush 5 mL (has no administration in time range) And sodium chloride 0.9% (NS) (has no administration in time range) sodium chloride 0.9% (NS) martinez (more content not included)... Normal [facility] POC B-TYPE NATRIURETIC PEPTI DE (BNP) - [facility] 08-11-2024 Natriuretic peptide B (Bld) [Mass/Vol] 123 pg/mL High <100 [facility] POC BASIC METABOLIC PANEL - [facility] 08-11-2024 Chloride [Moles/Vol] 98 mmol/L Normal 98-108 [facility] Comment on above: Order Comment: [facility] has implemented the eGFR calculation approach that does not have a coefficient for race that conforms to the NKF-ASN Task Force Recommendations. CO2 [Moles/Vol] 24 mmol/L Normal 21-32 [facility] Comment on above: Order Comment: [facility] has implemented the eGFR calculation approach that does not have a coefficient for race that conforms to the NKF-ASN Task Force Recommendations. Creatinine [Mass/Vol] 0.59 mg/dL Low 0.60-1.20 [facility] Comment on above: Order Comment: [facility] has implemented the eGFR calculation approach that does not have a coefficient for race that conforms to the NKF-ASN Task Force Recommendations. Glucose [Mass/Vol] 145 mg/dL High 65-99 [facility] Comment on above: Order Comment: [facility] has implemented the eGFR calculation approach that does not have a coefficient for race that conforms to the NKF-ASN Task Force Recommendations. POC GFR 88 mL/min/1.73 m2 Normal >=60 [facility] Comment on above: Order Comment: [facility] has implemented the eGFR calculation approach that does not have a coefficient for race that conforms to the NKF-ASN Task Force Recommendations. Result Comment: Madisyn mated GFR was calculated using the 2020 CKD-EPI creatinine equation. POC IONIZED CALCIUM 4.3 mg/dL Low 4.5-5.3 [facility] Comment on above: Order Comment: [facility] has implemented the eGFR calculation approach that does not have a coefficient for race that conforms to the NKF-ASN Task Force Recommendations. Potassium [Moles/Vol] 5.6 mmol/L High 3.5-5.1 [facility] Comment on above: Order Comment: [facility] has implemented the eGFR calculation approach that does not have a coefficient for race that conforms to the NKF-ASN Task Force Recommendations. Sodium [Moles/Vol] 131 mmol/L Low 135-145 [facility] Comment on above: Order Comment: [facility] has implemented the eGFR calculation approach that does not have a coefficient for race that conforms to the NKF-ASN Task Force Recommendations. Urea nitrogen [Mass/Vol] 10 mg/dL Normal 8-25 [facility] Comment on above: Order Comment: [facility] has implemented the eGFR calculation approach that does not have a coefficient for race that conforms to the NKF-ASN Task Force Recommendations. POC CBC AND DIFFERENTIALon 10-12-2023 BASOPHILS ABSOLUTE COUNT 0.04 K/mcL Normal 0.00-0.30 [facility] Basophils/100 WBC (Bld) 0.8 % Normal [facility] Eosinophils (Bld) [#/Vol] 0.02 10*3/uL Normal 0.00-0.50 [facility] Eosinophils/100 WBC (Bld) 0.4 % Normal [facility] Erythrocyte distribution width (RBC) [Ratio] 15.0 % High 11.6-14.8 [facility] Hematocrit (Bld) [Volume fraction] 36.6 % Normal 36.0-46.0 [facility] Hemoglobin (Bld) [Mass/Vol] 12.1 g/dL Normal 12.0-16.0 [facility] IG ABSOLUTE 0.01 K/mcL Normal 0.00-0.30 [facility] IG PERCENT 0.20 % Normal [facility] Comment on above: Result Comment: The IG parameter is the percentage of metamyelocytes, myelocytes and promyelocytes. An immature granulocyte count (IG) of 1% or more suggests the possibility of infection, an IG count of 3% is very likely related to an infection. Lymphocytes (Bld) [#/Vol] 0.59 10*3/uL Low 0.90-4.00 [facility] Lymphocytes/100 WBC (Bld) 12.3 % Normal [facility] MCH (RBC) [Entitic mass] 32.5 pg Normal 26.0-34.0 [facility] MCV (RBC) [Entitic vol] 98.4 fL Normal 80.0-100.0 [facility] MEAN CORPUSCULAR HEMOGLOBIN CONC 33.1 g/dL Normal 31.0-37.0 [facility] Monocytes (Bld) [#/Vol] 0.86 10*3/uL Normal 0.30-0.90 [facility] Monocytes/100 WBC (Bld) 17.9 % Normal [facility] NEUTROPHILS ABSOLUTE COUNT 3.29 K/mcL Normal 1.70-7.00 [facility] Neutrophils/100 WBC (Bld) 68.4 % Normal [facility] Platelet mean volume (Bld) [Entitic vol] 10.1 fL Normal 9.4-12.4 [facility] Platelets (Bld) [#/Vol] 222 10*3/uL Normal 150-400 [facility] RBC (Bld) [#/Vol] 3.72 10*6/uL Low 4.00-5.20 [facility] WBC (Bld) [#/Vol] 4.81 10*3/uL Normal 4.50-11.00 [facility] POC INFLUENZA A/B - [place] [id number] 10-12-2023 POC INFLUENZA A (FSED) Not detected Normal Not Detected [facility] POC INFLUENZA B (FSED) Not detected Normal Not Detected [facility] POC TROPONIN I [facility] 2023 POC TROPONIN I < Normal <0.05 [facility] POC URINALYSIS DIPSTICK,AUTO - [facility] 08-11-2024 POC BILIRUBIN, URINE Small Abnormal Negative [facility] POC BLOOD, URINE Negative Normal Negative [facility] POC GLUCOSE, URINE Negative Normal Negative [facility] POC KETONES, URINE Negative Normal Negative [facility] POC LEUKOCYTE ESTERASE, URINE Negative Normal Negative [facility] POC NITRITE, URINE Negative Normal Negative [facility] POC PH, URINE 7.0 Normal 5.0-7.0 [facility] POC SPECIFIC GRAVITY 1.020 Normal 1.005-1.025 [facility] POC UROBILINOGEN 2.0 mg/dL Abnormal < 2.0 [facility] Protein (U) [Mass/Vol] 30 mg/dL Abnormal Negative [facility] XR CHEST PA/APon 08-11-2024 XR CHEST PA/AP EXAMINATION: XR CHEST PA/AP HISTORY: Cough. COMPARISON: None TECHNIQUE: AP view of the chest. FINDINGS: No focal consolidation pleural effusion, or pneumothorax. Mild streaky bibasilar opacities. The cardiomediastinal silhouette is within normal limits. Visualized osseous structures appear grossly intact. IMPRESSION: Mild streaky bibasilar opacities, possibly atelectasis, possibly infectious. No focal consolidation. Workstation ID: [id number] Dictated by: SHAMA GREEN on Sat Aug 11, 2024 11:52:12 AM EST Transcribed by: SHAMA GREEN on Sat Aug 11, 2024 11:52:12 AM EST Finalized by: SHAMA GREEN on Sat Aug 11, 2024 11:52:12 AM EST Normal [facility] Comment on above: Order Comment: Injur y/Trauma or Illness?:Illness/OtherHow long have you had these symptoms (acute/chronic)?:AcuteReason for exam?:coughHistory of cancer?:uSurgeries, chemotherapy, or radiation?:uType of Exam?:InitialAdditional signs and symptoms?:none CNOVon 06-05-2024 CNOV Office Visit (VASSWS ) ----- CINDI MESSER ([id number]) 1940 F Date Time Provider Department 06/05/24 1:00 PM KATHY CAMPBELL VASSWS During your visit today, we recorded the following information about you: Pulse Blood pressure 74/minute 128/80 Kathy Campbell DO 06/05/2024 1:38 PM Signed [facility] [place] [facility]PART[facility] OF VASCULAR SURGERY OUTPATIENT VISIT DATE June 05, 2024 OUTPATIENT VISIT TYPE ESTABLISHED SERVICE DATE: 06/05/2024 SERVICE TIME: 12:09 PM PRIMARY CARE PHYSICIAN: Aniceto Cleveland MD HISTORY OF PRESENT ILLNESS: Ms. Messer is a 83 year old female who presents today for a vascular surgery follow-up visit for carotid artery stenosis. She denies focal neurologic deficit. She is having issues with her back which is impacting her day to day activities PAST MEDICAL HISTORY Diagnosis Date Age-related osteoporosis with current pathological fracture 07/23/2019 Bilateral carotid artery stenosis 11/06/2015 S/p surgery 12/2013, Seeing Dr. Luciano Cholecystitis glandularis proliferans Chronic back pain 11/06/[address] Benz Chronic insomnia 01/05/2019 Class 1 obesity due to excess calories without serious comorbidity with body mass index (BMI) of 33.0 to 33.9 in adult 09/27/2017 Current use of proton pump inhibitor 01/24/2017 Mg checked 02/2018 Diabetic eye exam (HCC) 05/03/2017 Last done: 09/27/2018 Elevated LFTs 11/06/2015 Hepatitis panel neg 07/25/2015 US; fatty liver Fatty liver 11/06/2015 Fracture 2 broken arms when child Ganglion cyst of finger of left hand 10/09/2018 GERD without esophagitis 11/06/2015 Greater trochanteric bursitis, left 05/27/2017 Patient was only able to go to PHYSICAL THERAPY once and could not tolerate per PHYSICAL THERAPY update 06/22/2017 [employer] Hypothyroidism (acquired) 11/06/2015 Low magnesium level 03/28/2019 Medicare annual wellness visit, subsequent 05/27/2017 Medicare Part B: 03/15/2017 last done: 03/28/2019 Mixed hyperlipidemia 11/06/2015 Neck pain 06/04/2020 With left thumb and index finger numbness. Neural foraminal stenosis of lumbar spine 05/05/2016 Neuropathy 09/27/2018 related to back disease and partially her diabetes. 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 BACK SURGERY HX 1984 Lumbar CAROTID ENDARTERECTOMY 01/04/2014 right side COLONOSCOPY 2008 repeat 10 yrs EXPLORATORY LAPAROTOMY CELIOTOMY W/WO BIOPSY SPX >50 years back FECAL OCCULT BLOOD TEST 06/02/2017 negative HAND SURGERY HX Left 10/2018 HYSTERECTOMY HX LAPS SURG CHOLECYSTECTOMY W/CHOLANGIOGRAPHY 03/11/2016 ORTHOPEDICS SURGERY HX Rt.Knee- arthroscopy PAST SURGICAL HISTORY OF 04/09/2014 bilat carpal tunnel PAST SURGICAL HISTORY OF lipoma excision PAST SURGICAL HISTORY OF Left rotator cuff repair REMV CATARACT EXTRACAP,INSERT LENS Bilateral TONSILLECTOMY HX SOCIAL HISTORY Social History Tobacco Use Smoking status: Former Current packs/day: 0.00 Average packs/day: 3.0 packs/day for 55.0 years (165.0 ttl pk-yrs) Types: Cigarettes Start date: 09/27/1954 Quit date: 09/27/2008 Years since quittin.6 Smokeless tobacco: Never Vaping Use Vaping status: Never Used Substance Use Topics Alcohol use: No Drug use: No MEDICATIONS: acetaminophen-codeine (TYLENOL-COD #3) 300-30 mg per tablet 1 tablet. levothyroxine (SYNTHROID) 100 mcg tablet Take 1 tablet by mouth daily before breakfast. pantoprazole DR (PROTONIX) 40 mg tablet Take 1 tablet by mouth once daily. cholecalciferol (VITAMIN D-3) 50 mcg (2,000 unit) tablet Take 1 tablet by mouth once daily. cholestyramine-sucrose (QUESTRAN) 4 gram powder Take 4 g by mouth twice daily with meals. (Patient not taking: Reported on 08/17/2022) blood sugar diagnostic (ONETOUCH VERIO TEST STRIPS) test strip Test blood sugar(s) 1 times daily. Dx: Type 2 DM - Controlled E11.9 Insulin: No cyclobenzaprine (FLEXERIL) 5 mg tablet Take 1 tablet by mouth three times daily as needed. (Patient not taking: No sig reported) promethazine (PHENERGAN) 25 mg tablet Take 1 tablet by mouth every 6 hours as needed for Nausea/Vomiting. zoledronic acid (RECLAST) 5 mg/100 mL pgbk PREMIX piggyback Inject 100 mL intravenously one time only for 1 dose. Per Endo: Dr. Mao Rabago meclizine (ANTIVERT) 25 mg tab Take 1 tablet by mouth three times daily. (Patient taking differently: Take 25 mg by mouth three times daily. Taking PRN) aspirin, enteric coated (more content not included)... Normal [facility] US CAROTID ARTERIES CORONA VAS LABon 06-05-2024 US CAROTID ARTERIES CORONA VAS LAB Non-Invasive Vascular Laboratory [facility] Carotid Duplex Bilateral/Complete Date of service/time: 06/05/2024 10:58:02 AM Name: MRS. CINDI MESSER Date of : 1940 Age: 83 years Gender: F Clinical Indication Follow-up study on a patient with known carotid disease. Status post right common carotid and internal carotid endarterectomy 01/04/2014 . TECHNIQUE -------- A carotid duplex ultrasound examination was performed, including grayscale imaging and color Doppler and spectral Doppler examination of the below mentioned arteries. FINDINGS -------- RIGHT SIDE Common carotid artery: Origin: PSV: 81 cm/s. EDV: 13 cm/s. Proximal: PSV: 92 cm/s. EDV: 11 cm/s. Mid: PSV: 86 cm/s. EDV: 15 cm/s. Distal: PSV: 74 cm/s. EDV: 13 cm/s. Mild homogeneous plaque at distal. Internal carotid artery: Origin: PSV: 45 cm/s. EDV: 11 cm/s. Proximal: PSV: 67 cm/s. EDV: 19 cm/s. Mid: PSV: 85 cm/s. EDV: 21 cm/s. Distal: PSV: 85 cm/s. EDV: 24 cm/s. Mild heterogeneous plaque at origin. ICA/CCA Ratio: 1.1 External carotid artery: Origin: PSV: 85 cm/s. EDV: 0 cm/s. Subclavian artery: Origin: PSV: 115 cm/s. EDV: 0 cm/s. Innominate artery: PSV: 81 cm/s. EDV: 0 cm/s. Vertebral artery: PSV: 66 cm/s. EDV: 11 cm/s. LEFT SIDE Common carotid artery: Proximal: PSV: 107 cm/s. EDV: 14 cm/s. Mid: PSV: 100 cm/s. EDV: 13 cm/s. Distal: PSV: 85 cm/s. EDV: 16 cm/s. Mild heterogeneous plaque at distal. Internal carotid artery: Origin: PSV: 96 cm/s. EDV: 16 cm/s. Proximal: PSV: 84 cm/s. EDV: 15 cm/s. Mid: PSV: 85 cm/s. EDV: 18 cm/s. Distal: PSV: 97 cm/s. EDV: 23 cm/s. Mild heterogeneous plaque from origin to proximal. ICA/CCA Ratio: 1.1 External carotid artery: Origin: PSV: 124 cm/s. EDV: 0 cm/s. Subclavian artery: Proximal: PSV: 158 cm/s. EDV: 0 cm/s. Vertebral artery: PSV: 69 cm/s. EDV: 13 cm/s. IMPRESSION Compared to prior study of 08/17/2022, No significant change. RIGHT SIDE Common carotid artery: Plaque visualized without evidence of hemodynamically significant stenosis. Endarterectomy patch at distal : 1.15 cm. Internal carotid artery: 20-39% stenosis. Endarterectomy patch from origin to proximal . Vertebral artery: Patent and antegrade flow noted. Subclavian artery: Patent. LEFT SIDE Common carotid artery: Plaque visualized without evidence of hemodynamically significant stenosis. Internal carotid artery: 20-39% stenosis. Vertebral artery: Patent and antegrade flow noted. Subclavian artery: Patent. Technologist: Yanique Martin RVT [facility] Ordering physician: KATHY CAMPBELL Interpreting physician: MAURO Medina DO Final CC [email or web address] [facility] Image : [id number] See Link below for Image Normal [facility] Extremity Lower without Cont raon 05-01-2024 Extremity Lower without Contra [facility] [address] [place] [id number] Extremity Lower without Contra MR#: [id number] Acct: [id number] Name: CINDI MESSER Rep #: [id number] : 1940 F 83 From: Tad lugo MD PCP: Dr. Aniceto Cleveland MD Status: REG CLI Study: Extremity Lower without Contra Date of Exam: 0 05/01/24 Exam# [id number] Ordering Dr: Aniceto Cleveland MD [id number] CT LEFT LOWER EXTREMITY WITH 3-D IMAGING CLINICAL INDICATION: PAIN AND SWELLING OF LEFT FOOT TECHNIQUE: Axial CT images of the LEFT lower extremity was performed without IV contrast material. Coronal and sagittal reformats were provided. The protocol utilizes one or more of the following dose reduction techniques: automated exposure control, adjustment of mA and/or kV according to patient size,and/or use of iterative reconstruction technique. RADIATION DOSAGE (If Supplied By Facility): CTDIvol = ( 15.35 ) mGy, DLP = ( 449.71 ) mGycm COMPARISON: FINDINGS: Bones: Osseous structures are normal without evidence of fracture or dislocation. No lytic or blastic osseous masses. There is a screw fixation of the distal portion of the first metatarsal. Soft Tissues: Soft tissue swelling The superficial soft tissues are unremarkable without evidence of edema, hematoma, or foreign body. CT/Extremity Lower without Contra IMPRESSION: Soft tissue swelling. No fracture is seen. Electronically Signed: Tad Patel MD at 12:09 EDT , CC: Dr. Aniceto Cleveland MD Business Continuity Director: Signed Normal [facility] Miscellaneous Lab Procedureo n 04-30-2024 [facility] LAB TEST Normal [facility] Comment on above: Order Comment: [id number] URINE TOX Result Comment: [id number] 6+OXYCODONE-BUND (ng/mL) DRUG RESULT SCREEN CUTOFF ____ Amphetamines,Urine Negative ng/mL 1000 Amphetamine test includes Amphetamine and Methamphetamine. Barbiturates Negative ng/mL 200 Benzodiazepines Negative ng/mL 200 Cannabinoid Negative ng/mL 20 Cocaine (Metab) Negative ng/mL 300 Opiates Negative ng/mL 300 Opiates test includes Codeine, Morphine, Hydromorphone, Hydrocodone. Oxycodone/Oxymorphone,Urine Positive ng/mL 300 Test includes Oxycodone and Oxymorphone. Oxycodone Positive Oxycodone Conf,MS,UR 678 ng/mL 300 Oxymorphone Positive Oxymorphone Conf,MS,UR 2004 ng/mL 300 TESTING PERFORMED AT [facility]. ORIGINAL REPORT ON FILE IN LAB CONTAINS ADDITIONAL TEST SITE INFORMATION. Performed By: #### L 505.5000, L801.1541 ####[facility] [address] [facility] [place], [address] Urine Drug Screen (VISTA)on 04-25-2024 AMPHETAMINES Negative Normal <1000 ng/mL [facility] Comment on above: Order Comment: MEDTO X Performed By: #### L 505.5000, L801.1541 #### [facility] [address] [place], [place], [address] BARBITIURATES Negative Normal < 200 ng/mL [facility] Comment on above: Order Comment: MEDTO X Performed By: #### L 505.5000, L801.1541 #### [facility] [address] [place], [place], [id number] BENZODIAZIPINE Negative Normal < 200 ng/mL [facility] Comment on above: Order Comment: MEDTO X Performed By: #### L 505.5000, L801.1541 #### [facility] [address] [place], [address] COCAINE Negative Normal < 300 ng/mL [facility] Comment on above: Order Comment: MEDTO X Performed By: #### L 505.5000, L801.1541 #### [facility] [address] [place], [address] ECSTACY Negative Normal < 500 ng/mL [facility] Comment on above: Order Comment: MEDTO X Performed By: #### L 505.5000, L801.1541 #### [facility] [address] [place], [address] METHADONE Negative Normal < 300 ng/mL [facility] Comment on above: Order Comment: MEDTO X Performed By: #### L 505.5000, L801.1541 #### [facility] [address] [place], [address] OPIATES Negative Normal < 300 ng/mL [facility] Comment on above: Order Comment: MEDTO X Performed By: #### L 505.5000, L801.1541 #### [facility] [address] [place], [address] PCP Negative Normal < 25 ng/mL [facility] Comment on above: Order Comment: MEDTO X Performed By: #### L 505.5000, L801.1541 #### [facility] [address] [place], [address] THC Negative Normal < 50 ng/mL [facility] Comment on above: Order Comment: MEDTO X Performed By: #### L 505.5000, L801.1541 #### [facility] [address] [place], [address] VISTA UDS PH 6 Normal [facility] Comment on above: Order Comment: MEDTO X Performed By: #### L 505.5000, L801.1541 #### [facility] [address] [place], [address] ED Prov Noteon 04-20-2024 ED Prov Note HPI: 04/20/2024, Time: @ROC@ Cindi Messer is a 83 y.o. female presenting to the ED for acute onset of rash to the left thigh and left arm after receiving Toradol for back pain, beginning over the last few hours ago. The complaint has been constant, moderate in severity, and worsened by nothing. No alleviating factors. Slight difficulty breathing but no wheezing. Patient and no difficulty swallowing ROS: Pertinent positives and negatives are stated within HPI, all other systems reviewed and are negative. PAST HISTORY Past Medical History: @[facility]@ Past Surgical History: has a past surgical history that includes Carpal tunnel release and Toe amputation. Social History: reports that she has quit smoking. Her smoking use included cigarettes. She has never used smokeless tobacco. She reports that she does not currently use alcohol. She reports that she does not currently use drugs. Family History: family history is not on file. The patient's home medications have been reviewed. Allergies: Metformin, Sulfa (sulfonamide antibiotics), Spider venom, and Meloxicam RESULTS All laboratory and radiology results have been personally reviewed by myself LABS: No results found for this or any previous visit. RADIOLOGY: Interpreted by Radiologist. No orders to display NURSING NOTES AND VITALS REVIEWED -- The nursing notes within the ED encounter and vital signs as below have been reviewed. BP (!) 137/97 (BP Location: Left arm, Patient Position: Sitting) Pulse 98 Temp 98 degrees F (36.7 degrees C) (Temporal) Resp 18 Ht 5' 3 Wt 94.8 kg (209 lb) SpO2 93% BMI 37.02 kg/m Oxygen Saturation Interpretation: Normal -PHYSICAL EXAM Constitutional/General: Alert and oriented x3, skin is pink and warm and dry no obvious respiratory difficulty and no conversational dyspnea Head: NC/AT Eyes: PERRL, EOMI Mouth: Oropharynx clear, handling secretions, no trismus Neck: Supple, full ROM, no meningeal signs Pulmonary: Lungs clear to auscultation bilaterally, no wheezes, rales, or rhonchi. Not in respiratory distress Cardiovascular: Regular rate and rhythm, no murmurs, gallops, or rubs. 2+ distal pulses Abdomen: Soft, non tender, non distended, Extremities: Moves all extremities x 4. Warm and well perfused Skin: warm and dry, red blanching rash to left anterior thigh and also left arm and to lesser degree of the neck Neurologic: GCS 15, Psych: Normal Affect ----- ED COURSE/MEDICAL DECISION MAKING --- Medications famotidine (PEPCID) tablet 20 mg (has no administration in time range) hydrOXYzine (VISTARIL) injection 75 mg (has no administration in time range) Medical Decision Making: Patient already on steroids and the physician to call in Medrol Dosepak according to the patient, will start patient on Vistaril and Pepcid Counseling: The emergency provider has spoken with the patient and discussed today's results, in addition to providing specific details for the plan of care and counseling regarding the diagnosis and prognosis. Questions are answered at this time and they are agreeable with the plan. -------- IMPRESSION AND DISPOSITION -------- IMPRESSION 1. Allergic reaction, initial encounter DISPOSITION Disposition: discharged to home Patient condition is stable Summation Patient Course: Stable ED Medications administered this visit: Medications famotidine (PEPCID) tablet 20 mg (has no administration in time range) hydrOXYzine (VISTARIL) injection 75 mg (has no administration in time range) New Prescriptions from this visit: New Prescriptions hydrOXYzine (VISTARIL) 50 MG capsule Take 1 (one) capsule (50 mg total) by mouth 3 (three) times a day as needed for itching . famotidine (PEPCID) 20 MG tablet Take 1 (one) tablet (20 mg total) by mouth 2 (two) times a day . Follow-up: Aniceto Cleveland Chi, MD [address] [facility] [address] [facility] [address] In 4 days Final Impression: 1. Allergic reaction, initial encounter (Please note that portions of this note were completed with a voice recognition program. Efforts were made to edit the dictations but occasionally words are mis-transcribed.) Brenda Cheng MD 04/20/24 4222 AUTHENTICATED BY BRENDA CHENG, ON 04/20/2024 13:21:01 [facility] L/S Spine Min 4 Viewson L/S Spine Min 4 Views [facility] Services [address] [place] [address] L/S Spine Min 4 Views MR#: [id number] Acct: [id number] Name: CINDI MESSER Rep #: [id number] : 1940 F 83 From: Tad lugo MD PCP: Dr. Aniceto Cleveland MD Status: REG CLI Study: L/S Spine Min 4 Views Date of Exam: 04/20/24 Exam# [id number] Ordering Dr: Aniceto Cleveland MD [id number] STUDY: X-RAY - LUMBAR SPINE REASON FOR EXAM: Female, 83 years old. Chronic low back pain. Prior kyphoplasty. TECHNIQUE: 4 view(s) of the lumbar spine were obtained including oblique views. COMPARISON: Comparison is made with prior study dated October 20, 2020. FINDINGS: Normal lumbar lordosis. There is no substantial scoliosis. There is a normal alignment of the vertebrae. The patient is status post vertebroplasty of the L1 vertebrae with stable loss of height. Since prior study, there is approximately 20% loss of height of the superior endplate of the L3 vertebrae. This was not seen on prior study. This space narrowing at the L5-S1 level. Facet joint osteoarthritis. There is atherosclerotic calcification of the abdominal aorta without a demonstrated aneurysm. RAD/L/S Spine Min 4 Views IMPRESSION: Degenerative changes of the spine, as detailed above. 20% loss of height of the superior endplate of the L3 vertebrae. This is new as compared to prior study. Prior vertebroplasty of the L1 vertebrae with stable loss of height. Electronically Signed: Tad Patel MD at 10:42 EDT , CC: Dr. Aniceto Cleveland MD Business Continuity Director: Signed Normal [facility] Venous Duplex US, Unilateral on 04-20-2024 Venous Duplex US, Unilateral [facility] [address] [place] [address] Venous Duplex US, Unilateral 04/20/24 1041 MR#: [id number] Acct: [id number] Name: CINDI MESSER Rep #: [id number] : 1940 83 From: Moises Holland MD Attending Dr: Dr. Aniceto Cleveland MD Status: REG CLI Ordering Dr: Aniceto Cleveland MD Date: 04/20/24 Location: CVS Sex: F C Admitted: Reason For Study: LLE swelling RIGHT LEFT FV is compressible, spontaneous, phasic, GSV is normal. competent and demonstrates normal CFV is compressible, spontaneous, phasic, augmentation. competent, and demonstrates normal Procedure augmentation. This is a venous duplex using B-mode, color FV is compressible, spontaneous, phasic, flow and spectral Doppler. competent and demonstrates normal Exam performed in department. augmentation. The exam was diagnostic. POP V is compressible, spontaneous, phasic, A preliminary report was called and/or faxed competent and demonstrates normal to Dr. Cleveland office. augmentation. T/P Trunk is compressible. PTV is compressible. LT PerV is compressible. VL/Venous Duplex US, Unilateral Interpretation Summary Deep veins of the left lower extremity are patent and compressible segmentally. There is no evidence of left lower extremity deep vein thrombosis. Valvular competence appears intact within the proximal deep venous system on the left . The left great saphenous vein appears patent and compressible segmentally. The right femoral vein is patent and compressible. ___ Ordering Physician: Aniceto Cleveland Chi Referring Physician: Aniceto Cleveland Chi Performed By: Wiliam Chen, RVT 04/21/24 7681 Date Moises Holland MD CC: Dr. Aniceto Cleveland MD Date Dictated: 04/20/24 1041 Date Transcribed: 04/21/24 2351 Business Continuity Director: Signed Normal [facility] Emergency Department Summary on 04-14-2024 Emergency Department Summary [facility] Department [address] [place] [address] Emergency Department Summary 04/14/24 MR#: [id number] Acct: [id number] Name: CINDI MESSER Rep #: [id number] : 1940 83 From: Vin Bautista MD PCP: Dr. Aniceto Cleveland MD Status:DEP ER Location: ED HPI History of Present Illness Chief Complaint: Back Detail of Chief Complaint: Bilateral lower back pain. Informant: patient and family Onset/Context/Timing Onset: Days Context: Gradual Onset Timing: Continuous Quality: Sharp Location: Lumbar Current Severity: Moderate Maximum Severity: Moderate Worsened by: improves with Movement Relieved by: Nothing Associated Symptoms Associated Symptoms: Negative for Radiation to Right Leg, Radiation to Left Leg, Fever, Abdominal Pain, Dysuria, Unable to Ambulate, Unable to Transfer, Urinary Retention, Urinary Incontinence, Constipation or Fecal Incontinence Narrative Narrative: 83-year-old female history of chronic kidney disease and diabetes. Had back surgery 30 some years ago. Has had chronic back pain and numbness to both lower extremities for many years. Recently she had surgery on her right thumb she is relegated now to using her left hand until her right hand heals from the surgery. She bent over there today to wipe after using the restroom and had pain in her lower back. No fall. No bowel or bladder incontinence. No fever. Prior similar symptoms: With Prior Back Pain Recent Illness/Hospitalization: No PFSH PFSH Medical History CKD (chronic kidney disease) l thumb surgery l rotater cuff repair Neuropathy Hives Hearing problem Cataracts, bilateral Back problem Arthritis Fatty liver DM2 (diabetes mellitus, type 2) Class 1 obesity Chronic back pain Hyperlipidemia Hypothyroid GERD (gastroesophageal reflux disease) Home Medications ???Medication ???Instructions ???Recorded ???Last Taken ???Type levothyroxine 100 mcg tablet 100 mcg PO DAILY thyroid 03/09/16 07/01/19 History pantoprazole 40 mg tablet,delayed 40 mg PO QODAY GERD 03/09/16 07/01/19 History release aspirin 81 mg chewable tablet 81 mg PO QHS heart health 07/08/17 07/01/19 History multivitamin 1 tab PO DAILY supplement 07/01/19 07/01/19 History meclizine 25 mg tablet 25 mg PO 4X/DAY PRN PRN Dizziness 01/31/20 Unknown Rx #20 tabs cholecalciferol (vitamin D3) 50 50 mcg PO DAILY 10/20/20 Unknown History mcg (2,000 unit) tablet acetaminophen 300 mg-codeine 30 mg 1 tab PO Q8H PRN Pain 08/20/21 Unknown History tablet zoledronic acid 5 mg/100 mL in 1 ea .Route ONCE #100 mL 08/18/23 Unknown Rx mannitol 5 %-water intravenous piggybck prednisone 20 mg tablet 40 mg (2 x 20 mg) PO DAILY 10 days 04/14/24 Unknown Rx #20 tabs Allergy/AdvReac Type Severity Reaction Status Date / Time Sulfa (Sulfonamide Allergy Mild Rash Verified 04/14/24 13:44 Antibiotics) bee venom protein (honey Allergy Hives Verified 04/14/24 13:44 bee) (bee stings) spider venom Allergy Swelling Verified 04/14/24 13:44 meloxicam AdvReac Mild dizziness Verified 04/14/24 13:44 metformin AdvReac Mild Eleavted BP Verified 04/14/24 13:44 Family History Father Alcoholism Heart disease Mother Arthritis Osteoporosis Brother Myocardial infarction Heart disease CVA (cerebral vascular accident) Skin cancer Grandmother Osteoporosis Uterine cancer Surgical History H/O right knee surgery History of carpal tunnel release History of hysterectomy S/P carotid endarterectomy H/O lumbar discectomy History of tonsillectomy Social History household members: none housing: house number of children: 1 Smoking Status: Former smoker Tobacco: How many years used: 55 alcohol intake: never substance use type: does not use what type of physical activity do you participate in: other frequency: 3-4 times per week do you feel safe at home: Yes ROS ROS ED ROS Narrative Denies recent illness. Constitutional Constitutional ED: Denies chills or fever(s) Eyes Eyes: Denies blurry vision ENT ENT ED: Denies ear pain Cardiovascular Cardiovascular: Denies chest pain Respiratory/Chest Respiratory/Chest: Denies dyspnea or dyspnea on exertion Gastrointestinal Gastrointestinal: Denies abdominal pain, constipation or diarrhea Genitourinary Genitourinary ED: Denies dysuria or hematuria Musculoskeletal Musculoskeletal: Reports back pain; Denies arthralgias, myalgias or neck pain Integumentary Denies abscess or Abrasions Neurologic Neurologic: Denies headache(s) Psychiatric Psychiatric: Denies anxiety or depression Endocrine En (more content not included)... Normal [facility] CBC W/Diff, Automatedon 03-15 Absolute Lymph 2.39 X10 3/uL Normal 0.83-4.51 [facility] Comment on above: Performed By: #### L 500.4050, L501.9520, L100.0100, L506.1000 ####[facility] [address] [place], [address] Absolute Neut 6.1 X10 3/uL Normal 2.0-7.7 [facility] Comment on above: Performed By: #### L 500.4050, L501.9520, L100.0100, L506.1000 ####[facility] [address] [place], [address] Basophils/100 WBC (Bld) 0.8 % Normal 0-1 [facility] Comment on above: Performed By: #### L 500.4050, L501.9520, L100.0100, L506.1000 ####[facility] [address] [place], [address] Eosinophils/100 WBC (Bld) 2.0 % Normal 0-5 [facility] Comment on above: Performed By: #### L 500.4050, L501.9520, L100.0100, L506.1000 ####[facility] [address] [place], [address] Erythrocyte distribution width (RBC) [Ratio] 15.4 % High 11.6-14.6 [facility] Comment on above: Performed By: #### L 500.4050, L501.9520, L100.0100, L506.1000 ####[facility] [address] [place], [address] Hematocrit (Bld) [Volume fraction] 37.2 % Normal 37-47 [facility] Comment on above: Performed By: #### L 500.4050, L501.9520, L100.0100, L506.1000 ####[facility] [address] [place], [address] Hemoglobin (Bld) [Mass/Vol] 12.0 g/dL Normal 12.0-15.0 [facility] Comment on above: Performed By: #### L 500.4050, L501.9520, L100.0100, L506.1000 ####[facility] [address] [place], [address] IG% 0.500 Normal 0.0-0.9 [facility] Comment on above: Result Comment: IG% - Immature Granulocytes (promyelocytes, myelocytes and metamyelocytes) > 1% indicates that a LEFT SHIFT is Present. Performed By: #### L 500.4050, L501.9520, L100.0100, L506.1000 ####[facility] [address] [place], [address] Lymphocytes/100 WBC (Bld) 23.2 % Normal 19-41 [facility] Comment on above: Performed By: #### L 500.4050, L501.9520, L100.0100, L506.1000 ####[facility] [address] [place], [address] MCH (RBC) [Entitic mass] 32.3 pg High 27.0-32.0 [facility] Comment on above: Performed By: #### L 500.4050, L501.9520, L100.0100, L506.1000 ####[facility] [address] [place], [address] MCHC (RBC) [Mass/Vol] 32.3 g/dL Normal 32-36 [facility] Comment on above: Performed By: #### L 500.4050, L501.9520, L100.0100, L506.1000 ####[facility] [address] [place], [address] MCV (RBC) [Entitic vol] 100.0 fL High 81-99 [facility] Comment on above: Performed By: #### L 500.4050, L501.9520, L100.0100, L506.1000 ####[facility] [address] [place], [address] Monocytes/100 WBC (Bld) 14.1 % High 0-10 [facility] Comment on above: Performed By: #### L 500.4050, L501.9520, L100.0100, L506.1000 ####[facility] [address] [place], [address] Neutrophils/100 WBC (Bld) 59.4 % Normal 47-70 [facility] Comment on above: Performed By: #### L 500.4050, L501.9520, L100.0100, L506.1000 ####[facility] [address] [place], [address] Nucleated RBC (Bld) [#/Vol] 0 10*3/uL Normal 0-5 [facility] Comment on above: Performed By: #### L 500.4050, L501.9520, L100.0100, L506.1000 ####[facility] [address] [place], [address] Platelet mean volume (Bld) [Entitic vol] 10.2 fL Normal 6.2-12.0 [facility] Comment on above: Performed By: #### L 500.4050, L501.9520, L100.0100, L506.1000 ####[facility] [address] [place], [address] Platelets (Bld) [#/Vol] 395 10*3/uL Normal 150-450 [facility] Comment on above: Performed By: #### L 500.4050, L501.9520, L100.0100, L506.1000 ####[facility] [address] [place], [address] RBC (Bld) [#/Vol] 3.72 10*6/uL Low 4.2-5.4 [facility] Comment on above: Performed By: #### L 500.4050, L501.9520, L100.0100, L506.1000 ####[facility] [address] [place], [address] RDW SD 55.9 fl High 35.1-43.9 [facility] Comment on above: Performed By: #### L 500.4050, L501.9520, L100.0100, L506.1000 ####[facility] [address] [place], [address] WBC (Bld) [#/Vol] 10.3 10*3/uL Normal 4.4-11.0 [facility] Comment on above: Performed By: #### L 500.4050, L501.9520, L100.0100, L506.1000 ####[facility] [address] [place], [address] Comprehensive Metabolic [facility] 03-28-2024 Albumin [Mass/Vol] 3.4 g/dL Normal 3.2-5.0 [facility] Comment on above: Performed By: #### L 500.4050, L501.9520, L100.0100, L506.1000 ####[facility] [address] [place], [address] Albumin/Globulin [Mass ratio] 0.7 {ratio} Low 0.9-2.4 [facility] Comment on above: Performed By: #### L 500.4050, L501.9520, L100.0100, L506.1000 ####[facility] [address] [place], [address] ALK P 105 U/L Normal 45-117 [facility] Comment on above: Performed By: #### L 500.4050, L501.9520, L100.0100, L506.1000 ####[facility] [address] [place], [address] ALT [Catalytic activity/Vol] 26 U/L Normal 13-56 [facility] Comment on above: Performed By: #### L 500.4050, L501.9520, L100.0100, L506.1000 ####[facility] [address] [place], [address] AST [Catalytic activity/Vol] 34 U/L Normal 15-37 [facility] Comment on above: Performed By: #### L 500.4050, L501.9520, L100.0100, L506.1000 ####[facility] [address] [place], [address] Bilirubin [Mass/Vol] 0.80 mg/dL Normal 0.20-1.00 [facility] Comment on above: Result Comment: For patients on eltrombopag therapy, use of Dimension [place] TBIL is not recommended. Performed By: #### L 500.4050, L501.9520, L100.0100, L506.1000 ####[facility] [address] [place], [address] BUN/CRE 18.7 RATIO Normal 10-20 [facility] Comment on above: Performed By: #### L 500.4050, L501.9520, L100.0100, L506.1000 ####[facility] [address] [place], [address] CA,Total 9.4 mg/dL Normal 8.5-10.1 [facility] Comment on above: Performed By: #### L 500.4050, L501.9520, L100.0100, L506.1000 ####[facility] [address] [place], [address] Chloride [Moles/Vol] 106 mmol/L Normal 98-107 [facility] Comment on above: Performed By: #### L 500.4050, L501.9520, L100.0100, L506.1000 ####[facility] [address] [place], [address] CO2 [Moles/Vol] 30.0 mmol/L Normal 21.0-32.0 [facility] Comment on above: Performed By: #### L 500.4050, L501.9520, L100.0100, L506.1000 ####[facility] [address] [place], [address] Creatinine [Mass/Vol] 0.85 mg/dL Normal 0.55-1.02 [facility] Comment on above: Result Comment: The validity of the calculated GFR GFRAA in patients over 70 years has not been determined. Clinical correlation is essential. Performed By: #### L 500.4050, L501.9520, L100.0100, L506.1000 ####[facility] [address] [place], [address] EST GFR - AA 81 mL/min Normal >60 [facility] Comment on above: Result Comment: Afri can Cuban GFR Calc Performed By: #### L 500.4050, L501.9520, L100.0100, L506.1000 ####[facility] [address] [place], [address] GAP 3 Low 5-15 [facility] Comment on above: Performed By: #### L 500.4050, L501.9520, L100.0100, L506.1000 ####[facility] [address] [place], [address] GFR/1.73 sq M.predicted among non-blacks MDRD (S/P/Bld) [Vol rate/Area] 67 mL/min/{1.73_m2} Normal >60 [facility] Comment on above: Result Comment: Non- GFR Calc Performed By: #### L 500.4050, L501.9520, L100.0100, L506.1000 ####[facility] [address] [place], [address] Globulin (S) [Mass/Vol] 4.6 g/dL High 2.2-4.2 [facility] Comment on above: Performed By: #### L 500.4050, L501.9520, L100.0100, L506.1000 ####[facility] [address] [place], [address] Glucose [Mass/Vol] 105 mg/dL Normal 74-106 [facility] Comment on above: Result Comment: Fast ing Glucose result from 100 to 125 mg/dL suggests IMPAIRED HOMEOSTASIS per A.D.A. criteria. Performed By: #### L 500.4050, L501.9520, L100.0100, L506.1000 ####[facility] [address] [place], [address] Potassium [Moles/Vol] 4.4 mmol/L Normal 3.5-5.1 [facility] Comment on above: Performed By: #### L 500.4050, L501.9520, L100.0100, L506.1000 ####[facility] [address] [place], [address] Sodium [Moles/Vol] 139 mmol/L Normal 136-145 [facility] Comment on above: Performed By: #### L 500.4050, L501.9520, L100.0100, L506.1000 ####[facility] [address] [place], [address] T PROT 8.0 g/dL Normal 6.4-8.2 [facility] Comment on above: Performed By: #### L 500.4050, L501.9520, L100.0100, L506.1000 ####[facility] [address] [place], [address] Urea nitrogen [Mass/Vol] 16 mg/dL Normal 7-18 [facility] Comment on above: Performed By: #### L 500.4050, L501.9520, L100.0100, L506.1000 ####[facility] [address] [place], [address] Thyroid Stim Hormone (TSH)on 03-28-2024 TSH 1.480 uIU/mL Normal 0.358-3.740 [facility] Comment on above: Performed By: #### L 500.4050, L501.9520, L100.0100, L506.1000 ####[facility] [address] [place], [address] Vitamin D,25 Hydroxyon 03-28 Vitamin D 25-OH 59.4 ng/mL Normal [facility] Comment on above: Result Comment: Bonnie min D 25(OH) Status Range Deficiency <20 ng/mL (50nmol/L) Insufficiency 20 - 30 ng/mL (50 - 75 nmol/L) Sufficiency 30 - 100 ng/mL (75 - 250 nmol/L) Toxicity >100 ng/mL (>250 nmol/L) Performed By: #### L 500.4050, L501.9520, L100.0100, L506.1000 ####[facility] [address] [place], [address] [facility] CNPN Telephone (VASSWS) ----- CINDI MESSER ([id number]) 1940 F Date Time Provider Department 03/01/24 AKTHY CAMPBELL VASSWS During your visit today, we recorded the following information about you: Deonna Bingham 03/01/2024 4:06 PM Signed Patient cancelled [place] [facility] on 05/15/24 due to conflict with recently scheduled surgery. Patient and daughter schedule [facility]/[place] [facility] annual appointments on the same day. They do not want to be scheduled on separate days. Unable to accommodate scheduling both patients prior to 05/17/24 expiration of [place] [facility] orders. Please resubmit orders then notify facilities' schedulers when signed so they may further assist the patient and her daughter. Please call both home and cell phone. Ellen Hackett RN 03/06/2024 4:27 PM Signed Patient scheduled Allergies As of Date: 03/01/2024 Noted Allergy Reaction SULFA (SULFONAMIDE ANTIBIOTICS) 11/17/2013 10 - Anaphylaxis BEE STING 11/17/2013 14 - Other: See Comments INSECT VENOM 07/26/2016 7 - Swelling Comments: Extreme swelling ALENDRONATE 08/31/2019 14 - Other: See Comments Comments: Nausea and abdominal cramping METFORMIN 02/09/2017 14 - Other: See Comments Comments: Elevated blood pressure, dizzy, lightheaded [id number] REDUCTASE INHIBIT*01/24/2017 14 - Other: See Comments Comments: Sever vertigo Date Reviewed: 08/17/2022 Reviewed by: Juliana Palma, CT - Fully Assessed Reason for Visit: Orders [681] Cmt: [place] [facility] 05/17/24 Primary Visit Diagnosis:Bilateral carotid artery stenosis [I65.23] Order(s):US CAROTID ARTERIES [facility] [[id number]] Order #: [id number] FUTURE Prescriptions as of 03/06/2024 - acetaminophen-codeine (TYLENOL-COD #3) 300-30 mg per tablet 1 tablet. - levothyroxine (SYNTHROID) 100 mcg tablet Take 1 tablet by mouth daily before breakfast. - pantoprazole DR (PROTONIX) 40 mg tablet Take 1 tablet by mouth once daily. - cholecalciferol (VITAMIN D-3) 50 mcg (2,000 unit) tablet Take 1 tablet by mouth once daily. - cholestyramine-sucrose (QUESTRAN) 4 gram powder Take 4 g by mouth twice daily with meals. - blood sugar diagnostic (CytoSolvUCH VERIO TEST STRIPS) test strip Test blood sugar(s) 1 times daily. Dx: Type 2 DM - Controlled E11.9 Insulin: No - cyclobenzaprine (FLEXERIL) 5 mg tablet Take 1 tablet by mouth three times daily as needed. - promethazine (PHENERGAN) 25 mg tablet Take 1 tablet by mouth every 6 hours as needed for Nausea/Vomiting. - zoledronic acid (RECLAST) 5 mg/100 mL pgbk PREMIX piggyback Inject 100 mL intravenously one time only for 1 dose. Per Endo: Dr. Mao Rabago - meclizine (ANTIVERT) 25 mg tab Take 1 tablet by mouth three times daily. - aspirin, enteric coated (ADULT LOW DOSE ASPIRIN) 81 mg EC tablet Take 1 tablet by mouth once daily. - OMEGA-3/DHA/EPA/FISH OIL (OMEGA-3 FISH OIL ORAL) Take 2,400 mg by mouth once daily. 2400 mg of fish oil with 1200 mg of Mabie 3 daily. - lancets (ONE TOUCH DELICA) 33 gauge misc Test blood sugar(s) 1 daily. Dx: Type 2 DM - Controlled E11.9 Insulin: No - Multivitamin capsule Take 1 capsule by mouth once daily. 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.*05/05/2016 Type 2 diabetes mellitus with diabetic neuropat*11/01/2016 Current use of proton pump inhibitor [Z79.899] 01/24/2017 Diabetic eye exam (HCC) [Z01.00, E11.9] 05/03/2017 06/02/2020 Medicare annual wellness visit, subsequent [Z00*05/27/2017 Obesity (BMI 30-39.9) [E66.9] 09/27/2017 Numbness and tingling in left hand [R20.0, R20.*03/27/2018 Neuropathy (HCC) [G62.9] 09/27/2018 Screening for colon cancer [Z12.11] 09/27/2018 06/02/2020 Primary osteoarthritis of first carpometacarpal* 9 Chronic insomnia [F51.04] 01/05/2019 Low magnesium level [R79.0] 03/28/2019 Age-related osteoporosis with current pathologi*07/23/2019 Neck pain [M54.2] 06/04/2020 Medication management [Z79.899] 06/04/2020 Functional diarrhea [K59.1] 06/26/2021 Encounter Status:Closed by ELLEN HACKETT on 03/06/24 Normal [facility] M100.678on 02-07-2024 M100.678 SARS-CoV-2 (COVID 19 ) Negative INFLUENZA A Negative INFLUENZA B Negative RSV PCR Negative Normal [facility] Comment on above: Performed By: #### L 506.0200, L503.0106, L503.6550, L503.6030, L100.0100, L100.9950 #### [facility] [place], [address] Absolute lymphocyte countOrd ered By: Mao Rabago on 09-21-2023 Lymphocytes Auto (Unsp spec) [#/Vol] 1.55 10*3/uL 0.83-4.51 [facility] Automated lymphocyte count a s percentage of total leukocytesOrdered By: Mao Rabago on 09-21-2023 Lymphocytes/100 WBC Auto (Unsp spec) 23.1 % 19-41 [facility] Basophil percentageOrdered B y: Mao Rabago on 09-21-2023 Basophils/100 WBC (Bld) 1.0 % 0-1 [facility] Bilirubin [Mass/Vol] 0.80 mg/dL 0.20-1.00 [facility] Comment on above: For patients on eltr ombopag therapy, use of Dimension [place] TBIL is not recommended. Chloride [Moles/Vol] 107 mmol/L 98-107 [facility] Eosinophils/100 WBC (Bld) 2.7 % 0-5 [facility] Glucose [Mass/Vol] 215 mg/dL 74-106 [facility] Comment on above: Glucose result great er than or equal to 200 mg/dLsuggests DIABETES MELLITUS per A.D.A. criteria. Hemoglobin (Bld) [Mass/Vol] 11.1 g/dL 12.0-15.0 [facility] Monocytes/100 WBC (Bld) 13.7 % 0-10 [facility] Neutrophils (Bld) [#/Vol] 4.0 10*3/uL 2.0-7.7 [facility] Neutrophils/100 WBC (Bld) 59.1 % 47-70 [facility] Potassium [Moles/Vol] 4.4 mmol/L 3.5-5.1 [facility] Protein [Mass/Vol] 7.2 g/dL 6.4-8.2 [facility] Sodium [Moles/Vol] 138 mmol/L 136-145 [facility] WBC (Bld) [#/Vol] 6.7 10*3/uL 4.4-11.0 [facility] Determination of erythrocyte mean corpuscular volume (MCV)Ordered By: Mao Rabago on 09-21-2023 MCV (RBC) [Entitic vol] 102.1 fL 81-99 [facility] Erythrocyte distribution wid th ratioOrdered By: Mao Rabago on 09-21-2023 Erythrocyte distribution width (RBC) [Ratio] 14.6 % 11.6-14.6 [facility] Erythrocyte distribution wid th standard deviationOrdered By: Mao Rabago on 09-21-2023 Erythrocyte distribution width (RBC) [Entitic vol] 54.7 fL 35.1-43.9 [facility] Hematocrit Auto (Bld) [Volum e fraction]Ordered By: Mao Rabago on 09-21-2023 Hematocrit (Bld) [Volume fraction] 33.9 % 37-47 [facility] Immature granulocytes/100 WB C Auto (Bld)Ordered By: Mao Rabago on 09-21-2023 Immature granulocytes/100 WBC (Bld) 0.400 % 0.0-0.9 [facility] Comment on above: IG% - Immature Granu locytes (promyelocytes, myelocytes and metamyelocytes) > 1% indicates that a LEFT SHIFT is Present. Laboratory - Chemistry and C hemistry - challengeOrdered By: Mao Rabago on 09-21-2023 Albumin/Globulin [Mass ratio] 0.7 {ratio} 0.9-2.4 [facility] ALP [Catalytic activity/Vol] 105 U/L 45-117 [facility] ALT [Catalytic activity/Vol] 31 U/L 13-56 [facility] CO2 [Moles/Vol] 26.0 mmol/L 21.0-32.0 [facility] Globulin (S) [Mass/Vol] 4.2 g/dL 2.2-4.2 [facility] Urea nitrogen/Creatinine [Mass ratio] 11.2 mg/mg 10-20 [facility] Laboratory - Drug toxicology Ordered By: Miguelina Benz on 09-21-2023 Amphetamines Ql (U) Negative <1000 ng/mL [facility] Benzodiazepines Ql (U) Negative < 200 ng/mL [facility] Cannabinoids Screen Ql (U) Negative < 50 ng/mL [facility] Cocaine Ql (U) Negative < 300 ng/mL [facility] Opiates Ql (U) Positive < 300 ng/mL [facility] Laboratory - Hematology and Cell countsOrdered By: Mao Rabago on 09-21-2023 MCH (RBC) [Entitic mass] 33.4 pg 27.0-32.0 [facility] MCHC (RBC) [Mass/Vol] 32.7 g/dL 32-36 [facility] Nucleated RBC/100 WBC (Bld) [Ratio] 0 % 0-5 [facility] Platelet mean volume (Bld) [Entitic vol] 10.9 fL 6.2-12.0 [facility] Platelets (Bld) [#/Vol] 302 10*3/uL 150-450 [facility] No Panel InformationOrdered By: Miguelina Benz on 09-21-2023 MDMA (Ecstasy) Screen Negative < 500 ng/mL [facility] Urine Barbiturates Screen Negative < 200 ng/mL [facility] Urine Drug Screen Comment [facility] Comment on above: CONFIRMATORY TESTING FOR ALL POSITIVE URINE DRUG SCREENRESULTS WILL ONLY BE SENT OUT UPON PHYSICIAN ORDER. VISTA Urine Drug Screen methods provide only preliminaryanalytical test results. A more specific alternate chemicalmethod must be used in order to obtain a confirmedanalytical result. Gas chromatography/mass spectrometery(GC/MS) is the preferred confirmatory method. Clinicalconsideration and professional judgement should be appliedto any drug of abuse test result, particularly whenpreliminary positive results are used. URINE TCA TESTING MUST BE ORDERED SEPARATELY. USE TESTMNEMONIC: [facility] Urine Methadone Screen Negative < 300 ng/mL [facility] No Panel InformationOrdered By: Mao Rabago on 09-21-2023 Estimated GFR (MDRD) Amer 53 mL/min >60 [facility] Comment on above: GFR Calc Estimated GFR (MDRD) Non-Af Amer 43 mL/min >60 [facility] Comment on above: Non- GFR Calc Vitamin D 25-Hydroxy 52.9 ng/mL [facility] Comment on above: Vitamin D 25(OH) Sta tus Range Deficiency <20 ng/mL (50nmol/L) Insufficiency 20 - 30 ng/mL (50 - 75 nmol/L) Sufficiency 30 - 100 ng/mL (75 - 250 nmol/L) Toxicity >100 ng/mL (>250 nmol/L) RBC Auto (Bld) [#/Vol]Ordere d By: Mao Rabago on 09-21-2023 RBC (Bld) [#/Vol] 3.32 10*6/uL 4.2-5.4 [facility] Serum or plasma calcium elmer urement (mass/volume)Ordered By: Mao Rabago on 09-21-2023 Calcium [Mass/Vol] 9.0 mg/dL 8.5-10.1 [facility] Serum or plasma creatinine m easurement (mass/volume)Ordered By: Mao Rabago on 09-21-2023 Creatinine [Mass/Vol] 1.25 mg/dL 0.55-1.02 [facility] Comment on above: The validity of the calculated GFR & GFRAA in patients over 70 years has not been determined. Clinical correlation is essential. Serum or plasma thyroid stim ulating hormone (TSH) measurement (units/volume)Ordered By: Mao Rabago on 09-21-2023 TSH Qn 0.60 uIU/mL 0.358-3.74 [facility] Serum or plasma urea nitroge n measurement (mass/volume)Ordered By: Mao Rabago on 09-21-2023 Urea nitrogen [Mass/Vol] 14 mg/dL 7-18 [facility] Thin prep Papanicolaou smear with manual screeningOrdered By: Mao Rabago on 09-21-2023 Thin prep Papanicolaou smear with manual screening 3.0 g/dL 3.2-5.0 [facility] Thin prep Papanicolaou smear with manual screening 39 U/L 15-37 [facility] Thin prep Papanicolaou smear with manual screening 5 5-15 [facility] Thin prep Papanicolaou smear with manual screening 1.49 ng/dL 0.76-1.46 [facility] Urine phencyclidine (PCP) de tectionOrdered By: Miguelina Benz on 09-21-2023 Phencyclidine Ql (U) Negative < 25 ng/mL [facility] Absolute lymphocyte countOrd ered By: Art Rosales on 08-13-2023 Lymphocytes Auto (Unsp spec) [#/Vol] 1.45 10*3/uL 0.83-4.51 [facility] Basophil percentageOrdered B y: Art Rosales on 08-13-2023 Basophils/100 WBC (Bld) 0.5 % 0-1 [facility] Bilirubin [Mass/Vol] 0.40 mg/dL 0.20-1.00 [facility] Comment on above: For patients on eltr ombopag therapy, use of Dimension [place] TBIL is not recommended. Chloride [Moles/Vol] 107 mmol/L 98-107 [facility] Eosinophils/100 WBC (Bld) 1.5 % 0-5 [facility] Glucose [Mass/Vol] 155 mg/dL 74-106 [facility] Comment on above: Fasting Glucose resu lt greater than or equal to 126 mg/dL suggests DIABETES MELLITUS per A.D.A. criteria. Neutrophils (Bld) [#/Vol] 8.0 10*3/uL 2.0-7.7 [facility] Neutrophils/100 WBC (Bld) 71.2 % 47-70 [facility] Potassium [Moles/Vol] 3.6 mmol/L 3.5-5.1 [facility] Comment on above: Slight Hemolysis, Re sult may be falsely increased. Protein [Mass/Vol] 7.0 g/dL 6.4-8.2 [facility] Sodium [Moles/Vol] 138 mmol/L 136-145 [facility] WBC (Bld) [#/Vol] 11.2 10*3/uL 4.4-11.0 [facility] Blood erythrocytes count (nu mber/volume)Ordered By: Art Rosales on 08-13-2023 RBC (Bld) [#/Vol] 3.46 10*6/uL 4.2-5.4 [facility] Blood hemoglobin measurement (mass/volume)Ordered By: Art Rosales on 08-13-2023 Hemoglobin (Bld) [Mass/Vol] 11.6 g/dL 12.0-15.0 [facility] Blood lymphocytes/100 leukoc ytesOrdered By: Art Rosales on 08-13-2023 Lymphocytes/100 WBC (Bld) 12.9 % 19-41 [facility] Blood manual differential co mment interpretation (narrative result)Ordered By: Art Rosales on 08-13-2023 Manual differential comment Gerardo (Bld) [Interp] SCANNED [facility] Comment on above: MONOCYTOSIS NOTED Blood monocytes/100 leukocyt esOrdered By: Art Rosales on 08-13-2023 Monocytes/100 WBC (Bld) 13.5 % 0-10 [facility] Blood platelet mean volumeOr dered By: Art Rosales on 08-13-2023 Platelet mean volume (Bld) [Entitic vol] 10.2 fL 6.2-12.0 [facility] Clostridioides difficile nuc leic acid assay by PCROrdered By: Art Rosales on 08-13-2023 C. difficile DNA MELISSA+probe Ql (Unsp spec) [facility] Determination of erythrocyte mean corpuscular volume (MCV)Ordered By: Art Rosales on 08-13-2023 MCV (RBC) [Entitic vol] 101.2 fL 81-99 [facility] Direct bilirubinOrdered By: Art Rosales on 08-13-2023 Bilirubin.direct [Mass/Vol] 0.17 mg/dL 0.00-0.30 [facility] Hematocrit Auto (Bld) [Volum e fraction]Ordered By: Art Rosales on 08-13-2023 Hematocrit (Bld) [Volume fraction] 35.0 % 37-47 [facility] Laboratory - Chemistry and C hemistry - challengeOrdered By: Art Rosales on 08-13-2023 ALP [Catalytic activity/Vol] 89 U/L 45-117 [facility] ALT [Catalytic activity/Vol] 23 U/L 13-56 [facility] CO2 [Moles/Vol] 27.0 mmol/L 21.0-32.0 [facility] Globulin (S) [Mass/Vol] 3.9 g/dL 2.2-4.2 [facility] Lipase [Catalytic activity/Vol] 15 U/L 13-75 [facility] Comment on above: Please note:LIPASE r evised reference range effective 22. New Lipase methodology. Expected to produce lower values than the previous assay method. NEW Reference Range: 13 - 75 U/L Urea nitrogen/Creatinine [Mass ratio] 14.4 mg/mg 10-20 [facility] - Hematology and Cell countsOrdered By: Art Rosales on 08-13-2023 Erythrocyte distribution width (RBC) [Entitic vol] 51.0 fL 35.1-43.9 [facility] Erythrocyte distribution width (RBC) [Ratio] 13.7 % 11.6-14.6 [facility] Immature granulocytes/100 WBC (Bld) 0.400 % 0.0-0.9 [facility] Comment on above: IG% - Immature Granu locytes (promyelocytes, myelocytes and metamyelocytes) > 1% indicates that a LEFT SHIFT is Present. MCH (RBC) [Entitic mass] 33.5 pg 27.0-32.0 [facility] Nucleated RBC/100 WBC (Bld) [Ratio] 0 % 0-5 [facility] MCHC Auto (RBC) [Mass/Vol]Or dered By: Art Rosales on 08-13-2023 MCHC (RBC) [Mass/Vol] 33.1 g/dL 32-36 [facility] No Panel InformationOrdered By: Art Rosales on 08-13-2023 Estimated Creatinine Clearance Calc 41.24 ml/min [facility] Estimated GFR (MDRD) Amer 84 mL/min >60 [facility] Comment on above: GFR Calc Estimated GFR (MDRD) Non-Af Amer 69 mL/min >60 [facility] Comment on above: Non- GFR Calc Ova and parasitesOrdered By: Art Rosales on 08-13-2023 Ova and parasites identified LM Nom (Unsp spec) [facility] Platelets bldOrdered By: Tito Rosales on 08-13-2023 Platelets (Bld) [#/Vol] 301 10*3/uL 150-450 [facility] Serum or plasma albumin elmer urement (mass/volume)Ordered By: Art Rosales on 08-13-2023 Albumin [Mass/Vol] 3.1 g/dL 3.2-5.0 [facility] Serum or plasma calcium elmer urement (mass/volume)Ordered By: Art Rosales on 08-13-2023 Calcium [Mass/Vol] 9.2 mg/dL 8.5-10.1 [facility] Serum or plasma creatinine m easurement (mass/volume)Ordered By: Art Rosales on 08-13-2023 Creatinine [Mass/Vol] 0.84 mg/dL 0.55-1.02 [facility] Comment on above: The validity of the calculated GFR & GFRAA in patients over 70 years has not been determined. Clinical correlation is essential. Serum or plasma urea nitroge n measurement (mass/volume)Ordered By: Art Rosales on 08-13-2023 Urea nitrogen [Mass/Vol] 12 mg/dL 7-18 [facility] Stool enteric pathogen panel by probe and target amplification methodOrdered By: Art Rosales on 08-13-2023 Gastrointestinal pathogens panel MELISSA+probe ([facility]) [facility] Stool lactoferrin detection by immunoassayOrdered By: Art Rosales on 08-13-2023 Lactoferrin IA Ql ([facility]) [facility] Thin prep Papanicolaou smear with manual screeningOrdered By: Art Rosales on 08-13-2023 Thin prep Papanicolaou smear with manual screening 28 U/L 15- [facility] Comment on above: Slight Hemolysis, Re sult may be falsely increased. Thin prep Papanicolaou smear with manual screening 4 5-15 [facility] Therapy Communicationon 06- Therapy Communication Message CINDI MESSER was (D/C)- last seen: 12/27/22. Patient to be D/C from skilled physical therapy at this time d/t patient not making/maintaining scheduled appointments. Patient last seen >=30 days ago. Please refer to previous notes to see functional baseline. Further functional measures not obtained d/t limited visits. Signatures Electronically signed by : Chitra Stone, PT; Feb 11 2023 6:50PM EST (Author) [facility] Progress Noteon 3 PT Progress Note No report was sent [facility] Therapy Communicationon 12-13 Therapy Communication Message CINDI MESSER canceled today . D/t illness. Signatures Electronically signed by : Jamila Seals PROMOTIONS REPRESENTATIVE; Dec 31 2022 8:44AM EST (Author) Normal [facility] Progress Noteon 3 PT Progress Note Therapy Diagnosis Assessed Cervicalgia (723.1) (M54.2) Spinal stenosis of cervical region (723.0) (M48.02) Plan Goals: Goals set and discussed today. Activity Limitation: Decrease in NDI score to 5/10 to demonstrate improved cervical functional mobility for ease of crocheting and sleeping, by week 3 Pain: Decrease in baseline pain of cervical region 4/10 or less to demonstrate improved painfree functional mobility for ease of ADL/iADL completion, by week 3 Range Of Motion/Joint Mobility: Improved gross cervical AROM B LF: 45 deg to demonstrate increased painfree functional mobility for ease with sleeping, by week 3 Strength: Improved gross B GH joint, periscapular, and cervical musculature strength 5/5 MMT to increase stability and ease with performing ADLs/iADLs., by week 3 HEP, Patient will demonstrate compliance in their home exercise program in order to promote independence in self management of functional mobility., by week 1 Planned interventions include: dry needling, education/instruction, home program, manual therapy, self care/home management, therapeutic activities, therapeutic exercises and iastm/cupping . Emphasis on home management/HEP. Frequency and duration: 2 time(s) a week, for 3 weeks, for 6 visits. Potential to achieve rehab goals is good will continue to work on progressing toward plan of care as tolerated to be able to improve strength in cervical paraspinals to be able to get a full nights sleep uninterrupted. Assessment Patient identified by name and Patient appropriately challenged. Patient demo's restriction in Bilat SCM's and guarding with suboccipital release this date, but is able to tolerate progressions with no increased difficulty. Requires hand held assist from therapist this date for supine to sit transfer. Adult Risk Screening There are no spiritual/cultural practices/values/needs that are important to know Initial Fall Risk Screening: CINDI has not fallen in the last 6 months. CINDI does not have a fear of falling. She does not need assistance with sitting, standing or walking. Does not need assistance walking in her home. She does not need assistance in an unfamiliar setting. The patient is not using an assistive device. Fall Risk Screening: Patient is identified as a fall risk. Care Plan: Low Risk: Environmental for all patients and low risk patients: Offer assistance as needed or requested, keep environment free of obstacles, keep floor clean and dry, keep room lighting, wheelchair brakes on, bed/ stretcher locked and in low position if applicable, non-slip footwear if applicable, walker/cane available if needed, side rails up if applicable and pre-emptive toileting. Low: age 65 or older. Pain Scale: On a scale of 0 to 10, the patient rates the pain at 6. Please identify location of pain: cervical pain and shoulders. Pain Quality: sharp and tightness. Living Will. Living Will: Living will on file. Healthcare POA: Health care proxy on file. Declaration of Mental Health Treatment: Declaration of mental health treatment on file. Domestic Violence Screen: Does not feel threatened or abused physically, emotionally or sexually. Do you feel UNSAFE? The patient feels safe in the home. Depression/Suicide Screening: During the past 2 weeks, the patient has not felt down, depressed or hopeless. During the past 2 weeks, the patient has not felt little interest or pleasure in doing things. Insurance Insurance reviewed Visit number: 4 Authorization not required after evaluation Insurance: Medicare Evaluating therapist: Chitra Stone PT, DPT PT dx: M54.2 Med dx: M48.02 Onset Date: 2022 Medicare Certification Period: Beginnin2022 Endin2022 Subjective Patient reports:. Patient states that she still has difficulty turning her head side to side, but states that it has gotten better since starting therapy. Precautions: Fall Risk: low PMHx: Hx of back pain, thyroid disorder. Treatment Time in clinic started at 250 pm Time in clinic ended at 333 pm Total time in clinic is 43 minutes. Total timed code time is 40 minutes. Therapeutic exercise (29263): timed minutes 23, units 2 . Seated UT stretch 20 x3 each side - attempted, but patient unable to do and did not feel a stretch. UBE x2' Fwd/x2' Bkwd (N) LS stretch 3x30? ea (P, reps) Seated scap retraction x10 3?hold Seated scap rows, green band 2 x10 Seated B GH joint ER x10 Green TBand (P, resistance) Standing B GH joint extension, green band x10 . Manual Therapy (28819): timed minutes 17, units 1 . STW in supine and seated of: - B SCM - B scalenes - B sub occipitals - Sub occ release -B middle and lower traps - B cervical AND thoracic paraspinals - B medial border of scaps . Provided today:. 12/02/22 HEP: scap retraction, mid rows with band, B ER with band, shld extension with band, UT stretch. 'Scores and Scales' Signatures Electronical (more content not included)... Normal [facility] PT Progress Noteon 3 PT Progress Note Therapy Diagnosis Assessed Cervicalgia (723.1) (M54.2) Spinal stenosis of cervical region (723.0) (M48.02) Plan Goals: Goals set and discussed today. Activity Limitation: Decrease in NDI score to 5/10 to demonstrate improved cervical functional mobility for ease of crocheting and sleeping, by week 3 Pain: Decrease in baseline pain of cervical region 4/10 or less to demonstrate improved painfree functional mobility for ease of ADL/iADL completion, by week 3 Range Of Motion/Joint Mobility: Improved gross cervical AROM B LF: 45 deg to demonstrate increased painfree functional mobility for ease with sleeping, by week 3 Strength: Improved gross B GH joint, periscapular, and cervical musculature strength 5/5 MMT to increase stability and ease with performing ADLs/iADLs., by week 3 HEP, Patient will demonstrate compliance in their home exercise program in order to promote independence in self management of functional mobility., by week 1 Planned interventions include: dry needling, education/instruction, home program, manual therapy, self care/home management, therapeutic activities, therapeutic exercises and iastm/cupping . Emphasis on home management/HEP. Frequency and duration: 2 time(s) a week, for 3 weeks, for 6 visits. Potential to achieve rehab goals is good Plan to progress ex's and STW as tolerated for ease of turning head. Progress with POC, as tolerated. Assessment Patient identified by name and date of . Patient was able to progress with reps and stretching this date w/o c/o increased Sx. She demonstrated good tolerance to STW with report of reduction of Sx and increased ROM after treatment. Adult Risk Screening There are no spiritual/cultural practices/values/needs that are important to know Initial Fall Risk Screening: CINDI has not fallen in the last 6 months. CINDI does not have a fear of falling. She does not need assistance with sitting, standing or walking. Does not need assistance walking in her home. She does not need assistance in an unfamiliar setting. The patient is not using an assistive device. Fall Risk Screening: Patient is identified as a fall risk. Care Plan: Low Risk: Environmental for all patients and low risk patients: Offer assistance as needed or requested, keep environment free of obstacles, keep floor clean and dry, keep room lighting, wheelchair brakes on, bed/ stretcher locked and in low position if applicable, non-slip footwear if applicable, walker/cane available if needed, side rails up if applicable and pre-emptive toileting. Low: age 65 or older. Pain Scale: On a scale of 0 to 10, the patient rates the pain at 7. Please identify location of pain: cervical pain and shoulders. Pain Quality: sharp and tightness. Living Will. Living Will: Living will on file. Healthcare POA: Health care proxy on file. Declaration of Mental Health Treatment: Declaration of mental health treatment on file. Domestic Violence Screen: Does not feel threatened or abused physically, emotionally or sexually. Do you feel UNSAFE? The patient feels safe in the home. Depression/Suicide Screening: During the past 2 weeks, the patient has not felt down, depressed or hopeless. During the past 2 weeks, the patient has not felt little interest or pleasure in doing things. Insurance Insurance reviewed Visit number: 3 Authorization not required after evaluation Insurance: Medicare Evaluating therapist: Chitra Stone PT, DPT PT dx: M54.2 Med dx: M48.02 Onset Date: 2022 Medicare Certification Period: Beginnin2022 Endin2022 Subjective Patient reports:. Patient reported she experienced increased pain/soreness the night after her last appointment but when she awoke the next morning she feels she has more motion. She reported 6/10 pain after treatment and stated it feels pretty good. Home program performing as directed: Yes. Precautions: Fall Risk: low PMHx: Hx of back pain, thyroid disorder. Treatment Time in clinic started at 02:45 Time in clinic ended at 03:30 Total time in clinic is 45 minutes. Total timed code time is 42 minutes. Therapeutic exercise (66449): timed minutes 19, units 1 . Seated UT stretch 20 x3 each side - attempted, but patient unable to do and did not feel a stretch. LS stretch x30? ea Seated scap retraction x10 3?hold Seated scap rows, green band 2 x10 Seated B GH joint ER x10 Standing B GH joint extension, green band x10 . Manual Therapy (80662): timed minutes 23, units 2 . STW in supine and seated of: - B SCM - B scalenes - B sub occipitals - Sub occ release -B middle and lower traps - B cervical AND thoracic paraspinals - B medial border of scaps . Provided today:. 12/02/22 HEP: scap retraction, mid rows with band, B ER with band, shld extension with band, UT stretch. 'Scores and Scales' Signatures Electronically signed by : Sharron Lau PTA; Dec 23 2022 3:49PM EST (Author) Abel (more content not included)... Normal [facility] PT Progress Noteon 3 PT Progress Note Therapy Diagnosis Assessed Cervicalgia (723.1) (M54.2) Spinal stenosis of cervical region (723.0) (M48.02) Plan Goals: Goals set and discussed today. Activity Limitation: Decrease in NDI score to 5/10 to demonstrate improved cervical functional mobility for ease of crocheting and sleeping, by week 3 Pain: Decrease in baseline pain of cervical region 4/10 or less to demonstrate improved painfree functional mobility for ease of ADL/iADL completion, by week 3 Range Of Motion/Joint Mobility: Improved gross cervical AROM B LF: 45 deg to demonstrate increased painfree functional mobility for ease with sleeping, by week 3 Strength: Improved gross B GH joint, periscapular, and cervical musculature strength 5/5 MMT to increase stability and ease with performing ADLs/iADLs., by week 3 HEP, Patient will demonstrate compliance in their home exercise program in order to promote independence in self management of functional mobility., by week 1 Planned interventions include: dry needling, education/instruction, home program, manual therapy, self care/home management, therapeutic activities, therapeutic exercises and iastm/cupping . Emphasis on home management/HEP. Frequency and duration: 2 time(s) a week, for 3 weeks, for 6 visits. Potential to achieve rehab goals is good Plan to progress ex's and STW as tolerated for ease of turning head. - MA. Assessment Patient identified by name AND . Patient wore a mask during treatment d/t Covid-19 precautions. Treatment consisted of ther ex's and manual STW. At rest, patient's head is turned to the left and she has difficulty putting head in neutral. As patient sits at rest she also has involuntary muscle movements of head and upper body. Tender areas in R lower trap and medial border of R scap. Tightness noted in all areas of neck and B scaps. Recommended heat to neck and upper back when she gets home. NO change in pain or improvement in motion. Adult Risk Screening There are no spiritual/cultural practices/values/needs that are important to know Initial Fall Risk Screening: CINDI has not fallen in the last 6 months. CINDI does not have a fear of falling. She does not need assistance with sitting, standing or walking. Does not need assistance walking in her home. She does not need assistance in an unfamiliar setting. The patient is not using an assistive device. Fall Risk Screening: Patient is identified as a fall risk. Care Plan: Low Risk: Environmental for all patients and low risk patients: Offer assistance as needed or requested, keep environment free of obstacles, keep floor clean and dry, keep room lighting, wheelchair brakes on, bed/ stretcher locked and in low position if applicable, non-slip footwear if applicable, walker/cane available if needed, side rails up if applicable and pre-emptive toileting. Low: age 65 or older. Pain Scale: On a scale of 0 to 10, the patient rates the pain at 9. Please identify location of pain: cervical pain and shoulders. Pain Quality: sharp and tightness. Living Will. Living Will: Living will on file. Healthcare POA: Health care proxy on file. Declaration of Mental Health Treatment: Declaration of mental health treatment on file. Domestic Violence Screen: Does not feel threatened or abused physically, emotionally or sexually. Do you feel UNSAFE? The patient feels safe in the home. Depression/Suicide Screening: During the past 2 weeks, the patient has not felt down, depressed or hopeless. During the past 2 weeks, the patient has not felt little interest or pleasure in doing things. Insurance Insurance reviewed Visit number: 2 Authorization not required after evaluation Insurance: Medicare Evaluating therapist: Chitra Stone PT, DPT PT dx: M54.2 Med dx: M48.02 Onset Date: 2022 Medicare Certification Period: Beginnin2022 Endin2022 Subjective Patient reports:. Pretreatment pain: 9/10 B lateral neck, posterior neck and B shoulders. Post treatment pain: 9/10 B lateral neck and posterior neck, 6/10 B shoulders States she was doing her HEP with the bands and the stretches and the pain started coming back and her pain got worse. So she stopped the ex's about 1 week ago due to she is not able to rotate her head now and she is back taking pain pills. States that her daughter thinks it is from mowing the lawn and spraying weed killer on her lawn, but she thinks it is from the ex's. Home program performing as directed: Partially. Precautions: Fall Risk: low PMHx: Hx of back pain, thyroid disorder. Treatment Time in clinic started at 2:50 pm Time in clinic ended at 3:30 pm Total time in clinic is 40 minutes. Total timed code time is 38 minutes. Therapeutic exercise (30813): timed minutes 15, units 8 . Seated UT stretch 20 x3 each side - attempted, but patient unable to do and did not feel a stretch. Seated scap retraction x10 Seated scap rows, green band x10 Seated B GH joint ER (more content not included)... Normal [email or web address] PT Initial Evaluationon 11-14 PT Initial Evaluation Therapy Diagnosis Assessed Cervicalgia (723.1) (M54.2) Spinal stenosis of cervical region (723.0) (M48.02) Plan of Care Goals: Goals set and discussed today. Activity Limitation: Decrease in NDI score to 5/10 to demonstrate improved cervical functional mobility for ease of crocheting and sleeping, by week 3 Pain: Decrease in baseline pain of cervical region 4/10 or less to demonstrate improved painfree functional mobility for ease of ADL/iADL completion, by week 3 Range Of Motion/Joint Mobility: Improved gross cervical AROM B LF: 45 deg to demonstrate increased painfree functional mobility for ease with sleeping, by week 3 Strength: Improved gross B GH joint, periscapular, and cervical musculature strength 5/5 MMT to increase stability and ease with performing ADLs/iADLs., by week 3 HEP, Patient will demonstrate compliance in their home exercise program in order to promote independence in self management of functional mobility., by week 1 Planned interventions include: dry needling, education/instruction, home program, manual therapy, self care/home management, therapeutic activities, therapeutic exercises and iastm/cupping . Emphasis on home management/HEP. Frequency and duration: 2 time(s) a week, for 3 weeks, for 6 visits. Potential to achieve rehab goals is good Plan of care was developed with input and agreement by the patient. Assessment Cindi Messer, a 82 year old female, arrives [...] you for this referral and please call [phone] with any questions or concerns. Clinical Presentation: Stable and/or uncomplicated characteristics. Level of Complexity: low Problem List: activity limitations, ADLs/IADLs/self care skills, decreased knowledge of HEP, fall risk, flexibility, pain, participation restrictions, posture, range of motion/joint mobility and strength. Reason For Visit Initial Evaluation . Neck pain/spinal stenosis of cervical region. Referred by: William Richard MD Adult Risk Screening There are no spiritual/cultural practices/values/needs that are important to know Initial Fall Risk Screening: CINDI has not fallen in the last 6 months. CINDI does not have a fear of falling. She does not need assistance with sitting, standing or walking. Does not need assistance walking in her home. She does not need assistance in an unfamiliar setting. The patient is not using an assistive device. Fall Risk Screening: Patient is identified as a fall risk. Care Plan: Low Risk: Environmental for all patients and low risk patients: Offer assistance as needed or requested, keep environment free of obstacles, keep floor clean and dry, keep room lighting, wheelchair brakes on, bed/ stretcher locked and in low position if applicable, non-slip footwear if applicable, walker/cane available if needed, side rails up if applicable and pre-emptive toileting. Low: age 65 or older. Pain Scale: On a scale of 0 to 10, the patient rates the pain at 6. Please identify location of pain: cervical pain. Pain Quality: sharp. Living Will. Living Will: Living will on file. Healthcare POA: Health care proxy on file. Declaration of Mental Health Treatment: Declaration of mental health treatment on file. Domestic Violence Screen: Does not feel threatened or abused physically, emotionally or sexually. Do you feel UNSAFE? The patient feels safe in the home. Depression/Suicide Screening: During the past 2 weeks, the patient has not felt down, depressed or hopeless. During the past 2 weeks, the patient has not felt little interest or pleasure in doing things. 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 Normal [facility] Absolute lymphocyte countOrd ered By: Dr. Cleveland on 11-24-2022 Lymphocytes Auto (Unsp spec) [#/Vol] 1.87 10*3/uL 0.83-4.51 [facility] Basophil percentageOrdered B y: Dr. Cleveland on 11-24-2022 Basophils/100 WBC (Bld) 0.7 % 0-1 [facility] Eosinophils/100 WBC (Bld) 1.2 % 0-5 [facility] Neutrophils (Bld) [#/Vol] 4.6 10*3/uL 2.0-7.7 [facility] Neutrophils/100 WBC (Bld) 61.2 % 47-70 [facility] WBC (Bld) [#/Vol] 7.5 10*3/uL 4.4-11.0 [facility] Blood erythrocytes count (nu mber/volume)Ordered By: Dr. Cleveland on 11-24-2022 RBC (Bld) [#/Vol] 3.74 10*6/uL 4.2-5.4 [facility] Blood hemoglobin measurement (mass/volume)Ordered By: Dr. Cleveland on 11-24-2022 Hemoglobin (Bld) [Mass/Vol] 12.3 g/dL 12.0-15.0 [facility] Blood lymphocytes/100 leukoc ytesOrdered By: Dr. Cleveland on 11-24-2022 Lymphocytes/100 WBC (Bld) 24.8 % 19-41 [facility] Blood monocytes/100 leukocyt esOrdered By: Dr. Cleveland on 11-24-2022 Monocytes/100 WBC (Bld) 11.8 % 0-10 [facility] Blood platelet mean volumeOr dered By: Dr. Cleveland on 11-24-2022 Platelet mean volume (Bld) [Entitic vol] 10.5 fL 6.2-12.0 [facility] Determination of erythrocyte mean corpuscular volume (MCV)Ordered By: Dr. Cleveland on 11-24-2022 MCV (RBC) [Entitic vol] 102.9 fL 81-99 [facility] Hematocrit Auto (Bld) [Volum e fraction]Ordered By: Dr. Cleveland on 11-24-2022 Hematocrit (Bld) [Volume fraction] 38.5 % 37-47 [facility] Laboratory - Hematology and Cell countsOrdered By: Dr. Cleveland on 11-24-2022 Erythrocyte distribution width (RBC) [Entitic vol] 55.1 fL 35.1-43.9 [facility] Erythrocyte distribution width (RBC) [Ratio] 14.5 % 11.6-14.6 [facility] Immature granulocytes/100 WBC (Bld) 0.300 % 0.0-0.9 [facility] Comment on above: IG% - Immature Granu locytes (promyelocytes, myelocytes and metamyelocytes) > 1% indicates that a LEFT SHIFT is Present. MCH (RBC) [Entitic mass] 32.9 pg 27.0-32.0 [facility] Nucleated RBC/100 WBC (Bld) [Ratio] 0 % 0-5 [facility] MCHC Auto (RBC) [Mass/Vol]Or dered By: Dr. Cleveland on 11-24-2022 MCHC (RBC) [Mass/Vol] 31.9 g/dL 32-36 [facility] Platelets bldOrdered By: Dr. Cleveland on 11-24-2022 Platelets (Bld) [#/Vol] 353 10*3/uL 150-450 [facility] Culture, urineOrdered By: Dr Dayday Cleveland on 11-20-2022 Bacteria identified Cx Nom (U) Culture exhibits no growth. [facility] Absolute lymphocyte countOrd ered By: Dr. Cleveland on 11-18-2022 Lymphocytes Auto (Unsp spec) [#/Vol] 1.15 10*3/uL 0.83-4.51 [facility] Basophil percentageOrdered B y: Dr. Cleveland on 11-18-2022 Basophils/100 WBC (Bld) 0.9 % 0-1 [facility] Chloride [Moles/Vol] 111 mmol/L 98-107 [facility] Eosinophils/100 WBC (Bld) 1.5 % 0-5 [facility] Glucose [Mass/Vol] 105 mg/dL 74-106 [facility] Comment on above: Fasting Glucose resu lt from 100 to 125 mg/dL suggests IMPAIRED HOMEOSTASIS per A.D.A. criteria. Neutrophils (Bld) [#/Vol] 2.8 10*3/uL 2.0-7.7 [facility] Neutrophils/100 WBC (Bld) 61.2 % 47-70 [facility] Potassium [Moles/Vol] 3.8 mmol/L 3.5-5.1 [facility] Sodium [Moles/Vol] 142 mmol/L 136-145 [facility] WBC (Bld) [#/Vol] 4.5 10*3/uL 4.4-11.0 [facility] Blood erythrocytes count (nu mber/volume)Ordered By: Dr. Cleveland on 11-18-2022 RBC (Bld) [#/Vol] 3.12 10*6/uL 4.2-5.4 [facility] Blood hemoglobin measurement (mass/volume)Ordered By: Dr. Cleveland on 11-18-2022 Hemoglobin (Bld) [Mass/Vol] 10.6 g/dL 12.0-15.0 [facility] Blood lymphocytes/100 leukoc ytesOrdered By: Dr. Cleveland on 11-18-2022 Lymphocytes/100 WBC (Bld) 25.4 % 19-41 [facility] Blood monocytes/100 leukocyt esOrdered By: Dr. Cleveland on 11-18-2022 Monocytes/100 WBC (Bld) 10.6 % 0-10 [facility] Blood platelet mean volumeOr dered By: Dr. Cleveland on 11-18-2022 Platelet mean volume (Bld) [Entitic vol] 10.7 fL 6.2-12.0 [facility] Determination of erythrocyte mean corpuscular volume (MCV)Ordered By: Dr. Cleveland on 11-18-2022 MCV (RBC) [Entitic vol] 103.8 fL 81-99 [facility] Hematocrit Auto (Bld) [Volum e fraction]Ordered By: Dr. Cleveland on 11-18-2022 Hematocrit (Bld) [Volume fraction] 32.4 % 37-47 [facility] Laboratory - Chemistry and C hemistry - challengeOrdered By: Dr. Cleveland on 11-18-2022 CO2 [Moles/Vol] 27.0 mmol/L 21.0-32.0 [facility] Urea nitrogen/Creatinine [Mass ratio] 19.1 mg/mg 10-20 [facility] - Hematology and Cell countsOrdered By: Dr. Cleveland on 11-18-2022 Erythrocyte distribution width (RBC) [Entitic vol] 54.6 fL 35.1-43.9 [facility] Erythrocyte distribution width (RBC) [Ratio] 14.6 % 11.6-14.6 [facility] Immature granulocytes/100 WBC (Bld) 0.400 % 0.0-0.9 [facility] Comment on above: IG% - Immature Granu locytes (promyelocytes, myelocytes and metamyelocytes) > 1% indicates that a LEFT SHIFT is Present. MCH (RBC) [Entitic mass] 34.0 pg 27.0-32.0 [facility] Nucleated RBC/100 WBC (Bld) [Ratio] 0 % 0-5 [facility] Auto (RBC) [Mass/Vol]Or dered By: Dr. Cleveland on 11-18-2022 MCHC (RBC) [Mass/Vol] 32.7 g/dL 32-36 [facility] No Panel InformationOrdered By: Dr. Cleveland on 11-18-2022 Estimated GFR (MDRD) Amer 129 mL/min >60 [facility] Comment on above: GFR Calc Estimated GFR (MDRD) Non-Af Amer 107 mL/min >60 [facility] Comment on above: Non- GFR Calc Platelets bldOrdered By: Dr. Cleveland on 11-18-2022 Platelets (Bld) [#/Vol] 234 10*3/uL 150-450 [facility] Serum or plasma calcium elmer urement (mass/volume)Ordered By: Dr. Cleveland on 11-18-2022 Calcium [Mass/Vol] 8.0 mg/dL 8.5-10.1 [facility] Serum or plasma creatinine m easurement (mass/volume)Ordered By: Dr. Cleveland on 11-18-2022 Creatinine [Mass/Vol] 0.58 mg/dL 0.55-1.02 [facility] Comment on above: The validity of the calculated GFR & GFRAA in patients over 70 years has not been determined. Clinical correlation is essential. Serum or plasma urea nitroge n measurement (mass/volume)Ordered By: Dr. Cleveland on 11-18-2022 Urea nitrogen [Mass/Vol] 11 mg/dL 7-18 [facility] Thin prep Papanicolaou smear with manual screeningOrdered By: Dr. Cleveland on 11-18-2022 Thin prep Papanicolaou smear with manual screening 4 5-15 [facility] COVID-19 virus antigen assay Ordered By: Dr. Cleveland on 10-14-2022 SARS-CoV-2 (COVID-19) Ag IA.rapid Ql (Resp) Detected Not Detect [facility] Comment on above: Normal Reference Ran ge: Not DetectedMethod:(RT-PCR) real-time reverse transcriptase PCRLuminex BAKARI Instrument*The Food and Drug Administration (FDA) has issued an Emergency Use Authorization (EAU) for the BAKARI SARS-CoV-2 Assay for the rapid detection of the virus that causes COVID-19. This test has been validated, but [facility] this validation [facility].*Negative results do not preclude infection and should not be used as the sole basis for treatment or patient management. Optimum specimen types and timing for peak viral levels during infections caused by SARS-CoV-2 have not been determined. Collection of multiple specimens from the same patient may be necessary to detect the virus. The possibility of a false negative result should be considered if the patient has clinical presentation or has had recent exposure. No Panel InformationOrdered By: Dr. Cleveland on 10-14-2022 Influenza Types A,B Direct FA (DIMITRIS) [facility] RSV Ag EIAOrdered By: Dr. Rosenda herron on 10-14-2022 RSV Ag Immune stain Ql (Tiss) [facility] Absolute lymphocyte countOrd ered By: Dr. Cleveland on 09-15-2022 Lymphocytes Auto (Unsp spec) [#/Vol] 1.84 10*3/uL 0.83-4.51 [facility] Basophil percentageOrdered B y: Dr. Cleveland on 09-15-2022 Basophils/100 WBC (Bld) 0.5 % 0-1 [facility] Bilirubin [Mass/Vol] 0.50 mg/dL 0.20-1.00 [facility] Comment on above: For patients on eltr ombopag therapy, use of Dimension [place] TBIL is not recommended. Chloride [Moles/Vol] 104 mmol/L 98-107 [facility] Eosinophils/100 WBC (Bld) 1.8 % 0-5 [facility] Glucose [Mass/Vol] 144 mg/dL 74-106 [facility] Comment on above: Fasting Glucose resu lt greater than or equal to 126 mg/dL suggests DIABETES MELLITUS per A.D.A. criteria. Neutrophils (Bld) [#/Vol] 5.0 10*3/uL 2.0-7.7 [facility] Neutrophils/100 WBC (Bld) 63.6 % 47-70 [facility] Potassium [Moles/Vol] 3.9 mmol/L 3.5-5.1 [facility] Protein [Mass/Vol] 7.5 g/dL 6.4-8.2 [facility] Sodium [Moles/Vol] 139 mmol/L 136-145 [facility] WBC (Bld) [#/Vol] 7.9 10*3/uL 4.4-11.0 [facility] Blood erythrocytes count (nu mber/volume)Ordered By: Dr. Cleveland on 09-15-2022 RBC (Bld) [#/Vol] 3.71 10*6/uL 4.2-5.4 [facility] Blood hemoglobin measurement (mass/volume)Ordered By: Dr. Cleveland on 09-15-2022 Hemoglobin (Bld) [Mass/Vol] 12.4 g/dL 12.0-15.0 [facility] Blood lymphocytes/100 leukoc ytesOrdered By: Dr. Cleveland on 09-15-2022 Lymphocytes/100 WBC (Bld) 23.3 % 19-41 [facility] Blood monocytes/100 leukocyt esOrdered By: Dr. Cleveland on 09-15-2022 Monocytes/100 WBC (Bld) 10.5 % 0-10 [facility] Blood platelet mean volumeOr dered By: Dr. Cleveland on 09-15-2022 Platelet mean volume (Bld) [Entitic vol] 10.8 fL 6.2-12.0 [facility] Determination of erythrocyte mean corpuscular volume (MCV)Ordered By: Dr. Cleveland on 09-15-2022 MCV (RBC) [Entitic vol] 99.2 fL 81-99 [facility] Hematocrit Auto (Bld) [Volum e fraction]Ordered By: Dr. Cleveland on 09-15-2022 Hematocrit (Bld) [Volume fraction] 36.8 % 37-47 [facility] Laboratory - Chemistry and C hemistry - challengeOrdered By: Dr. Cleveland on 09-15-2022 ALP [Catalytic activity/Vol] 88 U/L 45-117 [facility] ALT [Catalytic activity/Vol] 32 U/L 13-56 [facility] CO2 [Moles/Vol] 27.0 mmol/L 21.0-32.0 [facility] Globulin (S) [Mass/Vol] 4.0 g/dL 2.2-4.2 [facility] Urea nitrogen/Creatinine [Mass ratio] 15.1 mg/mg 10-20 [facility] Laboratory - Hematology and Cell countsOrdered By: Dr. Cleveland on 09-15-2022 Erythrocyte distribution width (RBC) [Entitic vol] 49.6 fL 35.1-43.9 [facility] Erythrocyte distribution width (RBC) [Ratio] 13.7 % 11.6-14.6 [facility] Immature granulocytes/100 WBC (Bld) 0.300 % 0.0-0.9 [facility] Comment on above: IG% - Immature Granu locytes (promyelocytes, myelocytes and metamyelocytes) > 1% indicates that a LEFT SHIFT is Present. MCH (RBC) [Entitic mass] 33.4 pg 27.0-32.0 [facility] Nucleated RBC/100 WBC (Bld) [Ratio] 0 % 0-5 [facility] MCHC Auto (RBC) [Mass/Vol]Or dered By: Dr. Cleveland on 09-15-2022 MCHC (RBC) [Mass/Vol] 33.7 g/dL 32-36 [facility] No Panel InformationOrdered By: Dr. Cleveland on 09-15-2022 Estimated GFR (MDRD) Amer 74 mL/min >60 [facility] Comment on above: GFR Calc Estimated GFR (MDRD) Non-Af Amer 61 mL/min >60 [facility] Comment on above: Non- GFR Calc Thyroid Stimulating Hormone (TSH) 1.53 uIU/mL 0.358-3.74 [facility] Vitamin D 25-Hydroxy 47.6 ng/mL [facility] Comment on above: Vitamin D 25(OH) Sta tus Range Deficiency <20 ng/mL (50nmol/L) Insufficiency 20 - 30 ng/mL (50 - 75 nmol/L) Sufficiency 30 - 100 ng/mL (75 - 250 nmol/L) Toxicity >100 ng/mL (>250 nmol/L) Platelets bldOrdered By: Dr. Cleveland on 09-15-2022 Platelets (Bld) [#/Vol] 348 10*3/uL 150-450 [facility] Serum or plasma albumin elmer urement (mass/volume)Ordered By: Dr. Cleveland on 09-15-2022 Albumin [Mass/Vol] 3.5 g/dL 3.2-5.0 [facility] Serum or plasma albumin/glob ulin mass ratioOrdered By: Dr. Cleveland on 09-15-2022 Albumin/Globulin [Mass ratio] 0.9 {ratio} 0.9-2.4 [facility] Serum or plasma calcium elmer urement (mass/volume)Ordered By: Dr. Cleveland on 09-15-2022 Calcium [Mass/Vol] 9.0 mg/dL 8.5-10.1 [facility] Serum or plasma creatinine m easurement (mass/volume)Ordered By: Dr. Cleveland on 09-15-2022 Creatinine [Mass/Vol] 0.93 mg/dL 0.55-1.02 [facility] Comment on above: The validity of the calculated GFR & GFRAA in patients over 70 years has not been determined. Clinical correlation is essential. Serum or plasma urea nitroge n measurement (mass/volume)Ordered By: Dr. Cleveland on 09-15-2022 Urea nitrogen [Mass/Vol] 14 mg/dL 7-18 [facility] Thin prep Papanicolaou smear with manual screeningOrdered By: Dr. Cleveland on 09-15-2022 Thin prep Papanicolaou smear with manual screening 40 U/L 15-37 [facility] Thin prep Papanicolaou smear with manual screening 8 5-15 [facility] Basophil percentageOrdered B y: Dr. Rabago on 08-19-2022 Bilirubin [Mass/Vol] 0.90 mg/dL 0.20-1.00 [facility] Comment on above: For patients on eltr ombopag therapy, use of Dimension [place] TBIL is not recommended. Chloride [Moles/Vol] 104 mmol/L 98-107 [facility] Glucose [Mass/Vol] 114 mg/dL 74-106 [facility] Comment on above: Fasting Glucose resu lt from 100 to 125 mg/dL suggests IMPAIRED HOMEOSTASIS per A.D.A. criteria. Potassium [Moles/Vol] 4.0 mmol/L 3.5-5.1 [facility] Protein [Mass/Vol] 7.2 g/dL 6.4-8.2 [facility] Sodium [Moles/Vol] 140 mmol/L 136-145 [facility] Laboratory - Chemistry and C hemistry - challengeOrdered By: Dr. Rabago on 08-19-2022 ALP [Catalytic activity/Vol] 76 U/L 45-117 [facility] ALT [Catalytic activity/Vol] 31 U/L 13-56 [facility] CO2 [Moles/Vol] 28.0 mmol/L 21.0-32.0 [facility] Free T4 [Mass/Vol] 1.46 ng/dL 0.76-1.46 [facility] Globulin (S) [Mass/Vol] 3.7 g/dL 2.2-4.2 [facility] Urea nitrogen/Creatinine [Mass ratio] 17.8 mg/mg 10-20 [facility] No Panel InformationOrdered By: Dr. Rabago on 08-19-2022 Estimated GFR (MDRD) Amer 98 mL/min >60 [facility] Comment on above: GFR Calc Estimated GFR (MDRD) Non-Af Amer 81 mL/min >60 [facility] Comment on above: Non- GFR Calc Thyroid Stimulating Hormone (TSH) 0.86 uIU/mL 0.358-3.74 [facility] Vitamin D 25-Hydroxy 48.5 ng/mL [facility] Comment on above: Vitamin D 25(OH) Sta tus Range Deficiency <20 ng/mL (50nmol/L) Insufficiency 20 - 30 ng/mL (50 - 75 nmol/L) Sufficiency 30 - 100 ng/mL (75 - 250 nmol/L) Toxicity >100 ng/mL (>250 nmol/L) Serum or plasma albumin elmer urement (mass/volume)Ordered By: Dr. Rabago on 08-19-2022 Albumin [Mass/Vol] 3.5 g/dL 3.2-5.0 [facility] Serum or plasma albumin/glob ulin mass ratioOrdered By: Dr. Rabago on 08-19-2022 Albumin/Globulin [Mass ratio] 0.9 {ratio} 0.9-2.4 [facility] Serum or plasma calcium elmer urement (mass/volume)Ordered By: Dr. Rabago on 08-19-2022 Calcium [Mass/Vol] 9.2 mg/dL 8.5-10.1 [facility] Serum or plasma creatinine m easurement (mass/volume)Ordered By: Dr. Rabago on 08-19-2022 Creatinine [Mass/Vol] 0.73 mg/dL 0.55-1.02 [facility] Comment on above: The validity of the calculated GFR & GFRAA in patients over 70 years has not been determined. Clinical correlation is essential. Serum or plasma urea nitroge n measurement (mass/volume)Ordered By: Dr. Rabago on 08-19-2022 Urea nitrogen [Mass/Vol] 13 mg/dL 7-18 [facility] Thin prep Papanicolaou smear with manual screeningOrdered By: Dr. Rabago on 08-19-2022 Thin prep Papanicolaou smear with manual screening 28 U/L 15-37 [facility] Thin prep Papanicolaou smear with manual screening 8 5-15 [facility] Absolute lymphocyte counton 12-15-2021 Lymphocytes Auto (Unsp spec) [#/Vol] 1.79 10*3/uL 0.83-4.51 [facility] Work Phone: Basophil percentageon 2021 Basophils/100 WBC (Bld) 0.5 % 0-1 [facility] Work Phone: Bilirubin [Mass/Vol] 0.30 mg/dL 0.20-1.00 [facility] Work Phone: Comment on above: For patients on eltr ombopag therapy, use of Dimension [place] TBIL is not recommended. Chloride [Moles/Vol] 107 mmol/L 98-107 [facility] Work Phone: Eosinophils/100 WBC (Bld) 2.5 % 0-5 [facility] Work Phone: Glucose [Mass/Vol] 108 mg/dL 74-106 [facility] Work Phone: Comment on above: Fasting Glucose resu lt from 100 to 125 mg/dL suggests IMPAIRED HOMEOSTASIS per A.D.A. criteria. Neutrophils (Bld) [#/Vol] 4.7 10*3/uL 2.0-7.7 [facility] Work Phone: Neutrophils/100 WBC (Bld) 62.8 % 47-70 [facility] Work Phone: [phone] Potassium [Moles/Vol] 4.3 mmol/L 3.5-5.1 [facility] Work Phone: Protein [Mass/Vol] 7.7 g/dL 6.4-8.2 [facility] Work Phone: [phone] Sodium [Moles/Vol] 140 mmol/L 136-145 [facility] Work Phone: [phone] WBC (Bld) [#/Vol] 7.5 10*3/uL 4.4-11.0 [facility] Work Phone: [phone] Blood erythrocytes count (nu mber/volume)on 12-15-2021 RBC (Bld) [#/Vol] 3.50 10*6/uL 4.2-5.4 [facility]: Blood hemoglobin measurement (mass/volume)on 12-15-2021 Hemoglobin (Bld) [Mass/Vol] 12.0 g/dL 12.0-15.0 [facility] Work Phone: [phone] Blood lymphocytes/100 leukoc yteson 12-15-2021 Lymphocytes/100 WBC (Bld) 24.0 % 19-41 [facility] Work Phone: [phone] Blood monocytes/100 leukocyt eson 12-15-2021 Monocytes/100 WBC (Bld) 9.8 % 0-10 [facility] Work Phone: [phone] Blood platelet mean volumeon 12-15-2021 Platelet mean volume (Bld) [Entitic vol] 10.5 fL 6.2-12.0 [facility] Work Phone: Determination of erythrocyte mean corpuscular volume (MCV)on 12-15-2021 MCV (RBC) [Entitic vol] 100.3 fL 81-99 [facility] Work Phone: [phone] Hematocrit Auto (Bld) [Volum e fraction]on 12-15-2021 Hematocrit (Bld) [Volume fraction] 35.1 % 37-47 [facility] Work Phone: [phone] Laboratory - Chemistry and C hemistry - challengeon 12-15-2021 ALP [Catalytic activity/Vol] 108 U/L 45-117 [facility] Work Phone: [phone] ALT [Catalytic activity/Vol] 38 U/L 13-56 [facility] Work Phone: [phone] CO2 [Moles/Vol] 26.0 mmol/L 21.0-32.0 [facility] Work Phone: [phone] Globulin (S) [Mass/Vol] 4.3 g/dL 2.2-4.2 [facility] Work Phone: [phone] Urea nitrogen/Creatinine [Mass ratio] 18.0 mg/mg 10-20 [facility] Work Phone: [phone] Laboratory - Hematology and Cell countson 12-15-2021 Erythrocyte distribution width (RBC) [Entitic vol] 51.0 fL 35.1-43.9 [facility] Work Phone: [phone] Erythrocyte distribution width (RBC) [Ratio] 14.2 % 11.6-14.6 [facility] Work Phone: [phone] Immature granulocytes/100 WBC (Bld) 0.400 % 0.0-0.9 [facility] Work Phone: [phone] Comment on above: IG% - Immature Granu locytes (promyelocytes, myelocytes and metamyelocytes) > 1% indicates that a LEFT SHIFT is Present. MCH (RBC) [Entitic mass] 34.3 pg 27.0-32.0 [facility] Work Phone: [phone] Nucleated RBC/100 WBC (Bld) [Ratio] 0 % 0-5 [facility] Work Phone: [phone] MCHC Auto (RBC) [Mass/Vol]on 12-15-2021 MCHC (RBC) [Mass/Vol] 34.2 g/dL 32-36 [facility] Work Phone: [phone] Panel Informationon 12-15 Estimated GFR (MDRD) Amer 91 mL/min >60 [facility] Work Phone: [phone] Comment on above: GFR Calc Estimated GFR (MDRD) Non-Af Amer 75 mL/min >60 [facility] Work Phone: Comment on above: Non- GFR Calc Thyroid Stimulating Hormone (TSH) 1.36 uIU/mL 0.358-3.74 [facility] Work Phone: Vitamin D 25-Hydroxy 46.1 ng/mL [facility] Work Phone: Comment on above: Vitamin D 25(OH) Sta tus Range Deficiency <20 ng/mL (50nmol/L) Insufficiency 20 - 30 ng/mL (50 - 75 nmol/L) Sufficiency 30 - 100 ng/mL (75 - 250 nmol/L) Toxicity >100 ng/mL (>250 nmol/L) Platelets bldon 12-15-2021 Platelets (Bld) [#/Vol] 312 10*3/uL 150-450 [facility] Work Phone: Serum or plasma albumin elemr urement (mass/volume)on 12-15-2021 Albumin [Mass/Vol] 3.4 g/dL 3.2-5.0 [facility] Work Phone: [phone] Serum or plasma albumin/glob ulin mass ratioon 12-15-2021 Albumin/Globulin [Mass ratio] 0.8 {ratio} 0.9-2.4 [facility] Work Phone: Serum or plasma calcium elmer urement (mass/volume)on 12-15-2021 Calcium [Mass/Vol] 9.1 mg/dL 8.5-10.1 [facility] Work Phone: [phone] Serum or plasma creatinine m easurement (mass/volume)on 12-15-2021 Creatinine [Mass/Vol] 0.78 mg/dL 0.55-1.02 [facility] Work Phone: Comment on above: The validity of the calculated GFR & GFRAA in patients over 70 years has not been determined. Clinical correlation is essential. Serum or plasma urea nitroge n measurement (mass/volume)on 12-15-2021 Urea nitrogen [Mass/Vol] 14 mg/dL 7-18 [facility] Work Phone: [phone] Thin prep Papanicolaou smear with manual screeningon 12-15-2021 Thin prep Papanicolaou smear with manual screening 34 U/L 15-37 [facility] Work Phone: [phone] Thin prep Papanicolaou smear with manual screening 7 5-15 [facility] Work Phone: [phone] Laboratory - Microbiology an d Antimicrobial susceptibilityon 11-24-2021 SARS-CoV-2 (COVID-19) RNA MELISSA+probe Ql (Unsp spec) Not detected Not Detect [facility] Work Phone: [phone] Comment on above: Normal Reference Ran ge: Not DetectedMethod:(RT-PCR) real-time reverse transcriptase PCRLuminex NanoPotential Instrument*The Food and Drug Administration (FDA) has issued an Emergency Use Authorization (EAU) for the NanoPotential SARS-CoV-2 Assay for the rapid detection of the virus that causes COVID-19. This test has been validated, but the FDAs independent review of this validation is pending.*Negative results do not preclude infection and should not be used as the sole basis for treatment or patient management. Optimum specimen types and timing for peak viral levels during infections caused by SARS-CoV-2 have not been determined. Collection of multiple specimens from the same patient may be necessary to detect the virus. The possibility of a false negative result should be considered if the patient has clinical presentation or has had recent exposure. No Panel Informationon 11-24 Influenza Types A,B Direct FA (DIMITRIS) [facility] Work Phone: [phone] Absolute lymphocyte counton 10-23-2021 Lymphocytes Auto (Unsp spec) [#/Vol] 0.97 10*3/uL 0.83-4.51 [facility] Work Phone: [phone] Basophil percentageon 2021 Basophil percentage 0-5 SEEN /hpf [facility] Work Phone: [phone] Basophils/100 WBC (Bld) 0.2 % 0-1 [facility] Work Phone: [phone] Bilirubin [Mass/Vol] 1.30 mg/dL 0.20-1.00 [facility] Work Phone: [phone] Comment on above: For patients on eltr ombopag therapy, use of Dimension [place] TBIL is not recommended. Chloride [Moles/Vol] 104 mmol/L 98-107 [facility] Work Phone: Eosinophils/100 WBC (Bld) 0.0 % 0-5 [facility] Work Phone: Glucose [Mass/Vol] 136 mg/dL 74-106 [facility] Work Phone: Comment on above: Fasting Glucose resu lt greater than or equal to 126 mg/dL suggests DIABETES MELLITUS per A.D.A. criteria. Neutrophils (Bld) [#/Vol] 8.0 10*3/uL 2.0-7.7 [facility] Work Phone: Neutrophils/100 WBC (Bld) 82.6 % 47-70 [facility] Work Phone: Potassium [Moles/Vol] 3.8 mmol/L 3.5-5.1 [facility] Work Phone: Protein [Mass/Vol] 7.2 g/dL 6.4-8.2 [facility] Work Phone: Sodium [Moles/Vol] 136 mmol/L 136-145 [facility] Work Phone: WBC (Bld) [#/Vol] 9.7 10*3/uL 4.4-11.0 [facility] Work Phone: Bilirubin Test strip Ql (U)o n 10-23-2021 Bilirubin Ql (U) Negative Negative [facility] Work Phone: Blood erythrocytes count (nu mber/volume)on 10-23-2021 RBC (Bld) [#/Vol] 3.66 10*6/uL 4.2-5.4 [facility] Work Phone: Blood hemoglobin measurement (mass/volume)on 10-23-2021 Hemoglobin (Bld) [Mass/Vol] 12.1 g/dL 12.0-15.0 [facility] Work Phone: Blood lymphocytes/100 leukoc yteson 10-23-2021 Lymphocytes/100 WBC (Bld) 10.0 % 19-41 [facility] Work Phone: Blood monocytes/100 leukocyt eson 10-23-2021 Monocytes/100 WBC (Bld) 7.0 % 0-10 [facility] Work Phone: Blood platelet mean volumeon 10-23-2021 Platelet mean volume (Bld) [Entitic vol] 10.1 fL 6.2-12.0 [facility] Work Phone: Determination of erythrocyte mean corpuscular volume (MCV)on 10-23-2021 MCV (RBC) [Entitic vol] 100.0 fL 81-99 [facility] Work Phone: Hematocrit Auto (Bld) [Volum e fraction]on 10-23-2021 Hematocrit (Bld) [Volume fraction] 36.6 % 37-47 [facility] Work Phone: Ketones Test strip Ql (U)on 10-23-2021 Ketones Ql (U) Negative Negative [facility] Work Phone: Laboratory - Chemistry and C hemistry - challengeon 10-23-2021 ALP [Catalytic activity/Vol] 75 U/L 45-117 [facility] Work Phone: ALT [Catalytic activity/Vol] 31 U/L 13-56 [facility] Work Phone: CO2 [Moles/Vol] 27.0 mmol/L 21.0-32.0 [facility] Work Phone: [phone] Globulin (S) [Mass/Vol] 3.9 g/dL 2.2-4.2 [facility] Work Phone: Lipase [Catalytic activity/Vol] 36 U/L 73-393 [facility] Work Phone: Urea nitrogen/Creatinine [Mass ratio] 22.8 mg/mg 10-20 [facility] Work Phone: Laboratory - Hematology and Cell countson 10-23-2021 Erythrocyte distribution width (RBC) [Entitic vol] 50.4 fL 35.1-43.9 [facility] Work Phone: [phone] Erythrocyte distribution width (RBC) [Ratio] 13.7 % 11.6-14.6 [facility] Work Phone: [phone] Immature granulocytes/100 WBC (Bld) 0.200 % 0.0-0.9 [facility] Work Phone: [phone] Comment on above: IG% - Immature Granu locytes (promyelocytes, myelocytes and metamyelocytes) > 1% indicates that a LEFT SHIFT is Present. MCH (RBC) [Entitic mass] 33.1 pg 27.0-32.0 [facility] Work Phone: [phone] Nucleated RBC/100 WBC (Bld) [Ratio] 0 % 0-5 [facility] Work Phone: [phone] MCHC Auto (RBC) [Mass/Vol]on 10-23-2021 MCHC (RBC) [Mass/Vol] 33.1 g/dL 32-36 [facility] Work Phone: [phone] Mucus LM Ql (Urine sed)on Mucus Ql (Urine sed) 0 SEEN /hpf [facility] Work Phone: [phone] Nitrite Test strip Ql (U)on 10-23-2021 Nitrite Ql (U) Negative Negative [facility] Work Phone: No Panel Informationon 10-23 Estimated Creatinine Clearance Calc 42.56 ml/min [facility] Work Phone: [phone] Estimated GFR (MDRD) Amer 79 mL/min >60 [facility] Work Phone: [phone] Comment on above: GFR Calc Estimated GFR (MDRD) Non-Af Amer 66 mL/min >60 [facility] Work Phone: [phone] Comment on above: Non- GFR Calc Platelets bldon 10-23-2021 Platelets (Bld) [#/Vol] 274 10*3/uL 150-450 [facility] Work Phone: [phone] Protein Test strip Ql (U)on 10-23-2021 Protein Ql (U) Negative Negative [facility] Work Phone: [phone] Serum or plasma albumin elmer urement (mass/volume)on 10-23-2021 Albumin [Mass/Vol] 3.3 g/dL 3.2-5.0 [facility] Work Phone: [phone] Serum or plasma albumin/glob ulin mass ratioon 10-23-2021 Albumin/Globulin [Mass ratio] 0.8 {ratio} 0.9-2.4 [facility] Work Phone: [phone] Serum or plasma calcium elmer urement (mass/volume)on 10-23-2021 Calcium [Mass/Vol] 9.0 mg/dL 8.5-10.1 [facility] Work Phone: [phone] Serum or plasma creatinine m easurement (mass/volume)on 10-23-2021 Creatinine [Mass/Vol] 0.88 mg/dL 0.55-1.02 [facility] Work Phone: Comment on above: The validity of the calculated GFR & GFRAA in patients over 70 years has not been determined. Clinical correlation is essential. Serum or plasma urea nitroge n measurement (mass/volume)on 10-23-2021 Urea nitrogen [Mass/Vol] 20 mg/dL 7-18 [facility] Work Phone: [phone] Squamous epithelial cells de tection in urine sediment by light microscopyon 10-23-2021 Epithelial cells.squamous LM Ql (Urine sed) 0-5 SEEN /hpf [facility] Work Phone: [phone] Thin prep Papanicolaou smear with manual screeningon 10-23-2021 Thin prep Papanicolaou smear with manual screening 31 U/L 15-37 [facility] Work Phone: [phone] Thin prep Papanicolaou smear with manual screening 5 5-15 [facility] Work Phone: [phone] Urine blood detectionon 10-13 RBC Ql (U) Negative Negative [facility] Work Phone: [phone] RBC Ql (U) 0 SEEN /hpf [facility] Work Phone: Urine clarityon 10-23-2021 Clarity (U) Clear Clear [facility] Work Phone: Urine color determinationon 10-23-2021 Color (U) Yellow Yellow [facility] Work Phone: Urine glucose detectionon Glucose Ql (U) Normal mg/dl Normal [facility] Work Phone: Urine leukocyte esterase det ection by dipstickon 10-23-2021 Leukocyte esterase Test strip Ql (U) 500 /ul Negative [facility] Work Phone: [phone] Urine pHon 10-23-2021 pH (U) 6.0 [pH] [facility] Work Phone: Urine sediment bacteria coun t by microscopy (number/high power field)on 10-23-2021 Bacteria LM.HPF (Urine sed) [#/Area] 0 /[HPF] None Seen [facility] Work Phone: Urine specific gravity measu rementon 10-23-2021 Specific gravity (U) [Rel density] 1.010 [facility] Work Phone: Urobilinogen Auto test strip Ql (U)on 10-23-2021 Urobilinogen Ql (U) Normal mg/dl Normal [facility] Work Phone: Absolute lymphocyte counton 09-14-2021 Lymphocytes Auto (Unsp spec) [#/Vol] 1.58 10*3/uL 0.83-4.51 [facility] Work Phone: Basophil percentageon 2021 Basophils/100 WBC (Bld) 0.6 % 0-1 [facility] Work Phone: Bilirubin [Mass/Vol] 0.40 mg/dL 0.20-1.00 [facility] Work Phone: Comment on above: For patients on eltr ombopag therapy, use of Dimension [place] TBIL is not recommended. Chloride [Moles/Vol] 106 mmol/L 98-107 [facility] Work Phone: Eosinophils/100 WBC (Bld) 2.9 % 0-5 [facility] Work Phone: Glucose [Mass/Vol] 176 mg/dL 74-106 [facility] Work Phone: Comment on above: Fasting Glucose resu lt greater than or equal to 126 mg/dL suggests DIABETES MELLITUS per A.D.A. criteria. Neutrophils (Bld) [#/Vol] 4.0 10*3/uL 2.0-7.7 [facility] Work Phone: Neutrophils/100 WBC (Bld) 61.0 % 47-70 [facility] Work Phone: Potassium [Moles/Vol] 3.8 mmol/L 3.5-5.1 [facility] Work Phone: Protein [Mass/Vol] 7.5 g/dL 6.4-8.2 [facility] Work Phone: Sodium [Moles/Vol] 139 mmol/L 136-145 [facility] Work Phone: WBC (Bld) [#/Vol] 6.5 10*3/uL 4.4-11.0 [facility] Work Phone: Blood erythrocytes count (nu mber/volume)on 09-14-2021 RBC (Bld) [#/Vol] 3.52 10*6/uL 4.2-5.4 [facility] Work Phone: Blood hemoglobin measurement (mass/volume)on 09-14-2021 Hemoglobin (Bld) [Mass/Vol] 11.7 g/dL 12.0-15.0 [facility] Work Phone: Blood lymphocytes/100 leukoc yteson 09-14-2021 Lymphocytes/100 WBC (Bld) 24.2 % 19-41 [facility] Work Phone: Blood monocytes/100 leukocyt eson 09-14-2021 Monocytes/100 WBC (Bld) 11.0 % 0-10 [facility] Work Phone: Blood platelet mean volumeon 09-14-2021 Platelet mean volume (Bld) [Entitic vol] 10.5 fL 6.2-12.0 [facility] Work Phone: [phone] Determination of erythrocyte mean corpuscular volume (MCV)on 09-14-2021 MCV (RBC) [Entitic vol] 100.6 fL 81-99 [facility] Work Phone: [phone] Free thyroxine indexon 09-14 Free T4 index Calc [Mass/Vol] TNP [facility] Work Phone: [phone] Comment on above: Test not performed Hematocrit Auto (Bld) [Volum e fraction]on 09-14-2021 Hematocrit (Bld) [Volume fraction] 35.4 % 37-47 [facility] Work Phone: [phone] Laboratory - Chemistry and C hemistry - challengeon 09-14-2021 ALP [Catalytic activity/Vol] 108 U/L 45-117 [facility] Work Phone: [phone] ALT [Catalytic activity/Vol] 32 U/L 13-56 [facility] Work Phone: [phone] CO2 [Moles/Vol] 26.0 mmol/L 21.0-32.0 [facility] Work Phone: [phone] Free T4 [Mass/Vol] 1.34 ng/dL 0.76-1.46 [facility] Work Phone: [phone] Globulin (S) [Mass/Vol] 4.2 g/dL 2.2-4.2 [facility] Work Phone: [phone] Urea nitrogen/Creatinine [Mass ratio] 18.8 mg/mg 10-20 [facility] Work Phone: [phone] Laboratory - Hematology and Cell countson 09-14-2021 Erythrocyte distribution width (RBC) [Entitic vol] 49.1 fL 35.1-43.9 [facility] Work Phone: [phone] Erythrocyte distribution width (RBC) [Ratio] 13.5 % 11.6-14.6 [facility] Work Phone: [phone] Immature granulocytes/100 WBC (Bld) 0.300 % 0.0-0.9 [facility] Work Phone: Comment on above: IG% - Immature Granu locytes (promyelocytes, myelocytes and metamyelocytes) > 1% indicates that a LEFT SHIFT is Present. MCH (RBC) [Entitic mass] 33.2 pg 27.0-32.0 [facility] Work Phone: Nucleated RBC/100 WBC (Bld) [Ratio] 0 % 0-5 [facility] Work Phone: [phone] MCHC Auto (RBC) [Mass/Vol]on 09-14-2021 MCHC (RBC) [Mass/Vol] 33.1 g/dL 32-36 [facility] Work Phone: No Panel Informationon 09-14 Estimated GFR (MDRD) Amer 88 mL/min >60 [facility] Work Phone: Comment on above: GFR Calc Estimated GFR (MDRD) Non-Af Amer 73 mL/min >60 [facility] Work Phone: [phone] Comment on above: Non- GFR Calc Thyroid Stimulating Hormone (TSH) 0.29 uIU/mL 0.358-3.74 [facility] Work Phone: [phone] Vitamin D 25-Hydroxy 45.7 ng/mL [facility] Work Phone: Comment on above: Vitamin D 25(OH) Sta tus Range Deficiency <20 ng/mL (50nmol/L) Insufficiency 20 - 30 ng/mL (50 - 75 nmol/L) Sufficiency 30 - 100 ng/mL (75 - 250 nmol/L) Toxicity >100 ng/mL (>250 nmol/L) Platelets bldon 09-14-2021 Platelets (Bld) [#/Vol] 312 10*3/uL 150-450 [facility] Work Phone: [phone] Serum or plasma albumin elmer urement (mass/volume)on 09-14-2021 Albumin [Mass/Vol] 3.3 g/dL 3.2-5.0 [facility] Work Phone: [phone] Serum or plasma albumin/glob ulin mass ratioon 09-14-2021 Albumin/Globulin [Mass ratio] 0.8 {ratio} 0.9-2.4 [facility] Work Phone: [phone] Serum or plasma calcium elmer urement (mass/volume)on 09-14-2021 Calcium [Mass/Vol] 8.9 mg/dL 8.5-10.1 [facility] Work Phone: [phone] Serum or plasma creatinine m easurement (mass/volume)on 09-14-2021 Creatinine [Mass/Vol] 0.80 mg/dL 0.55-1.02 [facility] Work Phone: Comment on above: The validity of the calculated GFR & GFRAA in patients over 70 years has not been determined. Clinical correlation is essential. Serum or plasma urea nitroge n measurement (mass/volume)on 09-14-2021 Urea nitrogen [Mass/Vol] 15 mg/dL 7-18 [facility] Work Phone: [phone] T3 uptakeon 09-14-2021 T3RU 30 % 30-39 [facility] Work Phone: [phone] Thin prep Papanicolaou smear with manual screeningon 09-14-2021 Thin prep Papanicolaou smear with manual screening 38 U/L 15-37 [facility] Work Phone: [phone] Thin prep Papanicolaou smear with manual screening 7 5-15 [facility] Work Phone: Basophil percentageon 2021 Bilirubin [Mass/Vol] 0.90 mg/dL 0.20-1.00 [facility] Work Phone: [phone] Comment on above: For patients on eltr ombopag therapy, use of Dimension [place] TBIL is not recommended. Chloride [Moles/Vol] 103 mmol/L 98-107 [facility] Work Phone: [phone] Glucose [Mass/Vol] 133 mg/dL 74-106 [facility] Work Phone: [phone] Comment on above: Fasting Glucose resu lt greater than or equal to 126 mg/dL suggests DIABETES MELLITUS per A.D.A. criteria.Please note revised GLUCOSE reference range effective 2017. Potassium [Moles/Vol] 4.4 mmol/L 3.5-5.1 [facility] Work Phone: Protein [Mass/Vol] 7.4 g/dL 6.4-8.2 [facility] Work Phone: Sodium [Moles/Vol] 139 mmol/L 136-145 [facility] Work Phone: Laboratory - Chemistry and C hemistry - challengeon 08-20-2021 ALP [Catalytic activity/Vol] 70 U/L 45-117 [facility] Work Phone: ALT [Catalytic activity/Vol] 39 U/L 13-56 [facility] Work Phone: CO2 [Moles/Vol] 28.0 mmol/L 21.0-32.0 [facility] Work Phone: Globulin (S) [Mass/Vol] 4.1 g/dL 2.2-4.2 [facility] Work Phone: Urea nitrogen/Creatinine [Mass ratio] 18.8 mg/mg 10-20 [facility] Work Phone: No Panel Informationon 08-20 Estimated GFR (MDRD) Amer 96 mL/min >60 [facility] Work Phone: Comment on above: GFR Calc Estimated GFR (MDRD) Non-Af Amer 79 mL/min >60 [facility] Work Phone: Comment on above: Non- GFR Calc Vitamin D 25-Hydroxy 59.6 ng/mL [facility] Work Phone: Comment on above: Vitamin D 25(OH) Sta tus Range Deficiency <20 ng/mL (50nmol/L) Insufficiency 20 - 30 ng/mL (50 - 75 nmol/L) Sufficiency 30 - 100 ng/mL (75 - 250 nmol/L) Toxicity >100 ng/mL (>250 nmol/L) Serum or plasma albumin elmer urement (mass/volume)on 08-20-2021 Albumin [Mass/Vol] 3.3 g/dL 3.2-5.0 [facility] Work Phone: Serum or plasma albumin/glob ulin mass ratioon 08-20-2021 Albumin/Globulin [Mass ratio] 0.8 {ratio} 0.9-2.4 [facility] Work Phone: Serum or plasma calcium elmer urement (mass/volume)on 08-20-2021 Calcium [Mass/Vol] 9.7 mg/dL 8.5-10.1 [facility] Work Phone: Serum or plasma creatinine m easurement (mass/volume)on 08-20-2021 Creatinine [Mass/Vol] 0.74 mg/dL 0.55-1.02 [facility] Work Phone: Comment on above: The validity of the calculated GFR & GFRAA in patients over 70 years has not been determined. Clinical correlation is essential. Serum or plasma urea nitroge n measurement (mass/volume)on 08-20-2021 Urea nitrogen [Mass/Vol] 14 mg/dL 7-18 [facility] Work Phone: Thin prep Papanicolaou smear with manual screeningon 08-20-2021 Thin prep Papanicolaou smear with manual screening 49 U/L 15-37 [facility] Work Phone: Thin prep Papanicolaou smear with manual screening 8 5-15 [facility] Work Phone: [facility] Surgical Pathology Depar tmenton 08-04-2020 [facility] Surgical Pathology Department Name CINDI MESSER Pathologist: MAIKOL SHULTZ M.D. Date of Procedure: 08/04/2020 Date Received: 08/05/2020 Date Reported 08/13/2020 Submitting Physician: ROMULO MARTINEZ DO Location: [facility] Copy To/Referring/Attending: ZACH GODINEZ M.D. Other External # FINAL DIAGNOSIS A. ANTRUM STOMACH, BIOPSY: --CHRONIC GASTRITIS. NO HELICOBACTER PYLORI IDENTIFIED. B. DISTAL ESOPHAGUS, BIOPSY: --SQUAMOCOLUMNAR MUCOSA WITH REACTIVE CHANGES, SEE NOTE Note: No goblet cells identified. C. DUODENUM, BIOPSY: --SMALL INTESTINAL MUCOSA WITH NO SIGNIFICANT PATHOLOGICAL FINDINGS. Electronically Signed Out By MAIKOL SHULTZ M.D./LEXII By the signature on this report, the individual or group listed as making the Final Interpretation/Diagnosis certifies that they have reviewed this case. Clinical History: Physician Contact Number: [id number] Fixative (A): Formalin Fixative (B): Formalin Fixative (C): Formalin Clinical Diagnosis History gerd W/O ESOPHAGITIS, DYSPHAGIA, UNSPECIFIED Specimens Submitted As: A: ANTRUM BX B: DISTAL ESOPHAGUS BX C: DUODENUM BX Gross Description: A: Received in formalin, labeled with the patient's name and hospital number and antrum BX, are 2 fragments of chaudhari, soft tissue aggregating to 0.7 x 0.2 x 0.2 cm. The specimen is submitted in toto in one cassette. LMP B: Received in formalin, labeled with the patient's name and hospital number and distal esophagus BX, are 2 fragments of chaudhari, soft tissue aggregating to 0.5 x 0.2 x 0.2 cm. The specimen is submitted in toto in one cassette. LMP C: Received in formalin, labeled with the patient's name and hospital number and duodenum BX, are 2 fragments of chaudhari, soft tissue aggregating to 0.5 x 0.4 x 0.3 cm. The specimen is submitted in toto in one cassette. LMP lmp/08/06/2020 [facility] Department of Pathology [address] [place] [address] Normal [facility] Comment on above: Performed By: #### U [facility] #### [facility] Surgical Pathology Department [address] [place] [address] CORONAVIRUS 2019, SCREEN ASY MPTOMATICon 08-02-2020 CORONAVIRUS 2019,PCR NOT DETECTED Normal Not Detected [facility] Comment on above: Result Comment: . This assay is designed to detect the N, ORF1ab and/or S genes of SARS-CoV-2 via nucleic acid amplification. A Negative (NOT DETECTED) result does not preclude 2019-nCoV infection since the adequacy of sample collection and/or low viral burden may result in presence of viral nucleic acids below the clinical sensitivity of this test method. Negative (NOT DETECTED) result should not be used as the sole basis for treatment or other patient management decisions. Rather negative results should be combined with clinical observations, patient history, and epidemiological information to make patient management decisions. Fact sheet for providers: https://www.fda.gov/media/737625/download Fact sheet for patients: https://www.fda.gov/media/571033/download This test has received FDA Emergency Use Authorization (EUA) and has been verified by [facility] ([facility]). This test is only authorized for the duration of time that circumstances exist to justify the authorization of the emergency use of in vitro diagnostic tests for the detection of SARS-CoV-2 virus and/or diagnosis of COVID-19 infection under section 564(b)(1) of the Act, 21 U.S.C. 360bbb-3(b)(1), unless the authorization is terminated or revoked sooner. [facility] is certified under CLIA-88 as qualified to perform high complexity testing. Testing is performed in the [facility] laboratories located at [address] [place] [address]. Performed By: #### C [facility] #### [place] [address] Lab Specimen Source Nasal, Nasopharyngeal Normal [facility] Comment on above: Performed By: #### C [facility] #### [place] [address] Covid 19 Resultson 0 Covid 19 Results NEGATIVE COVID-[address] Coronaviruses are common world-wide and are the cause of many common colds. SARS-COV2 is a new coronavirus that began circulating worldwide in 2019 so we are calling it COVID-19. It has been estimated that four out of five patients with COVID-19 will recover at home without the need for medical attention. Symptoms of COVID-19 include cough, fever, shortness of breath, loss of taste or smell and other flu-like symptoms including chills, sore muscles, sore throat, and headache. Severe illness is more common in older people and people with other health problems such as high blood pressure, obesity, and immune system problems. If the test is positive, you have COVID-19. You will be contacted by the ordering physicians office and instructed to remain on home isolation, in accordance with CDC guidelines. You may also be contacted by the [facility] to see if any of your close contacts may have been exposed to the virus and need to quarantine. If the test is negative, you likely do not have COVID-19 at this time, but you still may have a different illness that can spread to other people (like Influenza, or the Flu) and could still be at risk for getting COVID-19. We recommend that you stay away from other people to limit the spread of illness until your symptoms are improving and you are fever-free for 24 hours without the use of fever lowering medications such as acetaminophen or ibuprofen. No test is 100% accurate so if you are still concerned you may have COVID-19, talk to your doctor about the need to continue to stay away from others. Medicines Acetaminophen (Tylenol and others) is generally safe. Anti-inflammatory medications, such as Ibuprofen (Advil or Motrin) or Naproxen (Aleve) can also be used. Chyt-ijb-zcptjvo cough and cold medicines can be used according to the instructions on the package. Some ijmb-tjc-lmndiha medicines also contain acetaminophen. Make sure you are not taking more than your recommended dose For those not hospitalized, there is no specific treatment available for this illness. Antibiotics do not treat Coronaviruses. Follow-Up Follow up with your doctor by scheduling a virtual visit or consider follow-up at one of our urgent care fever clinics. If you are having difficulty breathing, or are very weak and having difficulty standing, this is a medical emergency. Call 911 or have someone take you to the nearest emergency room immediately. If possible, wear a facemask. Additional guidance from the CDC for patients who tested POSITIVE for COVID-19 How to isolate: Isolate yourself in a specific room at home and limit your contact with others. Use a separate bathroom from other members of the household, when possible. Leave home only to get essential medical care. Do not go to work, school or public areas. Avoid using public transportation, ride-sharing, or taxis. Restrict contact with pets and other animals. If you must care for your pet or be around animals while you are sick, wash your hands before and after your interaction and wear a facemask. Make sure that shared spaces in the home have good airflow, such as by an air conditioner or an opened window, weather permitting. Personal Hygiene Procedures: Wear a face mask when in the same room as other people or pets. If a face mask interferes with your breathing, others should wear a mask when sharing space with you. Frequent hand-washing: wash your hands with soap and water for at least 20 seconds. If soap and water are not available, use alcohol-based hand enforcement officer. Avoid touching your eyes, nose, and mouth with unwashed hands. Household Hygiene Procedures: Avoid sharing personal household items such as dishes, glassware, cups, eating utensils, towels or bedding with other people or pets in your home. After use, these items should be washed with soap and hot water. Disinfect all high-touch surfaces every day with antibacterial cleaning solutions such as Lysol wipes, bleach, cleansers, etc. High-touch surfaces include tabletops, doorknobs, bathroom fixtures, toilets, phones, keyboards, tablets and bedside tables. Immediately clean any surfaces that may have blood, poop or body fluids on them, using antibacterial cleaning solutions such as Lysol wipes, bleach, cleansers, etc. If clothing or bedding come into contact with blood, poop or body fluids, they should be washed immediately. Follow the directions on the laundry detergent and clothing labels but hot water is recommended when possible. Stopping home isolation precautions: If possible, consult your doctor before stopping home isolation precautions. According to the CDC, you can discontinue home isolation precautions when you have met both of these criteria: Your fever and respiratory symptoms have been gone for 24 hours without the use of any medicines like ibuprofen (Motrin) and acetaminophen (Tylenol). It has been at least 10 days since your symptoms first appeared. If you are immunosuppressed OR you were admitted to the hospital for this, you should wait until it has been 14 days since your symptoms first appeared. Guidelines for Those Living With and/or Caring For Persons with COVID-19: Read and follow all the recommendations outlined in this handout. Do not permit visitors in the home unless there is an essential need. Wear a facemask when in the same room as the patient. Wear a facemask and gloves (disposable if available) when you touch or have contact with the patient's blood, poop, or body fluids including saliva, phlegm, nasal mucus, vomit or urine. Clean or throw away facemasks and gloves after use and wash your hands with soap and water. You will need to quarantine (stay away from others) for 14 days after your last contact with your family member with COVID-19. The person with COVID-19 is considered contagious 48 hours prior to symptoms beginning (or starting with the day of the positive test if they have no symptoms) for a total of 10 days. Additional resources: [facility] COVID Hotline at 3-101-4EIANSM ( ). COVID-19 Careline at (available 24 hours per day, seven days a week if you or a loved one is experiencing anxiety related to the coronavirus pandemic). Clinical research opportunities: is conducting research studies to develop better testing and treatments for COVID. Do you want any information on how to participate Call [phone]. Websites: hospitals.org or www.CDC.gov Follow My Health / My [facility] (for other test results): Revised 07/01/2020 Electronic Signatures: [employer], [employer] (ADMIN) (Signature pending) Authored Last Updated: 02-Aug-2020 18:09 by [employer]SCInno[employer] Softwarecaroline, PSCMSluke (ADMIN) [facility] ED NOTEon 07-02-2019 ED NOTE HNO ID: [id number] Author: Lavinia HernandezRn) KELI Moe Service: ? Author Type: Registered Nurse Type: ED Notes Filed: 07/01/2019 10:06 PM Note Text: Report to [facility] crew. Patient care transferred. Patient belonging to daughter. [facility] ALLIED HEALTHon 07-01-2019 ALLIED HEALTH HNO ID: [id number] Author: Dianelys Gentile) TEN Ortega Service: ? Author Type: Clinical Repair Servicer Type: Allied Health Filed: 07/01/2019 6:49 PM Note Text: Radiology Service Progress Note PATIENT NAME: Cindi Messer DATE OF SERVICE: July 01, 2019 TIME: 6:48 PM PATIENT IDENTITY VERIFICATION COMPLETED USING TWO (2) METHODS: Name and Date of confirmed by patient verbally. PATIENT GENDER DATA: Female. status: : No status: NO. PATIENT RELEVANT IMPLANT DATA REVIEWED: Not Applicable RADIOLOGY DEPARTMENT: General X-ray: Exam(s) Completed: Pelvis X-Ray: Pelvis with Hip Right PERIPHERAL IV DATA: Not applicable SIGNED BY: TEN Farr July 01, 2019 6:48 PM Normal [facility] APTTon 07-01-2019 aPTT Coag (Bld) [Time] 23.7 s Normal 23.0-32.4 [facility] Comment on above: Result Comment: Unfr actionated Heparin Therapeutic Ranges: Standard Heparin Nomogram: 53 to 78 seconds (anti-Xa level of 0.3 to 0.7 U/ml) Low Dose/ACS Nomogram: 49 to 67 seconds (anti-Xa level of 0.2 to 0.5 U/ml) Stroke Treatment Nomogram: 49 to 67 seconds (anti-Xa level of 0.2 to 0.5 U/ml) Note: The APTT therapeutic range has been determined for the current lot of laboratory APTT reagent in use throughout the [facility]. Performed By: #### C BCDIF, PT, PTT, BMP ####[facility] [address] [place] [phone] Basic Metabolic Panlon 07-01 Anion gap [Moles/Vol] 13 mmol/L Normal 9-18 [facility] Comment on above: Performed By: #### C BCDIF, PT, PTT, BMP ####[facility] T[address] Calcium [Mass/Vol] 9.3 mg/dL Normal 8.5-10.2 [facility] Comment on above: Performed By: #### C BCDIF, PT, PTT, BMP ####[facility] [address] Chloride [Moles/Vol] 96 mmol/L Low 97-105 [facility] Comment on above: Performed By: #### C BCDIF, PT, PTT, BMP ####[facility] [address] [place] [phone] CO2 [Moles/Vol] 26 mmol/L Normal 22-30 [facility] Comment on above: Performed By: #### C BCDIF, PT, PTT, BMP ####[facility] [address]7[address] Creatinine [Mass/Vol] 0.64 mg/dL Normal 0.58-0.96 [facility] Comment on above: Performed By: #### C BCDIF, PT, PTT, BMP ####[facility] [address]vp6524 [address]7[address] eGFR- Amer. >60 Normal [facility] Comment on above: Performed By: #### C BCDIF, PT, PTT, BMP ####[facility] [address] GFR/1.73 sq M predicted among non-blacks MDRD (S/P/Bld) [Vol rate/Area] mL/min/{1.73_m2} Normal [facility] Comment on above: Result Comment: eGFR (Estimated GFR) Units of measure: mL/min/1.73 meters squared eGFR is derived from the reexpressed MDRD Study equation using the following parameters: serum creatinine, age, gender and race. The creatinine assay has been calibrated to be traceable to IDMS. An eGFR <60 mL/min/1.73m2 for >3 months is consistent with chronic kidney disease. Refer to KDOQI guidelines for clinical interpretation. In patients with unstable renal function, e.g. those with acute kidney injury, the eGFR may not accurately reflect actual GFR. Performed By: #### C BCDIF, PT, PTT, BMP ####[facility] [address] Glucose [Mass/Vol] 158 mg/dL High 74-99 [facility] Comment on above: Result Comment: The [place] [employer] (ADA) provides guidance for cutoff values for fasting glucose and random glucose. The ADA defines fasting as no caloric intake for at least 8 hours. Fasting plasma glucose results between 100 to 125 mg/dL indicate increased risk for diabetes (prediabetes). Fasting plasma glucose results greater than or equal to 126 mg/dL meet the criteria for diagnosis of diabetes. In the absence of unequivocal hyperglycemia, results should be confirmed by repeat testing. In a patient with classic symptoms of hyperglycemia or hyperglycemic crisis, random plasma glucose results greater than or equal to 200 mg/dL meet the criteria for diagnosis of diabetes. Reference: Standards of Medical Care in Diabetes 2016, [place] [employer]. Diabetes Care. 2016.39(Suppl 1). Performed By: #### C BCDIF, PT, PTT, BMP ####[facility] [address] [place] [address] Potassium [Moles/Vol] 4.1 mmol/L Normal 3.7-5.1 [facility] Comment on above: Performed By: #### C BCDIF, PT, PTT, BMP ####[facility] [address] [place] [address] Sodium [Moles/Vol] 135 mmol/L Low 136-144 [facility] Comment on above: Performed By: #### C BCDIF, PT, PTT, BMP ####[facility] [address] [place] [address] Urea nitrogen [Mass/Vol] 14 mg/dL Normal 7-21 [facility] Comment on above: Performed By: #### C BCDIF, PT, PTT, BMP ####[facility] [address] [place] [address] CBC and Differentialon 07-01 Abs Baso 0.03 k/uL Normal <0.11 [facility] Comment on above: Performed By: #### C BCDIF, PT, PTT, BMP ####[facility] [address] [place] [address] Abs Garza 1.01 k/uL High <0.87 [facility] Comment on above: Performed By: #### C BCDIF, PT, PTT, BMP ####[facility] [address] [place] [address] Abs Neut 8.04 k/uL High 1.45-7.50 [facility] Comment on above: Performed By: #### C BCDIF, PT, PTT, BMP ####[facility] [address] [place] [address] Basophils/100 WBC (Bld) 0.3 % Normal [facility] Comment on above: Performed By: #### C BCDIF, PT, PTT, BMP ####[facility] [address] [place] [address] Eosinophils (Bld) [#/Vol] 0.11 10*3/uL Normal <0.46 [facility] Comment on above: Performed By: #### C BCDIF, PT, PTT, BMP ####[facility] [address] [place], [place] [id number] Eosinophils/100 WBC (Bld) 1.0 % Normal [facility] Comment on above: Performed By: #### C BCDIF, PT, PTT, BMP ####[facility] [address] [place] [address] Erythrocyte distribution width (RBC) [Ratio] 13.3 % Normal 11.5-15.0 [facility] Comment on above: Performed By: #### C BCDIF, PT, PTT, BMP ####[facility] [address] [place] [address] Hematocrit (Bld) [Volume fraction] 40.5 % Normal 36.0-46.0 [facility] Comment on above: Performed By: #### C BCDIF, PT, PTT, BMP ####[place] [address] Hemoglobin (Bld) [Mass/Vol] 13.5 g/dL Normal 11.5-15.5 [facility] Comment on above: Performed By: #### C BCDIF, PT, PTT, BMP ####[place] [address] Lymphocytes (Bld) [#/Vol] 1.47 10*3/uL Normal 1.00-4.00 [facility] Comment on above: Performed By: #### C BCDIF, PT, PTT, BMP ####[facility] [address] [place] [address] Lymphocytes/100 WBC (Bld) 13.8 % Normal [facility] Comment on above: Performed By: #### C BCDIF, PT, PTT, BMP ####[facility] [address] [place] [address] MCH (RBC) [Entitic mass] 32.4 pG Normal 26.0-34.0 [facility] Comment on above: Performed By: #### C BCDIF, PT, PTT, BMP ####[facility] [address] [place] [address] MCHC (RBC) [Mass/Vol] 33.3 g/dL Normal 30.5-36.0 [facility] Comment on above: Performed By: #### C BCDIF, PT, PTT, BMP ####[facility] [address] [place] [address] MCV (RBC) [Entitic vol] 97.1 fL Normal 80.0-100.0 [facility] Comment on above: Performed By: #### C BCDIF, PT, PTT, BMP ####[facility] [address] [place], [place] [id number] Monocytes/100 WBC (Bld) 9.5 % Normal [facility] Comment on above: Performed By: #### C BCDIF, PT, PTT, BMP ####[facility] [address] [place] [address] Neutrophils/100 WBC (Bld) 75.4 % Normal [facility] Comment on above: Performed By: #### C BCDIF, PT, PTT, BMP ####[facility] [address] [place] [address] Platelet mean volume (Bld) [Entitic vol] 10.1 fL Normal 9.0-12.7 [facility] Comment on above: Performed By: #### C BCDIF, PT, PTT, BMP ####[facility] [address] [place] [address] Platelets (Bld) [#/Vol] 298 10*3/uL Normal 150-400 [facility] Comment on above: Performed By: #### C BCDIF, PT, PTT, BMP ####[facility] [address] [place], [place] [id number] RBC (Bld) [#/Vol] 4.17 10*6/uL Normal 3.90-5.20 [facility] Comment on above: Performed By: #### C BCDIF, PT, PTT, BMP ####[facility] [address] [place], [place] [id number] WBC (Bld) [#/Vol] 10.66 10*3/uL Normal 3.70-11.00 [facility] Comment on above: Performed By: #### C BCDIF, PT, PTT, BMP ####[facility] [address] [place], [place] [address] ED NOTEon 07-01-2019 ED NOTE HNO ID: [id number] Author: Lavinia HernandezRn) Payal RN Service: ? Author Type: Registered Nurse Type: ED Notes Filed: 07/01/2019 9:16 PM Note Text: Call from [facility], KELI Sutherland for report on patient. [place] [facility] [place] 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 Face sheet faxed [place] [facility] [place] [facility] ED NOTE HNO ID: [id number] Author: Lavinia HernandezRn) KELI Moe Service: ? Author Type: Registered Nurse Type: ED Notes Filed: 07/01/2019 8:34 PM Note Text: Patient assisted up to bedside commode to void. Patient urinated approximately 200 ml clear yellow urine. [facility] ED NOTE HNO ID: [id number] Author: Danita HernandezRn) KELI Jefferson Service: Nursing Author Type: Registered Nurse Type: ED Notes Filed: 07/01/2019 6:35 PM Note Text: Pt to xray with tech via bed [facility] ED NOTE HNO ID: [id number] Author: Roxy HernandezRn) KELI Modi Service: ? Author Type: Registered Nurse Type: ED Notes Filed: 07/01/2019 5:32 PM Note Text: Pt to ED with back pain and right hip pain. Pt had fall last Tuesday and was diagnosed with L1 fracture. Pt then came to ED on Tuesday because of worsening pain, was offered admission but wanted to go home. Pt states pain is worsening, Vicodin makes her nauseas/vomit, and now her right hip is hurting. [facility] ED PROV NOTEon 07-01-2019 ED PROV NOTE HNO ID: [id number] Author: Tanner Leach Service: Emergency Medicine Author Type: Physician Type: ED Provider Notes Filed: 07/01/2019 9:45 PM Note Text: ED Provider Note Patient Name: Cindi Messer SERVICE DATE: 07/01/19 History Patient presents with: Back Pain HPI patient presents with continued worsening lower back pain due to a known L1 compression fracture from mechanical fall on Tuesday. Initially seen at [place] ED with findings. Reports did hit her head however no loss consciousness or any headache for being on any blood thinners. States found compression fracture sent home on [place]. Due to increasing pain was seen 2 days ago in the ED here at [facility], she is given morphine shots he states she had a repeat x-ray due to images not been able to be obtained. She states she is given additional prescription of [place] for which she has not filled and took her last dose of her first prescription at 1 PM. Pain worse with movement. Reports does have pain in her right hip. Reports no new injuries. Reports has been using her daughter's walker since the injury. Daughter is at home however reports others increased difficulty helping with her at home. No loss of bowel or bladder control. Reports no imaging 7 performed of the hip. States she is given follow-up with orthopedics on her discharge, however does refer to another physician in [place], Dr. Benz, however required a referral from her PCP. Reports had L4-L5 lumbar surgery 1983. Patient was given stool softeners moved her bowels at 4 AM this morning. PAST MEDICAL HISTORY Diagnosis Date - Cholecystitis glandularis proliferans - Chronic back pain - Chronic insomnia 01/05/2019 - Class 1 obesity due to excess calories without serious comorbidity with body mass index (BMI) of 33.0 to 33.9 in adult 09/27/2017 - Controlled type 2 diabetes mellitus without complication, without long-term current use of insulin (HCC) 11/01/2016 - Diabetic eye exam (HCC) 05/03/2017 Last done: 09/27/2018 - Elevated LFTs 11/06/2015 Hepatitis panel neg 07/25/2015 US; fatty liver - Fatty liver 11/06/2015 - Fracture 2 broken arms when child - Ganglion cyst of finger of left hand 10/09/2018 - GERD without esophagitis 11/06/2015 - Greater trochanteric bursitis, left 05/27/2017 Patient was only able to go to PHYSICAL THERAPY once and could not tolerate per PHYSICAL THERAPY update 06/22/2017 [employer] - Hypothyroidism (acquired) 11/06/2015 - Mixed hyperlipidemia 11/06/2015 - Neural foraminal stenosis of lumbar spine 05/05/2016 - 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 Luciano - Sciatica - Systolic murmur 11/21/2013 - Vertigo PAST SURGICAL HISTORY Procedure Laterality Date - AMPUTATION TOE,I-P JT Left 11/2016 Left send toe removed. - BACK SURGERY HX 1984 Lumbar - CAROTID ENDARTERECTOMY 01/04/2014 right side - COLONOSCOPY 2008 repeat 10 yrs - EXPLORATORY OF ABDOMEN >50 years back - FECAL OCCULT BLOOD TEST 06/02/2017 negative - HAND SURGERY HX Left 10/2018 - HYSTERECTOMY HX - LAP CHOLECYSTECT/CHOLANGIOGRA PHY 03/11/16 - ORTHOPEDICS SURGERY HX Rt.Knee- arthroscopy - PAST SURGICAL HISTORY OF 04/09/14 bilat carpal tunnel - PAST SURGICAL HISTORY OF lipoma excision - PAST SURGICAL HISTORY OF Left rotator cuff repair - TONSILLECTOMY HX FAMILY HISTORY Problem Relation Age of Onset - Hypertension Father - Alcohol/Drug Father alcohol - other (heart disease) Father - other (stroke, [place]) Brother - Hypertension Brother - Cancer Maternal Grandmother uterine - other (tuberculosis) Maternal Grandmother - Cancer Brother skin - Cancer Maternal Uncle gastric - other (Suicide) Son Social History Tobacco Use - Smoking status: Former Smoker Packs/day: 3.00 Years: 55.00 Pack years: 165.00 Types: Cigarettes Last attempt to quit: 09/27/2008 Years since quittin.7 - Smokeless tobacco: Never Used Substance and Sexual Activity - Alcohol use: No - Drug use: No - Sexual activity: Not Currently ALLERGIES Allergen Reactions - Sulfa (Sulfonamide * Anaphylaxis - Bee Sting Other: See Comments - Insect Venom Swelling Extreme swelling - Metformin Other: See Comments Elevated blood pressure, dizzy, lightheaded - Unudsvq-Djb-Zev Red* Other: See Comments Sever vertigo Review of Systems Constitutional: Negative for fever. HENT: Negative for sore throat. Respiratory: Negative for shortness of breath. Cardiovascular: Negative for chest pain. Gastrointestinal: Negative for abdominal pain, diarrhea, nausea and vomiting. Genitourinary: Negative for difficulty urinating. Musculoskeletal: Positive for arthralgias and back pain. All other systems reviewed and are negative. Physical Exam BP 163/76 Pulse 81 Temp (Src) 97.6 (Temporal) Resp 18 Ht 5' 4 (1.63m) Wt 210 lb (95.3kg) SpO2 95% BMI 36.03 kg/(m2). O2 Therapy: Room Air Physical Exam Vitals signs and nursing note reviewed. Constitutional: General: She is not in acute distress. Appearance: She is well-developed. HENT: Head: Normocephalic and atraumatic. Neck: Musculoskeletal: Normal range of motion and neck supple. Cardiovascular: Rate and Rhythm: Normal rate and regular rhythm. Pulmonary: Effort: Pulmonary effort is normal. Breath sounds: Normal breath sounds. Abdominal: General: Bowel sounds are normal. Palpations: Abdomen is soft. Tenderness: There is no tenderness. Musculoskeletal: Normal range of motion. Comments: Back, no step-offs, no ecchymosis. Straight leg test negative bilaterally. 1+ patellar reflex bilaterally. Negative logroll right lower extremity. No deformities of the hip. Pulses intact distally. Skin: General: Skin is warm and dry. Neurological: Mental Status: She is alert and oriented to person, place, and time. Psychiatric: Mood and Affect: Mood normal. Diagnostic Testing ED Labs Ordered and Reviewed - No data to display Procedures ED Course / Clinical Impression Clinical Impressions as of Jul 01 2136 Closed compression fracture of body of L1 vertebra (HCC) Intractable back pain patient vital stable review of imaging 2 days ago noted 80% compression fracture of L1. She's no cauda equina symptoms. Reports pain in her hip, we'll obtain imaging of the hip. Discussed with patient and family, pain is not tolerable at home, there is not enough help at home. Plan will be given labs admission for symptom control possible specialist evaluation for recommendations and plan for rehabilitation. Right hip x-ray negative. Labs are stable. Patient required 2 doses of morphine help with pain. This is her third visit in 4 days. Concern for intractable pain with her compression fracture. With her hip pain concerns for radicular symptoms. Initial spoke with hospitalist, Dr. Barreto for plan admission however reports there is no spine specialists for evaluation and recommended transferring to facility with specialist. I spoke with patient and family, they request going to [facility] due to being closer to home. She was initially diagnosed with the fracture therefore days ago. I spoke with specialist Dr. Benz, with findings on imaging studies and her intractable pain. He requests admission to hospitalist for plan MRI as an inpatient and he will be on for consult. She is on baby aspirin therapy she took her last dose this morning. I spoke with hospitalist Dr. Barrera who accepts for admission. MDM / Disposition / Plan Disposition The patient was transferred. Transferred to [facility]. Condition at disposition is stable. SIGNATURE: DO Tanner Chong 07/01/19 2145 Normal [facility] Protimeon 07-01-2019 PT Coag (PPP) [Time] 10.6 s Normal 9.7-13.0 [facility] Comment on above: Performed By: #### C BCDIF, PT, PTT, BMP ####[facility] [address] [place] [phone] PT Coag (PPP) [Time] 1.0 s Normal 0.9-1.3 [facility] Comment on above: Result Comment: Bonnie min K Antagonist (VKA) Therapeutic Range: INR 2 to 3 (Target INR of 2.5) Note: For patients treated with VKA drugs, such as warfarin, the [place] [employer] 2012 Guideline recommends a therapeutic INR range of 2 to 3 (target INR of 2.5). This recommendation includes high-risk patients with antiphospholipid syndrome with previous arterial or venous thromboembolism, current-generation mechanical or bioprosthetic aortic heart valve replacement. Note: Patients with mechanical aortic valve replacement and additional risk factors for thromboembolic events (atrial fibrillation, previous thromboembolism, LV dysfunction, hypercoagulable conditions) or an older generation mechanical AVR (i.e., ball in-Cage) or any mechanical MVR should have a INR therapeutic range of 2.5 to 3.5 (target INR of 3). Deneen SIMPSON, et al. Chest 2012, 141:7S-47S Max RA, et al. [employer] [facility] 2017, 70: 252-289 Performed By: #### C BCDIF, PT, PTT, BMP ####[facility] Rgdvphthmu8426 [phone] XR HIP 3V PELV+ AP/LAT RTon 07-01-2019 XR HIP 3V PELV+ AP/LAT RT * * *Final Report* * * DATE OF EXAM: Jul 01 2019 6:46PM MDX 5352 - XR HIP 3V PELV+ AP/LAT RT / PROCEDURE REASON: Hip trauma, fx suspected, initial exam * * * * Physician Interpretation * * * * PROCEDURE: Pelvis and right hip INDICATION: Hip trauma, fx suspected, initial exam.patient states fall 5 days ago pain in right hip TECHNIQUE: XR HIP 3V PELV+ AP/LAT RT COMPARISON: None FINDINGS: No fractures or dislocations are seen. The hip and sacroiliac joints are maintained. No soft tissue abnormality is evident. IMPRESSION: Negative. Business Continuity Director: PSCB Transcribe Date/Time: Jul 01 2019 6:50P Dictated by : MILVIA GROSSMAN MD This examination was interpreted and the report reviewed and electronically signed by: MILVIA GROSSMAN MD on Jul 01 2019 6:51PM EST [id number] [facility] ALLIED HEALTHon 06-29-2019 ALLIED HEALTH HNO ID: [id number] Author: Ethel Pereira (Rt) Service: ? Author Type: Repair Servicer Type: Allied Health Filed: 06/29/2019 4:10 PM Note Text: Radiology Service Progress Note PATIENT NAME: Cindi Messer DATE OF SERVICE: June 29, 2019 TIME: 4:09 PM PATIENT IDENTITY VERIFICATION COMPLETED USING TWO (2) METHODS: Name and Date of confirmed by patient verbally. PATIENT GENDER DATA: Female. status: : No status: NO. PATIENT RELEVANT IMPLANT DATA REVIEWED: Not Applicable RADIOLOGY DEPARTMENT: General X-ray: Exam(s) Completed: Spine X-Ray(s): Lumbar AP / LAT / L5-S1 PERIPHERAL IV DATA: Not applicable SIGNED BY: RT Kelli June 29, 2019 4:09 PM [facility] ED NOTEon 06-29-2019 ED NOTE HNO ID: [id number] Author: Angelina HernandezRn) KELI Mcelroy Service: ? Author Type: Registered Nurse Type: ED Notes Filed: 06/29/2019 4:43 PM Note Text: Discharged pt. with diagnosis of L1 fracture with routine healing. Pt. skin is warm, dry, and acyanotic. Respirations even and nonlabored. Discharge, paper Rx for phenergan, norco, lidocaine patch AND colace, and follow up instructions given. Pt. verbalized understanding of discharge instructions. Pt. stable. Pt. has no further questions and/or concerns at this time. Pt assisted to lobby via wheelchair. [facility] ED NOTE HNO ID: [id number] Author: Angelina (Rn) KELI Mcelroy Service: ? Author Type: Registered Nurse Type: ED Notes Filed: 06/29/2019 3:50 PM Note Text: Pt to XRAY [facility] ED NOTE HNO ID: [id number] Author: Angelina HernandezRn) KELI Mcelroy Service: ? Author Type: Registered Nurse Type: ED Notes Filed: 06/29/2019 3:58 PM Note Text: Assumed care of patient. Pt. comes to ED for back pain after fall Tuesday. Pt states she was seen in [place], diagnosed with compression fractures and prescribed pain meds without relief at home. Sensation BLE intact, movement limited d/t pain, 2+ pedal pulses present. Pt. is alert and oriented X 3. ABC's intact, respirations even and unlabored. Skin acyanotic, warm and dry.Denies CP/SOB, numbness/tingling, weak/dizzy, fever/chills, n/v/d. Will notify MD of any acute changes. Side rails up x2, bed in lowest locked position, call light within reach, ID, allergy, falls band on. [facility] ED NOTE HNO ID: [id number] Author: Vanita HernandezRn) KELI Marquez Service: ? Author Type: Registered Nurse Type: ED Notes Filed: 06/29/2019 3:15 PM Note Text: Patient fell on the ice on Tue. Fell hit her head on her car. Landed on her but and had sever lower back pain. She went to [facility] [place] and they told her she had compression fractures. She was given pain medication. Has been taking her medication but not helping. [facility] ED PROV NOTEon 06-29-2019 ED PROV NOTE HNO ID: [id number] Author: Ashley Allen Service: ? Author Type: Physician Type: ED Provider Notes Filed: 06/29/2019 5:01 PM Note Text: ED Provider Note Patient Name: Cindi Messer SERVICE DATE: 06/29/19 History Patient presents with: Fall Back Pain Patient presents for continued low back pain. Seen at [facility] 2 days ago and had imaging which showed a compression fracture of lumbar spine. No headache. She states she hit her head on the car but landed on her butt which caused her low back pain. She has had previous lumbar surgery. She was taking norco and is not having any relief of her symptoms. No new falls. She is here for continued back pain only. Denies numbness or tingling. No loss of bowel or bladder control. No headache, neck pain, vision changes. She is having a hard time getting around the house.. She holds on to furniture to get around due to the pain of walking. PAST MEDICAL HISTORY Diagnosis Date - Cholecystitis glandularis proliferans - Chronic back pain - Chronic insomnia 01/05/2019 - Class 1 obesity due to excess calories without serious comorbidity with body mass index (BMI) of 33.0 to 33.9 in adult 09/27/2017 - Controlled type 2 diabetes mellitus without complication, without long-term current use of insulin ([facility]) 11/01/2016 - Diabetic eye exam ([facility]) 05/03/2017 Last done: 09/27/2018 - Elevated LFTs 11/06/2015 Hepatitis panel neg 07/25/2015 US; fatty liver - Fatty liver 11/06/2015 - Fracture 2 broken arms when child - Ganglion cyst of finger of left hand 10/09/2018 - GERD without esophagitis 11/06/2015 - Greater trochanteric bursitis, left 05/27/2017 Patient was only able to go to PHYSICAL THERAPY once and could not tolerate per PHYSICAL THERAPY update 06/22/2017 [employer] - Hypothyroidism (acquired) 11/06/2015 - Mixed hyperlipidemia 11/06/2015 - Neural foraminal stenosis of lumbar spine 05/05/2016 - 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 Luciano - Sciatica - Systolic murmur 11/21/2013 - Vertigo PAST SURGICAL HISTORY Procedure Laterality Date - AMPUTATION TOE,I-P JT Left 11/2016 Left send toe removed. - BACK SURGERY HX 1984 Lumbar - CAROTID ENDARTERECTOMY 01/04/2014 right side - COLONOSCOPY 2007 repeat 10 yrs - EXPLORATORY OF ABDOMEN >50 years back - FECAL OCCULT BLOOD TEST 06/02/2017 negative - HAND SURGERY HX Left 10/2018 - HYSTERECTOMY HX - LAP CHOLECYSTECT/CHOLANGIOGRA PHY 03/11/16 - ORTHOPEDICS SURGERY HX Rt.Knee- arthroscopy - PAST SURGICAL HISTORY OF 04/09/14 bilat carpal tunnel - PAST SURGICAL HISTORY OF lipoma excision - PAST SURGICAL HISTORY OF Left rotator cuff repair - TONSILLECTOMY HX FAMILY HISTORY Problem Relation Age of Onset - Hypertension Father - Alcohol/Drug Father alcohol - other (heart disease) Father - other (stroke, [place]) Brother - Hypertension Brother - Cancer Maternal Grandmother uterine - other (tuberculosis) Maternal Grandmother - Cancer Brother skin - Cancer Maternal Uncle gastric - other (Suicide) Son Social History Tobacco Use - Smoking status: Former Smoker Packs/day: 3.00 Years: 55.00 Pack years: 165.00 Types: Cigarettes Last attempt to quit: 09/27/2008 Years since quittin.7 - Smokeless tobacco: Never Used Substance and Sexual Activity - Alcohol use: No - Drug use: No - Sexual activity: Not Currently ALLERGIES Allergen Reactions - Sulfa (Sulfonamide * Anaphylaxis - Bee Sting Other: See Comments - Insect Venom Swelling Extreme swelling - Metformin Other: See Comments Elevated blood pressure, dizzy, lightheaded - Ofwxugk-Tns-Jaj Red* Other: See Comments Sever vertigo Review of Systems Constitutional: Negative for chills, fatigue and fever. Eyes: Negative for photophobia and visual disturbance. Respiratory: Negative for shortness of breath. Cardiovascular: Negative for chest pain. Gastrointestinal: Negative for nausea and vomiting. Genitourinary: Negative for dysuria, flank pain, frequency, hematuria and urgency. Musculoskeletal: Positive for back pain. Negative for gait problem, neck pain and neck stiffness. Skin: Negative for color change, pallor and rash. Neurological: Negative for dizziness, tremors, syncope, weakness, light-headedness, numbness and headaches. All other systems reviewed and are negative. Physical Exam BP 111/96 Pulse 74 Temp (Src) 98.3 (Oral) Resp 16 Wt 210 lb (95.3kg) SpO2 95% Physical Exam Vitals signs and nursing note reviewed. Constitutional: General: She is not in acute distress. Appearance: Normal appearance. She is well-developed. She is not ill-appearing, toxic-appearing or diaphoretic. HENT: Head: Normocephalic and atraumatic. Eyes: Conjunctiva/sclera: Conjunctivae normal. Pupils: Pupils are equal, round, and reactive to light. Neck: Musculoskeletal: Full passive range of motion without pain, normal range of motion and neck supple. Normal range of motion. No edema, erythema, neck rigidity, spinous process tenderness or muscular tenderness. Cardiovascular: Rate and Rhythm: Normal rate and regular rhythm. Pulmonary: Effort: Pulmonary effort is normal. Breath sounds: Normal breath sounds. Musculoskeletal: Normal range of motion. Right shoulder: Normal. Left shoulder: Normal. Right elbow: Normal. Left elbow: Normal. Right wrist: Normal. Left wrist: Normal. Right hip: Normal. Left hip: Normal. Right knee: Normal. Left knee: Normal. Right ankle: Normal. Left ankle: Normal. Cervical back: Normal. Thoracic back: Normal. Lumbar back: She exhibits bony tenderness. She exhibits normal range of motion, no tenderness, no swelling, no edema, no deformity, no laceration, no pain, no spasm and normal pulse. Right hand: Normal. Left hand: Normal. Right foot: Normal. Comments: No crepitus or overlying skin changes. Skin: General: Skin is warm and dry. Capillary Refill: Capillary refill takes less than 2 seconds. Coloration: Skin is not pale. Findings: No erythema or rash. Neurological: General: No focal deficit present. Mental Status: She is alert and oriented to person, place, and time. She is not disoriented. GCS: GCS eye subscore is 4. GCS verbal subscore is 5. GCS motor subscore is 6. Cranial Nerves: Cranial nerves are intact. No cranial nerve deficit. Sensory: Sensation is intact. No sensory deficit. Motor: Motor function is intact. No weakness or abnormal muscle tone. Coordination: Coordination normal. Gait: Gait normal. Deep Tendon Reflexes: Reflexes are normal and symmetric. Reflexes normal. Psychiatric: Behavior: Behavior normal. Diagnostic Testing ED Labs Ordered and Reviewed - No data to display Procedures ED Course / Clinical Impression Clinical Impressions as of Jun 29 1643 Compression fracture of L1 vertebra with routine healing, subsequent encounter MDM / Disposition / Plan Patient evaluated for continued low back pain after a mechanical fall two days ago. Xray obtained as I cannot see results form [facility]. It shows an L1 compression fracture. No neurological findings. No concern for cauda equina or spinal abscess. Analgesia provided. Pain was improved. I did offer admission for pain control as this is a repeat visit but patient declined and preferred to be discharged. She is able to ambulate and states she does have a walker at home to use if she needs it. Almost out of her pain medication from [facility]. Another 3 days of norco provided. Also given lidoderm patches, promethizine as she states she needs that to keep the pain medication down and colace to help prevent constipation. No further imaging indicated at this time as there are no neurological findings. I feel she is stable for outpatient follow up. Already given referrals for follow up. Given signs and symptoms of when to return to the ED. Disposition The patient was discharged. Counseled patient and family regarding suspected diagnosis and radiology results. As well as the need for follow-up. Discharged home with verbal and written instructions. They were instructed to return as needed for persistent or worsening symptoms or any new concerns. Condition at disposition is stable. SIGNATURE: DO Ashley Marquez 06/29/19 1701 [facility] XR LUMBAR 3V AP/LAT/L5-S1on 06-29-2019 XR LUMBAR 3V AP/LAT/L5-S1 * * *Final Report* * * DATE OF EXAM: Jun 29 2019 4:08PM MDX 5228 - XR LUMBAR 3V AP/LAT/L5-S1 / PROCEDURE REASON: Back pain, minor trauma * * * * Physician Interpretation * * * * Lumbar spine radiographs HISTORY: 79 years old Clinical information: Back pain, minor trauma PT FELL TECHNIQUE: Images: XR LUMBAR 3V AP/LAT/L5-S1 Comparison: 03/26/2016. RESULT: Findings: For the purposes of this dictation the iliac crests are at the L4-5 level. Diffuse osteopenia. Compression fracture of the L1 vertebral body with approximately 80% loss of height. This is new when compared to the prior MRI from 2016. Narrowing of the L4-5 and L5-S1 intervertebral disc spaces. Endplate osteophytes at multiple levels in lumbar spine. 2 chondral sclerosis adjacent to the SI joints. Osteophyte formation involving the superior acetabulum. Imaged bowel gas pattern is nonobstructed. Gas is seen in the colon. Fecal residue in the colon. Vascular calcifications. IMPRESSION: Compression fracture of L1 which is new compared to the 2016 exam. Spondylosis of the lumbar spine. Osteopenia. Business Continuity Director: K[place] Transcribe Date/Time: Jun 29 2019 4:12P Dictated by : PHILIP GRAF MD This examination was interpreted and the report reviewed and electronically signed by: PHILIP GRAF MD on Jun 29 2019 4:14PM EST [id number] [facility] Lab Miscellaneouson 04-17-20 19 Status See Ref Lab Report [facility] Comment on above: Performed By: #### 1 [id number] #### JASON [employer] [address] [place] [address] Status See Ref Lab Report [facility] Comment on above: Performed By: #### 1 [id number] #### JASON [employer] [address] [place] [address] Status See Ref Lab Report [facility] Comment on above: Performed By: #### 1 [id number] #### JASON [employer] [address] [place] [address] Lab [facility] [place] [place] 04-12-20 19 Test Name allergy testing [facility] Comment on above: Performed By: #### 1 [id number] #### JASON [employer] [address] [place] [address] Test Name allergy testing [facility] Comment on above: Performed By: #### 1 [id number] #### JASON [employer] [address] [place] [address] CNTHERAPYon 01-02-2019 CNTHERAPY OT/PT/Speech Visit ([facility]) ----- CINDI MESSER ([id number]) 1940 F Date Time Provider Department 01/02/19 10:15 AM BREANNE FORD (OT) [facility] Date Time Provider Department Center 01/02/2019 10:15 AM [id number] FORD *[facility] Reason for Visit: OT Discharge [750] Primary Visit Diagnosis:Left hand pain [M79.642] Other Visit Diagnosis:Pain of left thumb [M79.645] Allergies As of Date: 01/02/2019 Noted Allergy Reaction SULFA (SULFONAMIDE ANTIBIOTICS) 11/17/2013 10 - Anaphylaxis BEE STING 11/17/2013 14 - Other: See Comments INSECT VENOM 07/26/2016 7 - Swelling Comments: Extreme swelling METFORMIN 02/09/2017 14 - Other: See Comments Comments: Elevated blood pressure, dizzy, lightheaded [id number] REDUCTASE INHIBIT*01/24/2017 14 - Other: See Comments Comments: Sever vertigo Date Reviewed: 12/28/2018 Reviewed by: Brian Guzman - Fully Assessed Prescriptions as of 01/02/2019 Sig: PROMETHAZINE 25 MG TABLET Take 1 tablet by mouth every * PANTOPRAZOLE 40 MG TABLET,DEL* Take 1 tablet by mouth once d* LEVOTHYROXINE 100 MCG TABLET Take 1 tablet by mouth daily * ACETAMINOPHEN 300 MG-CODEINE * Take 1 tablet by mouth every * METRONIDAZOLE 1 % TOPICAL GEL Apply 1 application to affect* Patient not taking: Reported on 10/27/2018 ASPIRIN 81 MG TABLET,DELAYED * Take 1 tablet by mouth once d* OMEGA-3 FISH OIL ORAL Take 2,400 mg by mouth once d* BLOOD SUGAR DIAGNOSTIC STRIPS Test blood sugar(s) 1 times d* LANCETS 33 GAUGE Test blood sugar(s) 1 daily. * MULTIVITAMIN CAPSULE Take 1 capsule by mouth once * Progress Notes: TRACY Alexander 01/02/2019 4:11 PM Signed Episode Visit Count: 3 Therapist That Will Oversee The Plan Of Care: Breanne Ford Start of Care Date: 12/05/18 Onset Date: 11/08/18 Plan of Care Certification Date: 12/05/18 Patient Identified by Name and Date of : Yes REHABILITATION AND SPORTS THERAPY OCCUPATIONAL THERAPY DISCONTINUANCE OF CARE PLAN OF CARE UPDATE: Assessment: Cindi Messer is discontinued from Occupational Therapy services due to goal achievement and maximal benefit.. Patient was seen for 3 visits from Start of Care Date: 12/05/18 to 01/02/2019 and treatment included: Therapeutic exercise, Manual therapy, Self-senior living management, Modalities and Custom orthosis fabrication. Patient will report a good understanding of diagnosis and OT recommendations for progression of program MET 01/02 Patient will demonstrate independence with ongoing home exercise program MET 01/02 Patient will increase AROM of left thumb and wrist to WFL in order to be able to perform manager urology and prehension tasks. MET 01/02 Patient will report a good understanding of edema control techniques MET 01/02 Patient will report a good understanding of the use of modalities to help manage discomfort and promote healing MET 01/02Patient will independently demonstrate scar massage/management in order to decrease scar adherence by discharge MET 01/02 Pt will have functional manager urology and pinch strength in order to resume previous level of independence in ADL MET 01/02 PLAN FOR NEXT VISIT: discharge SUBJECTIVE: Pt reporting no difficulty with ADL IADL Pain: Pain Pain Level: 0 OBJECTIVE MEASURES WITH LEVEL OF FUNCTION: Hand Evaluation Elbow/Wrist AROM: Limitations as noted Limitations as noted: Left Hand AROM: WNL Thumb AROM: Limitations as noted Limitations as noted: Left L Home Service Director Position 2 (lbs): 20 lbs L Lateral Pinch (lbs): 4 lbs L Tripod Pinch (lbs): 3 lbs L Tip Pinch (lbs): 2 lbs Hand AROM L Thumb MP Flexion : 50 Degrees L Thumb IP Flexion : 35 Degrees L Thumb Radial Abduction: 75 Degrees L Thumb Palmar Abduction: 65 Degrees UE AROM L Wrist Extension: 50 Degrees L Wrist Flexion: 60 Degrees L Wrist Radial Deviation: 30 Degrees L Wrist Ulnar Deviation: 35 Degrees UE and Cervical Strength L Lateral Pinch (lbs): 4 lbs L Tip Pinch (lbs): 2 lbs TREATMENT: Therapeutic Exercise: 1: wrist flex/ext deviation and circumduction 2: thumb flex ext opposition radial abd palmar abduction 3: with soft putty manager urology digit ext roll digit flex tripod pinch lat pinch thub adduction 4: with 1# weight Skilled Intervention: Patient was educated in proper exercise technique and purpose for exercises. Skilled judgment was provided in selection of appropriate interventions. Modalities: Fluidotherapy Body Region Treated - Fluidotherapy: left hand Patient Position: seated Temperature: 105 Minute(s): 10 See flowsheet for details regarding treatment. Skilled Intervention: Proper administration and selection of modality based on clinical presentation, deficits, and needs. Patient response monitored throughout treatment. Billing: [facility]: Therapeutic Exercise (13419): 1:1 time:30 minutes (2 units: 23-37 mins) Fluidotherapy (34679) 1 unit(s) Total time: 45 minutes Breanne Ford OT/[facility] ----- Annotated image of OT HAND THERAPUTTY EXERCISES PG 1 last updated by Breanne Ford on 01/02/2019 10:39 AM Annotated image of OT HAND THERAPUTTY EXERCISES PG 2 last updated by Breanne Ford on 01/02/2019 10:39 AM Annotated image of OT HAND WRIST STRENGTHENING last updated by Breanne Ford on 01/02/2019 10:39 AM [facility] PROGRESSon 01-02-2019 PROGRESS HNO ID: [id number] Author: Breanne Ford Service: ? Author Type: Occupational Therapist Type: Progress Notes Filed: 01/02/2019 4:11 PM Note Text: Episode Visit Count: 3 Therapist That Will Oversee The Plan Of Care: Breanne Ford Start of Care Date: 12/05/18 Onset Date: 11/08/18 Plan of Care Certification Date: 12/05/18 Patient Identified by Name and Date of : Yes REHABILITATION AND SPORTS THERAPY OCCUPATIONAL THERAPY DISCONTINUANCE OF CARE PLAN OF CARE UPDATE: Assessment: Cindi Messer is discontinued from Occupational Therapy services due to goal achievement and maximal benefit.. Patient was seen for 3 visits from Start of Care Date: 12/05/18 to 01/02/2019 and treatment included: Therapeutic exercise, Manual therapy, Self-senior living management, Modalities and Custom orthosis fabrication. Patient will report a good understanding of diagnosis and OT recommendations for progression of program MET 01/02 Patient will demonstrate independence with ongoing home exercise program MET 01/02 Patient will increase AROM of left thumb and wrist to WFL in order to be able to perform manager urology and prehension tasks. MET 01/02 Patient will report a good understanding of edema control techniques MET 01/02 Patient will report a good understanding of the use of modalities to help manage discomfort and promote healing MET 01/02Patient will independently demonstrate scar massage/management in order to decrease scar adherence by discharge MET 01/02 Pt will have functional manager urology and pinch strength in order to resume previous level of independence in ADL MET 01/02 PLAN FOR NEXT VISIT: discharge SUBJECTIVE: Pt reporting no difficulty with ADL IADL Pain: Pain Pain Level: 0 OBJECTIVE MEASURES WITH LEVEL OF FUNCTION: Hand Evaluation Elbow/Wrist AROM: Limitations as noted Limitations as noted: Left Hand AROM: WNL Thumb AROM: Limitations as noted Limitations as noted: Left L Home Service Director Position 2 (lbs): 20 lbs L Lateral Pinch (lbs): 4 lbs L Tripod Pinch (lbs): 3 lbs L Tip Pinch (lbs): 2 lbs Hand AROM L Thumb MP Flexion : 50 Degrees L Thumb IP Flexion : 35 Degrees L Thumb Radial Abduction: 75 Degrees L Thumb Palmar Abduction: 65 Degrees UE AROM L Wrist Extension: 50 Degrees L Wrist Flexion: 60 Degrees L Wrist Radial Deviation: 30 Degrees L Wrist Ulnar Deviation: 35 Degrees UE and Cervical Strength L Lateral Pinch (lbs): 4 lbs L Tip Pinch (lbs): 2 lbs TREATMENT: Therapeutic Exercise: 1: wrist flex/ext deviation and circumduction 2: thumb flex ext opposition radial abd palmar abduction 3: with soft putty manager urology digit ext roll digit flex tripod pinch lat pinch thub adduction 4: with 1# weight Skilled Intervention: Patient was educated in proper exercise technique and purpose for exercises. Skilled judgment was provided in selection of appropriate interventions. Modalities: Fluidotherapy Body Region Treated - Fluidotherapy: left hand Patient Position: seated Temperature: 105 Minute(s): 10 See flowsheet for details regarding treatment. Skilled Intervention: Proper administration and selection of modality based on clinical presentation, deficits, and needs. Patient response monitored throughout treatment. Billing: [facility]: Therapeutic Exercise ([id number]): 1:1 time:30 minutes (2 units: 23-37 mins) Fluidotherapy (56554) 1 unit(s) Total time: 45 minutes Breanne Ford OT/[facility] CNTHERAPYon 12-19-2018 CNTHERAPY [facility] ----- AYDECINDI ([id number]) 1940 F Date Time Provider Department 12/19/18 10:15 AM BREANNE FORD (OT) [facility] Date Time Provider Department Center 12/19/2018 10:15 AM [id number] FORD [facility] Reason for Visit: Occupational Therapy [504] Primary Visit Diagnosis:Left hand pain [M79.642] Other Visit Diagnoses:Pain of left thumb [M79.645] Primary osteoarthritis of first carpometacarpal joint of left hand [M18.12] Allergies As of Date: 12/19/2018 Noted Allergy Reaction SULFA (SULFONAMIDE ANTIBIOTICS) 11/17/2013 10 - Anaphylaxis BEE STING 11/17/2013 14 - Other: See Comments INSECT VENOM 07/26/2016 7 - Swelling Comments: Extreme swelling METFORMIN 02/09/2017 14 - Other: See Comments Comments: Elevated blood pressure, dizzy, lightheaded [id number] REDUCTASE INHIBIT*01/24/2017 14 - Other: See Comments Comments: Sever vertigo Date Reviewed: 12/05/2018 Reviewed by: Eneida Andujar (Pa) - Fully Assessed Prescriptions as of 12/19/2018 Sig: PROMETHAZINE 25 MG TABLET Take 1 tablet by mouth every * PANTOPRAZOLE 40 MG TABLET,DEL* Take 1 tablet by mouth once d* LEVOTHYROXINE 100 MCG TABLET Take 1 tablet by mouth daily * ACETAMINOPHEN 300 MG-CODEINE * Take 1 tablet by mouth every * METRONIDAZOLE 1 % TOPICAL GEL Apply 1 application to affect* Patient not taking: Reported on 10/27/2018 ASPIRIN 81 MG TABLET,DELAYED * Take 1 tablet by mouth once d* OMEGA-3 FISH OIL ORAL Take 2,400 mg by mouth once d* BLOOD SUGAR DIAGNOSTIC STRIPS Test blood sugar(s) 1 times d* LANCETS 33 GAUGE Test blood sugar(s) 1 daily. * MULTIVITAMIN CAPSULE Take 1 capsule by mouth once * Progress Notes: Braenne Ford, OT/L 12/19/2018 10:57 AM Signed Episode Visit Count: 2 Therapist That Will Oversee The Plan Of Care: Breanne Ford Start of Care Date: 12/05/18 Onset Date: 11/08/18 Plan of Care Certification Date: 12/05/18 Patient Identified by Name and Date of : Yes REHABILITATION AND SPORTS THERAPY OCCUPATIONAL THERAPY TREATMENT NOTE ASSESSMENT: Cindi Messer demonstrated difficulty with strength AROM improved. The patient will continue to benefit from continued skilled occupational therapy for exercises modalities education PLAN FOR NEXT VISIT: soft putty and weight exercises SUBJECTIVE: s/p CMC arthroplasty with pinning excision ganglion cyst 6 week post Reports she has hardly been wearing brace using hand Pain: Pain Pain Level: 1 Pain Location: Wrist - Left;Thumb - Left Description: Sore Frequency: Intermittent OBJECTIVE MEASURES WITH LEVEL OF FUNCTION: Hand Evaluation Strength: Dynamometer / Home Service Director;Pinch Meter L Home Service Director Position 2 (lbs): 7 lbs L Lateral Pinch (lbs): 4 lbs L Tripod Pinch (lbs): 2 lbs L Tip Pinch (lbs): 2 lbs Hand AROM L Thumb MP Flexion : 40 Degrees L Thumb IP Flexion : 35 Degrees L Thumb Radial Abduction: 75 Degrees L Thumb Palmar Abduction: 65 Degrees UE AROM L Wrist Extension: 50 Degrees L Wrist Flexion: 50 Degrees UE and Cervical Strength L Lateral Pinch (lbs): 4 lbs L Tip Pinch (lbs): 2 lbs TREATMENT: Therapeutic Exercise: 1: wrist flex/ext deviation and circumduction 2: thumb flex ext opposition radial abd palmar abduction 3: med soft sponge manager urology manipulate and pickup driver 4: educated to use splint hand based she has for tasks involving a lot of thumb use 5: scar massage Skilled Intervention: Patient was educated in proper exercise technique and purpose for exercises. Skilled judgment was provided in selection of appropriate interventions. Modalities: Fluidotherapy Body Region Treated - Fluidotherapy: left hand Patient Position: seated Temperature: 105 Minute(s): 10 See flowsheet for details regarding treatment. Skilled Intervention: Proper administration and selection of modality based on clinical presentation, deficits, and needs. Patient response monitored throughout treatment. ing: Kay: Therapeutic Exercise ([id number]): 1:1 time:30 minutes (2 units: 23-37 mins) Fluidotherapy (12530) 1 unit(s) Total time: 40 minutes Breanne Ford OT/[facility] ----- [facility] PROGRESSon 12-19-2018 PROGRESS HNO ID: [id number] Author: Breanne Ford Service: ? Author Type: Occupational Therapist Type: Progress Notes Filed: 12/19/2018 10:57 AM Note Text: Episode Visit Count: 2 Therapist That Will Oversee The Plan Of Care: Breanne Ford Start of Care Date: 12/05/18 Onset Date: 11/08/18 Plan of Care Certification Date: 12/05/18 Patient Identified by Name and Date of : Yes REHABILITATION AND SPORTS THERAPY OCCUPATIONAL THERAPY TREATMENT NOTE ASSESSMENT: Cindi Caceres Ayde demonstrated difficulty with strength AROM improved. The patient will continue to benefit from continued skilled occupational therapy for exercises modalities education PLAN FOR NEXT VISIT: soft putty and weight exercises SUBJECTIVE: s/p CMC arthroplasty with pinning excision ganglion cyst 6 week post Reports she has hardly been wearing brace using hand Pain: Pain Pain Level: 1 Pain Location: Wrist - Left;Thumb - Left Description: Sore Frequency: Intermittent OBJECTIVE MEASURES WITH LEVEL OF FUNCTION: Hand Evaluation Strength: Dynamometer / Home Service Director;Pinch Meter L Home Service Director Position 2 (lbs): 7 lbs L Lateral Pinch (lbs): 4 lbs L Tripod Pinch (lbs): 2 lbs L Tip Pinch (lbs): 2 lbs Hand AROM L Thumb MP Flexion : 40 Degrees L Thumb IP Flexion : 35 Degrees L Thumb Radial Abduction: 75 Degrees L Thumb Palmar Abduction: 65 Degrees UE AROM L Wrist Extension: 50 Degrees L Wrist Flexion: 50 Degrees UE and Cervical Strength L Lateral Pinch (lbs): 4 lbs L Tip Pinch (lbs): 2 lbs TREATMENT: Therapeutic Exercise: 1: wrist flex/ext deviation and circumduction 2: thumb flex ext opposition radial abd palmar abduction 3: med soft sponge manager urology manipulate and pickup driver 4: educated to use splint hand based she has for tasks involving a lot of thumb use 5: scar massage Skilled Intervention: Patient was educated in proper exercise technique and purpose for exercises. Skilled judgment was provided in selection of appropriate interventions. Modalities: Fluidotherapy Body Region Treated - Fluidotherapy: left hand Patient Position: seated Temperature: 105 Minute(s): 10 See flowsheet for details regarding treatment. Skilled Intervention: Proper administration and selection of modality based on clinical presentation, deficits, and needs. Patient response monitored throughout treatment. Billing: [place]: Therapeutic Exercise ([id number]): 1:1 time:30 minutes (2 units: 23-37 mins) Fluidotherapy (40784) 1 unit(s) Total time: 40 minutes Breanne Ford OT/[facility] CNTHERAPYon 12-05-2018 CNTHERAPY OT/PT/Speech Visit ([facility]) ----- CINDI MESSER ([id number]) 1940 F Date Time Provider Department 12/05/18 10:15 AM BREANNE FORD (OT) [facility] Date Time Provider Department Center 12/05/2018 10:15 AM [id number]: OT [facility]AL [748] Primary Visit Diagnosis:Pain of left hand [M79.642] Other Visit Diagnosis:Primary osteoarthritis of first carpometacarpal joint of left hand [M18.12] Allergies As of Date: 12/05/2018 Noted Allergy Reaction SULFA (SULFONAMIDE ANTIBIOTICS) 11/17/2013 10 - Anaphylaxis BEE STING 11/17/2013 14 - Other: See Comments INSECT VENOM 07/26/2016 7 - Swelling Comments: Extreme swelling METFORMIN 02/09/2017 14 - Other: See Comments Comments: Elevated blood pressure, dizzy, lightheaded [id number] REDUCTASE INHIBIT*01/24/2017 14 - Other: See Comments Comments: Sever vertigo Date Reviewed: 12/05/2018 Reviewed by: Eneida Andujar (Pa) - Fully Assessed Prescriptions as of 12/05/2018 Sig: PROMETHAZINE 25 MG TABLET Take 1 tablet by mouth every * PANTOPRAZOLE 40 MG TABLET,DEL* Take 1 tablet by mouth once d* LEVOTHYROXINE 100 MCG TABLET Take 1 tablet by mouth daily * ACETAMINOPHEN 300 MG-CODEINE * Take 1 tablet by mouth every * METRONIDAZOLE 1 % TOPICAL GEL Apply 1 application to affect* Patient not taking: Reported on 10/27/2018 ASPIRIN 81 MG TABLET,DELAYED * Take 1 tablet by mouth once d* OMEGA-3 FISH OIL ORAL Take 2,400 mg by mouth once d* BLOOD SUGAR DIAGNOSTIC STRIPS Test blood sugar(s) 1 times d* LANCETS 33 GAUGE Test blood sugar(s) 1 daily. * MULTIVITAMIN CAPSULE Take 1 capsule by mouth once * Progress Notes: Breanne Ford OT/L 12/05/2018 3:25 PM Signed Episode Visit Count: 1 Therapist That Will Oversee The Plan Of Care: Breanne Ford Start of Care Date: 12/05/18 Onset Date: 11/08/18 Plan of Care Certification Date: 12/05/18 Patient Identified by Name and Date of : Yes [facility] REHABILITATION AND SPORTS THERAPY OCCUPATIONAL THERAPY EVALUATION PLAN OF CARE: Assessment: Cindi Messer presents with the diagnosis of cmc arthritis. She presents with impairments of AROM scar edema . She may benefit from skilled occupational therapy services to improve function. Prognosis: Good Good due to: current objective clinical presentation Goals for Episode of Care created on 12/05/18 through 03/06/19 Patient will report a good understanding of diagnosis and OT recommendations for progression of program Patient will demonstrate independence with ongoing home exercise program Patient will increase AROM of left thumb and wrist to WFL in order to be able to perform manager urology and prehension tasks. Patient will report a good understanding of edema control techniques Patient will report a good understanding of the use of modalities to help manage discomfort and promote healing Patient will independently demonstrate scar massage/management in order to decrease scar adherence by discharge Pt will have functional manager urology and pinch strength in order to resume previous level of independence in ADL Planned Interventions, Frequency, and Duration: Current Frequency: 1x every other week Duration: 12 weeks Total Number of Visits Planned: 6 Planned Treatment Interventions: Custom orthosis fabrication;Therapeutic exercise;Manual therapy;Modalities;Self-c are home managementFluidotherapy PLAN FOR NEXT VISIT: progress scar mobilization trial fluido Patient demonstrates good understanding of plan of care and treatment. The above goals and plan of care were discussed and agreed upon by patient/family. SUBJECTIVE: Cindi Messer is a 78 year old female seen today for s/p CMC arthroplasty with pinning excision ganglion cyst Functional Limitations: gripping;pinching;weight bearing;carrying Patient Goals: to resume full function Pain: Pain Pain Level: 0(6 with motion ) Pain Location: Wrist - Left;Thumb - Left Description: Sore Frequency: Intermittent Post Treatment Pain Post Treatment Pain Score: No Change Post Treatment Pain Location: Wrist - Left;Hand - Left;Thumb - Left OBJECTIVE MEASURES WITH LEVEL OF FUNCTION: Hand Evaluation Skin / Wound: Scar Scar: Tender;Mild adherance Edema Location: left hand and wrist Edema Description: Moderate Edema Measurements: Wrist (DWC) (cm);Digits R Wrist (DWC) (cm): 16.2 L Wrist (DWC) (cm): 17.5 Edema - Digits: Thumb R Thumb P1 (cm): 6.3 cm L Thumb P1 (cm): 7.5 cm Elbow/Wrist AROM: Limitations as noted Limitations as noted: Left Hand AROM: WNL Thumb AROM: Limitations as noted Limitations as noted: Left Sensation: Denies tingling or numbness Hand AROM L Thumb MP Flexion : 20 Degrees L Thumb IP Flexion : 20 Degrees L Thumb Radial Abduction: 60 Degrees L Thumb Palmar Abduction: 60 Degrees UE AROM L Forearm Supination: 90 Degrees L Forearm Pronation: 90 Degrees L Wrist Extension: 40 Degrees L Wrist Flexion: 25 Degrees L Wrist Radial Deviation: 25 Degrees L Wrist Ulnar Deviation: 25 Degrees Education: Education Learning Preferences: Demonstration;Explanation ;Performance Barriers: None Learning/educational needs: Brace Fit;Plan of Care;Home exercise program Education Provided: Yes, see treatment interventions for education provided Education Provided To: Patient Education Mode/Type: Demonstration;Explanation /Discussion;Literature/Pr inted Materials Response to Education/Teach Back: States/Identifies;Return Demonstration;Requires Review/Additional Education TREATMENT: Evaluation Evaluation Therapeutic Exercise: 1: wrist flex/ext deviation and circumduction 2: thumb flex ext opposition radial abd palmar abduction 3: fabricated forearm based thumb spica splint instructed in wear schedule and precautions Skilled Intervention: Patient was educated in proper exercise technique and purpose for exercises. Skilled judgment was provided in selection of appropriate interventions. Provided written instruction for home exercise program to facilitate proper performance and compliance. Self-Long Term Management: 1: instructed in normal hand washing no soaking 2: instructed in scar mandgement without lotion 3: instructed in activity modification and resumption activities to tolerance Skilled Intervention: Skilled judgment in the selection of proper modification for activity of daily living/home management based on clinical presentation, deficits, and needs. Custom orthosis: Custom orthosis to provide Pt practiced orthosis application, donning on/off while under OT's supervision. and to promote healing. Patient was instructed in care of orthosis and wearing schedule multimedia author except when exercising / bathing. . Skilled Intervention: Clinical knowledge and skills required for custom orthotic fabrication and wearing schedule Billing: [place]: Evaluation - Low Complexity ( 44095) Self Care / Home Management (84635): 1:1 time:10 minutes (1 unit: 8-22 mins) Therapeutic Exercise (54288): 1:1 time:15 minutes (1 unit: 8-22 mins) Custom forearm based thumb spica splint Total time: 60 minutes Breanne Ford OT/FRANK ----- Annotated image of OT HAND POST-OP EX'S PG4-WRIST last updated by Breanne Ford on 12/05/2018 10:52 AM Annotated image of OT HAND POST-OP EX'S PG6-THUMB last updated by Breanne Ford on 12/05/2018 10:52 AM Normal [facility] PROGRESSon 12-05-2018 PROGRESS HNO ID: [id number] Author: Breanne Ford Service: ? 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 She presents with impairments of AROM scar edema . She may benefit from skilled occupational therapy services to improve function. Prognosis: Good Good due to: current objective clinical presentation Goals for Episode of Care created on 12/05/18 through 03/06/19 Patient will report a good understanding of diagnosis and OT recommendations for progression of program Patient will demonstrate independence with ongoing home exercise program Patient will increase AROM of left thumb and wrist to WFL in order to be able to perform manager urology and prehension tasks. Patient will report a good understanding of edema control techniques Patient will report a good understanding of the use of modalities to help manage discomfort and promote healing Patient will independently demonstrate scar massage/management in order to decrease scar adherence by discharge Pt will have functional manager urology and pinch strength in order to resume previous level of independence in ADL Planned Interventions, Frequency, and Duration: Current Frequency: 1x every other week Duration: 12 weeks Total Number of Visits Planned: 6 Planned Treatment Interventions: Custom orthosis fabrication;Therapeutic exercise;Manual therapy;Modalities;Self-c are home managementFluidotherapy PLAN FOR NEXT VISIT: progress scar mobilization trial fluido Patient demonstrates good understanding of plan of care and treatment. The above goals and plan of care were discussed and agreed upon by patient/family. SUBJECTIVE: Cindi Messer is a 78 year old female seen today for s/p CMC arthroplasty with pinning excision ganglion cyst Functional Limitations: gripping;pinching;weight bearing;carrying Patient Goals: to resume full function Pain: Pain Pain Level: 0(6 with motion ) Pain Location: Wrist - Left;Thumb - Left Description: Sore Frequency: Intermittent Post Treatment Pain Post Treatment Pain Score: No Change Post Treatment Pain Location: Wrist - Left;Hand - Left;Thumb - Left OBJECTIVE MEASURES WITH LEVEL OF FUNCTION: Hand Evaluation Skin / Wound: Scar Scar: Tender;Mild adherance Edema Location: left hand and wrist Edema Description: Moderate Edema Measurements: Wrist (DWC) (cm);Digits R Wrist (DWC) (cm): 16.2 L Wrist (DWC) (cm): 17.5 Edema - Digits: Thumb R Thumb P1 (cm): 6.3 cm L Thumb P1 (cm): 7.5 cm Elbow/Wrist AROM: Limitations as noted Limitations as noted: Left Hand AROM: WNL Thumb AROM: Limitations as noted Limitations as noted: Left Sensation: Denies tingling or numbness Hand AROM L Thumb MP Flexion : 20 Degrees L Thumb IP Flexion : 20 Degrees L Thumb Radial Abduction: 60 Degrees L Thumb Palmar Abduction: 60 Degrees UE AROM L Forearm Supination: 90 Degrees L Forearm Pronation: 90 Degrees L Wrist Extension: 40 Degrees L Wrist Flexion: 25 Degrees L Wrist Radial Deviation: 25 Degrees L Wrist Ulnar Deviation: 25 Degrees Education: Education Learning Preferences: Demonstration;Explanation ;Performance Barriers: None Learning/educational needs: Brace Fit;Plan of Care;Home exercise program Education Provided: Yes, see treatment interventions for education provided Education Provided To: Patient Education Mode/Type: Demonstration;Explanation /Discussion;Literature/Pr inted Materials Response to Education/Teach Back: States/Identifies;Return Demonstration;Requires Review/Additional Education TREATMENT: Evaluation Evaluation Therapeutic Exercise: 1: wrist flex/ext deviation and circumduction 2: thumb flex ext opposition radial abd palmar abduction 3: fabricated forearm based thumb spica splint instructed in wear schedule and precautions Skilled Intervention: Patient was educated in proper exercise technique and purpose for exercises. Skilled judgment was provided in selection of appropriate interventions. Provided written instruction for home exercise program to facilitate proper performance and compliance. Self-Long Term Management: 1: instructed in normal hand washing no soaking 2: instructed in scar mandgement without lotion 3: instructed in activity modification and resumption activities to tolerance Skilled Intervention: Skilled judgment in the selection of proper modification for activity of daily living/home management based on clinical presentation, deficits, and needs. Custom orthosis: Custom orthosis to provide Pt practiced orthosis application, donning on/off while under OT's supervision. and to promote healing. Patient was instructed in care of orthosis and wearing schedule multimedia author except when exercising / bathing. . Skilled Intervention: Clinical knowledge and skills required for custom orthotic fabrication and wearing schedule Billing: Kay: Evaluation - Low Complexity ( 35623) Self Care / Home Management (47950): 1:1 time:10 minutes (1 unit: 8-22 mins) Therapeutic Exercise (29405): 1:1 time:15 minutes (1 unit: 8-22 mins) Custom forearm based thumb spica splint Total time: 60 minutes [facility] HNO ID: [id number] Author: Mery (Ct) TEN Head Service: ? Author Type: Clinical Repair Servicer Type: Progress Notes Filed: 12/05/2018 9:21 AM Note Text: NAME:Cindi Messer DATE: December 05, 2018 C[facility]#: [id number] Upper Extremity X-Ray(s): Hand, left COMPLETED TECH ID SIGN: ROOPA MCMILLAN [facility] XR HAND 3V PA/LAT/OBL LTon 0 12-05-2018 XR HAND 3V PA/LAT/OBL LT * * *Final Report* * * DATE OF EXAM: Dec 05 2018 9:20AM O [id number] - XR HAND 3V PA/LAT/OBL LT / PROCEDURE REASON: M79.642-Left hand pain * * * * Physician Interpretation * * * * PROCEDURE: Left hand INDICATION: Left hand pain .POST OP CMC TECHNIQUE: XR HAND 3V PA/LAT/OBL LT COMPARISON: 04/24/2018 and 11/08/2018 FINDINGS: Surgical absence of the trapezius carpal bone. Small bony fragment in the operative site. Degenerative change at the scaphoid trapezoid articulation. Intact K wire bridging the 1st MCP joint. No acute fracture. IMPRESSION: Postoperative changes. Business Continuity Director: PSCB Transcribe Date/Time: Dec 05 2018 10:42A Dictated by : MILVIA GROSSMAN MD This examination was interpreted and the report reviewed and electronically signed by: MILVIA GROSSMAN MD on Dec 05 2018 10:44AM EST [id number] [facility] ANES Essie 11-08-2018 ANES POST HNO ID: [id number] Author: Renaldo Menon Service: Anesthesiology Author Type: Anesthesiologist Type: Anesthesia PostOp Filed: 11/08/2018 1:22 PM Note Text: POST ANESTHESIA EVALUATION NOTE SERVICE DATE: 11/08/2018 SERVICE TIME: 1:22 PM : 1940 Vitals: 11/08/18 0749 11/08/18 1110 11/08/18 1145 Temp: 36 ?C (96.8 ?F) 36.6 ?C (97.9 ?F) 36.2 ?C (97.2 ?F) 11/08/18 1115 11/08/18 1130 11/08/18 1145 11/08/18 1230 BP: 144/68 140/67 139/66 153/67 11/08/18 1115 11/08/18 1130 11/08/18 1145 11/08/18 1230 Pulse: 72 73 72 77 11/08/18 1115 11/08/18 1130 11/08/18 1145 11/08/18 1230 Resp: 16 16 16 16 11/08/18 1115 11/08/18 1130 11/08/18 1145 11/08/18 1230 SpO2: 95% 100% 100% 94% Validated Vital Signs: Yes POST ANES STATUS: No apparent anesthetic complications. The patient is appropriately hydrated with stable respiratory and cardiovascular status. Patient has safe and adequate airway control. The patient has appropriate pain relief and no significant post operative nausea or vomiting. The patient has achieved baseline mental status. Further assessment by Anesthesia Service: None Other Remarks: SIGNATURE: Renaldo Menon MD PATIENT NAME: Cindi Messer DATE: November 08, 2018 TIME: 1:22 PM PAGER/CONTACT #: [phone] [facility] ANES PREOPon 11-08-2018 ANES PREOP HNO ID: [id number] Author: Renaldo Menon Service: Anesthesiology Author Type: Anesthesiologist Type: Anesthesia PreOp Filed: 11/08/2018 7:08 AM Note Text: ANESTHESIOLOGY DAY OF SURGERY NOTE SERVICE DATE: 11/08/2018 SERVICE TIME: 7:08 AM : 1940 Procedure(s) (LRB): ARTHROPLASTY WRIST INTERPOSITION INTERCARPAL OR CARPOMETACARPAL (Left) EXCISION GANGLION FINGER (Left) Surgeon(s): Brian Guzman Estimated body mass index is 37.01 kg/m? as calculated from the following: Height as of 10/27/18: 162.6 cm (5' 4). Weight as of 10/27/18: 97.8 kg (215 lb 9.6 oz). Most recent hematocrit and potassium results: Hematocrit 39.7 10/27/2018 Potassium 4.3 09/08/2018 ANES DOS/PREOP NOTE: Vitals: There were no vitals filed for this visit. ACTIVE PROBLEM LIST Systolic Murmur Gerd Without Esophagitis Chronic Back Pain Hypothyroidism (Acquired) Right-Sided Carotid Artery Disease (Hcc) Mixed Hyperlipidemia Elevated Lfts Fatty Liver Ophthalmoplegic Migraine, Not Intractable Well Adult Exam Encounter for Gynecological Examination Without Abnormal Finding Neural Foraminal Stenosis of Lumbar Spine Controlled Type 2 Diabetes Mellitus Without Complication, Without Long-Term Current Use of Insulin (Hcc) Current Use of Proton Pump Inhibitor Diabetic Eye Exam ([facility]) Medicare Annual Wellness Visit, Subsequent Class 1 Obesity Due to Excess Calories Without Serious Comorbidity With Body Mass Index (Bmi) of 33.0 to 33.9 in Adult Numbness and Tingling in Left Hand Left Hand Pain Neuropathy (Hcc) Screening for Colon Cancer Primary Osteoarthritis of First Carpometacarpal Joint of Left Hand Ganglion Cyst of Finger of Left Hand Pain of Left Thumb PAST MEDICAL HISTORY Diagnosis Date - Cholecystitis glandularis proliferans - Chronic back pain - Class 1 obesity due to excess calories without serious comorbidity with body mass index (BMI) of 33.0 to 33.9 in adult 09/27/2017 - Controlled type 2 diabetes mellitus without complication, without long-term current use of insulin (HCC) 11/01/2016 - Elevated LFTs 11/06/2015 Hepatitis panel neg 07/25/2015 US; fatty liver - Fatty liver 11/06/2015 - Fracture 2 broken arms when child - GERD without esophagitis 11/06/2015 - Greater trochanteric bursitis, left 05/27/2017 Patient was only able to go to PHYSICAL THERAPY once and could not tolerate per PHYSICAL THERAPY update 06/22/2017 [employer] - Hypothyroidism (acquired) 11/06/2015 - Mixed hyperlipidemia 11/06/2015 - Neural foraminal stenosis of lumbar spine 05/05/2016 - 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 - Ophthalmoplegic migraine, not intractable 01/30/2016 Uses meclazine prn - PVD (peripheral vascular disease) (HCC) 11/21/2013 - Right-sided carotid artery disease (HCC) 11/06/2015 S/p surgery 12/2013, Seeing Dr. Luciano - Sciatica - Systolic murmur 11/21/2013 - Vertigo PAST SURGICAL HISTORY Procedure Laterality Date - AMPUTATION TOE,I-P JT Left 11/2016 Left send toe removed. - BACK SURGERY HX 1984 Lumbar - CAROTID ENDARTERECTOMY 01/04/2014 right side - COLONOSCOPY 2008 repeat 10 yrs - EXPLORATORY OF ABDOMEN >50 years back - FECAL OCCULT BLOOD TEST 06/02/2017 negative - HYSTERECTOMY HX - LAP CHOLECYSTECT/CHOLANGIOGRA PHY 03/11/16 - ORTHOPEDICS SURGERY HX Rt.Knee- arthroscopy - PAST SURGICAL HISTORY OF 04/09/14 bilat carpal tunnel - PAST SURGICAL HISTORY OF lipoma excision - PAST SURGICAL HISTORY OF Left rotator cuff repair - TONSILLECTOMY HX FAMILY HISTORY Problem Relation Age of Onset - Hypertension Father - Alcohol/Drug Father alcohol - other (heart disease) Father - other (stroke, [place]) Brother - Hypertension Brother - Cancer Maternal Grandmother uterine - other (tuberculosis) Maternal Grandmother - Cancer Brother skin - Cancer Maternal Uncle gastric - other (Suicide) Son Social History: Social History Tobacco Use - Smoking status: Former Smoker Packs/day: 3.00 Years: 55.00 Pack years: 165.00 Types: Cigarettes Last attempt to quit: 09/27/2008 Years since quittin.1 - Smokeless tobacco: Never Used - Tobacco comment: quit 5 yrs ago, after 3 ppd Substance Use Topics - Alcohol use: No - Drug use: No No current facility-administered medications on file prior to encounter. Current Outpatient Medications on File Prior to Encounter: pantoprazole DR (PROTONIX) 40 mg tablet Take 1 tablet by mouth once daily. levothyroxine (SYNTHROID) 100 mcg tablet Take 1 tablet by mouth daily before breakfast. acetaminophen-codeine (TYLENOL-CODEINE #3) 300-30 mg per tablet Take 1 tablet by mouth every 6 hours as needed for Pain for up to 181 days. metroNIDAZOLE 1 % gel Apply 1 application to affected area once daily. Location: nose and face (Patient not taking: Reported on 10/27/2018 ) aspirin, enteric coated (ADULT LOW DOSE ASPIRIN) 81 mg EC tablet Take 1 tablet by mouth once daily. OMEGA-3/DHA/EPA/FISH OIL (OMEGA-3 FISH OIL ORAL) Take 2,400 mg by mouth once daily. 2400 mg of fish oil with 1200 mg of Mabie 3 daily. blood sugar diagnostic (ONETOUCH VERIO) test strip Test blood sugar(s) 1 times daily. Dx: Type 2 DM - Controlled E11.9 Insulin: No lancets (ONE TOUCH DELICA) 33 gauge misc Test blood sugar(s) 1 daily. Dx: Type 2 DM - Controlled E11.9 Insulin: No meclizine (ANTIVERT) 25 mg tab Take 1 tablet by mouth three times daily. (Patient taking differently: Take 25 mg by mouth as needed. ) Multivitamin capsule Take 1 capsule by mouth once daily. No current facility-administered medications for this encounter. Allergies: ALLERGIES Allergen Reactions - Sulfa (Sulfonamide * Anaphylaxis - Bee Sting Other: See Comments - Insect Venom Swelling Extreme swelling - Metformin Other: See Comments Elevated blood pressure, dizzy, lightheaded - Cveakpp-Cls-Lot Red* Other: See Comments Sever vertigo DOS EXAM: Adequate NPO status: Yes Anesthetic risks, benefits, alternatives, personnel and consent discussed: Yes Patient agrees to proceed: Yes Previous Anesthesia: No history of adverse event. Airway Assessment: MP 2; Neck ROM: Full ROM without neurologic symptoms; Airway Evaluation: No significant abnormalities Symptoms of Sleep Apnea: None Dentition: Teeth intact Additional Physical Exam: Lungs: Patient health status unchanged since recent history and physical. See history and physical for exam findings. Cardiac: Patient health status unchanged since recent history and physical. See history and physical for exam findings. Additional Pertinent Findings: N/A Blood Products: Not anticipated for this procedure. Anesthetic Plan: MAC with Sedation and Block with Sedation Pain Management Plan: Parenteral or Oral ASA Class: 2 Other Medical Problems: gerd cpontrolled I have interviewed and examined the patient. I have reviewed the medical record and/or the pre-anesthesia evaluation, pertinent labs, and test results. Significant changes in the patient's condition since the History and Physical, not otherwise documented in primary service progress notes: No This contains updated information obtained within 48 hours of Surgery/Procedure. SIGNATURE: Renaldo Menon MD PATIENT NAME: Cindi Messer DATE: November 08, 2018 TIME: 7:08 AM CSN: [id number] [facility] OPERATIVE NOon 11-08-2018 OPERATIVE NO HNO ID: [id number] Author: Brian Guzman Service: Orthopaedic Surgery Author Type: Physician Type: Operative Report Filed: 11/09/2018 7:58 AM Note Text: OPERATIVE/PROCEDURE REPORT ? LOG ID: [id number] Surgery/Procedure Date: 11/08/2018 Incision/Procedure Start Time: 9:18 AM Incision Close/Procedure End Time: 11:04 AM Surgeon(s)/Proceduralist( s) and Wet Washer Machine(s): Surgeon(s) and Role: * Brian Guzman - Primary Physician Wet Washer Machine: Eneida Andujar (Pa) ? Procedure(s): Left thumb, CMC arthroplasty with ligament reconstruction and tendon interposition, palmaris longus. Pinning of MCP joint, right thumb. 2. Left thumb, digital ganglion cyst excision. ? Anesthesia: General with regional. ? Procedure Details: PROCEDURE:? On 11/08/2018, the patient was identified in the preoperative area and? marked on the left thumb accordingly.?Patient had a regional block placed per? the anesthetic team.? Pt. Received 2g of Ancef within one hour of incision or tourniquet. Patient was placed in a supine position and placed an arm? board on the effected limb.? A well padded tourniquet was applied and set at 250 mmHg.? An appropriate time out was conducted and all were in agreement. Signed?consent form was on the chart and images were available for viewing. The upper extremity was then exsanguinated with an Esmarch bandage and the? tourniquet was applied at 250 mmHg.? first, an L shaped incision was made over the dorsal crease of the IP joint of the thumb taken down in a mid lateral L. Sharp dissection was made with a 15 blade until an obvious digital mucous cyst and ganglion was present. This was removed and the base of it was cauterized. There was no significant or prominent osteophyte to manage. The wound was copiously irrigated and was closed with 3?0 nylons for a total of 5. Subsequently, A longitudinal incision was identified over? the dorsal portion of the CMC joint.? I made the incision approximately 3 cm, centered over this.? Furthermore, a palmar incision was marked over the palmaris longus tendon at the? flexure crease of the wrist.? Superficial skin incision was made with a 15 blade and this was? then bluntly dissected with Littler scissors.? I was able to identify the branches of the radial? sensory nerve and these were identified and protected with retraction throughout? the case.? I then came down through the interval of the APL and EPB tendons and? came directly down to the periosteum and divided the capsule over the top of the? joint, coming down on the trapezium.? The radial artery was identified clearly in? the proximal portion of the incision and protected throughout the case with a? Ragnell retractor.? I then painstakingly dissected the soft tissues off the? trapezium and identified all the borders of the bone including the surrounding? joint spaces.? The CMC joint showed no cartilage and sclerotic surface, bone on bone appearance, worse on the proximal STT joint. Large osteophyte in the gutter between first and second metacarpal heads as well as a large piece on the most radial side of the bone. Once the soft tissues were appropriately released from the? trapezium protecting the adjacent cartilage and soft tissues, I used a? reciprocating saw to place a scored cross in the bone quartering it.? I then? finished the osteotomies with a 1/4-inch osteotome.? I then removed, in a? piecemeal fashion, the trapezium while protecting the underlying FCR tendon.? This? was identified and shown to be in continuity.? I placed a 3-0 Tevdek suture? through the volar capsule.? I then focused my attention on preparing? the site for the tendon graft.? Starting on the dorsal surface of the thumb with? my exiting point just slightly on the volar side of the base of the metacarpal,? sequential drill bits were used to fashion the tunnel for the graft and to re-create the beak ligament.? The? positioning was to my liking and the tunnel and the joint were copiously irrigated? to remove any bony debris.? Then focused my attention on the palmar incision which? was made again superficially with a 15 blade.? The central superficial vein was? identified and ligated with bipolar, and the palmaris longus tendon was identified? and freed of any of its soft tissue adhesions.? A whip stitch was placed with a 3-? 0 Maxon suture and the tendon was divided at the wrist crease and a tendon? stripper was then passed atraumatically, retrieving an excellent palmaris graft.? Some of the muscle portion was appropriately cleaned off, and then passed the? graft around the FCR tendon in the trapeziectomy site, bringing it up through the? drill hole, affectively recreating the beak ligament.? This was tied upon itself? and secured in place with the Tevdek suture.? A number of nkzujb-ev-xiwqxe from? the tendon were secured, and the remaining portion of the tendon was rolled into? an anchovy and secured nicely down in the trapeziectomy site, successfully? interposing the tendon and securing it in place with the previously placed Tevdek? suture in the volar capsule.? This showed a nice suspension with recreation of the? beak ligament and interposition to my liking.? At this time, the tourniquet was? taken down and hemostasis was observed with bipolar electrocautery.? Because she had about 35 degrees of hyper extension of the MCP joint, I elected to pin the joint with a 0.045 K wire using fluoroscopic guidance. The joint was pinned in a few degrees of flexion for excellent opposition to the index. The wound was? copiously irrigated with normal saline and we began our closure.? I closed? the redundant dorsal capsule, in a vest over pants fashion with with 3-0 Biosyn?sutures.? Again, the radial sensory nerve was identified and shown? to be in continuity at the end of the case, and I closed down the subcutaneous? tissues over the joint with buried 3-0 Biosyn suture.? Final skin closure was? completed with a 4-0 Biosyn subcuticular weave both on the dorsal side and the? palmar incisions.? Steri-Strips, Xeroform gauze, sterile 4 x 4, Webril padding,? and a well positioned thumb spica splint with the IP joint free, which was secured? with a light Dionna wrap and Pm bandage.? There were no complications during the? procedure.? Patient was safely awoken after we placed a light soft bandage on the? shoulder, and she was taken to the Postoperative Suite in stable condition. ? Pre-Op/Pre-Procedure Diagnosis: 1. Left thumb, CMC osteoarthritis, subsequent. Right thumb, MCP hyperlaxity. 2. Left thumb, digital mucous cyst. ? Post-Op/Post-Procedure Diagnosis: same Estimated Blood Loss: 0 ml ? Specimens: None ? Implantable Devices: None ? Drains: None ? Complications: None ? ? PARTICIPATION IN SURGERY/PROCEDURE: I performed the procedure with assistance. There were no residents or fellows available. I performed the procedure with assistance. Dayday Andujar was involved with pt. Positioning, prepping, draping, manual traction to access the joint, soft tissue and artery retraction, digit placement and stabilization during sawing, drilling ligament reconstruction. She closed the superficial wounds under immediate supervision and fabricated the split with bandages. SIGNATURE: Brian Guzman MD PATIENT NAME: Cindi Messer DATE: November 08, 2018 TIME: 2:45 PM PAGER/CONTACT #: [facility] PT EDon 11-08-2018 PT ED HNO ID: [id number] Author: Sintia HernandezRn) KELI Basilio Service: ? Author Type: Registered Nurse Type: Patient Education Filed: 11/08/2018 12:42 PM Note Text: POST OP LEARNING RESPONSE INSTRUCTION PROVIDED TO: Patient and family member METHOD OF INSTRUCTION: Written instruction - handouts PATIENT / FAMILY RESPONSE: Information received as demonstrated by interest and questions FOLLOW-UP PLAN: Recommend - Recommend continued instruction and follow up as directed SUPPLEMENTAL MATERIAL: None REFERRAL (RECOMMENDATION): None Electronically Signed By: Sintia Basilio RN In Department: [facility] SURGERY [facility] PT ED HNO ID: [id number] Author: Niya HernandezRnInes Leong RN Service: Nursing Author Type: Registered Nurse Type: Patient Education Filed: 11/08/2018 7:52 AM Note Text: PRE OP LEARNING ASSESSMENT PROCEDURE/SURGERY: SURGERY: READINESS TO LEARN COGNITIVE ABILITY: Alert and oriented MOTIVATION TO LEARN: Eager FAMILY SUPPORT: High - Very involved in pt care PATIENT LEARNS BEST BY: Verbal Instruction FACTORS AFFECTING LEARNING: None PHYSICAL LIMITATIONS AFFECTING LEARNING: None Electronically Signed By: Niya Leong RN In Department: [facility] SURGERY [facility] XR FLUOROSCOPYon 11-08-2018 XR FLUOROSCOPY * * *Final Report* * * DATE OF EXAM: Nov 08 2018 11:15AM [facility] [id number] - XR FLUOROSCOPY / PROCEDURE REASON: ARTHROPLASTY WRIST INTERPOSITION UNDER FLUORO * * * * Physician Interpretation * * * * INDICATION: ARTHROPLASTY WRIST INTERPOSITION UNDER FLUORO TECHNIQUE: Fluoroscopy with single view of the left thumb Fluoroscopic Radiation Summary: Plane A, Air Kerma: 11.9 mGy Dose Area Product (DAP): 0.0 mGy*cmS2 Fluoro time: 0:33 min:sec FINDINGS/ IMPRESSION: A pin bridges the 1st MCP joint. Please refer to the performing LIP's report. Business Continuity Director: PSCB Transcribe Date/Time: Nov 08 2018 3:57P Dictated by : MILVIA GROSSMAN MD This examination was interpreted and the report reviewed and electronically signed by: MILVIA GROSSMAN MD on Nov 08 2018 3:58PM EST [id number] [facility] NURSING PROGon 10-27-2018 NURSING PROG HNO ID: [id number] Author: Mercy Candelaria) KELI Zapata Service: ? Author Type: Registered Nurse Type: Nursing Progress Note Filed: 10/31/2018 10:57 AM Note Text: PACC Nurse Progress Note History AND Physical: PACC Visit Date: 10/27/18 Original HANDP Date: 10/27/18 ED visit Date: N/A Outside HANDP Scanned Date: N/A Labs Within Last 6 Months: CBC: Date 10/27/18 within acceptable limits for planned procedure BMP/CMP: Date 09/08/18 within acceptable limits for planned procedure HBA1C: Date 09/08/18 6.8 (known diabetic) TSH 09/08/18 WNL Imaging Within Last 12 Months: See chart Cardiac Testing: N/A Last Menstrual Period: LMP Date: N/A Postmenopausal >1yr: Yes, S/P Hysterectomy: Yes BMI Percentile (PEDS): N/A Risk Assessment: N/A Anesthesia Review: N/A Narrative: N/A Pre-op Considerations: Known diabetic Chart Check: COMPLETED Mercy Zapata RN October 31, 2018 10:57 AM [facility] HOSPon 10-10-2018 HOSP Patient:Cindi Messer MRN: Height:5' 4(1.626 m) Weight:215 lb 9.6 oz (97.796 kg) Outpatient Medications as of 11/08/18: pantoprazole DR (PROTONIX) 40 mg tablet levothyroxine (SYNTHROID) 100 mcg tablet acetaminophen-codeine (TYLENOL-CODEINE #3) 300-30 mg per tablet metroNIDAZOLE 1 % gel aspirin, enteric coated (ADULT LOW DOSE ASPIRIN) 81 mg EC tablet OMEGA-3/DHA/EPA/FISH OIL (OMEGA-3 FISH OIL ORAL) blood sugar diagnostic (ONETOUCH VERIO) test strip lancets (ONE TOUCH DELICA) 33 gauge misc meclizine (ANTIVERT) 25 mg tab Multivitamin capsule Admission/Clinic Administered Medications as of 11/08/18: lidocaine 10 mg/mL (1 %) 1-2 mg injection (XYLOCAINE) lactated ringers infusion ceFAZolin iv piggyback 2 g in D5W (iso-osmotic) 100 mL (ANCEF) Problem List: Systolic murmur [R01.1] GERD without esophagitis [K21.9] Chronic back pain [M54.9, G89.29] Hypothyroidism (acquired) [E03.9] Right-sided carotid artery disease (HCC) [I77.9] Mixed hyperlipidemia [E78.2] Elevated LFTs [R94.5] Fatty liver [K76.0] Ophthalmoplegic migraine, 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] Well adult exam [Z00.00] Encounter for gynecological examination without abnormal finding [Z01.419] 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] Controlled type 2 diabetes mellitus without complication, without long-term current use of insulin (HCC) [E11.9] Current use of proton pump inhibitor [Z79.899] Diabetic eye exam (HCC) [Z01.00, E11.9] Medicare annual wellness visit, subsequent [Z00.00] Class 1 obesity due to excess calories without serious comorbidity with body mass index (BMI) of 33.0 to 33.9 in adult [E66.09, Z68.33] Numbness and tingling in left hand [R20.0, R20.2] Left hand pain [M79.642] Neuropathy (HCC) [G62.9] Screening for colon cancer [Z12.11] Primary osteoarthritis of first carpometacarpal joint of left hand [M18.12] Ganglion cyst of finger of left hand [M67.442] Pain of left thumb [M79.645] Allergies: Sulfa (Sulfonamide Antibiotics) Bee Sting Insect Venom Metformin Fdzxuqx-Zwz-Vrr Reductase Inhibitors Date Verified: 11/08/18 Lab Values Lab Value Units Date High Low GEORGE* 39.7 % 10/27/2018 46.0 36.0 Progress Notes ([facility]): Vivi Lock Ma 11/07/2018 10:45 AM Signed Patient called in to report she is having an episode of vertigo, which she gets occasionally. Worst when she has to bend over. She is asking if she can take Meclizine tomorrow morning before surgery? She still wants to proceed with having surgery done. Please contact patient at [phone]. Vivi Delacruz Ashvin Mo 11/07/2018 1:48 PM Signed Eneida Andujar (Pa) ?You 2 hours ago (10:47 AM) Ok to take meclizine DOS. Patient has been notified and verbalized understanding. Progress Notes ([facility]): Ellen Loja APRN.AQUATICS ASSISTANT DEPARTMENT HEAD 10/10/2018 2:57 PM Signed Stool negative for blood, no concern for colon cancer at this time. Recommend screening with this method yearly. Ellen Loja APRN.OLGA Damico Ma 10/10/2018 3:24 PM Signed Left detailed message as advised in contacts Anisha Moya Pss 10/10/2018 3:26 PM Signed Patient returned call and this PSS advised her of the information below. Patient stated understanding. Zoie Moya Pss [facility] Vital Signs Date Time Vital Sign Value Performing Clinician Faci lity 01-01-2025 13:58-0400 Diastolic blood pressure 71 mm[Hg] Je Munguia MD Work Phone: [facility] [employer] 01-01-2025 13:58-0400 Heart rate 71 /min Je Munguia MD Work Phone: [facility] [employer] 01-01-2025 13:58-0400 Systolic blood pressure 135 mm[Hg] Je Munguia MD Work Phone: [facility] [employer] 01-01-2025 13:24-0400 Body height 160 cm Je Munguia MD Work Phone: [facility] 01-01-2025 13:24-0400 Body mass index (BMI) [Ratio] 36.49 kg/m2 Je Munguia MD Work Phone: [facility] [employer] 01-01-2025 13:24-0400 Body weight 93.44 kg Je Munguia MD Work Phone: [facility] [employer] 12-20-2024 11:13-0400 Diastolic blood pressure 57 mm[Hg] Je Munguia MD Work Phone: [facility] [employer] 12-20-2024 11:13-0400 Heart rate 84 /min Je Munguia MD Work Phone: [facility] 12-20-2024 11:13-0400 Systolic blood pressure 154 mm[Hg] Je Munguia MD Work Phone: [facility] 12-20-2024 10:24-0400 Body height 160 cm Je Munguia MD Work Phone: [facility] 12-20-2024 10:24-0400 Body mass index (BMI) [Ratio] 36.17 kg/m2 Je Munguia MD Work Phone: [facility] 12-20-2024 10:24-0400 Body weight 92.63 kg Je Munguia MD Work Phone: [facility] 08-16-2024 09:44-0500 Body height 162.[address] Aniceto Cleveland MD Work Phone: [facility] 08-16-2024 09:44-0500 Body mass index (BMI) [Ratio] 34.3 kg/m2 Dr. Aniceto Cleveland MD Work Phone: [facility] 08-16-2024 09:44-0500 Body weight 90.[address] Aniceto Cleveland MD Work Phone: [facility] 08-16-2024 09:44-0500 Diastolic blood pressure 76 mm[Hg] Dr. Aniceto Cleveland MD Work Phone: [facility] 08-16-2024 09:44-0500 Heart rate 72 /min Dr. Aniceto Cleveland MD Work Phone: [facility] 08-16-2024 09:44-0500 SaO2% (BldA) [Mass fraction] 95 % Dr. Aniceto Cleveland MD Work Phone: [facility] 08-16-2024 09:44-0500 Systolic blood pressure 151 mm[Hg] Dr. Aniceto Cleveland MD Work Phone: [facility] 06-05-2024 12:26-0400 Diastolic blood pressure 80 mm[Hg] Kathy Campbell DO Work Phone: [facility] 06-05-2024 12:26-0400 Heart rate 74 /min Kathy Campbell DO Work Phone: [facility] 06-05-2024 12:26-0400 SaO2% (BldA) [Mass fraction] 95 % Kathy Campbell DO Work Phone: [facility] 06-05-2024 12:26-0400 Systolic blood pressure 128 mm[Hg] Kathy Campbell DO Work Phone: [facility] 09-08-2023 09:30-0500 Body temperature 97 [degF] Dr. Aniceto Cleveland Work Phone: [facility] 09-08-2023 09:30-0500 Diastolic blood pressure 59 mm[Hg] Dr. Aniceto Cleveland Work Phone: [facility] 09-08-2023 09:30-0500 Heart rate 87 /min Dr. Aniceto Cleveland Work Phone: [facility] 09-08-2023 09:30-0500 Respiratory rate 18 /min Dr. Aniceto Cleveland Work Phone: [facility] 09-08-2023 09:30-0500 SaO2% (BldA) [Mass fraction] 95 % Dr. Aniceto Cleveland Work Phone: [facility] 09-08-2023 09:30-0500 Systolic blood pressure 151 mm[Hg] Dr. Aniceto Cleveland Work Phone: [facility] 09-08-2023 08:50-0500 Body height 160.[address] Aniceto Cleveland Work Phone: [facility] 09-08-2023 08:50-0500 Body mass index (BMI) [Ratio] 34.5 kg/m2 Dr. Aniceto Cleveland Work Phone: [facility] 09-08-2023 08:50-0500 Body weight 88.[address] Aniceto Cleveland Work Phone: [facility] 08-18-2023 09:55-0500 Body mass index (BMI) [Ratio] 35.4 kg/m2 Dr. Aniceto Cleveland Work Phone: [facility] 08-18-2023 09:55-0500 Body temperature 97.5 [degF] Dr. Aniceto Cleveland Work Phone: [facility] 08-18-2023 09:55-0500 Body weight 90.[address] Aniceto Cleveland Work Phone: [facility] 08-18-2023 09:55-0500 Diastolic blood pressure 62 mm[Hg] Dr. Aniceto Cleveland Work Phone: [facility] 08-18-2023 09:55-0500 Heart rate 69 /min Dr. Aniceto Cleveland Work Phone: [facility] 08-18-2023 09:55-0500 SaO2% (BldA) [Mass fraction] 94 % Dr. Aniceto Cleveland Work Phone: [facility] 08-18-2023 09:55-0500 Systolic blood pressure 149 mm[Hg] Dr. Aniceto Cleveland Work Phone: [facility] 08-13-2023 19:24-0500 Body height 160.02 cm [facility] 08-13-2023 19:24-0500 Body mass index (BMI) [Ratio] 35 kg/m2 [facility] 08-13-2023 19:24-0500 Body temperature 96.5 [degF] [facility] 08-13-2023 19:24-0500 Body weight 89.72 kg [facility] 08-13-2023 19:24-0500 Diastolic blood pressure 57 mm[Hg] [facility] 08-13-2023 19:24-0500 Heart rate 81 /min [facility] 08-13-2023 19:24-0500 Respiratory rate 16 /min [facility] 08-13-2023 19:24-0500 SaO2% (BldA) [Mass fraction] 96 % [facility] 08-13-2023 19:24-0500 Systolic blood pressure 175 mm[Hg] [facility] 09-06-2022 14:21-0500 Body temperature 96.4 [degF] Dr. Zach Godinez Work Phone: 1(686)630-891642 [place] [address] 09-06-2022 14:21-0500 Diastolic blood pressure 61 mm[Hg] Dr. Zach Godinez Work Phone: 4(292)639-152342 [place] [address] 09-06-2022 14:21-0500 Heart rate 69 /min Dr. Zach Godinez Work Phone: 0(516)490-501642 [place] [address] 09-06-2022 14:21-0500 Respiratory rate 16 /min Dr. Zach Godinez Work Phone: 3(402)798-059642 [place] [address] 09-06-2022 14:21-0500 Systolic blood pressure 140 mm[Hg] Dr. Zach Godinez Work Phone: 3(686)881-878942 [place] [address] 09-06-2022 13:50-0500 Body height 160.[address] Zach Godinez Work Phone: 4(030)155-576742 [place] [address] 09-06-2022 13:50-0500 Body mass index (BMI) [Ratio] 34.3 kg/m2 Dr. Zach Godinez Work Phone: 7(667)922-840842 [place] [address] 09-06-2022 13:50-0500 Body weight 87.[address] Zach Godinez Work Phone: 2(254)861-768342 [place] [address] 08-19-2022 08:13-0500 Body mass index (BMI) [Ratio] 34.5 kg/m2 Dr. Zach Godinez Work Phone: 0(786)728-441642 [place] [address] 08-19-2022 08:13-0500 Body temperature 95 [degF] Dr. Zach Godinez Work Phone: 0(364)619-526942 [place] [address] 08-19-2022 08:13-0500 Body weight 88.[address] Zach Godinez Work Phone: 5(214)638-328942 [place] [address] 08-19-2022 08:13-0500 Diastolic blood pressure 76 mm[Hg] Dr. Zach Godinez Work Phone: [facility] 08-19-2022 08:13-0500 Heart rate 73 /min Dr. Zach Godinez Work Phone: [facility] 08-19-2022 08:13-0500 Respiratory rate 18 /min Dr. Zach Godinez Work Phone: [facility] 08-19-2022 08:13-0500 SaO2% (BldA) [Mass fraction] 89 % Dr. Zach Godinez Work Phone: [facility] 08-19-2022 08:13-0500 Systolic blood pressure 124 mm[Hg] Dr. Zach Godinez Work Phone: [facility] 08-17-2022 10:32-0500 Diastolic blood pressure 60 mm[Hg] Kathy Campbell DO Work Phone: [facility] 08-17-2022 10:32-0500 Heart rate 66 /min Kathy Campbell DO Work Phone: [facility] 08-17-2022 10:32-0500 SaO2% (BldA) [Mass fraction] 94 % Kathy Campbell DO Work Phone: [facility] 08-17-2022 10:32-0500 Systolic blood pressure 112 mm[Hg] Kathytisha Campbell DO Work Phone: [facility] 10-23-2021 19:50-0500 Heart rate 80 /min Dr. Zach Godinez Work Phone: [facility] Work Phone: 10-23-2021 19:50-0500 Respiratory rate 16 /min Dr. Zach Godinez Work Phone: [facility] Work Phone: 10-23-2021 18:36-0500 Diastolic blood pressure 53 mm[Hg] Dr. Zach Godinez Work Phone: [facility] Work Phone: 10-23-2021 18:36-0500 SaO2% (BldA) [Mass fraction] 95 % Dr. Zach Godinez Work Phone: [facility] Work Phone: 10-23-2021 18:36-0500 Systolic blood pressure 126 mm[Hg] Dr. Zach Godinez Work Phone: [facility] Work Phone: 10-23-2021 14:48-0500 Body height 162.[address] Zach Godinez Work Phone: [facility] Work Phone: 10-23-2021 14:48-0500 Body mass index (BMI) [Ratio] 31.8 kg/m2 Dr. Zach Godinez Work Phone: [facility] Work Phone: 10-23-2021 14:48-0500 Body temperature 97.1 [degF] Dr. Zach Godinez Work Phone: [facility] Work Phone: 10-23-2021 14:48-0500 Body weight [address] Zach Godinez Work Phone: [facility] Work Phone: 09-04-2021 09:56-0500 Body temperature 97.3 [degF] Dr. Zach Godinez Work Phone: [facility] Work Phone: 09-04-2021 09:56-0500 Diastolic blood pressure 47 mm[Hg] Dr. Zach Godinez Work Phone: [facility] Work Phone: 09-04-2021 09:56-0500 Heart rate 76 /min Dr. Zach Godinez Work Phone: [facility] Work Phone: 09-04-2021 09:56-0500 Respiratory rate 16 /min Dr. Zach Godinez Work Phone: [facility] Work Phone: 09-04-2021 09:56-0500 SaO2% (BldA) [Mass fraction] 98 % Dr. Zach Godinez Work Phone: [facility] Work Phone: 09-04-2021 09:56-0500 Systolic blood pressure 134 mm[Hg] Dr. Zach Godinez Work Phone: [facility] Work Phone: 08-20-2021 07:20-0500 Body mass index (BMI) [Ratio] 34 kg/m2 Dr. Zach Godinez Work Phone: [facility] Work Phone: 08-20-2021 07:20-0500 Body temperature 97.1 [degF] Dr. Zach Godinez Work Phone: [facility] Work Phone: 08-20-2021 07:20-0500 Body weight 88.[address] Zach Godinez Work Phone: [facility] Work Phone: 08-20-2021 07:20-0500 Diastolic blood pressure 70 mm[Hg] Dr. Zach Godinez Work Phone: [facility] Work Phone: 08-20-2021 07:20-0500 Heart rate 70 /min Dr. Zach Godinez Work Phone: [facility] Work Phone: 08-20-2021 07:20-0500 Respiratory rate 16 /min Dr. Zach Godinez Work Phone: [facility] Work Phone: 08-20-2021 07:20-0500 SaO2% (BldA) [Mass fraction] 97 % Dr. Zach Godinez Work Phone: [facility] Work Phone: 08-20-2021 07:20-0500 Systolic blood pressure 124 mm[Hg] Dr. Zach Godinez Work Phone: [facility] Work Phone: Encounters Encounter Date Encounter Type Care Provider Facility Start: 02-21-2025 ambulatory [facility] Facility:[facility] Start: 01-24-[address] Aniceto Cleveland MD -Laboratory Work Phone: Start: 01-24-2025 ambulatory [facility] Facility:[facility] Start: 01-17-2025 End: 01-17-[address] Aniceto Cleveland MD Work Phone: [facility] Work Phone: Start: 01-17-2025 End: 01-17-[address] Aniceto Cleveland MD -Laboratory Work Phone: Start: 01-16-2025 End: 01-17-[address] Aniceto Cleveland MD Work Phone: [facility] Work Phone: Start: 01-16-2025 End: 01-16-[address] Aniceto Cleveland MD -Laboratory Work Phone: Start: 01-16-2025 End: 01-16-2025 ambulatory [facility] Facility:[facility] Start: 01-01-2025 End: 01-01-2025 Office outpatient visit 25 minutes Je Munguia MD Work Phone: [facility] Comment on above: Compression fracture of L1 vertebra, initial encounter (HCC) (Primary Dx); Compression fracture of L3 vertebra, initial encounter (HCC) Start: 01-01-2025 End: 01-01-2025 ambulatory JE MUNGUIA [facility] Start: 12-24-2024 End: 12-24-2024 ambulatory RAYA CHARLES [facility] Start: 12-24-2024 End: 12-24-2024 Subsequent hospital visit by physician Raya Charles PA-C Work Phone: [facility] Comment on above: Compression fracture of L1 vertebra, initial encounter (HCC) Start: 12-20-2024 End: 12-20-2024 Office outpatient new 30 minutes Je Munguia MD Work Phone: [facility] Comment on above: Compression fracture of L1 vertebra, initial encounter (HCC) (Primary Dx); Compression fracture of L3 vertebra, initial encounter (HCC) Start: 12-20-2024 End: 12-20-2024 ambulatory JE MUNGUIA [facility] Start: 11-21-2024 End: 11-21-[address] Aniceto Cleveland MD Work Phone: [facility] Work Phone: Start: 11-21-2024 End: 11-21-[address] Aniceto Cleveland MD -Laboratory Work Phone: Start: 11-21-2024 End: 11-21-2024 ambulatory [facility] Facility:[facility] Start: 11-06-2024 End: 11-06-[address] Aniceto Cleveland MD Work Phone: [facility] Work Phone: Start: 11-06-2024 End: 11-06-[address] Miguelina Benz MD -[facility] Work Phone: Start: 11-06-2024 End: 11-06-2024 ambulatory [facility] Facility:[facility] Start: 10-29-2024 End: 10-29-2024 Emergency department patient visit [facility] Start: 10-23-2024 End: 10-23-[address] Aniceto Cleveland MD Work Phone: [facility] Work Phone: Start: 10-23-2024 End: 10-23-[address] Aniceto Cleveland MD -Laboratory, Phy Office 3rd Vtr Start: 10-23-2024 End: 10-23-2024 ambulatory Aniceto Cleveland Facility:[facility] Start: 09-25-2024 End: 09-25-[address] Aniceto Cleveland MD -Laboratory Work Phone: Start: 09-25-2024 End: 09-25-2024 ambulatory Aniceto Cleveland Facility:[facility] Start: 09-24-2024 End: 09-24-[address] 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 (Primary Dx) Start: 09-12-2024 End: 09-16-2024 ambulatory Annmarie Ann Ubaldotley AQUATICS ASSISTANT DEPARTMENT HEAD Work Phone: [facility] Comment on above: 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 (Primary Dx) Start: 09-07-2024 End: 09-11-2024 ambulatory Annmarie Ann Ubaldotley AQUATICS ASSISTANT DEPARTMENT HEAD Work Phone: [facility] [facility] Comment on above: 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 (Primary Dx) Start: 09-05-2024 End: 09-09-2024 ambulatory Annmarie Ann Ubaldotley AQUATICS ASSISTANT DEPARTMENT HEAD Work Phone: [facility] Comment on above: 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 Mao Rabago MD -[facility] Work Phone: Start: 08-16-2024 End: 08-16-2024 ambulatory Mao Rabago Facility:[facility] Start: 08-11-2024 End: 08-11-2024 Emergency department patient visit BRENDA YANEZ [facility] Start: 08-01-2024 End: 08-01-2024 Transcribe Orders Annmarie Singletary AQUATICS ASSISTANT DEPARTMENT HEAD Work Phone: [facility] Comment on above: Osteoarthritis of martinez th knees, unspecified osteoarthritis type (Primary Dx) Start: 06-05-2024 End: 06-05-2024 Patient encounter procedure Kathy Campbell DO Work Phone: Vascular Surgery Comment on above: Bilateral carotid ar sheryl stenosis (Primary Dx) Start: 06-05-2024 End: 06-05-2024 ambulatory NAICETO CHI CRISTOFER Facility:[facility] Start: 05-01-2024 End: 05-01-2024 ambulatory Aniceto Chi Cristofer Facility:[facility] Start: 04-25-2024 End: 04-25-2024 ambulatory Miguelina Basali Facility:[facility] Start: 04-20-2024 End: 04-20-2024 Emergency department patient visit BRENDA YANEZ [facility] Start: 04-20-2024 End: 04-20-2024 ambulatory Aniceto Chi Cristofer Facility:[facility] Start: 04-14-2024 End: 04-14-2024 Emergency department patient visit Vin Bautista Facility:[facility] Start: 03-28-2024 End: 03-28-2024 ambulatory Aniceto Chi Cristofer Facility:[facility] Start: 03-01-2024 Telephone encounter Kathy Campbell DO Work Phone: Vascular Surgery Comment on above: Orders ([place] Expi re 05/17/24) Start: 02-07-2024 End: 02-07-2024 ambulatory Aniceto Chi Cristofer Facility:[facility] Start: 09-21-2023 End: 09-21-[address] Aniceto Cleveland Work Phone: [facility] Work Phone: Start: 09-21-2023 End: 09-21-[address] Aniceto Cleveland Work Phone: [facility]Laboratory Work Phone: Start: 09-21-2023 End: 09-21-[address] Aniceto Cleveland Work Phone: [facility] Work Phone: Start: 09-21-2023 End: 09-21-[address] Aniceto Cleveland Work Phone: [facility]-Laboratory, y Office 3rd [facility] Start: 09-08-2023 End: 09-08-[address] Aniceto Cleveland Work Phone: [facility] Work Phone: Start: 09-08-2023 End: 09-08-[address] Aniceto Cleveland Work Phone: [facility]-Medical Out Work Phone: Start: 09-02-2023 Non-patient / Non-visit Dr. Fermin Cleveland Work Phone: [facility] Work Phone: Start: 08-18-2023 End: 08-18-[address] Aniceto Cleveland Work Phone: [facility] Work Phone: Start: 08-13-2023 End: 08-13-2023 [facility] Start: 02-11-2023 Patient encounter procedure [facility]: [facility] Work Phone: Start: 12-27-[address] Zach Vázquez Facility:[id number] Start: 12-27-2022 Patient encounter procedure Zach Godinez Work Phone: [facility] Work Phone: Start: 12-23-[address] Zach Vázquez Facility:[id number] Start: 12-23-2022 Patient encounter procedure [facility] Godinez [facility] Work Phone: Start: 12-20-[address] Zach Vázquez Facility:[id number] Start: 12-20-2022 Patient encounter procedure Zach Godinez Work Phone: [facility] Work Phone: Start: 12-02-2022 Patient encounter procedure Zach Godinez Work Phone: [facility] Work Phone: Start: 12-02-[address] Zach Vázquez Facility:[id number] Start: 11-24-2022 End: 11-24-[address] Zach Godinez Work Phone: [facility] Work Phone: Start: 11-24-2022 End: 11-24-[address] Zach Godinez Work Phone: [facility] 3rd Vtr Start: 11-18-2022 End: 11-18-[address] Zach Godinez Work Phone: [facility] Work Phone: Start: 11-18-2022 End: 11-18-[address] Zach Godinez Work Phone: [facility] Office 3rd Flr Start: 10-14-2022 End: 10-14-[address] Zach Godinez Work Phone: [facility] Work Phone: Start: 10-14-2022 End: 10-14-[address] Zach Godinez Work Phone: [facility]-Pulmonary Services/Neurology Start: 09-15-2022 End: 09-15-[address] Zach Godinez Work Phone: [facility] Work Phone: Start: 09-15-2022 End: 09-15-[address] [facility] God[facility] Start: 09-06-2022 End: 09-06-[address] Zach God[facility] Start: 08-19-2022 End: 08-19-[address] Zach Godinez Work Phone: [facility] Endocr[facility]ology Start: 08-17-2022 End: 08-17-2022 Patient encounter procedure Kathy Campbell DO Work Phone: Vascular Surgery Comment on above: Bilateral carotid ar sheryl stenosis (Primary Dx) Start: 03-29-2022 End: 03-29-2022 [facility] Start: 12-15-2021 End: 12-15-2021 Patient encounter procedure [facility], y Office 3rd Flr Start: 11-24-2021 End: 11-24-[address] Zach Godinez [facility] Start: 11-24-2021 End: 11-24-[address] Zach Godinez [facility] Phone[facility] Start: 10-23-2021 End: 10-23-2021 Emergency department patient visit Dr. Zach Godinez Work Phone: [facility]-Emergency Department Start: 10-13-2021 End: 10-13-[address] Zach Godinez Work Phone: [facility]-Cat Scan, [facility] Start: 09-14-2021 End: 09-14-[address] Zach Godinez Work Phone: [facility]-Laboratory, Phy Office 3rd Flr Start: 09-04-2021 End: 09-04-[address] Zach Godinez Work Phone: [facility]Medical Out Start: 08-20-2021 End: 08-20-[address] Zach Godinez Work Phone: [facility]-Laboratory, [facility] Start: 12-24-2020 Patient encounter procedure Kathy Campbell DO Work Phone: [facility] Work Phone: Start: 05-03-2017 End: 06-02-2020 Ophthalmic examination and evaluation Kathy Campbell DO Work Phone: [facility] Start: 01-30-2016 End: 06-02-2020 Patient encounter status Kathy Campbell DO Work Phone: [facility] Procedures Date Procedure Procedure Detail Performing Clinician Start: 01-24-[address] Aniceto nielsen MD Work Phone: Start: 01-24-2025 Total iron binding capacity measurement Dr. Aniceto Cleveland MD Work Phone: Start: 01-16-[address]25 [address] acid assay [address] Aniceto latham MD Work Phone: Start: 01-16-[address] Aniceto Cleveland MD Work Phone: Start: 01-16-[address] Aniceto Cleveland MD Work Phone: Start: 01-16-2025 Microbial culture, routine Dr. Aniceto Cleveland MD Work Phone: Start: 11-21-2024 Methadone measurement, urine Dr. Aniceto latham MD Work Phone: Start: 11-06-2024 MRI of lumbar spine Dr. Aniceto Cleveland MD Work Phone: Start: 10-23-2024 SARS-CoV-2, Influenza & RSV (PCR) Dr. Fermin Cleveland MD Work Phone: Start: 10-23-2024 X-ray of chest, PA and lateral views Dr. Aniceto Cleveland MD Work Phone: Start: 09-25-2024 Measurement of renal function Dr. Aniceto herron MD Work Phone: Comment on above: GFR Calc Start: 09-25-2024 Vitamin D, 25-hydroxy measurement Dr. Fermin Cleveland MD Work Phone: Comment on above: Vitamin D 25(OH) Status Range Deficiency <20 ng/mL (50nmol/L) Insufficiency 20 - 30 ng/mL (50 - 75 nmol/L) Sufficiency 30 - 100 ng/mL (75 - 250 nmol/L) Toxicity >100 ng/mL (>250 nmol/L) Start: 08-13-2023 Computed tomography of abdomen and pelvis with intravenous contrast Start: 08-13-[address] Aniceto Cleveland Work Phone: Start: 08-13-2023 Lactoferrin measurement Start: 08-13-[address] Aniceto Cleveland Work Phone: Start: 08-13-2023 Ova OR parasites identification Dr. Aniceto Cleveland Work Phone: Start: 11-24-2021 Influenza Types A,B Direct FA (DIMITRIS) Dr. Zach Godinez Work Phone: Start: 11-24-2021 End: 11-24-2021 Respiratory syncytial virus antigen assay Dr. Zach Godinez Work Phone: Start: 10-23-2021 Computed tomography of abdomen and pelvis with contrast Dr. Zach Godinez Work Phone: Start: 10-13-[address] Zach Godinez Work Phone: Colonoscopy Zach hull Work Phone: Decompression of median nerve Zach Godinez Work Phone: Esophagogastroduodenoscopy J eduar Godinez Work Phone: Hysterectomy Zach hull Work Phone: Influenza Types A,B Direct FA ([facility]) Dr. Zach Godinez Work Phone: Operative procedure on hand Zach Godinez Work Phone: Procedure on back Zach Godinez Work Phone: Repair of shoulder Zach Godinez Work Phone: Respiratory syncytia l virus antigen assay Dr. Zach Godinez Work Phone: Revision of knee replacement Zach Godinez Work Phone: Tonsillectomy Zach valdez Work Phone: Urine culture Dr. Zach millan Work Phone: Plan of Treatment Date Care Activity Detail Author Start: 11-25-2032 DTaP/Tdap/Td Vaccines (3 - Td or Tdap) DTaP/Tdap/Td Vaccines (3 - Td or Tdap) [facility] Start: 11-25-2032 Tetanus vaccination Tetanus: Every 10yrs [facility] Start: 11-25-2032 Urine microalbumin profile DTaP,Tdap,Td Vaccine (4 - Td or Tdap) [facility] Start: 02-01-2028 Urine microalbumin profile DTAP,TDAP,TD (2 - Td or Tdap) [facility] Start: 01-03-2025 End: 12-20-2025 CT Lumbar spine WO contrast CT lumbar spine wo IV contrast Imaging Routine Compression fracture of L1 vertebra, initial encounter (HCC) Expected: 01/03/2025, Expires: 12/20/2025 [facility] [employer] Work Phone: Comment on above: Expected: 01/03/2025, Expires: Start: 01-01-2025 End: 01-01-2025 Patient encounter procedure 01/01/2025 1:30 PM EDT Office Visit [facility] [address] [place] [id number] Je Munguia MD [address] [place] [phone] [facility] Start: 12-26-2024 COVID-19 Vaccine ( season) COVID-19 Vaccine () [facility] Start: 09-26-2024 End: 09-26-2024 ambulatory 09/26/2024 10:00 AM EST Treatment [facility] [address] [place] [address] Annmarie Singletary, AQUATICS ASSISTANT DEPARTMENT HEAD [address] [place] [address] Trudi Leblanc PTA Discharge Disposition: Home [facility] Start: 09-21-2024 End: 09-21-2024 ambulatory 09/21/2024 10:00 AM EST Treatment [facility] [address] [place] [address] Annmarie Singletary CNP [address] [place] [address] Tonya Meraz PTA [facility] Start: 09-19-2024 End: 09-19-2024 ambulatory [facility] Start: 09-17-2024 End: 09-17-2024 ambulatory 09/17/2024 10:00 AM EST [facility] [address] [place] [address] Annmarie Singletary AQUATICS ASSISTANT DEPARTMENT HEAD [address] [place] [address] John Peguero, KATHARINE Discharge Disposition: Home [facility] Start: 09-14-2024 End: 09-14-2024 ambulatory 09/14/2024 10:00 AM EST Treatment [facility] [address] [place] [address] Annmarie Singletary, AQUATICS ASSISTANT DEPARTMENT HEAD [address] [place] [address] Trudi Leblanc PTA [facility] Start: 09-12-2024 End: 09-12-2024 ambulatory 09/12/2024 10:00 AM EST Treatment [facility] [address] [place] [address] Annmarie Singletary, AQUATICS ASSISTANT DEPARTMENT HEAD [address] [place] [address] Foreign Finn, PT [facility] Start: 09-07-2024 End: 09-07-2024 ambulatory 09/07/2024 10:00 AM EST Treatment [facility] [address] [place] [address] Annmarie Singletary AQUATICS ASSISTANT DEPARTMENT HEAD [address] [place] [address] Trudi Leblanc PTA [facility] Start: 09-05-2024 End: 09-05-2024 ambulatory 09/05/2024 10:00 AM EST Treatment [facility] [address] [place] [address] Annmarie Singletary, AQUATICS ASSISTANT DEPARTMENT HEAD [address] [place] [address] Trudi Leblanc PROMOTIONS REPRESENTATIVE Discharge Disposition: Home [facility] Start: 08-21-2024 End: 08-21-2024 ambulatory 08/21/2024 1:00 PM EST Evaluation [facility] [address] [place] [address] Annmarie Singletary, AQUATICS ASSISTANT DEPARTMENT HEAD [address] [place] [address] Foreign Finn, PT Discharge Disposition: Home [facility] Start: 06-05-2024 End: 06-05-2024 Patient encounter procedure Vasculary Surgery Comment on above: CAROTID CAROTID FOLLOW UP Start: 04-15-2024 COVID-19 Vaccine ( season) COVID-19 Vaccine () [facility] Start: 04-15-2024 Covid-19 Vaccine () Covid-19 Vaccine () [facility] Start: 04-15-2024 Influenza vaccination Influenza Vaccine (#1) [facility] Start: 09-21-2023 Procedure [facility] Start: 09-10-2023 Covid-19 Vaccine () Covid-19 Vaccine () [facility] Start: 09-08-2023 Iv infusion therapy/prophylaxis /dx 1st to 1 hr THER/PROPH/DIAG IV INF INIT [facility] Start: 08-15-2023 Advance Directive Discussion Advance Directive Discussion [facility] Start: 08-15-2023 zzBehavioral Health Screening zBehavioral Health Screening [facility] Start: 08-13-2023 [facility] Start: 08-13-2023 Enteric precautions [facility] Start: 08-13-2023 Clostridioides difficile (PCR) Clostridioides difficile (PCR) [facility] Start: 08-13-2023 Enteric Bacteriology Enteric Bacteriology [facility] Start: 01-06-2023 SHANEL, Provider: Chitra Stone, Status: Pen, Time: 2:00 PM SHANEL, Provider: Chitra Stone, Status: Pen, Time: 2:00 PM [facility] Work Phone: Start: 01-04-2023 [email or web address], Provider: Jamila Seals, Status: Pen, Time: 11:30 AM [email or web address], Provider: Jamila Seals, Status: Pen, Time: 11:30 AM [facility]: Start: 01-03-2023 [email or web address], Provider: Nolvia Sheth, Status: Pen, Time: 2:45 PM [email or web address], Provider: Nolvia Sheth, Status: Pen, Time: 2:45 PM Rehab [facility] Work Phone: Start: 12-31-2022 [email or web address], Provider: Jamila Seals, Status: Pen, Time: 10:45 AM [email or web address], Provider: Jamila Seals, Status: Pen, Time: 10:45 AM Rehab [facility] Work Phone: Start: 12-30-2022 [email or web address], Provider: Deisy Batista, Status: Pen, Time: 2:45 PM [email or web address], Provider: Deisy Batista, Status: Pen, Time: 2:45 PM Rehab [facility] Work Phone: Start: 12-27-2022 [email or web address], Provider: Jamila Seals, Status: Pen, Time: 2:45 PM [email or web address], Provider: Jamila Seals, Status: Pen, Time: 2:45 PM Rehab [facility] Work Phone: Start: 12-23-2022 [email or web address], Provider: Sharron Lau, Status: Pen, Time: 2:45 PM [email or web address], Provider: Sharron Lau, Status: Pen, Time: 2:45 PM [facility] Work [facility]: Start: 09-06-2022 Iv infusion hydration each additional hour HYDRATE IV INFUSION ADD-ON [facility] Start: 09-06-2022 Iv infusion therapy/prophylaxis /dx 1st to 1 hr THER/PROPH/DIAG IV INF INIT [facility] Start: 08-15-2022 ADVANCE DIRECTIVE DISCUSSION ADVANCE DIRECTIVE DISCUSSION [facility] Start: 08-15-2022 DEPRESSION ASSESSMENT DEPRESSION ASSESSMENT [facility] Start: 06-18-2022 Hepatitis B surface antibody level LDL CHOLESTEROL [facility] Start: 12-24-2021 3 comp foot exam completed DIABETIC FOOT EXAM [facility] Start: 12-24-2021 Diabetic foot examination Diabetic Foot Exam [facility] Start: 12-24-2021 Hepatitis B screening URINE ALBUMIN:CREATININE RATIO [facility] Start: 12-16-2021 Hemoglobin A1c measurement HbA1C [facility] Start: 12-16-2021 Hemoglobin A1c/Hemoglobin.total in Blood HBA1C [facility] Start: 09-04-2021 Iv infusion therapy/prophylaxis /dx 1st to 1 hr THER/PROPH/DIAG IV INF INIT [facility] Work Phone: Start: 08-18-2021 Glaucoma screening Dilated Retinal Exam [facility] Start: 08-18-2021 Hepatitis C antibody, confirmatory test DILATED RETINAL EXAM [facility] Start: 07-19-2021 Screening for osteoporosis Bone Density Screening [facility] Start: 2014 Respiratory Syncytial Virus Immunization: Risk, 60-74 Risk, or 75+ (1 - 1-dose 75+ series) Respiratory Syncytial Virus Immunization: Risk, 60-74 Risk, or 75+ (1 - 1-dose 75+ series) [facility] Start: 2004 Fall risk assessment Falls Risk Assessment [facility] Start: 1957 Anxiety Screening Anxiety Screening [facility] Start: 1957 Depression Screening Depression Screening [facility] Start: 1957 Diabetes: Estimated Glomerular Filtration Rate for Kidney Health Diabetes: Estimated Glomerular Filtration Rate for Kidney Health [facility] Start: 1957 Diabetes: Urine Albumin-Creatinine Ratio for Kidney Health Diabetes: Urine Albumin-Creatinine Ratio for Kidney Health [facility] Start: 1951 Depression screening using PHQ-9 (Patient Health Questionnaire 9) score [facility] Start: 1942 Medicare Wellness Visit Medicare Wellness Visit [facility] Start: 1939 Medicare Annual Wellness (AWV) Medicare Annual Wellness (AWV) [facility] Start: 1939 Screening for osteoporosis [facility] Start: 1939 Thyroid stimulating hormone measurement TSH Level [facility] Clostridioides diffi cile DNA [Presence] in Unspecified specimen by MELISSA with probe detection [facility] End: 12-24-2024 CT Lumbar spine WO [facility] Work Phone: Comment on above: Once for 1 Occurrences starting 12/25/19 until 12/24/2024 Gastrointestinal pathogens panel - Stool by MELISSA with probe detection [facility] Ova and parasites identified in Unspecified specimen by Light microscopy [facility] Patient Education [facility] Work Phone: Patient referral [facility] Work Phone: T4 free measurement [facility] Thyroid stimulating hormone measurement [facility] End: 03-02-2025 US Carotid arteries - bilateral US CAROTID ARTERIES [facility] Routine Bilateral carotid artery stenosis 1 Occurrences starting 03/02/2024 until 03/02/2025 [facility] Work Phone: Comment on above: 1 Occurrences starting 03/02/2024 until 03/02/2025 End: 08-17-2023 US CAROTID ARTERIES [facility] US CAROTID ARTERIES [facility] V[facility] Lab Routine Bilateral carotid artery stenosis 1 Occurrences starting 08/17/2022 until 08/17/2023 [facility] Work Phone: Comment on above: 1 Occurrences starting 08/17/2022 until 08/17/2023 Vitamin D, 25-hydrox y measurement [facility] Immunizations Immunization Date Immunization Notes Care Provider Luca álvarez 05-11-2023 COVID-19 vaccine, ag e 12+ yr, 2022- season (MODERNA) Kathy Campbell DO Work Phone: [facility] 05-11-2023 influenza (aIIV4) vaccine, age 65+ yr, quadrivalent, PF (FLUAD QUAD) Kathy Campbell DO Work Phone: [facility] 05-11-2023 respiratory syncytia l virus (RSV) vaccine, bivalent (ABRYSVO) Kathy Campbell DO Work Phone: [facility] 05-11-2023 influenza virus vacc ine, unspecified formulation Kathy Campbell DO Work Phone: [facility] 11-25-2022 tetanus toxoid, redu zach diphtheria toxoid, and acellular pertussis vaccine, adsorbed Kathy Campbell DO Work Phone: [facility] 11-16-2021 COVID-19 original vaccine, booster dose, monovalent (MODERNA) Kathy Campbell DO Work Phone: [facility] 04-30-2021 influenza, high dose seasonal, preservative-free Kathy Campbell DO Work Phone: [facility] 04-30-2021 influenza virus vacc ine, unspecified formulation Annmarie Singletary AQUATICS ASSISTANT DEPARTMENT HEAD Work Phone: [facility] 10-03-2020 COVID-19 original vaccine, full dose, monovalent (MODERNA) Kathy Campbell DO Work Phone: [facility] 09-05-2020 COVID-19 original vaccine, full dose, monovalent (MODERNA) Kathy Campbell DO Work Phone: [facility] 05-31-2019 influenza, high dose seasonal, preservative-free Kathy Campbell DO Work Phone: [facility] 05-28-[address] Zach Godinez Work Phone: [facility] 03-28-2019 pneumococcal polysaccharide vaccine, 23 valent Kathy Campbell DO Work Phone: [facility] 12-13-2018 zoster vaccine recombinant Kathy Campbell DO Work Phone: [facility] 09-07-2018 zoster vaccine recombinant Kathy Campbell DO Work Phone: [facility] 06-02-2018 zoster vaccine recombinant Kathy Campbell DO Work Phone: [facility] 05-15-2018 influenza, high dose seasonal, preservative-free Kathy Campbell DO Work Phone: [facility] 01-31-2018 tetanus and diphther ia toxoids, adsorbed, preservative free, for adult use (2 Lf of tetanus toxoid and 2 Lf of diphtheria toxoid) Kathy Campbell DO Work Phone: [facility] 01-31-2018 tetanus toxoid, redu zach diphtheria toxoid, and acellular pertussis vaccine, adsorbed Kathy Campbell DO Work Phone: [facility] 05-14-2017 influenza, high dose seasonal, preservative-free Kathy Campbell DO Work Phone: [facility] 05-24-2016 influenza virus vacc ine, unspecified formulation Kathy Campbell DO Work Phone: [facility] Work Phone: 08-18-2015 pneumococcal conjuga te vaccine, 13 valent Kathy Campbell DO Work Phone: [facility] Work Phone: 07-15-2015 zoster vaccine, live Fred Campbell DO Work Phone: [facility] Work Phone: 01-14-2012 pneumococcal polysaccharide vaccine, 23 valent Kathy Campbell DO Work Phone: [facility] Work Phone: 12-02-2004 pneumococcal polysaccharide vaccine, 23 valent Kathy Campbell DO Work Phone: [facility] 06-06-1995 pneumococcal polysaccharide vaccine, 23 valent Kathy Campbell DO Work Phone: [facility] Payers Date Payer Category Payer Self-pay [id number] 2021 Managed Care PPO (unspecified) [employer] OPEN CHOICE PPO [id number] 2021 Private Health Insurance [employer] [place] [employer] PPO [id number] 2021-Present [phone] [address] [place] [address] PPO [id number] 2009 Commercial Managed C are - PPO [employer] PPO [id number] 2009 Private Health Insurance [id number] 1992 Medicare [id number] 1992 Medicare [id number] 1940 Unknown [id number] 2.16.840.1.170107.3.57 9. 1939 Unknown [id number] 2.16.840.1.939759.3.57 9. 1939 Unknown [id number] 2.16.840.1.495508.3.57 9. 1939 Unknown [id number] 2.16840.1.050999.3.57 9.2.1069 1939 Unknown [id number] 2.16.840.1.292179.3.57 9.2.903 1939 Unknown [id number] 2.16.840.1.264178.3.57 9.2.903 1939 Unknown [id number] 2.16.840.1.406362.3.57 9.2.903 1939 Unknown [id number] 2.16.840.1.259329.3.57 9.2.903 1939 Unknown [id number] 2.16.840.1.462333.3.57 9.2.903 1939 Unknown [id number] 2..840.1.031706.3.57 9.2.903 1939 Unknown [id number] 2.840.1.290217.3.57 9.2.902 1939 Unknown [id number] 2.16.840.1.010917.3.57 9.2.902 1939 Unknown [id number] 2.16840.1.152750.3.57 9.2.902 Unknown Unknown [id number] 2.16840.1.767922.3.57 9.2.462 Unknown [id number] 2.840.1.769614.3.57 9.2.462 Unknown [id number] 2.16840.1.057440.3.57 9.2.462 Unknown [id number] 2.16.840.1.326446.3.57 9.2.462 Unknown [id number] 2.16.840.1.391495.3.57 9.2.462 Unknown [id number] 2.16.840.1.556025.3.57 9.2.462 Unknown [id number] 2.16.840.1.330361.3.57 9.2.462 Unknown [id number] 2.16.840.1.665378.3.57 9.2.462 Unknown [id number] 2.16.840.1.198502.3.57 9.2.462 Unknown [id number] 2.16.840.1.410597.3.57 9.2.462 Unknown [id number] 2.16.840.1.953079.3.57 9.2.462 Unknown [id number] 2.16.840.1.365837.3.57 9.2.462 Unknown [id number] 2.16.840.1.426829.3.57 9.2.462 Unknown [id number] 2.16.840.1.590590.3.57 9.2.462 Unknown [id number] 2.16.840.1.832971.3.57 9.2.462 Unknown [id number] 2.840.1.100555.3.57 9.2.462 Social History Date Type Detail Facility Start: 10-23-2021 End: 08-18-2023 Tobacco smoking status [facility] Unknown if ever smoked [facility] Start: 07-02-2019 None [facility] Start: 01-31-2020 Alone [facility] Start: 07-02-2019 Non-smoker [facility] Start: 1940 Sex Assigned At Female [facility] Start: 08-17-2022 End: 04-14-2024 Tobacco smoking status NHIS Ex-smoker [facility] Start: 09-27-1953 End: 09-27-2008 History of tobacco use Current smoker [facility] Start: 09-27-1954 End: 09-27-2008 History of tobacco use Cigarette Smoker [facility] Start: 08-17-2022 End: 01-01-2025 Cigarettes smoked current (pack per day) - Reported [address] [facility] Start: 08-17-2022 End: 12-20-2024 Tobacco use and exposure Smokeless tobacco non-user [facility] Start: 08-17-2022 End: 06-05-2024 Alcohol intake Current non-drinker of alcohol (finding) [facility] Start: 1940 Sex Assigned At Not on file [facility] Start: 08-17-2022 End: 01-01-2025 Tobacco use panel [facility] PHQ2 Score 0 [facility] Start: 04-20-2024 End: 09-17-2024 Alcoholic beverage intake Ex-drinker (finding) [facility] Start: 03-10-2022 Gender identity Identifies as female gender (finding) [facility] Start: 03-10-2022 Sexual orientation Heterosexual (finding) [facility] Start: 11-02-2024 End: 11-28-2024 Sex Female (finding) [facility] Start: 12-20-2024 End: 01-01-2025 Alcoholic beverage intake Lifetime non-drinker (finding) [facility] in [facility] Procedure Code Equipment Code Equipment Original Text Equipment Identifier Dates Kyphoplasty MARLENI KYPHO AUTOPLEX FDA Start: 07-04-2019 Kyphoplasty MARLENI KYPHO AUTOPLEX FDA Start: 07-04-2019 Kyphoplasty MARLENI KYPHO AUTOPLEX FDA Start: 07-04-2019 Kyphoplasty MARLENI KYPHO AUTOPLEX FDA Start: 07-04-2019 Kyphoplasty MARLENI KYPHO AUTOPLEX FDA Start: 07-04-2019 Kyphoplasty MARLENI KYPHO AUTOPLEX FDA Start: 07-04-2019 Kyphoplasty MARLENI KYPHO AUTOPLEX FDA Start: 07-04-2019 Kyphoplasty MARLENI KYPHO AUTOPLEX FDA Start: 07-04-2019 Kyphoplasty MARLENI KYPHO AUTOPLEX FDA Start: 07-04-2019 Kyphoplasty MARLENI KYPHO AUTOPLEX FDA Start: 07-04-2019 Kyphoplasty MARLENI KYPHO AUTOPLEX FDA Start: 07-04-2019 Kyphoplasty MARLENI KYPHO AUTOPLEX FDA Start: 07-04-2019 Kyphoplasty MARLENI KYPHO AUTOPLEX FDA Start: 07-04-2019 Kyphoplasty MARLENI KYPHO AUTOPLEX FDA Start: 07-04-2019 Kyphoplasty MARLENI KYPHO AUTOPLEX FDA Start: 07-04-2019 Kyphoplasty MARLENI KYPHO AUTOPLEX FDA Start: 07-04-2019 Kyphoplasty MARLENI KYPHO AUTOPLEX FDA Start: 07-04-2019 Patch Cv 8x.8cm Tapr Vsgrd Bov - [id number] Start: 01-04-2014 Wire Ti .045in Stainless Steel 5.5in Fixation Trocar Smooth Guide - [id number] Start: 11-08-2018 [id number], [id number] Start: 02-11-2017 Comment on above: Test blood sugar(s) 1 times daily. Dx: Type 2 DM - Controlled E11.9 Insulin: No Test blood sugar(s) 1 daily. Dx: Type 2 DM - Controlled E11.9 Insulin: No Goals Date Patient Goal Desired Activity /State Personal health goal Mental Status Date Assessment Result Facility 09-08-2023 Cognitive function Voice/Name [facility] Work Phone: 09-06-2022 Cognitive function Voice/Name [facility] Work Phone: 09-04-2021 Cognitive function Awake;Alert;A ppropriate;Fol lows Commands [facility] Work Phone: Clinical Notes 09-27-2018 to 01-01-2025 Je Munguia MD - 01/01/2025 1:30 PM Rosanne Munguia MD - 12/20/2024 11:15 AM Rhina Fleming PT - 09/20/2024 4:00 PM John Purcell PROMOTIONS REPRESENTATIVE - 09/17/2024 10:00 AM EST Note Date & Type Note Facility 01-01-2025 History of Present illness Narrative NEUROSURGERY CONSULT NOTE Patient Name: Cindi Messer Patient : 1940 PCP: BELEN CLEVELAND MD History of Present Ilness: 84 y.o. presents with follow up for her lumbar spine. She has compression fractures at L1 and L3. These were treated with kyphoplasties by Dr. Benz. She did have some extravasation of cement after this procedure. She had an MRI of her lumbar spine completed after her kyphoplasties. She continues to have low back pain. States she she was having left foot pain. She had a lesion removed from her left foot and the pain has improved. States she has pain at the base of her skull on the left. She gets sharp shooting pain up into her head. States this pain is severe. She had xrays of her cervical spine, which revealed arthritic changes. Chief Complaint Patient presents with Follow-up Patient present for follow up CT Past Medical History: History reviewed. No pertinent past medical history. Past Surgical History: History reviewed. No pertinent surgical history. Home Medications: Prior to Admission medications Medication Sig Start Date End Date Taking? Authorizing Provider acetaminophen-codeine (Tylenol #3) 300-30 MG tablet TAKE 1 TABLET BY MOUTH TWICE DAILY FOR 28 DAYS 11/21/24 Yes Historical Provider, aspirin 81 MG EC tablet Take 81 mg by mouth daily. Yes Historical Provider, cholecalciferol (Vitamin D-3) 10 MCG (400 UNIT) tablet Take by mouth daily. Yes Historical Provider, levothyroxine (Synthroid, Levoxyl) 100 MCG tablet Take 100 mcg by mouth daily. Yes Historical Provider, loperamide (Imodium) 2 MG capsule Take 4 mg by mouth daily. 09/24/24 Yes Historical Provider, metroNIDAZOLE (Metrocream) 0.75 % cream APPLY TO THE FULL FACE TWICE A DAY AFTER CLEANSING ONCE IN THE MORNING AND ONCE IN THE EVENING 03/09/24 Yes Historical Provider, OneTouch Verio test strip CHECK BLOOD SUGAR DAILY OR DIRECTED BY PRESCRIBER 04/23/24 Yes Historical Provider, pantoprazole (ProtoNix) 40 MG EC tablet Take 40 mg by mouth daily. 12/10/24 Yes Historical Provider, Allergies: Bee venom, Metformin, Sulfa antibiotics, Alendronate, and Meloxicam Social History: TOBACCO: reports that she has quit smoking. Her smoking use included cigarettes. She has never used smokeless tobacco. ETOH: reports no history of alcohol use. RECREATIONAL DRUG USE: Social History Substance and Sexual Activity Drug Use Never Family History: No family history on file. Review of Systems Musculoskeletal: Positive for back pain and gait problem. Neurological: Positive for headaches. All other systems reviewed and are negative. Physical Examination: Vitals: 01/01/25 1358 BP: 135/71 Pulse: 71 Physical Exam Vitals reviewed. Constitutional: Appearance: Normal appearance. HENT: Head: Normocephalic and atraumatic. Nose: Nose normal. Mouth/Throat: Pharynx: Oropharynx is clear. Eyes: Extraocular Movements: Extraocular movements intact. Conjunctiva/sclera: Conjunctivae normal. Cardiovascular: Rate and Rhythm: Normal rate and regular rhythm. Pulses: Normal pulses. Pulmonary: Effort: Pulmonary effort is normal. No respiratory distress. Abdominal: General: There is no distension. Palpations: Abdomen is soft. Tenderness: There is no abdominal tenderness. Musculoskeletal: General: No tenderness. Normal range of motion. Cervical back: Normal range of motion and neck supple. No rigidity. Skin: General: Skin is warm and dry. Neurological: Mental Status: She is alert and oriented to person, place, and time. Cranial Nerves: No cranial nerve deficit. Sensory: No sensory deficit. Motor: Weakness present. Gait: Gait abnormal. Deep Tendon Reflexes: Reflexes abnormal. Psychiatric: Mood and Affect: Mood normal. Behavior: Behavior normal. She is morbidly obese. She really cannot walk without considerable assistance. She has diffuse weakness throughout her lower extremities and is somewhat debilitated. Neurological Exam Mental Status Alert. Oriented to person, place, and time. Cranial Nerves CN III, IV, : Extraocular movements intact bilaterally. Gait Abnormal gait. Gait Unsteady, kyphotic in thoracolumbar spine Results Labs: Last 24hrs No results found for this or any previous visit (from the past 24 hours). Radiology Personal review: MRI of the lumbar spine from October 2024 was reviewed. She has evidence of 2 previous kyphoplasties. There is no high-grade stenosis. She does have generalized spondylosis. CT of the lumbar spine was reviewed. There is evidence of 2 previous kyphoplasties. There is some extravasation of bone cement into the anterior epidural space retro to the vertebral bodies. There is not high-grade stenosis. ASSESSMENT / PLAN : 84yo f with follow up CT of her lumbar spine. Her imaging was reviewed with her, and she is symptomatic to the above noted pathology. She has already had two kyphoplasties at this level. With respect to the bone cement within the canal we discussed the significance of this. She does occasionally get some leg symptoms. It would be an option to surgically remove this of bone cement however it is unclear if this would give her relief of her symptoms as she primarily has back pain. She does understand risk benefits and alternatives of this potential surgical procedure but it is probably best to avoid it at this time. We discussed conservative options for her continued symptoms such as bracing and medications. She is considering her options. She also has a clinical diagnosis of left sided occipital neuralgia. We discussed options such as tegretol, but she has opted to avoid medication due to her age and past medical history, which is reasonable. She will follow up with me on a prn basis. I answered all her questions, and she understands signs and symptoms that would suggest deterioration. Diagnosis Plan 1. Compression fracture of L1 vertebra, initial encounter ([facility]) 2. Compression fracture of L3 vertebra, initial encounter ([facility]) documented in this encounter [facility] 12-20-2024 History of Present illness Narrative NEUROSURGERY CONSULT NOTE Patient Name: Cindi Messer Patient : 1940 PCP: BELEN CLEVELAND MD History of Present Ilness: 84 y.o. presents with low back pain. States her back pain is severe. She has difficulty ambulating and standing up straight due to the pain in her back. She cannot ambulate any significant distance due to her symptoms. States the pain is primarily in her low back. She has had two kyphoplasties by Dr. Benz at L1 and L3. States she did have numbness in her legs but this is improving. She states she also has a history of a fracture in her mid back. Chief Complaint Patient presents with New Patient Lower back pain. Having trouble walking Past Medical History: History reviewed. No pertinent past medical history. Past Surgical History: History reviewed. No pertinent surgical history. Home Medications: Prior to Admission medications Medication Sig Start Date End Date Taking? Authorizing Provider acetaminophen-codeine (Tylenol #3) 300-30 MG tablet TAKE 1 TABLET BY MOUTH TWICE DAILY FOR 28 DAYS 11/21/24 Yes Historical Provider, aspirin 81 MG EC tablet Take 81 mg by mouth daily. Yes Historical Provider, cholecalciferol (Vitamin D-3) 10 MCG (400 UNIT) tablet Take by mouth daily. Yes Historical Provider, levothyroxine (Synthroid, Levoxyl) 100 MCG tablet Take 100 mcg by mouth daily. Yes Historical Provider, loperamide (Imodium) 2 MG capsule Take 4 mg by mouth daily. 09/24/24 Yes Historical Provider, metroNIDAZOLE (Metrocream) 0.75 % cream APPLY TO THE FULL FACE TWICE A DAY AFTER CLEANSING ONCE IN THE MORNING AND ONCE IN THE EVENING 03/09/24 Yes Historical Provider, OneDerejeuch Verio test strip CHECK BLOOD SUGAR DAILY OR DIRECTED BY PRESCRIBER 04/23/24 Yes Historical Provider, pantoprazole (ProtoNix) 40 MG EC tablet Take 40 mg by mouth daily. 12/10/24 Yes Historical Provider, Allergies: Bee venom, Metformin, Sulfa antibiotics, and Meloxicam Social History: TOBACCO: reports that she has quit smoking. Her smoking use included cigarettes. She has never used smokeless tobacco. ETOH: reports no history of alcohol use. RECREATIONAL DRUG USE: Social History Substance and Sexual Activity Drug Use Never Family History: No family history on file. Review of Systems Musculoskeletal: Positive for back pain and gait problem. All other systems reviewed and are negative. Physical Examination: Vitals: 12/20/24 1113 BP: (!) 154/57 Pulse: 84 Physical Exam Vitals reviewed. Constitutional: Appearance: Normal appearance. HENT: Head: Normocephalic and atraumatic. Nose: Nose normal. Mouth/Throat: Pharynx: Oropharynx is clear. Eyes: Extraocular Movements: Extraocular movements intact. Conjunctiva/sclera: Conjunctivae normal. Cardiovascular: Rate and Rhythm: Normal rate and regular rhythm. Pulses: Normal pulses. Pulmonary: Effort: Pulmonary effort is normal. No respiratory distress. Abdominal: General: There is no distension. Palpations: Abdomen is soft. Tenderness: There is no abdominal tenderness. Musculoskeletal: General: No tenderness. Normal range of motion. Cervical back: Normal range of motion and neck supple. No rigidity. Skin: General: Skin is warm and dry. Neurological: Mental Status: She is alert and oriented to person, place, and time. Cranial Nerves: No cranial nerve deficit. Sensory: No sensory deficit. Motor: Weakness present. Gait: Gait abnormal. Deep Tendon Reflexes: Reflexes abnormal. Psychiatric: Mood and Affect: Mood normal. Behavior: Behavior normal. She is morbidly obese. She really cannot walk without considerable assistance. She has diffuse weakness throughout her lower extremities and is somewhat debilitated. Neurological Exam Mental Status Alert. Oriented to person, place, and time. Cranial Nerves CN III, IV, : Extraocular movements intact bilaterally. Gait Abnormal gait. Gait Unsteady, kyphotic in thoracolumbar spine Results Labs: Last 24hrs No results found for this or any previous visit (from the past 24 hours). Radiology Personal review: MRI of the lumbar spine from October 2024 was reviewed. She has evidence of 2 previous kyphoplasties. There is no high-grade stenosis. She does have generalized spondylosis. ASSESSMENT / PLAN : She has weightbearing mechanical low back pain that is severe incapacitating and causes her to be unable to walk. She also has significant permanent numbness in her legs for many years likely due to neuropathy. She would like to be able to ambulate. I do recommend a CT of the lumbar spine to look at her previous compression fractures and kyphoplasty as well as the adjacent segments to see what options there may be to help her with this severe back pain. She is in pain management. I answered her questions. She understands signs and symptoms that would suggest deterioration. Diagnosis Plan 1. Compression fracture of L1 vertebra, initial encounter ([facility]) CT lumbar spine wo IV contrast 2. Compression fracture of L3 vertebra, initial encounter ([facility]) documented in this encounter [facility] 10-23-2024 Radiology Diagnostic study note [facility] [address] [place] [address] [id number] Chest PA and Lateral MR#: [id number] Acct: [id number] Name: CINDI MESSER Rep #: [id number] : 1940 F 84 From: Mayela Leach MD PCP: Dr. Aniceto Cleveland MD Status: ZAKI TUCKER Study:Chest PA and Lateral Date of Exam: 10/23/24 Exam# [id number] Ordering Dr: Aniceto Cleveland MD EXAM: XR Chest, 2 Views CLINICAL INDICATION: WHEEZING TECHNIQUE: Frontal and lateral views of the chest. COMPARISON: No relevant prior studies available. FINDINGS: LUNGS AND PLEURAL SPACES: Right middle lobe atelectasis or pneumonia. No pneumothorax. HEART: Unremarkable. No cardiomegaly. MEDIASTINUM: Unremarkable. Normal mediastinal contour. BONES/JOINTS: Unremarkable. No acute fracture. RAD/Chest PA and Lateral IMPRESSION: Right middle lobe atelectasis or pneumonia. Reading Location: [facility] CC: Dr. Aniceto Cleveland MD ~ Business Continuity Director: Signed [facility] 09-20-2024 History of Present illness Narrative [facility] OUTPATIENT REHABILITATION DAILY TREATMENT NOTE Today's Date 09/20/2024 Patient Name: Cindi Messer Date of : 1940 Current Visit #: 6 Authorized Visits: [id number] Case Name: Bilateral Knee OA History: Pre-Treatment Pain Scale: back 9/10 , knee 3-4/10 Symptoms: back is worse than knee Functional Diagnosis: 1. Primary osteoarthritis of both knees Clinical Information: Subjective: reports back hurts more than knees. She gets more back pain after session. Objective Gone through concern and recommended to return back to referring provider for back pain as she could not tolerate much progression of exercise . Treatments: Physical Therapy Exercise Log - 09/20/24 [id number] OTHER Precautions/Contraindications Supervising PT: Lavelle Cano visit 5: 4:00 pm 4:29 pm Therapeutic Exercise (21081) Intervention scifit 5' lv 2 Parameters seated HS and calf stretches 20 x 3 Intervention assisted heel slides x10 Parameters quad sets x10 Intervention -- Parameters standing hip ext x10 - NT Intervention supine hip abd w/ GTB, add w/ ball x20 NT Parameters HS curls, LAQ x10 Parameters Access Code: [email or web address] URL: [email or web address] Date: 08/28/2024 Prepared by: [employer] Exercises - Seated Table Hamstring Stretch - 2 x daily - 3 reps - 20 seconds hold - Long Sitting Calf Stretch with Strap - 2 x daily - 3 reps - 20 seconds hold - Sitting Heel Slide with Towel - 2 x daily - 5 reps - 10 seconds hold - Supine Quad Set - 1 x daily - 10 reps - 5 seconds hold - Supine Straight Leg Raises - 1 x daily - 10 reps - 2 seconds hold - Standing Hip Extension with Counter Support - 1 x daily - 10-15 reps PT Treatment Times Therex Total Time 29 Direct Treatment Time 29 Goals: Physical Therapy Ortho Goals: MOBILITY: Patient will be able to ambulate for 30 minutes in community and ambulate on uneven surfaces without difficulty in 4 weeks. MOBILITY: Patient will be able to ascend/descend stairs without difficulty in 4 weeks. IMPAIRMENT: Improve pain from 10/10 to <3/10 during prolonged standing, walking and negotiating uneven surfaces in 4 weeks IMPAIRMENT: Improve MMT of Left Knee Extension to at least 4+/5 in 4 weeks IMPAIRMENT: Improve AROM of both Knees to 0-120 degrees in 4 weeks. OTHER: Patient will increase FOTO score from 31 to at least 50 to show MDC/MCII and expected functional outcome in 4 weeks. OTHER: Patient will be able to properly demonstrate independence with HEP in 1 week. Patient Education: Diagnosis and recovery specific education with patient verbalized understanding. Post-Treatment Pain Scale: same Assessment: Patient had an expected response to treatment. Skilled Intervention demonstrated by modifications of treatment per exercise log including increased mobility and assessment of patient's response and safety interventions per exercise log. Progress towards goals as expected. Plan: Discharge Rhina Alberto PT STATE LICENSE, [id number] documented in this encounter [facility] 09-17-2024 History of Present illness Narrative [facility] OUTPATIENT REHABILITATION DAILY TREATMENT NOTE Today's Date 09/17/2024 Patient Name: Cindi Messer Date of : 1940 Current Visit #: 5 Authorized Visits: [id number] Case Name: Bilateral Knee OA History: Pre-Treatment Pain Scale: 8 Symptoms: gradually worsened Functional Diagnosis: 1. Primary osteoarthritis of both knees Clinical Information: Subjective: Pt reports increased pain in knees and back since last session. Pt stated she had difficulty walking and could not sleep secondary to pain in legs. Objective Pt did not tolerate any supine ex that activated back today. Treatments: Physical Therapy Exercise Log - 09/17/24 1001 OTHER Precautions/Contraindications Supervising PT: Lavelle Notes visit 4: 10:00 - 10:30 Therapeutic Exercise (01862) Intervention scifit 5' lv 2 Parameters seated HS and calf stretches 20 x 3 Intervention assisted heel slides x10 Parameters quad sets x10 Intervention SLR x10 NT Parameters standing hip ext x10 - NT Intervention supine hip abd w/ GTB, add w/ ball x20 NT Parameters HS curls, LAQ x10 Parameters Access Code: [email or web address] URL: [email or web address] Date: 08/28/2024 Prepared by: [employer] Exercises - Seated Table Hamstring Stretch - 2 x daily - 3 reps - 20 seconds hold - Long Sitting Calf Stretch with Strap - 2 x daily - 3 reps - 20 seconds hold - Sitting Heel Slide with Towel - 2 x daily - 5 reps - 10 seconds hold - Supine Quad Set - 1 x daily - 10 reps - 5 seconds hold - Supine Straight Leg Raises - 1 x daily - 10 reps - 2 seconds hold - Standing Hip Extension with Counter Support - 1 x daily - 10-15 reps PT Treatment Times Therex Total Time 30 Direct Treatment Time 30 Total Treatment Time 30 Goals: Physical Therapy Ortho Goals: MOBILITY: Patient will be able to ambulate for 30 minutes in community and ambulate on uneven surfaces without difficulty in 4 weeks. MOBILITY: Patient will be able to ascend/descend stairs without difficulty in 4 weeks. IMPAIRMENT: Improve pain from 10/10 to <3/10 during prolonged standing, walking and negotiating uneven surfaces in 4 weeks IMPAIRMENT: Improve MMT of Left Knee Extension to at least 4+/5 in 4 weeks IMPAIRMENT: Improve AROM of both Knees to 0-120 degrees in 4 weeks. OTHER: Patient will increase FOTO score from 31 to at least 50 to show MDC/MCII and expected functional outcome in 4 weeks. OTHER: Patient will be able to properly demonstrate independence with HEP in 1 week. Patient Education: Quality of movement with patient demonstrated understanding. Post-Treatment Pain Scale: 8 Assessment: Patient had an expected response to treatment. Skilled Intervention demonstrated by modifications of treatment per exercise log including increased load and safety interventions per exercise log. Progress towards goals as expected. Plan for Next Visit: Treatment Visit with focus on strengthening as tolerated John Peguero PTA STATE LICENSE, [id number] documented in this encounter [facility] 09-12-2024 History of Present illness Narrative [facility] OUTPATIENT REHABILITATION DAILY TREATMENT NOTE Today's Date 09/12/2024 Patient Name: Cindi Messer Date of : 1940 Current Visit #: 4 Authorized Visits: 199 Case Name: Bilateral Knee OA History: Pre-Treatment Pain Scale: 5 Symptoms: stabilized Functional Diagnosis: 1. Primary osteoarthritis of both knees Clinical Information: Subjective: Pt reports average pain and took pain meds this morning. Pt noticed increase in pain during longer periods of walking. Objective Treatments: Physical Therapy Exercise Log - 09/12/24 0957 OTHER Precautions/Contraindications Supervising PT: Lavelle Cano visit 3: 10:00 - 10:35 Therapeutic Exercise (64616) Intervention scifit 5' lv 3 Parameters seated HS and calf stretches 20 x 3 Intervention assisted heel slides x10 Parameters quad sets x10 Intervention SLR x10 Parameters standing hip ext x10 - NT Intervention supine hip abd w/ GTB, add w/ ball x20 Parameters HS curls, LAQ RTB x10 Parameters Access Code: [email or web address] URL: [email or web address] Date: 08/28/2024 Prepared by: Foreign [employer] Exercises - Seated Table Hamstring Stretch - 2 x daily - 3 reps - 20 seconds hold - Long Sitting Calf Stretch with Strap - 2 x daily - 3 reps - 20 seconds hold - Sitting Heel Slide with Towel - 2 x daily - 5 reps - 10 seconds hold - Supine Quad Set - 1 x daily - 10 reps - 5 seconds hold - Supine Straight Leg Raises - 1 x daily - 10 reps - 2 seconds hold - Standing Hip Extension with Counter Support - 1 x daily - 10-15 reps PT Treatment Times Therex Total Time 35 Direct Treatment Time 35 Total Treatment Time 35 Goals: Physical Therapy Ortho Goals: MOBILITY: Patient will be able to ambulate for 30 minutes in community and ambulate on uneven surfaces without difficulty in 4 weeks. MOBILITY: Patient will be able to ascend/descend stairs without difficulty in 4 weeks. IMPAIRMENT: Improve pain from 10/10 to <3/10 during prolonged standing, walking and negotiating uneven surfaces in 4 weeks IMPAIRMENT: Improve MMT of Left Knee Extension to at least 4+/5 in 4 weeks IMPAIRMENT: Improve AROM of both Knees to 0-120 degrees in 4 weeks. OTHER: Patient will increase FOTO score from 31 to at least 50 to show MDC/MCII and expected functional outcome in 4 weeks. OTHER: Patient will be able to properly demonstrate independence with HEP in 1 week. Patient Education: Quality of movement with patient demonstrated understanding. Post-Treatment Pain Scale: 6 Assessment: Patient had an expected response to treatment. Skilled Intervention demonstrated by modifications of treatment per exercise log including increased load and safety interventions per exercise log. Progress towards goals as expected. Plan for Next Visit: Treatment Visit with focus on strengthening as tolerated. John Peguero PTA STATE LICENSE, [id number] documented in this encounter [facility] 09-07-2024 History of Present illness Narrative [facility] OUTPATIENT REHABILITATION DAILY TREATMENT NOTE Today's Date 09/07/2024 Patient Name: Cindi Messer Date of : 1940 Current Visit #: 3 Authorized Visits: 199 Case Name: Bilateral Knee OA History: Pre-Treatment Pain Scale: 6 Symptoms: stabilized Functional Diagnosis: 1. Primary osteoarthritis of both knees Clinical Information: Subjective: Her knees are very sore today Objective added hip abd/add with good tolerance Treatments: Physical Therapy Exercise Log - 09/07/24 1043 OTHER Precautions/Contraindications Supervising PT: Lavelle Cano visit 2: 10:00-10:35 Therapeutic Exercise (23373) Intervention scifit 7' lv 1 Parameters seated HS and calf stretches x5 Intervention assisted heel slides x10 Parameters quad sets x10 Intervention SLR Parameters standing hip ext x10 Intervention supine hip abd/add GTB x20 Parameters HS curls RTB x10 Parameters Access Code: [email or web address] URL: [email or web address] Date: 08/28/2024 Prepared by: Foreign [employer] Exercises - Seated Table Hamstring Stretch - 2 x daily - 3 reps - 20 seconds hold - Long Sitting Calf Stretch with Strap - 2 x daily - 3 reps - 20 seconds hold - Sitting Heel Slide with Towel - 2 x daily - 5 reps - 10 seconds hold - Supine Quad Set - 1 x daily - 10 reps - 5 seconds hold - Supine Straight Leg Raises - 1 x daily - 10 reps - 2 seconds hold - Standing Hip Extension with Counter Support - 1 x daily - 10-15 reps PT Treatment Times Therex Total Time 35 Direct Treatment Time 35 Total Treatment Time 35 Goals: Physical Therapy Ortho Goals: MOBILITY: Patient will be able to ambulate for 30 minutes in community and ambulate on uneven surfaces without difficulty in 4 weeks. MOBILITY: Patient will be able to ascend/descend stairs without difficulty in 4 weeks. IMPAIRMENT: Improve pain from 10/10 to <3/10 during prolonged standing, walking and negotiating uneven surfaces in 4 weeks IMPAIRMENT: Improve MMT of Left Knee Extension to at least 4+/5 in 4 weeks IMPAIRMENT: Improve AROM of both Knees to 0-120 degrees in 4 weeks. OTHER: Patient will increase FOTO score from 31 to at least 50 to show MDC/MCII and expected functional outcome in 4 weeks. OTHER: Patient will be able to properly demonstrate independence with HEP in 1 week. Patient Education: Quality of movement with patient demonstrated understanding. Post-Treatment Pain Scale: 5 Assessment: Patient had an expected response to treatment. Skilled Intervention demonstrated by modifications of treatment per exercise log including increased load and safety interventions per exercise log. Progress towards goals as expected. Plan for Next Visit: Treatment Visit with focus on strengthening and stretching Trudi Leblanc PTA STATE LICENSE, [id number] documented in this encounter [facility] 09-05-2024 History of Present illness Narrative [facility] OUTPATIENT REHABILITATION DAILY TREATMENT NOTE Today's Date 09/05/2024 Patient Name: Cindi Messer Date of : 1940 Current Visit #: 2 Authorized Visits: 199 Case Name: Bilateral Knee OA History: Pre-Treatment Pain Scale: 6 Symptoms: stabilized Functional Diagnosis: 1. Primary osteoarthritis of both knees Clinical Information: Subjective: Her pain is all the time even at rest. Objective pain increase with stretches BLE Treatments: Physical Therapy Exercise Log - 09/05/24 1210 OTHER Precautions/Contraindications Supervising PT: Lavelle Notes visit 1: 10:00-10:35 Therapeutic Exercise ([id number]) Intervention scifit 7' lv 1 Parameters seated HS and calf stretches x5 Intervention assisted heel slides x10 Parameters quad sets x10 Intervention SLR Parameters standing hip ext x10 Parameters Access Code: [email or web address] URL: [email or web address] Date: 08/28/2024 Prepared by: Foreign Finn Exercises - Seated Table Hamstring Stretch - 2 x daily - 3 reps - 20 seconds hold - Long Sitting Calf Stretch with Strap - 2 x daily - 3 reps - 20 seconds hold - Sitting Heel Slide with Towel - 2 x daily - 5 reps - 10 seconds hold - Supine Quad Set - 1 x daily - 10 reps - 5 seconds hold - Supine Straight Leg Raises - 1 x daily - 10 reps - 2 seconds hold - Standing Hip Extension with Counter Support - 1 x daily - 10-15 reps PT Treatment Times Therex Total Time 35 Direct Treatment Time 35 Total Treatment Time 35 Goals: Physical Therapy Ortho Goals: MOBILITY: Patient will be able to ambulate for 30 minutes in community and ambulate on uneven surfaces without difficulty in 4 weeks. MOBILITY: Patient will be able to ascend/descend stairs without difficulty in 4 weeks. IMPAIRMENT: Improve pain from 10/10 to <3/10 during prolonged standing, walking and negotiating uneven surfaces in 4 weeks IMPAIRMENT: Improve MMT of Left Knee Extension to at least 4+/5 in 4 weeks IMPAIRMENT: Improve AROM of both Knees to 0-120 degrees in 4 weeks. OTHER: Patient will increase FOTO score from 31 to at least 50 to show MDC/MCII and expected functional outcome in 4 weeks. OTHER: Patient will be able to properly demonstrate independence with HEP in 1 week. Patient Education: Quality of movement with patient demonstrated understanding. Post-Treatment Pain Scale: 6 Assessment: Patient had an expected response to treatment. Skilled Intervention demonstrated by modifications of treatment per exercise log including increased load and safety interventions per exercise log. Progress towards goals as expected. Plan for Next Visit: Treatment Visit with focus on stretches and pain control Trudi Leblanc PTA STATE LICENSE, [id number] documented in this encounter [facility] 08-28-2024 History of Present illness Narrative [facility] OUTPATIENT REHABILITATION Evaluation Today's Date 08/28/2024 Patient Name: Cindi Messer Date of : 1940 Case Name: Bilateral Knee OA Functional Diagnosis: 1. Primary osteoarthritis of both knees 2. Osteoarthritis of both knees, unspecified osteoarthritis type Clinical Information: Subjective Referring Diagnosis: Bilateral Knee OA History of Present Illness Subjective History: Pt reports c/o bilateral knee pain (left > right). She reports progressive pain over time and has h/o arthroscopic surgery on both knees. In addition to pain, the left knee has been giving out and feeling unstable. She denies falls and states she has been able to catch herself. She is also noticing progression of back pain and wonders if that is do compensating for her knee pain when walking. She received injections this past May and states she is still having some relief of sx. She also mentions being diagnosed with neuropathy in her legs but she denies remarkable numbness/tingling. She does occasionally experience swelling in the knees at the end of the day. Previous Imaging: X-ray Pain Scale Pain location: knee Average Pain: 5/10 Pain at highest: 10/10 Aggravating factors: prolonged standing, walking, getting in/out of the tub, stairs Easing factors: rest/sitting, ice 24 Hour Symptom Behavior Morning Pain: sudden Afternoon Pain: better End of day pain: worse Personal Goals: Decrease pain Improve strength and mobility Improve standing tolerance Functional Mobility Status Functional Limitations: limited mobility and standing Current Mobility Status: Home: no device Community: no device and independent Bed Transfer: independent Car Transfer: independent Current Activity Level: low active Premorbid Activity Level: active Social Support: Islam, social, or cultural considerations to be made aware of before starting treatment: No Home Environment Current Home Environment: Setup: multi-level house Entry: steps with railing Activities of Daily Living: independent with all Instrumental Activities of Daily Livingto be assessed Sleep Assessment Sleep disturbance: Sleep Disturbance Red Flags: None Comments: Barriers to Care: None Islam, social, or cultural considerations to be made aware of before starting treatment: No Knee Right Knee Range of Motion: Flexion Active: 104 Extension Active: 0 Muscle Strength: WFL Special Tests Stress Test (Varus): Negative Stress Test (Valgus): Negative Patellar Femoral Grind: Positive Left Knee Tenderness: lateral joint line and pes anserinus Range of Motion: Flexion Active: 94 Extension Active: 0 Muscle Strength Flexion: 4+ Extension: 4 Special Tests Patellar Femoral Grind: Positive Patellar mobility is WFL FOTO: 31 Ankle/Foot Right Ankle/Foot Right Ankle/Foot WFL Left Ankle/Foot Left Ankle/Foot WFL Treatments: Physical Therapy Exercise Log - 08/28/24 1331 OTHER Precautions/Contraindications Supervising PT: Lavelle Notes Eval: 1:04 - 1:45 Therapeutic Exercise (29752) Intervention initial HEP: Parameters seated HS and calf stretches Intervention assisted heel slides Parameters quad sets Intervention SLR Parameters standing hip ext Parameters Access Code: [email or web address] URL: [email or web address] Date: 08/28/2024 Prepared by: Foreign Finn Exercises - Seated Table Hamstring Stretch - 2 x daily - 3 reps - 20 seconds hold - Long Sitting Calf Stretch with Strap - 2 x daily - 3 reps - 20 seconds hold - Sitting Heel Slide with Towel - 2 x daily - 5 reps - 10 seconds hold - Supine Quad Set - 1 x daily - 10 reps - 5 seconds hold - Supine Straight Leg Raises - 1 x daily - 10 reps - 2 seconds hold - Standing Hip Extension with Counter Support - 1 x daily - 10-15 reps PT Treatment Times Total Treatment Time 45 Goals: Physical Therapy Ortho Goals: MOBILITY: Patient will be able to ambulate for 30 minutes in community and ambulate on uneven surfaces without difficulty in 4 weeks. MOBILITY: Patient will be able to ascend/descend stairs without difficulty in 4 weeks. IMPAIRMENT: Improve pain from 10/10 to <3/10 during prolonged standing, walking and negotiating uneven surfaces in 4 weeks IMPAIRMENT: Improve MMT of Left Knee Extension to at least 4+/5 in 4 weeks IMPAIRMENT: Improve AROM of both Knees to 0-120 degrees in 4 weeks. OTHER: Patient will increase FOTO score from 31 to at least 50 to show MDC/MCII and expected functional outcome in 4 weeks. OTHER: Patient will be able to properly demonstrate independence with HEP in 1 week. CPT Code 14975 Low 42304 Moderate 36693 High History 0 1-2 3+ Comorbidities: thyroid disease, Personal factors: chronicity or severity of the current condition Examination of body systems (elements of body structures & functions, activity limitations, and/or participation restrictions) 1-2 elements 3+ elements 4+ elements See below clinical impression Clinical Presentation Stable Evolving Unstable As evidenced by reproduction of or changes in symptoms with certain movements and pt report of overall worsening of symtpoms over time Decision Making Low (FOTO >/= 69) Moderate (FOTO 34 - 68) High (FOTO </= 33) FOTO score= 31 Pt is a 84 y.o. female who presents to PT services with c/o bilateral knee pain. Upon assessment, pt has been found with the following impairments: decreased ROM, decreased strength, impaired dynamic balance, antalgic gait, swelling, decreased stability, and pain. 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 The pt would benefit from skilled PT services focused on the above listed impairments and limitations in order to safely progress pt to their desired level of function. Pt to be discharged from OP PT services if/when goals are met, if they fail to make progress with conservative management in PT, if their level of progress plateaus, or if they do not maintain compliance with attendance or HEP. At this time, it is my clinical judgment that services are medically necessary. Plan of Care Frequency of Visits: 2 times per week Duration: 4 weeks Interventions: Therapeutic Exercise (75033), Neuromuscular Re-Education (13485), Manual Therapy (85598), Therapeutic/ Functional Activities (19309), Gait Training (46184), and Vasopneumatic (56053) Rehab Potential: fair Patient Education Provided Pt was educated on the benefits of therapy and importance of compliance with sessions and HEP for rehabilitation. Pt was also educated on treatment diagnosis, POC, and frequency/duration of treatment. Foreign Finn, PT State License, [id number] documented in this encounter [facility] 08-16-2024 Evaluation note Diagnosis Onset Date Resolution Hypothyroid chronic August 16, 2024 9:35am Osteoporosis chronic August 16, 2024 9:35am [facility] Work Phone: 1(579) 993-225410-22-2024 NoteHNO ID: [id number] Author: KATHY CAMPBELL, DO Service: ? Author Type: Physician Type: Progress Notes Filed: 06/05/2024 13:38 Note Text: [facility] [place] DEPARTMENT OF VASCULAR SURGERY OUTPATIENT VISIT DATE June 05, 2024 OUTPATIENT VISIT TYPE ESTABLISHED SERVICE DATE: 06/05/2024 SERVICE TIME: 12:09 PM PRIMARY CARE PHYSICIAN: Aniceto Cleveland MD HISTORY OF PRESENT ILLNESS: Ms. Messer is a 83 year old female who presents today for a vascular surgery follow-up visit for carotid artery stenosis. She denies focal neurologic deficit. She is having issues with her back which is impacting her day to day activities PAST MEDICAL HISTORY Diagnosis Date Age-related osteoporosis with current pathological fracture 07/23/2019 Bilateral carotid artery stenosis 11/06/2015 S/p surgery 12/2013, Seeing Dr. Luciano Cholecystitis glandularis proliferans Chronic back pain 11/06/[address] Benz Chronic insomnia 01/05/2019 Class 1 obesity due to excess calories without serious comorbidity with body mass index (BMI) of 33.0 to 33.9 in adult 09/27/2017 Current use of proton pump inhibitor 01/24/2017 Mg checked 02/2018 Diabetic eye exam (HCC) 05/03/2017 Last done: 09/27/2018 Elevated LFTs 11/06/2015 Hepatitis panel neg 07/25/2015 US; fatty liver Fatty liver 11/06/2015 Fracture 2 broken arms when child Ganglion cyst of finger of left hand 10/09/2018 GERD without esophagitis 11/06/2015 Greater trochanteric bursitis, left 05/27/2017 Patient was only able to go to PHYSICAL THERAPY once and could not tolerate per PHYSICAL THERAPY update 06/22/2017 [employer] Hypothyroidism (acquired) 11/06/2015 Low magnesium level 03/28/2019 Medicare annual wellness visit, subsequent 05/27/2017 Medicare Part B: 03/15/2017 last done: 03/28/2019 Mixed hyperlipidemia 11/06/2015 Neck pain 06/04/2020 With left thumb and index finger numbness. Neural foraminal stenosis of lumbar spine 05/05/2016 Neuropathy 09/27/2018 related to back disease and partially her diabetes. 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 BACK SURGERY HX 1984 Lumbar CAROTID ENDARTERECTOMY 01/04/2014 right side COLONOSCOPY 2007 repeat 10 yrs EXPLORATORY LAPAROTOMY CELIOTOMY W/WO BIOPSY SPX >50 years back FECAL OCCULT BLOOD TEST 06/02/2017 negative HAND SURGERY HX Left 10/2018 HYSTERECTOMY HX LAPS SURG CHOLECYSTECTOMY W/CHOLANGIOGRAPHY 03/11/2016 ORTHOPEDICS SURGERY HX Rt.Knee- arthroscopy PAST SURGICAL HISTORY OF 04/09/2014 bilat carpal tunnel PAST SURGICAL HISTORY OF lipoma excision PAST SURGICAL HISTORY OF Left rotator cuff repair REMV CATARACT EXTRACAP,INSERT LENS Bilateral TONSILLECTOMY HX SOCIAL HISTORY Social History Tobacco Use Smoking status: Former Current packs/day: 0.00 Average packs/day: 3.0 packs/day for 55.0 years (165.0 ttl pk-yrs) Types: Cigarettes Start date: 09/27/1954 Quit date: 09/27/2008 Years since quittin.6 Smokeless tobacco: Never Vaping Use Vaping status: Never Used Substance Use Topics Alcohol use: No Drug use: No MEDICATIONS: acetaminophen-codeine (TYLENOL-COD #3) 300-30 mg per tablet 1 tablet. levothyroxine (SYNTHROID) 100 mcg tablet Take 1 tablet by mouth daily before breakfast. pantoprazole DR (PROTONIX) 40 mg tablet Take 1 tablet by mouth once daily. cholecalciferol (VITAMIN D-3) 50 mcg (2,000 unit) tablet Take 1 tablet by mouth once daily. cholestyramine-sucrose (QUESTRAN) 4 gram powder Take 4 g by mouth twice daily with meals. (Patient not taking: Reported on 08/17/2022) blood sugar diagnostic (ZAPITANOTOUCH VERIO TEST STRIPS) test strip Test blood sugar(s) 1 times daily. Dx: Type 2 DM - Controlled E11.9 Insulin: No cyclobenzaprine (FLEXERIL) 5 mg tablet Take 1 tablet by mouth three times daily as needed. (Patient not taking: No sig reported) promethazine (PHENERGAN) 25 mg tablet Take 1 tablet by mouth every 6 hours as needed for Nausea/Vomiting. zoledronic acid (RECLAST) 5 mg/100 mL pgbk PREMIX piggyback Inject 100 mL intravenously one time only for 1 dose. Per Endo: Dr. Mao Rabago meclizine (ANTIVERT) 25 mg tab Take 1 tablet by mouth three times daily. (Patient taking differently: Take 25 mg by mouth three times daily. Taking PRN) aspirin, enteric coated (ADULT LOW DOSE ASPIRIN) 81 mg EC tablet Take 1 tablet by mouth once daily. OMEGA-3/DHA/EPA/FISH OIL (OMEGA-3 FISH OIL ORAL) Take 2,400 mg by mouth once daily. 2400 mg of fish oil with 1200 mg of Mabie 3 daily. (Patient not taking: (more content not included)...[facility]10-22-2024 History of Present illness Narrative* Kathy Campbell, DO - 06/05/2024 12:08 PM EDT Images from the original note were not included. [facility] [place] DEPARTMENT OF VASCULAR SURGERY OUTPATIENT VISIT DATE June 05, 2024 OUTPATIENT VISIT TYPE ESTABLISHED SERVICE DATE: 06/05/2024 SERVICE TIME: 12:09 PM PRIMARY CARE PHYSICIAN: Aniceto Cleveland MD HISTORY OF PRESENT ILLNESS: Ms. Messer is a 83 year old female who presents today for a vascular surgery follow-up visit for carotid artery stenosis. She denies focal neurologic deficit. She is havingissues with her back which is impacting her day to day activities PAST MEDICAL HISTORY Diagnosis Date Age-related osteoporosis with current pathological fracture 07/23/2019 Bilateral carotid artery stenosis 11/06/2015 S/p surgery 12/2013, Seeing Dr. Luciano Cholecystitis glandularis proliferans Chronic back pain 11/06/[address] Benz Chronic insomnia 01/05/2019 Class 1 obesity due to excess calories without serious comorbidity with body mass index (BMI) of 33.0 to 33.9 in adult 09/27/2017 Current use of proton pump inhibitor 01/24/2017 Mg checked 02/2018 Diabetic eye exam (HCC) 05/03/2017 Last done: 09/27/2018 Elevated LFTs 11/06/2015 Hepatitis panel neg 07/25/2015 US; fatty liver Fatty liver 11/06/2015 Fracture 2 broken arms when child Ganglion cyst of finger of left hand 10/09/2018 GERD without esophagitis 11/06/2015 Greater trochanteric bursitis, left 05/27/2017 Patient was only able to go to PHYSICAL THERAPY once and could not tolerate per PHYSICAL THERAPY update 06/22/2017 [employer] Hypothyroidism (acquired) 11/06/2015 Low magnesium level 03/28/2019 Medicare annual wellness visit, subsequent 05/27/2017 Medicare Part B: 03/15/2017 last done: 03/28/2019 Mixed hyperlipidemia 11/06/2015 Neck pain 06/04/2020 With left thumb and index finger numbness. Neural foraminal stenosis of lumbar spine 05/05/2016 Neuropathy 09/27/2018 related to back disease and partially her diabetes. 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 BACK SURGERY HX 1984 Lumbar CAROTID ENDARTERECTOMY 01/04/2014 right side COLONOSCOPY 2008 repeat 10 yrs EXPLORATORY LAPAROTOMY CELIOTOMY W/WO BIOPSY SPX >50 years back FECAL OCCULT BLOOD TEST 06/02/2017 negative HAND SURGERY HX Left 10/2018 HYSTERECTOMY HX LAPS SURG CHOLECYSTECTOMY W/CHOLANGIOGRAPHY 03/11/2016 ORTHOPEDICS SURGERY HX Rt.Knee- arthroscopy PAST SURGICAL HISTORY OF 04/09/2014 bilat carpal tunnel PAST SURGICAL HISTORY OF lipoma excision PAST SURGICAL HISTORY OF Left rotator cuff repair REMV CATARACT EXTRACAP,INSERT LENS Bilateral TONSILLECTOMY HX SOCIAL HISTORY Social History Tobacco Use Smoking status: Former Current packs/day: 0.00 Average packs/day: 3.0 packs/day for 55.0 years (165.0 ttl pk-yrs) Types: Cigarettes Start date: 09/27/1954 Quit date: 09/27/2008 Years since quittin.6 Smokeless tobacco: Never Vaping Use Vaping status: Never Used Substance Use Topics Alcohol use: No Drug use: No MEDICATIONS: acetaminophen-codeine (TYLENOL-COD #3) 300-30 mg per tablet 1 tablet. levothyroxine (SYNTHROID) 100 mcg tablet Take 1 tablet by mouth daily before breakfast. pantoprazole DR (PROTONIX) 40 mg tablet Take 1 tablet by mouth once daily. cholecalciferol (VITAMIN D-3) 50 mcg (2,000 unit) tablet Take 1 tablet by mouth once daily. cholestyramine-sucrose (QUESTRAN) 4 gram powder Take 4 g by mouth twice daily with meals. (Patient not taking: Reported on 08/17/2022) blood sugar diagnostic (ZAPITANOTOUCH VERIO TEST STRIPS) test strip Test blood sugar(s) 1 times daily. Dx: Type 2 DM - Controlled E11.9 Insulin: No cyclobenzaprine (FLEXERIL) 5 mg tablet Take 1 tablet by mouth three times daily as needed. (Patientnot taking: No sig reported) promethazine (PHENERGAN) 25 mg tablet Take 1 tablet by mouth every 6 hours as needed for Nausea/Vomiting. zoledronic acid (RECLAST) 5 mg/100 mL pgbk PREMIX piggyback Inject 100 mL intravenously one time only for 1 dose. Per Endo: Dr. Mao Rabago meclizine (ANTIVERT) 25 mg tab Take 1 tablet by mouth three times daily. (Patient taking differently: Take 25 mg by mouth three times daily. Taking PRN) aspirin, enteric coated (ADULT LOW DOSE ASPIRIN) 81 mg EC tablet Take 1 tablet by mouth once daily. OMEGA-3/DHA/EPA/FISH OIL (OMEGA-3 FISH OIL ORAL) Take 2,400 mg by mouth once daily. 2400 mg of fishoil with 1200 mg of Mabie 3 daily. (Patient not taking: Reported on 08/17/2022) lancets (ONE TOUCH DELICA) 33 gauge misc Test blood sugar(s) 1 daily. Dx: Type 2 DM - Controlled E11.9 Insulin: No Multivitamin capsule Take 1 capsule by mouth once daily. ALLERGIES: ALLERGIES Allergen Reactions Sulfa (Sulfonamide * Anaphylaxis Bee Sting Other: See Comments Insect Venom Swelling Extreme swelling Alendronate Other: See Comments Nausea and abdominal cramping Metformin Other: See Comments Elevated blood pressure, dizzy, lightheaded Fmfftjj-Mwm-Dyc Red* Other: See Comments Sever vertigo PHYSICAL EXAM: There were no vitals taken for this visit. General: Alert and oriented Neurological: Normal cognition and motor skills. Diagnostic tests reviewed for today's visit: Most recent labs Most recent imaging Carotid Duplex Compared to prior study of 08/17/2022, No significant change. RIGHT SIDE Common carotid artery: Plaque visualized without evidence of hemodynamically significant stenosis. Endarterectomy patch at distal : 1.15 cm. Internal carotid artery: 20-39% stenosis. Endarterectomy patch from origin to proximal . Vertebral artery: Patent and antegrade flow noted. Subclavian artery: Patent. LEFT SIDE Common carotid artery: Plaque visualized without evidence of hemodynamically significant stenosis. Internal carotid artery: 20-39% stenosis. Vertebral artery: Patent and antegrade flow noted. Subclavian artery: Patent. IMPRESSION: Ms. Messer is a 83 year old female with carotid artery stenosis s/p revascularization . PLAN and RECOMMENDATIONS: Continue current medications Follow up in 2 years with repeat imaging She is doing well, imaging has been stable SIGNATURE: Kathy Campbell DO PATIENT NAME: Cindi Messer DATE: June 05, 2024 TIME: 12:09 PM [facility] Tele[facility] encounter Note * Telephone Encounter - Ellen Hackett RN - 03/06/2024 4:27 PM EDT Patient scheduled [facility] Miscellaneous Notes* Telephone Encounter - Ellen Hackett RN - 03/06/2024 4:27 PM EDT Patient scheduled * Telephone Encounter - Deonna Bingham - 03/01/2024 3:58 PM EDT Patient cancelled [facility] [place] [facility] on 05/15/24 due to conflict with recently scheduled surgery. Patient and daughter schedule [place] [facility] annual appointments on the same day. They do not want to be scheduled on separate days. Unable to accommodate scheduling both patients prior to 05/17/24 expiration of [facility] orders. Please resubmit orders then notify facilities' schedulers when signed so they may further assist the patient and her daughter. Please call both home and cell phone. documented [facility] Telephone encounter Note * Telephone Encounter - Deonna Bingham - 03/01/2024 3:58 PM EDT Patient cancelled [facility] and [place] [facility] on 05/15/24 due to conflict with recently scheduled surgery. Patient and daughter schedule [facility] annual appointments on the same day. They do not want to be scheduled on separate days. Unable to accommodate scheduling both patients prior to 05/17/24 expiration of [place] [facility] orders. Please resubmit orders then notify facilities' schedulers when signed so they may further assist the patient and her daughter. Please call both home and cell phone. [facility]01-[facility] History of Present illness Narrative* Kathy Campbell DO - 08/17/2022 10:47 AM EST This office note has been dictated. Kathy Campbell DO' documented in this encounterMer[facility] History of Past illness Narrative* Problem Noted Date Resolved Date Screening for colon cancer 09/27/201806/02 Diabetic eye exam 05/03/2017 06/02/2020 Overview: Last done: 08/18/20 Dr Gallegos Encounter for gynecological examination without abnormal finding 01/30/2016 06/02/2020 Overview: [facility] documented as of this encounter (statuses as of 08/19/2022) [facility] Diagnosis Onset Date Resolution Status Osteoporosis chronic Vitamin D deficiency [facility] Work Phone: Evaluation noteNo assessment information available [facility] Work Phone: Evaluation note* Diagnosis Bilateral carotid artery stenosis- Primary Occlusion and stenosis of carotid artery without mention of cerebral infarction documented in this encounter [facility]* Diagnosis Onset Date Resolution Status Hypothyroid acute Osteoporosis chronic Vitamin D deficiency [facility] Work Phone: Evaluation note* Diagnosis Onset Date Resolution Status Hypothyroid chronic Osteoporosis chronic Vitamin D deficiency chronic [facility] Work Phone: Evaluation note* Diagnosis Bilateral carotid artery stenosis- Primary Occlusion and stenosis of carotid artery without mention of cerebral infarction documented [facility] this [facility]* Diagnosis Preoperative testing- Primary Preoperative examination, unspecified Primary osteoarthritis of first carpometacarpal joint of left hand Primary localized osteoarthrosis, hand Left hand pain Pain in limb Neuropathy Mononeuritis of unspecified site Mixed hyperlipidemia Hypothyroidism (acquired) Unspecified hypothyroidism GERD without esophagitis Esophageal reflux Controlled type 2 diabetes mellitus without complication, without long-term current use of insulin ([facility]) Class 1 obesity due to excess calories without serious comorbidity with body mass index (BMI) of 33.0 to 33.9 in adult Chronic low back pain, unspecified back pain laterality, with sciatica presence unspecified Bilateral carotid artery stenosis- Primary Occlusion and stenosis of carotid artery without mention of cerebral infarction [facility] Diagnosis Osteoarthritis of both knees, unspecified osteoarthritis type- Primary [facility] Diagnosis Primary osteoarthritis of both knees- Primary Osteoarthritis of both knees, unspecified osteoarthritis type documented in this encounter [facility] note* Diagnosis Primary osteoarthritis of both knees- Primary [facility] Diagnosis Primary osteoarthritis of both knees- Primary documented in this encounter [facility] note* Diagnosis Primary osteoarthritis of both knees- Primary documented in this encounter [facility] note* Diagnosis Primary osteoarthritis of both knees- Primary [facility]* Diagnosis Compression fracture of L1 vertebra, initial encounter ([facility])- Primary Compression fracture of L3 vertebra, initial encounter ([facility]) documented in this encounter [facility] note* Diagnosis Compression fracture of L1 vertebra, initial encounter ([facility]) documented in this encounter [facility] note* Diagnosis Compression fracture of L1 vertebra, initial encounter ([facility])- Primary Compression fracture of L3 vertebra, initial encounter ([facility]) [facility]* Cindi Messer, a 82 year old female, arrives [...] you for this referral and please call [phone] with any questions or concerns. * Clinical Presentation: Stable and/or uncomplicated characteristics. * Level of Complexity: low * Problem List: activity limitations, ADLs/IADLs/self care skills, decreased knowledge of HEP, fall risk, flexibility, pain, participation restrictions, posture, range of motion/joint mobility and strength. [facility] Work Phone: History of Present illness [...] in pain or improvement in motion. [facility] Work Phone: History of Present illness NarrativePatient identified by name and date of . Patient was able to progress with reps and stretchingthis date w/o c/o increased Sx. She demonstrated good tolerance to STW with report of reduction of Sx and increased ROM after treatment. [facility] Work Phone: History of Present illness Narrative* Patient identified by name and * Patient appropriately challenged. Patient demo's restriction in Bilat SCM's and guarding with suboccipital release this date, but is able to tolerate progressions with no increased difficulty. Requires hand held assist from therapist this date for supine to sit transfer. [facility] Work Phone: Reason for referral (narrative)* Outpatient Procedure (Routine) - Authorized Specialty Diagnoses / Procedures Referred By Contac t Referred To Contact [facility] Diagnoses Bilateral carotid artery stenosis Procedures US CAROTID ARTERIES CORONA VAS LAB DUPLEX SCAN EXTRACRANIAL ART [facility] Kathy Campbell DO [address] [place] [address] [facility] [address] [address] Referral ID Status Reason Start Date Expiration Date Visits Requested Visits Authorized [id number] Authorized Auto-Generat ed Referral 08/17/2022 08/17/2023 1 1 [facility] for referral (narrative)* Outpatient Procedure (Routine) - Authorized Specialty Diagnoses / Procedures Referred By Contac t Referred To Contact [facility] Diagnoses Bilateral carotid artery stenosis Procedures US CAROTID ARTERIES CORONA VAS LAB DUPLEX SCAN EXTRACRANIAL ART [facility] Kathy Campbell DO [address] [place] [address] [facility] [address] [address] Referral ID Status Reason Start Date Expiration Date Visits Requested Visits Authorized [id number] Authorized Auto-Generat ed Referral 03/02/2024 03/02/2025 1 1 [facility] for referral (narrative)No reason for referral information availableWDunlap [facility] Work Phone: Reason for visit Narrative* Initial Evaluation . Neck pain/spinal stenosis of cervical region. * Referred by: William Richard MD [facility] Work Phone: [place] for visit Narrative* Imaging (Routine) - Closed Specialty Diagnoses / Procedures Referred By Contac t Referred To Contact Radiology Diagnoses Compression fracture of L1 vertebra, initial encounter ([facility]) Procedures CT lumbar spine wo IV contrast Raya Charles PA-C [facility] [address] Phone: tel: fax: Referral ID Status Reason Start Date Expiration Date Visits Re quested Visits Authorized [id number] Closed 12/20/2024 12/20/2025 1 1 [facility] Health Summary Purpose Family History No Family History Records Found Relationship Condition Age at Onset Recorded Date/T alice father Alcoholism Unknown Cardiac disease Unknown mother Arthritis Unknown Osteoporosis Unknown brother Myocardial infarction Unknown Cerebrovascular accident (CVA) Unknown Malignant neoplasm of skin Unknown grandmother Osteoporosis Unknown Malignant neoplasm of uterus Unknown Unknown Family Member Name Dates Details No [...] Status:Active Advance Directives No Advanced Directives Records Found Advance Directive Response Recorded Date/ Time Advance Directives Yes March 09 3:05pm Living Will Yes October 23, 2021 6:00pm Power of Director Public Policy Yes October 23 6:00pm Documents on File Type Date Recorded Patient [employer] Professional Expl anation Advance Directive(s) 11/20/2013 10:39 AM Advance Directive Response Recorded Date/ Time Advance Directives Yes March 09 2:05pm Living Will Yes October 23, 2021 5:00pm Power of Director Public Policy Yes October 23 5:00pm Advance Directive Response Recorded Date/ Time Advance Directives Yes March 09 2:05pm Living Will Yes August 13, 2 023 7:24pm Power of Director Public Policy Yes August 13, 2023 7:24pm Name of Medical Power of Director Public Policy Michelle Das, west August 13, 2023 7:24pm Advance Directive Response Recorded Date/ Time Name of Medical Power of Director Public Policy west López August 13, 2023 7:24pm Advance Directives Yes March 09 2:05pm Living Will Yes August 13, 023 7:24pm Power of Director Public Policy Yes August 13, 2023 7:24pm Documents on File Type Date Recorded Patient [employer] Professional Expl anation Advance Directive(s) 11/20/2013 10:39 AM Advance Directive Response Recorded Date/ Time Living Will Yes August 13, 023 8:24pm Do you have a Healthcare Power of Director Public Policy? Yes August 13, 2023 8:24pm Advance Directives Yes March 09 3:05pm Advance Directive Response Recorded Date/ Time Advance Directives Yes March 09 3:05pm Chief Complaint and Reason for Visit Chief Complaint F/U RECLAST HX OF TOBACCO ABUSE VOMITING COVID TEST Reason for Visit Osteoporosis Vitamin D deficiency Chief Complaint RECLAST HX OF TOBACCO ABUSE VOMITING COVID TEST Chief Complaint PERIPHERAL ARTERIAL OCCLUSIVE DISEASE Chief Complaint 1 Y FU, Aware of Loc ation Change E ORDERS RECLAST Reason for Visit Hypothyroid Osteoporosis Vitamin D deficiency Chief Complaint 1 Y FU, Aware of Loc ation Change E ORDERS RECLAST SCREENING Reason for Visit Hypothyroid Osteoporosis Vitamin D deficiency Chief Complaint Diarrhea Chief Complaint Diarrhea 1 Y FU Amb Documentation RECLAST Reason for Visit Hypothyroid Osteoporosis Vitamin D deficiency Chief Complaint Admit Date 1 Y FU August 16, 2024 9: 35am REDRAW CBCD September 25, 2024 8:17am Reason for Visit Admit Date Hypothyroid August 16, 2024 9: 35am Osteoporosis August 16, 2024 9: 35am Chief Complaint Admit Date 1 Y FU August 16, 2024 9: 35am REDRAW CBCD September 25, 2024 8:17am RADICULOPATHY November 06, 2024 7:3 7am Chief Complaint Admit Date REDRAW CBCD September 25, 2024 8:17am RADICULOPATHY November 06, 2024 7:3 7am Chief Complaint Admit Date RADICULOPATHY November 06, 2024 7:3 7am Additional Source Comments INFORMATION SOURCE (unrecogn ized section and content) DATE CREATED AUTHOR 04/17/2019 [facility] DATE CREATED AUTHOR AUTHOR'S ORGANIZ ATION 07/01/2019 [facility] DATE CREATED AUTHOR AUTHOR'S ORGANIZ ATION 08/14/[address] [facility] DATE CREATED AUTHOR AUTHOR'S ORGANIZ ATION 12/30/2022 [facility] DATE CREATED AUTHOR AUTHOR'S ORGANIZ ATION 02/12/2023 [facility] DATE CREATED AUTHOR AUTHOR'S ORGANIZ ATION 06/07/2024 [facility] DATE CREATED AUTHOR AUTHOR'S ORGANIZ ATION 09/25/2024 [facility] DATE CREATED AUTHOR AUTHOR'S ORGANIZ ATION 11/04/2024 [facility] DATE CREATED AUTHOR AUTHOR'S ORGANIZ ATION 01/03/2025 [facility] DATE CREATED AUTHOR AUTHOR'S ORGANIZ ATION 01/26/2025 [facility] Goals (unrecognized section and content) Goals may be documented in a n alternate sectionGoals may be documented in an alternate sectionGoals may be documented in an alternate sectionGoals may be documented in an alternate sectionGoals may be documented in an alternate sectionGoals may be documented in an alternate sectionGoals may be documented in an alternate sectionGoals may be documented in an alternate sectionGoals may be documented in an alternate sectionGoals may be documented in an alternate sectionGoals may be documented in an alternate sectionGoals may be documented in an alternate sectionGoals may be documented in an alternate sectionGoals may be documented in an alternate sectionGoals may be documented in an alternate sectionGoals may be documented in an alternate sectionGoals may be documented in an alternate section Source Comments (unrecognize d section and content) In the event this informatio n is protected by the Federal Confidentiality of Alcohol and Drug Abuse Patient Records regulations: The Federal rules restrict any use of the information to criminally investigate or prosecute any alcohol or drug abuse patient.[facility] the event this information is protected by the Federal Confidentiality of Alcohol and Drug Abuse Patient Records regulations: The Federal rules restrict any use of the information to criminally investigate or prosecute any alcohol or drug abuse patient.[facility] the event this information is protected by the Federal Confidentiality of Alcohol and Drug Abuse Patient Records regulations: The Federal rules restrict any use of the information to criminally investigate or prosecute any alcohol or drug abuse patient.[facility] Reason for Visit (unrecogniz ed section and content) Reason Comments Established Patient Reason Comments Orders [facility] Reason Comments Established Patient Reason Comments Physical Therapy Specialty Diagnoses / Procedures Referred By Kane t Referred To Contact Rehabilitation Diagnoses Osteoarthritis of both knees, unspecified osteoarthritis type Annmarie Singletary, OLGA [address] [place] [address] Phone: tel: fax: [facility] [address] [place] [address] Phone: tel: fax: Referral ID Status Reason Start Date Expiration Date V isits Requested Visits Authorized [id number] Authorized 08/01/2024 08/01/2025 7 199 Reason Comments New Patient Lower back pain. Hav ing trouble walking Reason Comments Follow-up Patient present for follow up CT Care Teams (unrecognized sec tion and content) System Controller Relationship Specialty Start Date End Date Zach Godinez MD [address] [place], [place] [id number] PCP - General Family Medicine 01/30/16 Team Status: Active Member Role Status Dates Dr. Zach Godinez MD Family Provider Active Dr. Aniceto Cleveland MD Primary Care Provider Active Team Status: Inactive Member Role Status Dates Dr. Zach Godinez MD Referring Provider Active Dr. Mao Rabago MD Attending Provider Active Dr. Aniceto Cleveland MD Primary Care Provider Active Team Status: Inactive Member Role Status Dates Dr. Aniceto Cleveland MD Primary Care Provider Active Dr. Mao Rabago MD Attending Provider, Referring Provi tiffany Active Team Status: Inactive Member Role Status Dates Dr. Aniceto Cleveland MD Primary Care Provider, Attending Provider Active Team Status: Active Member Role Status Dates Dr. Aniceto Cleveland MD Primary Care Provider, Attending Provider Active Team Status: Inactive Member Role Status Dates Dr. Aniceto Cleveland MD Primary Care Provider Active Dr. Art Rosales DO Emergency Provider Active Team Status: Inactive Member Role Status Dates Dr. Aniceto Cleveland MD Primary Care Provider, Referring Provider Active Dr. Mao Rabago MD Attending Provider Active Team Status: Active Member Role Status Dates Dr. Aniceto Cleveland MD Primary Care Provider Active Amelia Martines Attending Provider Active Team Status: Inactive Member Role Status Dates Dr. Aniceto Cleveland MD Primary Care Provider Active Dr. Art Rosales DO Attending Provider, Emergency P [facility] Active Team Status: Inactive Member Role Status Dates Dr. Aniceto Cleveland MD Primary Care Provider Active Dr. Miguelina Benz MD Attending Provider, Referring Pr ovider Active Team Status: Active Member Role Status Dates Dr. Aniceto Cleveland MD Primary Care Provider Active Dr. Miguelina Benz MD Attending Provider, Referring Pr ovider Active System Controller Relationship Specialty Start Date End Date Aniceto Cleveland Chi [address] [place] [address] PCP - General Gerontology 05/17/23 System Controller Relationship Specialty Start Date End Date Aniceto Cleveland Chi [address] [place] [address] PCP - General Gerontology 05/17/23 System Controller Relationship Specialty Start Date End Date Aniceto Cleveladn Chi, MD [address] [place] [address] PCP - General Geriatric Medicine 03/10/22 System Controller Relationship Specialty Start Date End Date Aniceto Cleveland Chi, MD [address] [facility] [address] [place] [address] PCP - General Geriatric Medicine 03/10/22 System Controller Relationship Specialty Start Date End Date Aniceto Cleveland Chi, MD [address] [facility] [address] [place] [address] PCP - General Geriatric Medicine 03/10/22 System Controller Relationship Specialty Start Date End Date Aniceto Cleveland Chi, MD [address] [facility] [address] [place] [address] PCP - General Geriatric Medicine 03/10/22 System Controller Relationship Specialty Start Date End Date Aniceto Cleveland Chi, MD [address] [facility] [address] [place] [address] PCP - General Geriatric Medicine 03/10/22 System Controller Relationship Specialty Start Date End Date Aniceto Cleveland Chi, MD [address] [place] [address] PCP - General Geriatric Medicine 03/10/22 Team Status: Active Member Role Status Dates Dr. Aniceto Cleveland MD Primary Care Provider Active Team Status: Inactive Member Role Status Dates Dr. Aniceto Cleveland MD Primary Care Provider Active Start: August 16, 2024 End: August 16, 2024 Dr. Aniceto Cleveland MD Referring Provider Active Start: August 16, 2024 End: August 16, 2024 Dr. Mao Rabago MD Attending Provider Active Sta rt: August 16, 2024 End: August 16, 2024 Team Status: Inactive Member Role Status Dates Dr. Aniceto Cleveland MD Primary Care Provider Active Start: September 24, 2024 End: September 24, 2024 Dr. Aniceto Cleveland MD Attending Provider Active Start: September 24, 2024 End: September 24, 2024 Team Status: Inactive Member Role Status Dates Dr. Aniceto Cleveland MD Primary Care Provider Active Start: September 25, 2024 End: September 25, 2024 Dr. Aniceto Cleveland MD Attending Provider Active Start: September 25, 2024 End: September 25, 2024 Dr. Aniceto Cleveland MD Referring Provider Active Start: September 25, 2024 End: September 25, 2024 Team Status: Inactive Member Role Status Dates Dr. Aniceto Cleveland MD Primary Care Provider Active Start: October 23, 2024 End: October 23, 2024 Dr. Aniceto Cleveland MD Attending Provider Active Start: October 23, 2024 End: October 23, 2024 Team Status: Inactive Member Role Status Dates Dr. Aniceto Cleveland MD Primary Care Provider Active Start: November 06, 2024 End: November 06, 2024 Dr. Miguelina Benz MD Attending Provider Active Start: November 06, 2024 End: November 06, 2024 Dr. Miguelina Benz MD Referring Provider Active Start: November 06, 2024 End: November 06, 2024 Team Status: Inactive Member Role Status Dates Dr. Aniceto Cleveland MD Primary Care Provider Active Start: November 21, 2024 End: November 21, 2024 Dr. Aniceto Cleveland MD Attending Provider Active Start: November 21, 2024 End: November 21, 2024 Dr. Miguelina Benz MD Referring Provider Active Start: November 21, 2024 End: November 21, 2024 System Controller Relationship Specialty Start Date End Date Belen Cleveland MD [address] [facility] [address] [place] [id number] PCP - General Geriatric Medicine 12/20/24 System Controller Relationship Specialty Start Date End Date Belen Cleveland MD [address] [facility] [address] [place] [phone] PCP - General Geriatric Medicine 12/20/24 Team Status: Inactive Member Role Status Dates Dr. Aniceto Cleveland MD Primary Care Provider Active Start: January 16, 2025 End: January 16, 2025 Dr. Aniceto Cleveland MD Attending Provider Active Start: January 16, 2025 End: January 16, 2025 Team Status: Active Member Role Status Dates Dr. Aniceto Cleveland MD Primary Care Provider Active Start: January 17, 2025 Dr. Aniceto Cleveland MD Attending Provider Active Start: January 17, 2025 Dr. Aniceto Cleveland MD Referring Provider Active Start: January 17, 2025 Team Status: Inactive Member Role Status Dates Dr. Aniceto Cleveland MD Primary Care Provider Active Start: January 17, 2025 End: January 17, 2025 Dr. Aniceto Cleveland MD Attending Provider Active Start: January 17, 2025 End: January 17, 2025 Dr. Aniceto Cleveland MD Referring Provider Active Start: January 17, 2025 End: January 17, 2025 Team Status: Active Member Role Status Dates Dr. Aniceto Cleveland MD Primary Care Provider Active Start: January 24, 2025 Dr. Aniceto Cleveland MD Attending Provider Active Start: January 24, 2025 Dr. Aniceto Cleveland MD Referring Provider Active Start: January 24, 2025 FOR RECORDS PERTAINING TO PATIENTS WHO ARE [...] BE BASED ON THE PRIMARY CLINICAL RECORDS. [facility] [employer] [facility]. provides no warranty or guarantee of the accuracy or completeness of information in this document.
== END | disposition home or self-care (01) ==
LOC: LABSPEC 11:25
PROVIDERS: PCP Family Medicine Geriatric Medicine; Referring Provider Family Medicine Geriatric Medicine; Visit Provider Family Medicine Geriatric Medicine
DX: D64.9 Anemia, unspecified (principal)
CPT/HCPCS: 82274

== ENCOUNTER → 2025-02-20 | Outpatient (CLI) | payer MEDICARE, OTHER, SELFPAY ==
[2025-02-20 14:14] LABS: Hematocrit 33.0 % (37-47); Hemoglobin 10.4 g/dL (12.0-15.0); Immature Granulocytes Count 0.060 X10^3/uL (0.0-0.0); Mean Corp Hgb Conc 31.5 g/dL (32-36); Mean Corpuscular Volume 95.4 fL (81-99); Mean Platelet Vol. 10.6 fl (6.2-12.0); NRBC Flagged by Analyzer 0 % (0-5); POSITIVE MORPHOLOGY YES; Platelet Count 380 K/mm3 (150-450); RBC Distribution Width CV 18.7 % (11.6-14.6); RBC Distribution Width SD 66.3 fl (35.1-43.9); Red Blood Count 3.46 M/mm3 (4.2-5.4); White Blood Count 12.4 K/mm3 (4.4-11.0)
[2025-02-20 14:15] LABS: Differential Indicated SCAN CRITERIA MET
[2025-02-20 14:57] LABS: Anisocytosis 1+
== END | disposition home or self-care (01) ==
LOC: POLAB3 13:59
PROVIDERS: PCP Family Medicine Geriatric Medicine; Visit Provider Family Medicine Geriatric Medicine
DX: D50.9 Iron deficiency anemia, unspecified (principal)
CPT/HCPCS: 36415; 85025

== ENCOUNTER → 2025-03-26 | Outpatient (CLI) | payer MEDICARE, OTHER, SELFPAY ==
[2025-03-26 13:01] LABS: Hematocrit 32.8 % (37-47); Hemoglobin 10.4 g/dL (12.0-15.0); Immature Granulocytes Count 0.040 X10^3/uL (0.0-0.0); Mean Corp Hgb Conc 31.7 g/dL (32-36); Mean Corpuscular Volume 96.8 fL (81-99); Mean Platelet Vol. 10.1 fl (6.2-12.0); NRBC Flagged by Analyzer 0 % (0-5); POSITIVE MORPHOLOGY YES; Platelet Count 412 K/mm3 (150-450); RBC Distribution Width CV 20.0 % (11.6-14.6); RBC Distribution Width SD 72.1 fl (35.1-43.9); Red Blood Count 3.39 M/mm3 (4.2-5.4); White Blood Count 8.5 K/mm3 (4.4-11.0)
[2025-03-26 13:04] LABS: Differential Indicated SCAN CRITERIA MET
[2025-03-26 13:45] LABS: Anisocytosis 1+; Polychromasia 1+
[2025-03-26 14:03] LABS: AST(SGOT) 38 U/L (<=31); Alanine Aminotransfer ALT/SGPT 22 U/L (<=34); Albumin, Serum 3.5 g/dL (3.4-4.8); Alkaline Phosphatase 151 U/L (35-104); Anion Gap 12 (5-15); BUN 18 mg/dL (4-19); BUN/Creat Ratio 25.7 RATIO (10-20); Calcium,Total 9.4 mg/dL (7.6-11.0); Carbon Dioxide 23.8 mmol/L (21.0-32.0); Chloride 103 mmol/L (98-108); Globulin 3.5 g/dL (2.2-4.2); Glucose 141 mg/dL (70-99); Potassium 4.7 mmol/L (3.3-5.1)
[2025-03-26 14:07] LABS: Vitamin D,25 Hydroxy 62.4 ng/mL (30-100)
== END | disposition home or self-care (01) ==
LOC: LAB 12:05
PROVIDERS: PCP Family Medicine Geriatric Medicine; Referring Provider Family Medicine Geriatric Medicine; Visit Provider Family Medicine Geriatric Medicine
DX: E11.22 Type 2 diabetes mellitus with diabetic chronic kidney disease (principal); E11.65 Type 2 diabetes mellitus with hyperglycemia; R53.83 Other fatigue; E55.9 Vitamin D deficiency, unspecified
CPT/HCPCS: 36415; 80053; 82306; 84443; 85025

== ENCOUNTER → 2025-06-06 | Outpatient (CLI) | payer MEDICARE, OTHER, SELFPAY | END | disposition home or self-care (01) | LOC: POLAB3 16:33 | PROVIDERS: PCP Family Medicine Geriatric Medicine; Visit Provider Family Medicine Geriatric Medicine | DX: R06.2 Wheezing (principal) | CPT/HCPCS: 87631 ==

== ENCOUNTER → 2025-07-18 | Outpatient (CLI) | payer MEDICARE, OTHER, SELFPAY | END | disposition home or self-care (01) | LOC: POLAB3 16:35 | PROVIDERS: PCP Family Medicine Geriatric Medicine; Visit Provider Family Medicine Geriatric Medicine | DX: R06.2 Wheezing (principal) | CPT/HCPCS: 87631 ==

== ENCOUNTER → 2025-07-19 | Outpatient (CLI) | payer MEDICARE, OTHER, SELFPAY ==
--- NOTE | 2025-07-19 09:43 | RAD_ITS ---
EXAM: XR Chest, 1 View CLINICAL INDICATION: SOB TECHNIQUE: Frontal view of the chest. COMPARISON: No relevant prior studies available. FINDINGS: LUNGS AND PLEURAL SPACES: See below. HEART: Cardiomegaly with mild congestion. MEDIASTINUM: Unremarkable. Normal mediastinal contour. BONES/JOINTS: Unremarkable. No acute fracture. RAD/Chest PA and Lateral IMPRESSION: Cardiomegaly with mild congestion. Reading Location: [id number]
== END | disposition home or self-care (01) ==
LOC: RAD 09:39
PROVIDERS: PCP Family Medicine Geriatric Medicine; Referring Provider Family Medicine Geriatric Medicine; Visit Provider Family Medicine Geriatric Medicine
DX: R06.02 Shortness of breath (principal)
CPT/HCPCS: 71046